=== PATIENT | female | born 1940 | race Caucasian/White ===

== ENCOUNTER 2017-07-28 21:29 | Inpatient (IN) | payer MEDICAID ==
--- NOTE | 2017-07-28 21:57 | ED Physician Chart ---
ED Chief Complaint/HPI - Patient Information Date Seen:: 07/28/17 Time Seen:: 21:45 Chief Complaint:: Abdominal pain for 2 days. History of Present Illness:: Brought in by private auto with her [id number]-nl-wto Evie for the above reason. Pt is [place] speaking. Interpretation is provided by her gndpqove-na-ael Evie per pt's request. Interpretation is also provided by staff member Fabiola to ensure full understanding. Pain is constant, localized at epigastric region, and pressure-like. No known precipitating or relieving factors. Pt had nausea/ vomiting earlier with vomitus consists of gastric content. No hematemesis. Last BM yesterday that was normal in color/consistency. No hematochezia or melena. No fever. Pt had same pain about 6 months ago and was diagnosed to have renal failure. Pt was advised to have hemodialysis but she declined. Allergies:: Allergies Allergy/AdvReac Type Severity Reaction Status Date / Time No Known Allergies Allergy Verified 07/28/17 21:39 Vitals:: see Nurse Note. Historian:: Patient Family MD/PCP:: unknown LMP:: Postmenopausal Review:: Nurse's Note Reviewed ED Review of Systems - Review of Systems General/Constitutional: No fever, No weight loss, Edema (in LE's), Loss of appetite Skin: No rash, No bruising Head: No headache, No light-headedness Eyes: No loss of vision, No pain ENT: No earache, No nasal drainage, No sore throat Neck: No neck pain, No swelling, No thyromegaly, No stiffness, No mass noted Cardio Vascular: No chest pain, No palpitations, edema (mild) Pulmonary: SOB (occasional), No cough, No wheezing GI: Nausea, Vomiting, No diarrhea, Pain, No melena, No hematochezia, No constipation, No hematemesis G/U: No dysuria, No frequency, No hematuria 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: No vaginal discharge, No abnormal vaginal bleed Musculoskeletal: No bone or joint pain Endocrine: No polyuria, No polydipsia Psychiatric: No prior psych history Hematopoietic: No bruising, No lymphadenopathy Allergic/Immuno: No urticaria, No angioedema Neurological: No syncope, No focal symptoms, No weakness, No paresthesia, No headache, No confusion ED Past Medical History - Past Medical History Past Medical History: HTN, DM, Dyslipidemia, ESRD, Other (chronic anemia.) Family History: None Social History: Non Smoker, No Alcohol, No Drug Use, , Other (lives with her son and [id number]-fax) Employment:: Retired Surgical History: Cholecystectomy (laparoscopic cholecystectomy about 6 y/a) Psychiatricy History: None Medication: Reviewed Family Medical History - Family Member Mother History Unknown: Yes ED Physical Exam - Physical Examination General/Constitutional: Awake, Well-developed, well-nourished, Alert, No distress, Non-toxic appearing Other Gen/Cons comments:: Breathes comfortably, speaks clearly, and interacts normally. Head: Atraumatic Eyes: Lids, conjuctiva normal, PERRL, EOMI Skin: Nl inspection, No rash, No ecchymosis, Well hydrated, No lymphadenopathy ENMT: External ears, nose nl, Nasal exam nl, Oropharynx nl Neck: Nontender, Full ROM w/o pain, No JVD, No nuchal rigidity, No mass, No stridor Respiratory: Nl effort/Exclusion, Clear to Auscultation, No Wheeze/Rhonchi/Rales Cardio Vascular: RRR, No murmur, gallop, rubs GI: No organomegaly, Normal BS's, Nondistended, No mass/bruits, No McBurney tenderness Other GI comments:: Tenderness at epigastric region. Negative [place]'s, Shi's, and Robison-Zavala's signs. Obese but soft. : No CVA tenderness Extremities: No tenderness or effusion, Full ROM, No edema Neuro/Psych: Alert/oriented (oriented x 3), Mood normal, No focal deficits ED Labs/Radiology/EKG Results - Lab Results Results: Laboratory Tests 07/28/17 07/28/17 07/28/17 22:29 22:34 22:34 WBC 10.3 RBC 2.95 L Hgb 9.1 L Hct 28.3 L MCV 95.9 MCH 31.0 MCHC Differential 32.3 RDW 15.7 Plt Count 305 MPV 6.7 PT 9.6 INR 0.92 PTT (Actin FS) 25.6 L Sodium Potassium Chloride Carbon Dioxide Anion Gap BUN Creatinine Est GFR ( Amer) Est GFR (Non-Af Amer) BUN/Creatinine Ratio Glucose POC Glucose 134 H Calcium Total Bilirubin AST ALT Alkaline Phosphatase Creatine Kinase Troponin I Total Protein Albumin Globulin Albumin/Globulin Ratio Amylase Lipase 07/28/17 07/28/17 22:34 22:34 WBC RBC Hgb Hct MCV MCH MCHC Differential RDW Plt Count MPV PT INR PTT (Actin FS) Sodium 125 L Potassium 5.6 H Chloride 96 L Carbon Dioxide 20.5 L Anion Gap 14.1 BUN 80 H Creatinine 4.0 H Est GFR ( Amer) TNP Est GFR (Non-Af Amer) TNP BUN/Creatinine Ratio 20.0 Glucose 136 H POC Glucose Calcium 9.3 Total Bilirubin 0.4 AST 17 ALT 11 Alkaline Phosphatase 105 H Creatine Kinase 81 Troponin I 0.26 H* Total Protein 7.5 Albumin 3.6 L Globulin 3.9 Albumin/Globulin Ratio 0.9 L Amylase 108 H Lipase 52 Laboratory Tests 07/28/17 07/28/17 07/28/17 22:29 22:34 22:34 WBC 10.3 RBC 2.95 L Hgb 9.1 L Hct 28.3 L MCV 95.9 MCH 31.0 MCHC Differential 32.3 RDW 15.7 Plt Count 305 MPV 6.7 Band Neutrophils % 1 Neutrophils (Manual) 85 H Lymphocytes 10 L Monocytes 4 Platelet Estimate ADEQUATE PT 9.6 INR 0.92 PTT (Actin FS) 25.6 L Sodium Potassium Chloride Carbon Dioxide Anion Gap BUN Creatinine Est GFR ( Amer) Est GFR (Non-Af Amer) BUN/Creatinine Ratio Glucose POC Glucose 134 H Calcium Total Bilirubin AST ALT Alkaline Phosphatase Creatine Kinase Troponin I B-Natriuretic Peptide Total Protein Albumin Globulin Albumin/Globulin Ratio Amylase Lipase Urine Source Urine Color Urine Clarity Urine pH Ur Specific Sells Urine Protein Urine Glucose (UA) Urine Ketones Urine Blood Urine Nitrate Urine Bilirubin Urine Urobilinogen Ur Leukocyte Esterase Urine RBC Urine WBC Ur Epithelial Cells Urine Bacteria 07/28/17 07/28/17 07/28/17 22:34 22:34 22:34 WBC RBC Hgb Hct MCV MCH MCHC Differential RDW Plt Count MPV Band Neutrophils % Neutrophils (Manual) Lymphocytes Monocytes Platelet Estimate PT INR PTT (Actin FS) Sodium 125 L Potassium 5.6 H Chloride 96 L Carbon Dioxide 20.5 L Anion Gap 14.1 BUN 80 H Creatinine 4.0 H Est GFR ( Amer) TNP Est GFR (Non-Af Amer) TNP BUN/Creatinine Ratio 20.0 Glucose 136 H POC Glucose Calcium 9.3 Total Bilirubin 0.4 AST 17 ALT 11 Alkaline Phosphatase 105 H Creatine Kinase 81 Troponin I 0.26 H* B-Natriuretic Peptide 1860.0 H Total Protein 7.5 Albumin 3.6 L Globulin 3.9 Albumin/Globulin Ratio 0.9 L Amylase 108 H Lipase 52 Urine Source Urine Color Urine Clarity Urine pH Ur Specific Sells Urine Protein Urine Glucose (UA) Urine Ketones Urine Blood Urine Nitrate Urine Bilirubin Urine Urobilinogen Ur Leukocyte Esterase Urine RBC Urine WBC Ur Epithelial Cells Urine Bacteria 07/28/17 23:00 WBC RBC Hgb Hct MCV MCH MCHC Differential RDW Plt Count MPV Band Neutrophils % Neutrophils (Manual) Lymphocytes Monocytes Platelet Estimate PT INR PTT (Actin FS) Sodium Potassium Chloride Carbon Dioxide Anion Gap BUN Creatinine Est GFR ( Amer) Est GFR (Non-Af Amer) BUN/Creatinine Ratio Glucose POC Glucose Calcium Total Bilirubin AST ALT Alkaline Phosphatase Creatine Kinase Troponin I B-Natriuretic Peptide Total Protein Albumin Globulin Albumin/Globulin Ratio Amylase Lipase Urine Source CLEAN C Urine Color YELLOW Urine Clarity CLEAR Urine pH 6.0 Ur Specific Sells 1.015 Urine Protein >=300 Urine Glucose (UA) NEGATIVE Urine Ketones NEGATIVE Urine Blood SMALL H Urine Nitrate NEGATIVE Urine Bilirubin NEGATIVE Urine Urobilinogen 0.2 Ur Leukocyte Esterase NEGATIVE Urine RBC 2-5 Urine WBC 6-10 H Ur Epithelial Cells MODERATE Urine Bacteria FEW - Radiology Results Results: PCXR: Based on my interpretation, Increased markings in lower lung hurt with bilateral pleural effusion and pulmonary vascular congestion/mild cephalization. Cannot r/o bibasilar pneumonia CT abdomen/pelvis without contrast: Large bilateral pleural effusions with bibasilar airspace consolidations in the lungs. Multifocal areas of air trapping also seen in the lungs. Atherosclerosis of the bilateral iliac arteries. Status post cholecystectomy. Herniation of the loops of intestine in left lateral and posterior abdominal wall. No bowel obstruction. 1.5 cm exophytic benign right renal cyst. Degenerative changes in krysta spine. Official report per Dr. Sami Knox, radiologist. - EKG Interpretations EKG Time:: 23:16 Rate & Rhythm: NSR with VR 93 Comments:: Incomplete LBBB, NSSTT changes. monitoring manager: NSR with VR 80. No ectopy. ED Septic Shock - . Is Septic Shock (SBP<90, OR Lactate>4 mmol\L) present?: No ED Reassessment (Disposition) - Reassessment Reassessment:: 1140 Pt remains stable. No new findings. Pain medication was offered earlier but pt declined. She states that her pain is tolerable. 0010 Pt had dyspnea earlier. She was given HHN with DuoNeb. Pt now breathes more comfortably. EKG, CXR, CT and available lab findings have been reviewed with pt. Management plan has been discussed. Interpretation by her daughter-in- law Evie per pt's request. 0045 Case was discussed with Dr. Grant with pertinent H & P, EKG, CXR, CT, and available lab findings reviewed. He concurred with current management. Pt is to be admitted to ICU under his care. Reassessment Condition:: Improved - Diagnosis Diagnosis:: Upper abdominal pain related to acute gastritis vs possible bibasilar pneumonia with bilateral pleural effusion. Stable and improved. End stage renal disease by hx Mild hyperkalemia Chronic anemia Mildly elevated troponin I Diabetes mellitus. - Patient Disposition Admitted to:: ICU Admitting Medical Physician:: Josesito Grant Time:: 00:50 Condition at Disposition:: Stable, Improved ED Discharge Plan - Patient Disposition Admit/Discharge/Transfer: Acute Care w/in this hosp
[2017-07-28 22:47] LABS: HEMATOCRIT 28.3 % (41.0-60); HEMOGLOBIN 9.1 gm/dL (12-16); MEAN CELL VOLUME 95.9 fl (81-100); MEAN CORPUSCULAR HGB CONC 32.3 pg (28.0-36.0); MEAN PLATELET VOLUME 6.7 fl; PLATELET COUNT 305 Th/cmm (150-400); RED BLOOD COUNT 2.95 Mil/cmm (3.80-5.20); RED CELL DISTRIBUTION WIDTH 15.7 % (11.5-20.0); WHITE BLOOD COUNT 10.3 Th/cmm (4.8-10.8)
[2017-07-28 22:51] LABS: MANUAL DIFF REQUIRED? YES
[2017-07-28 23:02] LABS: ALB/GLOB RATIO 0.9 (1.0-1.8); ALBUMIN 3.6 gm/dL (3.7-5.3); ALKALINE PHOSPHATASE 105 U/L (34-104); AMYLASE SERUM 108 U/L (29-103); ANION GAP 14.1 (7.0-16.0); BILIRUBIN,TOTAL 0.4 mg/dL (0.3-1.0); CALCIUM SERUM 9.3 mg/dL (8.6-10.3); CARBON DIOXIDE 20.5 mEq/L (21.0-31.0); CHLORIDE 96 mEq/L (98-107); CREATININE KINASE 81 U/L (30-223); GLUCOSE 136 mg/dL (70-105); LIPASE 52 U/L (11-82); POTASSIUM SERUM 5.6 mEq/L (3.5-5.1); SGOT 17 U/L (13-39); SGPT/ALT 11 U/L (7-52); SODIUM SERUM 125 mEq/L (136-145); TOTAL PROTEIN,SERUM 7.5 gm/dL (6.0-8.3)
[2017-07-28 23:06] LABS: INR 0.92 (0.5-1.4); PROTHROMBIN TIME (TEST) 9.6 SECONDS (9.5-11.5)
[2017-07-28 23:13] LABS: URINE MICROSCOPIC INDICATED? YES; URINE SOURCE CLEAN C
[2017-07-28 23:15] LABS: BUN - UREA NITROGEN 80 mg/dL (7-25)
[2017-07-28 23:22] LABS: URINE BILIRUBIN NEGATIVE (NEGATIVE); URINE BLOOD SMALL (NEGATIVE); URINE GLUCOSE (UA) NEGATIVE (NEGATIVE); URINE KETONE NEGATIVE (NEGATIVE); URINE LEUKOCYTE ESTERASE NEGATIVE (NEGATIVE); URINE NITRATE NEGATIVE (NEGATIVE); URINE PROTEIN >=300 mg/dL (NEGATIVE); URINE UROBILINOGEN 0.2 E.U./dL (0.2 - 1.0)
[2017-07-28 23:27] LABS: URINE CLARITY CLEAR (CLEAR); URINE COLOR YELLOW
[2017-07-28] MEDS ORDERED: Albuterol/Ipratropium Neb 3 ML AERS HHN ONE ×2 (23:27)
[2017-07-28 23:28] LABS: URINE BACTERIA FEW /hpf (NONE SEEN); URINE EPITHELIAL CELLS MODERATE /lpf (FEW)
[2017-07-28 23:31] LABS: BAND NEUTROPHILE 1 % (0-10); LYMPHOCYTE 10 % (20-50); MONOCYTE 4 % (2-10); NEUTROPHILS 85 % (40-80); PLATELET ESTIMATE ADEQUATE (NORMAL); TOTAL CELLS COUNTED 100
[2017-07-29] MEDS ORDERED: cefTRIAXone 1 GM in Sodium Chloride 0.9% 50 ML IV ONE (00:42)
[2017-07-29] MEDS ORDERED: Azithromycin 500 MG in Sodium Chloride 0.9% 250 ML IV ONE (00:43)
[2017-07-29] MEDS ORDERED: Pneumococcal Vaccine 0.5 mL Vial IM ONE (03:36)
[2017-07-29 03:40] VITALS: BP 169/63
--- NOTE | 2017-07-29 07:28 | Diagnostic Imaging Report ---
Exam: Portable chest x-ray. HISTORY: Dyspnea. 5: Portable examination of the chest at 0003 hours reviewed no prior studies available comparison. The study demonstrates extensive bilateral basilar pneumonia with superimposed effusions. Superimposed congestive heart failure changes are noted. Ill-defined the 1 cm nodularity is noted overlying the right upper lung. Clinical correlation and comparison will study is recommended. For studies available for review CT examination chest with helpful Bony thorax intact. IMPRESSION: 1. Congestive heart failure 2. Bilateral interstitial infiltrates with superimposed effusions. 3. 1 cm nodularity right upper lung. CT examination of the helpful.
--- NOTE | 2017-07-29 07:35 | Diagnostic Imaging Report ---
Exam: CT examination abdomen pelvis. HISTORY: Abdominal pain. Total DLP equals 625 CTDI equals 11.7 Findings: Multiple contiguous thin section of the abdomen pelvis obtained from lower thorax to pubic symphysis without the administration of oral or intravenous contrast material. No prior studies available comparison. The study demonstrates congestive heart failure changes bilaterally with bilateral interstitial infiltrates with effusions. Clinical correlation recommended. The study is limited due to patient motion artifacts. The liver and spleen are intact. There is evidence of post cholecystectomy changes. The stomach is distended with fluid content. Abdominal aorta diffusely calcified. Left kidney is visualized. The right kidney demonstrate no evidence of obstructive uropathy or nephrolithiasis. Calcification of the right renal artery appreciated. Degenerative changes of lumbar sacral spine appreciated. The bowel gas sedation nonspecific. There is evidence of for herniation of the bowel in the left lateral posterior abdominal wall. There is no evidence of strangulation obstruction. The urinary bladder is normal. Bony structures demonstrate no evidence for lytic or blastic changes. IMPRESSION: 1. Bilateral interstitial pneumonia superimposed effusions. 2. Congestive heart failure 3. Distention of stomach 4. Status post cholecystectomy 5. Herniation of the small and large bowel loops left lateral posterior abdominal wall without strangulation. 6. Nonvisualization of left kidney
--- NOTE | 2017-07-29 09:03 | History and Physical ---
History of Present Illness - HPI Chief Complaint: Abdominal pain HPI: Patient refer that for few days she has having abdominal pain, and later started with CP. Pain increased and she decided to come to ER. In ER was found that patient is having SOB with low O2 saturation, Labs showed CKD, hyperkalemia , BNP elevated and Bilateral PNA. Vital Signs: Last Vital Signs Temp 97.6 F 07/29/17 03:00 Pulse 70 07/29/17 06:00 Resp 15 07/29/17 06:00 BP 151/53 07/29/17 06:00 Pulse Ox 98 07/29/17 06:00 Past Medical History Cardiovascular: Report: CAD, CHF, HTN Pulmonary: Report: No Pertinent Hx REGULATORY AFFAIRS COORDINATOR: Report: No Pertinent Hx GI: Report: No Pertinent Hx Psych: Report: No Pertinent Hx Musculoskeletal: Report: No Pertinent Hx Infectious Disease: Report: No Pertinent Hx Renal/: Report: Chronic Renal Insuff Endocrine: Report: Diabetes Dermatology: Report: No Pertinent Hx - Past Surgical History Past Surgical History: Other (Cholecystectomy, Surgical removal of Left Kidney.) Family Medical History - Family Member Mother History Unknown: Yes Social History Smoke: No Alcohol: None Drugs: None Lives: With Family Domestic Violence: Negative - Medications Home Medications: Home Medication Medication Instructions Recorded Type Allopurinol [Zyloprim*] 100 mg PO BID 07/28/17 History Losartan/Hydrochlorothiazide 1 tab PO DAILY 07/28/17 History [Losartan-Hctz 50-12.5 mg Tab] NIFEdipine [Procardia] 10 mg PO DAILYRT 07/28/17 History - Allergies Allergies/Adverse Reactions: Allergies Allergy/AdvReac Type Severity Reaction Status Date / Time No Known Allergies Allergy Verified 07/28/17 21:39 Review of Systems - Review of Systems Constitutional: Report: No Significant Eyes: Report: No Significant ENT: Report: No Significant Respiratory: Report: Other (SOB) Cardiovascular: Report: Chest Pain Gastrointestinal: Report: Abdominal Pain Genitourinary: Report: No Significant Musculoskeletal: Report: No Significant Skin: Report: No Significant Neurological: Report: Weakness Physical Exam - Physical Exam HEENT: Report: Ears Nose Throat within normal limits Neck: Report: Within normal limits Cardiovascular Systems: Report: Regular, Rate and Rhythm Respiratory: Report: Other (Rude respiration and SOB) Abdomen: Report: Tender to palpation Back: Report: Inspection of back is within normal limits. Extremities: Report: Non-tender to palpation. Skin: Report: Color of skin is within normal limits Neuro/Psych: Report: Mood affect is within normal limits - Assessment Assessment: Patient is awake alert in some distress secondary to SOB. Dx: Abdominal pain, Atypical Chest Pain, CHF exacerbation, CKD, Bilateral PNA, Elevated troponins, DM, HTN. - Plan Plan: Patient in ICU nasal O2, Continue with home meds, Lassix is added. Consult with Cardio, Nephro and Pulmonology requested.
[2017-07-29 09:58] LABS: EOSINOPHILE ABSOLUTE 0.2 Th/cmm (0.1-0.4); HEMATOCRIT 26.8 % (41.0-60); LYMPHOCYTE ABSOLUTE 0.7 Th/cmm (1.5-3.0); MONOCYTE ABSOLUTE 0.5 Th/cmm (0.3-1.0)
[2017-07-29 10:01] LABS: % BASOPHILS 0.3 % (0.0-2.0); % EOSINOPHILS 1.8 % (0.0-5.0); % LYMPHOCYTES 7.2 % (20.0-50.0); % MONOCYTES 5.7 % (2.0-10.0); HEMOGLOBIN 8.9 gm/dL (12-16); MEAN CELL VOLUME 95.4 fl (81-100); MEAN CORPUSCULAR HEMOGLOBIN 31.6 pg (27.0-31.0); MEAN CORPUSCULAR HGB CONC 33.1 pg (28.0-36.0); NEUTROPHILE ABSOLUTE 7.8 Th/cmm (1.8-8.0); PLATELET COUNT 281 Th/cmm (150-400); RED BLOOD COUNT 2.81 Mil/cmm (3.80-5.20); WHITE BLOOD COUNT 9.2 Th/cmm (4.8-10.8)
[2017-07-29 10:19] LABS: ALB/GLOB RATIO 0.9 (1.0-1.8); ALBUMIN 3.5 gm/dL (3.7-5.3); ALKALINE PHOSPHATASE 106 U/L (34-104); ANION GAP 14.1 (7.0-16.0); BILIRUBIN,TOTAL 0.3 mg/dL (0.3-1.0); CALCIUM SERUM 9.2 mg/dL (8.6-10.3); CARBON DIOXIDE 21.9 mEq/L (21.0-31.0); CHLORIDE 101 mEq/L (98-107); GLUCOSE 100 mg/dL (70-105); SGOT 16 U/L (13-39); SGPT/ALT 12 U/L (7-52); SODIUM SERUM 132 mEq/L (136-145); TOTAL PROTEIN,SERUM 7.3 gm/dL (6.0-8.3)
[2017-07-29 10:22] LABS: BUN - UREA NITROGEN 82 mg/dL (7-25)
[2017-07-29] MEDS ORDERED: Albuterol/Ipratropium Neb 3 ML AERS HHN PRN (11:19)
[2017-07-29] MEDS ORDERED: Albuterol/Ipratropium Neb 3 ML AERS HHN ONE ×2 (11:27→12:04)
[2017-07-29 11:52] LABS: pH 7.24 (7.35-7.45)
[2017-07-29] MEDS ORDERED: Sodium Bicarbonate 8.4% 50mEq PFS IVP ONE ×2 (12:30→12:35)
[2017-07-29 15:02] LABS: pH 7.33 (7.35-7.45)
[2017-07-29] MEDS: Albuterol/Ipratropium Neb 3 ML AERS HHN SCH ×3 (15:39→22:33)
[2017-07-29] MEDS ORDERED: VTE Chemical Prophylaxis Screen/Admission MC PRN ×2 (16:48→16:52)
--- NOTE | 2017-07-29 20:29 | Consultation ---
DATE OF CONSULTATION: 07/29/2017 This is a patient of Dr. Grant. Thank you, Dr. Grant, for this consultation. HISTORY OF PRESENT ILLNESS: This is a 77-year-old female who was admitted with shortness of breath and weakness and was found to have some desaturation and required to be placed on the BiPAP. The patient was admitted with pneumonia, pulmonary edema, received Lasix, and has improved significantly now after being on the BiPAP. Her ABG showed CO2 retention and hypoxemia. The patient apparently has history of hypertension, diabetes for many years and had nephrectomy at one point 20 years ago and also has chronic kidney disease as well. PAST MEDICAL HISTORY: As above. SOCIAL HISTORY: No smoking or drinking. REVIEW OF SYSTEMS: Unable to obtain because of the patient's condition. PHYSICAL EXAMINATION: GENERAL: The patient is awake on the BiPAP, comfortable, no distress. VITAL SIGNS: Temperature 96.8, pulse 93, respirations 22, blood pressure 127/70, and saturation 99%. HEENT: Atraumatic and normocephalic. Pupils are equal to light and accommodation. Ears, nose and throat are normal. NECK: Supple. No JVD. CHEST: There are decreased breath sounds at bases, few rhonchi. HEART: Regular rate and rhythm. ABDOMEN: Soft. EXTREMITIES: No edema. LABORATORY DATA: WBC is 9.2, hemoglobin 8.9 and hematocrit 26.8, and platelets 281. ABGs: PH 7.24, pCO2 of 53, pO2 of 58, bicarbonate 20, saturation is 84%. Sodium is 132, potassium 5.0, BUN is 82, and creatinine 4.0. The chest x-ray showed bilateral infiltrate and pulmonary edema, left-sided effusion. IMPRESSION: This is a 77-year-old female with, 1. Respiratory failure. 2. Pulmonary edema. 3. Possible pneumonia. 4. Acute on chronic kidney disease. PLAN: 1. Continue BiPAP and follow up ABGs. 2. Diuresis. 3. If that is not effective and kidney function continues to deteriorate, might need to be on hemodialysis at one point. Discussed with the daughter ___ at bedside. JOB# [id number]
--- NOTE | 2017-07-29 21:23 | Consultation ---
DATE OF CONSULTATION: 07/29/2017 ATTENDING PHYSICIAN: Josesito Grant MD ANIMAL SCIENTIST: Neftaly Worley MD REASON FOR CONSULTATION: Worsening kidney function, electrolyte imbalance and fluid management. HISTORY OF PRESENT ILLNESS: This is a 77-year-old female with past medical history of chronic kidney disease, who came in because of respiratory distress. Three days prior to admission, the patient was in [facility], vacationing with her family when she developed dyspnea on exertion associated with abdominal breathing. This resulted in diffuse abdominal pain. She could not sleep supine and had to be upright. She noted generalized weakness especially involving her lower extremities associated with pain. Two days prior to admission, she saw a physician in [place], who recommended dialysis. She refused at that time. A few hours prior to admission, she developed retching, but no vomiting. She continued to be weak with respiratory distress and abdominal pain. She then proceeded to the Emergency Room. CT scan of the abdomen/pelvis revealed bilateral interstitial pneumonia with effusions, CHF, distended stomach, herniated small and large bowel loops without strangulation. This was good for by a chest x-ray, which showed CHF, bilateral interstitial infiltrates, right upper lobe nodularity. Her BNP level was 1860 with a troponin of 0.26. Her BUN/creatinine were 80/4 with a sodium of 125 and potassium of 5.6. The patient admitted to having poor appetite for months, bad taste in her mouth as well as cramping. PAST MEDICAL HISTORY: 1. Chronic kidney disease. 2. Type 2 diabetes mellitus. 3. Essential hypertension. 4. Left renal cell CA. 5. Gastritis. 6. Anemia of chronic kidney disease. CURRENT MEDICATIONS: She is currently on; 1. Albuterol with ipratropium. 2. Azithromycin. 3. Ceftriaxone. 4. Furosemide. 5. Losartan. 6. Hydrochlorothiazide. 8. Nifedipine. 9. Sodium bicarbonate. ALLERGIES: No known drug allergies. PAST SURGICAL HISTORY: Left nephrectomy. SOCIAL HISTORY: No history of alcohol or tobacco use. FAMILY HISTORY: This is significant for diabetes among her sisters. REVIEW OF SYSTEMS: GENERAL: She did complain of progressive generalized weakness. As mentioned appetite had also deteriorated due to bad taste in her mouth. No fever, no chills. HEENT: Occasional lightheadedness, vision and hearing acuity has diminished due to age. CARDIORESPIRATORY: She has dyspnea on exertion, occasional cough and some congestion. No chest pain, palpitations, or diaphoresis. GASTROINTESTINAL: She has retching, but no vomitus. No melena, hematochezia, diarrhea, or hematemesis. GENITOURINARY: History of chronic kidney disease. Still urinates. Denied any dysuria, no hematuria. HEMATOLOGIC: She has anemia, more likely of chronic disease. MUSCULOSKELETAL: Multiple joint arthralgias. NEUROPSYCH: No syncopal episode. No seizure activity. She has some form of neuropathy. PHYSICAL EXAMINATION: GENERAL: The patient is awake on BiPAP with [id number] respiratory distress. VITAL SIGNS: Temperature is 156/50, pulse is 85, and temperature 96.8 degrees. SKIN: Poor turgor, warm. No rash, no jaundice appreciated. HEENT: Head normocephalic, atraumatic. Eyes: Extraocular muscles intact. Pupils equal, round, reactive to light and accommodates. Anicteric sclerae, pale conjunctivae. Nose: Midline nasal septum. Mouth: Dry mucosa, adequate dentition. NECK: Supple. No adenopathy, no thyromegaly, no bruits. Trachea palpated in the midline. CHEST AND CARDIOVASCULAR: S1, S2. No rub, murmur and no gallop appreciated. Point of maximal impulse. Fifth intercostal space, left midclavicular line. No abdominal or femoral bruits appreciated. LUNGS: Equal expansion. No use of accessory muscles. No supraclavicular retractions. Scattered coarse rhonchi, no congestion, no rales appreciated. BREASTS: Symmetrical, without any discharge. ABDOMEN: Obese, soft, positive for bowel sounds. No bruits. Diffuse, nonspecific tenderness on palpation. No systolic or diastolic bruits appreciated. EXTREMITIES: No evidence of any edema, cyanosis nor clubbing. GENITOURINARY: Normal appearing female genitalia. RECTAL: Deferred because the patient is being ruled out for [place]. NEUROLOGIC: The patient is awake, responds to enquires. Motor is 5/5. Cranial nerves 2-12 intact. Sensory intact. LABORATORY DATA AND IMAGING: Labs did reveal white count 9.2, hemoglobin 8.9, hematocrit 26.8, platelets 281, and polys 85%. Sodium of 125, potassium 5.6, chloride 96, bicarb 20.5, BUN 80, and creatinine 4, glucose 136, calcium 9.3, and albumin 3.6. IMPRESSION: 1. End-stage renal disease with uremic symptoms, now requiring dialysis. 2. Acute decompensation of congestive heart failure. 3. Hyponatremia likely due to her kidney failure as well as decompensated congestive heart failure. 4. Hyperkalemia secondary again to end-stage renal disease as well as losartan. 5. Right upper lobe nodule with history of renal cell cancer, possible carcinoma. 6. Type 2 diabetes mellitus with chronic kidney disease. 7. Essential hypertension with chronic kidney disease. 8. Left renal cell cancer, status post left nephrectomy. 9. Gastritis. 10. Bilateral pneumonia, possibly community-acquired. PLAN: 1. Schedule for hemodialysis in a.m. 2. Urine sodium, eosinophils and creatinine. 3. Urine microalbumin and creatinine ratio. 4. Electrolytes, TSH and hemoglobin A1c. 5. Start the patient on Epogen. Thank you, Dr. Grant for this consult. I will follow the patient closely with you. [facility]# [id number]
--- NOTE | 2017-07-29 22:07 | Consultation ---
DATE OF CONSULTATION: 07/29/[address] Grant. HISTORY AND PHYSICAL: This is a 77-year-old female patient who was brought to the Emergency Room complaining of shortness of breath. According to the patient, she has renal failure. The patient was in [place]. The patient was advised to have dialysis, which patient refused. The patient has also nausea and vomiting. The patient is admitted to ICU, on BiPAP. Cardiac consult requested for congestive heart failure. PAST MEDICAL HISTORY: Renal failure, hyperkalemia, iron deficiency anemia, diabetes mellitus type 2, diabetic CKD stage IV, hypertension, bilateral pneumonia, pleural effusion, left renal cell carcinoma with nephrectomy. FAMILY HISTORY: Unremarkable. SOCIAL HISTORY: No history of smoking or alcohol abuse. ALLERGIES: No known allergies. PHYSICAL EXAMINATION: VITAL SIGNS: Blood pressure 150/90, pulse 100 and respirations, on BiPAP. HEAD: Normocephalic. No lumps or bumps. EYES: Pupils equal, reactive to light. Fundi show AV nicking, sclerae white, conjunctivae pink. NECK: Carotid 2+. Normal upstroke. JVD flat. Thyroid not palpable. Lymph nodes not palpable. CHEST: Shows increased AP diameter. No kyphosis or scoliosis. LUNGS: Bilateral bronchovesicular breath sounds. Occasional wheeze. No rales. HEART: PMI, fifth intercostal space with lateral to midclavicular line. S1, S2, S3, S4, soft systolic murmur. ABDOMEN: Soft. Liver and spleen not palpable. No organomegaly. Bowel sounds active. NEUROLOGIC: Unremarkable. EXTREMITIES: Peripheral pulses 2+. No pedal edema. CLINICAL IMPRESSION: Congestive heart failure; diastolic dysfunction; acute respiratory failure, on BiPAP; acute renal failure secondary to diabetes; hyponatremia; hypokalemia; iron deficiency anemia; diabetes mellitus type 2; hypertension; bilateral pneumonia; pleural effusion; left renal cell carcinoma with nephrectomy. The patient has a nodule in the lung, most likely secondary from the cancer. PLAN: The patient to control the heart rate with Cardizem. Continue anticoagulation, IV antibiotics and monitor the patient on telemetry bed. Also, get an echocardiogram. JOB# [id number]
[2017-07-30] MEDS ORDERED: Heparin Sod 1,000 Units/mL 10ml HD SCH
[2017-07-30] MEDS ORDERED: Albumin 25% 25gm/100mL 25 GM/100 ML BTL IV PRN
[2017-07-30] MEDS: Albuterol/Ipratropium Neb 3 ML AERS HHN SCH ×5 (02:59→23:14)
[2017-07-30 04:49] LABS: MEAN CELL VOLUME 96.7 fl (81-100); MEAN CORPUSCULAR HEMOGLOBIN 30.7 pg (27.0-31.0); MEAN CORPUSCULAR HGB CONC 31.7 pg (28.0-36.0); MEAN PLATELET VOLUME 6.9 fl; PLATELET COUNT 257 Th/cmm (150-400); RED BLOOD COUNT 2.47 Mil/cmm (3.80-5.20); RED CELL DISTRIBUTION WIDTH 15.8 % (11.5-20.0)
[2017-07-30 05:00] LABS: HEMATOCRIT 23.9 % (41.0-60); HEMOGLOBIN 7.6 gm/dL (12-16); MANUAL DIFF REQUIRED? YES
[2017-07-30 05:20] LABS: PHOSPHOROUS 7.6 mg/dL (2.5-5.0); URIC ACID 3.5 mg/dL (2.3-6.6)
[2017-07-30 05:23] LABS: ALB/GLOB RATIO 0.9 (1.0-1.8); ALBUMIN 2.8 gm/dL (3.7-5.3); ALKALINE PHOSPHATASE 80 U/L (34-104); ANION GAP 13.4 (7.0-16.0); BILIRUBIN,TOTAL 0.3 mg/dL (0.3-1.0); CALCIUM SERUM 8.2 mg/dL (8.6-10.3); CARBON DIOXIDE 23.4 mEq/L (21.0-31.0); CHLORIDE 100 mEq/L (98-107); GLUCOSE 93 mg/dL (70-105); POTASSIUM SERUM 3.8 mEq/L (3.5-5.1); SGOT 11 U/L (13-39); SGPT/ALT 9 U/L (7-52); SODIUM SERUM 133 mEq/L (136-145); TOTAL PROTEIN,SERUM 6.1 gm/dL (6.0-8.3)
[2017-07-30 05:29] LABS: BUN - UREA NITROGEN 80 mg/dL (7-25); CREATININE - SERUM 4.1 mg/dL (0.6-1.2)
[2017-07-30 05:41] LABS: BASOPHIL 1 % (0-3); EOSINOPHIL 3 % (0-5); LYMPHOCYTE 15 % (20-50); MONOCYTE 3 % (2-10); NEUTROPHILS 78 % (40-80); TOTAL CELLS COUNTED 100; WHITE BLOOD COUNT 4.7 Th/cmm (4.8-10.8)
[2017-07-30 07:58] LABS: EOSINOPHIL SMEAR SOURCE URINE; EOSINOPHILS SMEAR COUNT NONE SEEN (NONE SEEN)
--- NOTE | 2017-07-30 08:18 | Diagnostic Imaging Report ---
CHEST X-RAY: AP view INDICATION: Shortness of breath COMPARISON: 07/28/2017 FINDINGS: Diffuse CHF is seen with bilateral effusions and infiltrates. Cardiomegaly is noted. IMPRESSION: Diffuse CHF with bilateral effusions and infiltrates and probable superimposed pneumonia. Cardiomegaly and atherosclerotic vascular disease.
--- NOTE | 2017-07-30 09:03 | General Progress Note ---
Subjective - Review of Systems Service Date: 07/30/17 Subjective: I am breathing better Objective - Results Result Diagrams: 07/30/17 04:10 07/30/17 04:10 Recent Labs: Laboratory Last Values WBC 4.7 Th/cmm (4.8-10.8) L D 07/30/17 04:10 RBC 2.47 Mil/cmm (3.80-5.20) L 07/30/17 04:10 Hgb 7.6 gm/dL (12-16) L* 07/30/17 04:10 Hct 23.9 % (41.0-60) L D 07/30/17 04:10 MCV 96.7 fl (81-100) 07/30/17 04:10 MCH 30.7 pg (27.0-31.0) 07/30/17 04:10 MCHC Differential 31.7 pg (28.0-36.0) 07/30/17 04:10 RDW 15.8 % (11.5-20.0) 07/30/17 04:10 Plt Count 257 Th/cmm (150-400) 07/30/17 04:10 MPV 6.9 fl 07/30/17 04:10 Neutrophils % 85.0 % (40.0-80.0) H 07/29/17 09:40 Band Neutrophils % 1 % (0-10) 07/28/17 22:34 Lymphocytes % 7.2 % (20.0-50.0) L 07/29/17 09:40 Monocytes % 5.7 % (2.0-10.0) 07/29/17 09:40 Eosinophils % 1.8 % (0.0-5.0) 07/29/17 09:40 Basophils % 0.3 % (0.0-2.0) 07/29/17 09:40 Neutrophils (Manual) 78 % (40-80) 07/30/17 04:10 Lymphocytes 15 % (20-50) L 07/30/17 04:10 Monocytes 3 % (2-10) 07/30/17 04:10 Eosinophils 3 % (0-5) 07/30/17 04:10 Basophils 1 % (0-3) 07/30/17 04:10 Platelet Estimate ADEQUATE (NORMAL) 07/28/17 22:34 Eos Smear Source URINE 07/30/17 06:50 Eos Smear Total Cells NONE SEEN (NONE SEEN) 07/30/17 06:50 PT 9.6 SECONDS (9.5-11.5) 07/28/17 22:34 INR 0.92 (0.5-1.4) 07/28/17 22:34 PTT (Actin FS) 25.6 SECONDS (26.0-38.0) L 07/28/17 22:34 Specimen Source Arterial 07/29/17 14:45 Sample Site RB 07/29/17 14:45 pH 7.33 (7.35-7.45) L 07/29/17 14:45 pCO2 47.0 mmHg (35.0-45.0) H 07/29/17 14:45 pO2 84.0 mmHg (80.0-100.0) 07/29/17 14:45 HCO3 23.7 mEq/L (20.0-26.0) 07/29/17 14:45 Base Excess -1.5 mEq/L (-3.0-3.0) 07/29/17 14:45 O2 Saturation 95.0 % (92.0-100.0) 07/29/17 14:45 Trace Test NA 07/29/17 14:45 Vent Rate 12 07/29/17 14:45 Inspired O2 35 07/29/17 14:45 Tidal Volume 350 07/29/17 14:45 PEEP NA 07/29/17 14:45 Pressure (ins/psv/peep) 6 07/29/17 14:45 Critical Value SH 07/29/17 14:45 Sodium 133 mEq/L (136-145) L 07/30/17 04:10 Potassium 3.8 mEq/L (3.5-5.1) 07/30/17 04:10 Chloride 100 mEq/L (98-107) 07/30/17 04:10 Carbon Dioxide 23.4 mEq/L (21.0-31.0) 07/30/17 04:10 Anion Gap 13.4 (7.0-16.0) 07/30/17 04:10 BUN 80 mg/dL (7-25) H 07/30/17 04:10 Creatinine 4.1 mg/dL (0.6-1.2) H* 07/30/17 04:10 Est GFR ( Amer) TNP 07/30/17 04:10 Est GFR (Non-Af Amer) TNP 07/30/17 04:10 BUN/Creatinine Ratio 19.5 07/30/17 04:10 Glucose 93 mg/dL (70-105) 07/30/17 04:10 POC Glucose 134 MG/DL (70 - 105) H 07/28/17 22:29 Uric Acid 3.5 mg/dL (2.3-6.6) 07/30/17 04:10 Calcium 8.2 mg/dL (8.6-10.3) L 07/30/17 04:10 Phosphorus 7.6 mg/dL (2.5-5.0) H 07/30/17 04:10 Magnesium 2.0 mg/dL (1.9-2.7) 07/30/17 04:10 Total Bilirubin 0.3 mg/dL (0.3-1.0) 07/30/17 04:10 AST 11 U/L (13-39) L 07/30/17 04:10 ALT 9 U/L (7-52) 07/30/17 04:10 Alkaline Phosphatase 80 U/L (34-104) 07/30/17 04:10 Creatine Kinase 81 U/L (30-223) 07/28/17 22:34 Troponin I 0.26 ng/mL (0.01-0.05) H* 07/28/17 22:34 B-Natriuretic Peptide 1860.0 pg/mL (5.0-100.0) H 07/28/17 22:34 Total Protein 6.1 gm/dL (6.0-8.3) 07/30/17 04:10 Albumin 2.8 gm/dL (3.7-5.3) L 07/30/17 04:10 Globulin 3.3 gm/dL 07/30/17 04:10 Albumin/Globulin Ratio 0.9 (1.0-1.8) L 07/30/17 04:10 Amylase 108 U/L (29-103) H 07/28/17 22:34 Lipase 52 U/L (11-82) 07/28/17 22:34 TSH 2.62 uIU/ml (0.34-5.60) 07/30/17 04:10 Urine Source CLEAN C 07/28/17 23:00 Urine Color YELLOW 12/17/17 23:00 Urine Clarity CLEAR (CLEAR) 07/28/17 23:00 Urine pH 6.0 (4.6 - 8.0) 07/28/17 23:00 Ur Specific [place] 1.015 (1.005-1.030) 07/28/17 23:00 Urine Protein >=300 mg/dL (NEGATIVE) 07/28/17 23:00 Urine Glucose (UA) NEGATIVE mg/dL (NEGATIVE) 07/28/17 23:00 Urine Ketones NEGATIVE mg/dL (NEGATIVE) 07/28/17 23:00 Urine Blood SMALL (NEGATIVE) H 07/28/17 23:00 Urine Nitrate NEGATIVE (NEGATIVE) 07/28/17 23:00 Urine Bilirubin NEGATIVE (NEGATIVE) 07/28/17 23:00 Urine Urobilinogen 0.2 E.U./dL (0.2 - 1.0) 07/28/17 23:00 Ur Leukocyte Esterase NEGATIVE (NEGATIVE) 07/28/17 23:00 Urine RBC 2-5 /hpf (0-5) 07/28/17 23:00 Urine WBC 6-10 /hpf (0-5) H 07/28/17 23:00 Ur Epithelial Cells MODERATE /lpf (FEW) 07/28/17 23:00 Urine Bacteria FEW /hpf (NONE SEEN) 07/28/17 23:00 Urine Creatinine 44.0 mg/dl (28.0-217.0) 07/30/17 06:50 - Physical Exam Vitals and I&O: Vital Signs Temp 96.8 F 07/30/17 08:00 Pulse 91 07/30/17 08:34 Resp 21 07/30/17 08:00 BP 156/51 07/30/17 08:35 Pulse Ox 96 07/30/17 08:00 Intake & Output 07/29/17 07/30/17 07/30/17 18:59 06:59 18:59 Intake Total 370 50 Output Total 650 500 Balance -280 -450 Weight (lbs) 72.575 kg 72.575 kg Intake: Intake, IV Amount 50 cefTRIAXone 1 gm In 50 Dextrose 5% 50 ml @ 100 mls/hr IV Q24HR [facility] Rx#: [id number] Oral 370 Output: Urine 650 500 Other: # Voids 2 # Bowel Movements 2 0 Stool Characteristics Liquid Brown Active Medications: Current Medications Albuterol/Ipratropium (Duoneb Neb) 3 ml HHN Q4HRT [facility] Stop: 09/27/17 14:59 Last Admin: 07/30/17 07:30 Dose: 3 ml Allopurinol (Zyloprim) 100 mg PO BID [facility] Stop: 09/27/17 08:59 Last Admin: 07/30/17 08:34 Dose: 100 mg Epoetin Dustin (Epogen) 10,000 units SUBQ TuThSa [facility] Stop: 09/28/17 17:56 Famotidine (Pepcid) 20 mg IVP DAILY [facility] Stop: 09/28/17 08:59 Last Admin: 07/30/17 08:35 Dose: 20 mg Furosemide (Lasix) 40 mg IVP BID [facility] Stop: 09/27/17 16:59 Last Admin: 07/30/17 08:35 Dose: 40 mg Heparin Sodium (Porcine) (Heparin Sodium) 0 units HD UD [facility] Stop: 07/31/17 00:00 Heparin Sodium (Porcine) (Heparin) 5,000 units HD UD [facility] Stop: 07/31/17 00:00 Ceftriaxone Sodium 1 gm/ (Dextrose) 50 mls @ 100 mls/hr IV Q24HR [facility] Stop: 09/28/17 04:59 Last Infusion: 07/30/17 06:10 Dose: Infused Albumin Human (Albuminar 25%) 25 gm in 100 mls @ 50 mls/hr IV PRN PRN PRN Reason: BP Support During HD Stop: 09/28/17 00:00 Insulin Aspart (Novolog Insulin Sliding Scale) 0 units SUBQ Q6HR [facility] PRN Reason: Protocol Stop: 09/28/17 11:59 Miscellaneous (Clinical Monitoring) 1 ea DAILY PRN PRN Reason: RENAL Stop: 09/27/17 07:45 Miscellaneous (Vte Chemical Prophylaxis Screen/ Admission) 1 ea PRN PRN PRN Reason: PROTOCOL Stop: 09/27/17 16:47 Miscellaneous (Vte Chemical Prophylaxis Screen/ Admission) 1 ea PRN PRN PRN Reason: PROTOCOL Stop: 09/27/17 16:51 Nifedipine (Procardia) 10 mg PO DAILY [facility] Stop: 09/27/17 08:59 Last Admin: 07/30/17 08:34 Dose: 10 mg General: Alert, Oriented x3, No acute distress HEENT: Atraumatic Neck: Supple Cardiovascular: Regular rate Lungs: Other (Rude respiration) Abdomen: Bowel sounds, Soft Extremities: Other (No edema) Neurological: Normal gait Skin: Other (Warm and dry) Psych/Mental Status: Mental status NL - Procedures Procedures: Procedures Procedure Code Date TETANUS TOXOID ADMINIST 99.38 05/28/13 Assessment/Plan - Problem List Patient Problems: All Active Problems Laceration of finger (Active) S61.219A - Assessment Assessment: Patient is awake alert in no distress. Hgb is 7.6 will repeat exam due to the sudden drop. Dx: Abdominal pain, Atypical Chest Pain, CHF exacerbation, CKD, Bilateral PNA, Elevated troponins, DM, HTN. - Plan Plan: Patient in ICU nasal O2, Continue with home meds, Lassix is added. Already seen by Cardio, Nephro and Pulmonology. Nutritional Asmnt/Malnutr-PDOC - Dietary Evaluation Malnutrition Findings (Please click <Entered> for more info): Nutritional Asmnt/Malnutrition Start: 07/29/17 17: 08 Text: Status: Complete Freq: Document 07/29/17 17:08 LCHENG (Rec: 07/29/17 17:35 [email or web address] [id number]) Nutritional Asmnt/Malnutrition Patient General Information Nutritional Screening High Risk Diagnosis abdominal pain, atypical chest pain, CHF exacerbation, CKD, bilateral PNA Pertinent Medical Hx/Surgical Hx CAD, CHF, HTN, DM, chronic renal insuff, cholecystectomy, left kidney removal Subjective Information Pt was busy with medical staff during time of visit, attempted x 2. Spoke with RN, per family pt has decreased appetite and PO intake before admitted. Pt did not eat breakfast d/t SOB this morning . Appetite was poor. Per nurse note, pt back on bipap this afternoon. Current Diet Order/ Nutrition Support Renal Pertinent Medications lasix, hctz, procardia Pertinent Labs 07/29 Na 132, K 5.0, Cl 101, BUN 82H, Cr 4.0, Glucose 100, Ca 9.2, Alb 3.5 Nutritional Hx/Data Height 1.55 m Height (Calculated Centimeters) 154.9 Current Weight (lbs) 72.575 kg Weight (Calculated Kilograms) 72.6 Weight (Calculated Grams) 56710.8 [place] Body Weight 105 % [place] Body Weight 152 Body Mass Index (BMI) 30.2 Weight Status Obese GI Symptoms GI Symptoms None Last BM none Difficult in: None Skin Integrity/Comment: intact Estimated Nutritional Goals BEE in Kcals: Adj wt of IBW Calories/Kcals/Kg 30-35 Kcals Calculated [id number] Protein: Adj wt of IBW Protein g/k Protein Calculated 54g monitor renal labs Fluid: ml [id number] or Per MD d/t acute renal failure Nutritional Problem 1. Problem Problem altered nutrition related lab values Etiology hx of chronic renal insuff Signs/Symptoms: BUN 82H, Cr 4.0 Malnutrition Alert Protein-Calorie Malnutrition N/A Is there a minimum of two criteria No selected? Query Text:Check all the applicable criteria. A minimum of two criteria are recommended for diagnosis of either severe or non-severe malnutrition. Intervention/Recommendation Comments 1. Continue with renal diet as ordered. 2. Monitor PO intake, wt daily , labs and skin integrity 3. F/U as high risk in 2-3 days, 07/31-08/01 Expected Outcomes/Goals Expected Outcomes/Goals 1. PO intake to meet at least 75% of nutritional needs. 2. Wt stability, skin to remain intact, labs to improve .
[2017-07-30 10:27] LABS: pH 7.32 (7.35-7.45)
[2017-07-30 10:28] LABS: HEMATOCRIT 24.6 % (41.0-60)
[2017-07-30] MEDS ORDERED: Probiotic Screen MC PRN (10:28)
[2017-07-30 11:35] LABS: A1C % 6.1 % (4.0-6.0)
[2017-07-30] MEDS: INSULIN ASPART SLIDING SCALE 100 UNITS/ML UNIT SUBQ SCH ×2 (11:50→18:37)
--- NOTE | 2017-07-30 14:04 | Diagnostic Imaging Report ---
CHEST X-RAY: AP view INDICATION: Left subclavian central line placement COMPARISON: Chest x-ray earlier the same day FINDINGS: Left subclavian central line has been place with tip in SVC. Findings of CHF are noted with bilateral effusions and infiltrates. Cardiomegaly is noted noted with atherosclerosis. No evidence of a pneumothorax. IMPRESSION: Interval left subclavian central line placement with tip in the SVC. No evidence of pneumothorax. No significant change in pulmonary status.
--- NOTE | 2017-07-30 14:18 | Cardiology ---
07/30/2017 PATIENT OF: Dr. Josesito Grant. M-MODE ECHOCARDIOGRAM: Mitral valve, anterior leaflet of mitral valve shows normal excursion, EF velocity. Posterior leaflet of mitral valve shows normal excursion. Left ventricular posterior wall shows increased thickness, normal excursion. Interventricular septum shows increased thickness, normal excursion, hypertrophy of the left ventricle, ejection fraction 50%. Left atrium normal. Aortic root shows normal dimension, normal excursion of aortic leaflets. CONCLUSION: Hypertrophy of the left ventricle, ejection fraction 50%. 2D ECHO: Long axis view showed normal sized left ventricle with hypertrophy of the left ventricle. Left atrium normal. Aortic root shows normal dimension. Normal excursion of aortic leaflets. Short axis view of mitral valve normal. Short axis view of aortic valve normal. Apical 4-chamber view shows normal sized left ventricle with hypertrophy of the left ventricle. Left atrium, normal. Right ventricular cavity, right atrium normal. No pericardial effusion. CONCLUSION: Hypertrophy of the left ventricle, ejection fraction 50%. Doppler study shows moderate tricuspid regurgitation, right ventricular systolic pressure 50 mmHg with mild pulmonary hypertension. JOB# [id number]
--- NOTE | 2017-07-30 14:21 | Consultation ---
DATE OF CONSULTATION: 07/30/2017 VASCULAR CONSULT REFERRING PHYSICIAN: Dr. Worley. REASON FOR CONSULTATION: Dialysis access. Thank you for referring this patient to me. HISTORY OF PRESENT ILLNESS: This is a 77-year-old female with chronic kidney disease, came in because of shortness of breath. The patient had refused initially to have dialysis. Other comorbidities include diabetes mellitus, hypertension, and anemia. LABORATORY STUDIES: From this admission, the WBC is normal, hemoglobin 7.6, platelet count is normal. The BUN is 80 with creatinine of 4.1. Liver function tests are normal. Troponin is 0.26. PHYSICAL EXAMINATION: The patient is alert and awake, daughters are at bedside. ASSESSMENT AND PLAN: Informed consent discussed with the patient regarding sites of placement of the catheter and risks and complications. They have elected to go in the subclavian location. JOB# [id number]
--- NOTE | 2017-07-30 14:48 | Operative Report ---
DATE OF SURGERY: 07/30/2017 PREOPERATIVE DIAGNOSES: 1. Chronic kidney disease. 2. Congestive heart failure. 3. Diabetes mellitus. POSTOPERATIVE DIAGNOSES: 1. Chronic kidney disease. 2. Congestive heart failure. 3. Diabetes mellitus. OPERATION DONE: Insertion of Juan catheter, left subclavian vein under ultrasound guidance. PROCEDURE: The left chest was prepped with ChloraPrep and draped in appropriate manner. 1% lidocaine was used to infiltrate the infraclavicular portion of the chest wall. An incision was made and size 18 needle was used for the vein. The guide was inserted, the dilator, and then the triple lumen catheter. This anchored to chest wall with 3-0 silk. Portable chest x-ray will be ordered. JOB# [id number]
[2017-07-30] MEDS ORDERED: Epoetin Alfa 20000 Units/mL Vial SUBQ SCH (17:57)
--- NOTE | 2017-07-30 18:15 | General Progress Note ---
Subjective - Review of Systems Service Date: 07/30/17 Subjective: still w/ sob Objective - Results Result Diagrams: 07/30/17 10:00 07/30/17 04:10 Recent Labs: Laboratory Last Values WBC 4.7 Th/cmm (4.8-10.8) L D 07/30/17 04:10 RBC 2.47 Mil/cmm (3.80-5.20) L 07/30/17 04:10 Hgb 8.0 gm/dL (12-16) L 07/30/17 10:00 Hct 24.6 % (41.0-60) L 07/30/17 10:00 MCV 96.7 fl (81-100) 07/30/17 04:10 MCH 30.7 pg (27.0-31.0) 07/30/17 04:10 MCHC Differential 31.7 pg (28.0-36.0) 07/30/17 04:10 RDW 15.8 % (11.5-20.0) 07/30/17 04:10 Plt Count 257 Th/cmm (150-400) 07/30/17 04:10 MPV 6.9 fl 07/30/17 04:10 Neutrophils % 85.0 % (40.0-80.0) H 07/29/17 09:40 Band Neutrophils % 1 % (0-10) 07/28/17 22:34 Lymphocytes % 7.2 % (20.0-50.0) L 07/29/17 09:40 Monocytes % 5.7 % (2.0-10.0) 07/29/17 09:40 Eosinophils % 1.8 % (0.0-5.0) 07/29/17 09:40 Basophils % 0.3 % (0.0-2.0) 07/29/17 09:40 Neutrophils (Manual) 78 % (40-80) 07/30/17 04:10 Lymphocytes 15 % (20-50) L 07/30/17 04:10 Monocytes 3 % (2-10) 07/30/17 04:10 Eosinophils 3 % (0-5) 07/30/17 04:10 Basophils 1 % (0-3) 07/30/17 04:10 Platelet Estimate ADEQUATE (NORMAL) 07/28/17 22:34 Eos Smear Source URINE 07/30/17 06:50 Eos Smear Total Cells NONE SEEN (NONE SEEN) 07/30/17 06:50 PT 9.6 SECONDS (9.5-11.5) 07/28/17 22:34 INR 0.92 (0.5-1.4) 07/28/17 22:34 PTT (Actin FS) 25.6 SECONDS (26.0-38.0) L 07/28/17 22:34 Specimen Source Arterial 07/30/17 09:55 Sample Site RB 07/30/17 09:55 pH 7.32 (7.35-7.45) L 07/30/17 09:55 pCO2 49.0 mmHg (35.0-45.0) H 07/30/17 09:55 pO2 45.0 mmHg (80.0-100.0) L* 07/30/17 09:55 HCO3 23.3 mEq/L (20.0-26.0) 07/30/17 09:55 Base Excess -1.4 mEq/L (-3.0-3.0) 07/30/17 09:55 O2 Saturation 76.0 % (92.0-100.0) L 07/30/17 09:55 Trace Test NA 07/29/17 14:45 Vent Rate 12 07/29/17 14:45 Inspired O2 32 07/30/17 09:55 Tidal Volume 350 07/29/17 14:45 PEEP NA 07/29/17 14:45 Pressure (ins/psv/peep) 6 07/29/17 14:45 Critical Value PW 07/30/17 09:55 Sodium 133 mEq/L (136-145) L 07/30/17 04:10 Potassium 3.8 mEq/L (3.5-5.1) 07/30/17 04:10 Chloride 100 mEq/L (98-107) 07/30/17 04:10 Carbon Dioxide 23.4 mEq/L (21.0-31.0) 07/30/17 04:10 Anion Gap 13.4 (7.0-16.0) 07/30/17 04:10 BUN 80 mg/dL (7-25) H 07/30/17 04:10 Creatinine 4.1 mg/dL (0.6-1.2) H* 07/30/17 04:10 Est GFR ( Amer) TNP 07/30/17 04:10 Est GFR (Non-Af Amer) TNP 07/30/17 04:10 BUN/Creatinine Ratio 19.5 07/30/17 04:10 Glucose 93 mg/dL (70-105) 07/30/17 04:10 POC Glucose 245 MG/DL (70 - 105) H 07/30/17 11:39 Hemoglobin A1c % 6.1 % (4.0-6.0) H 07/30/17 04:10 Uric Acid 3.5 mg/dL (2.3-6.6) 07/30/17 04:10 Calcium 8.2 mg/dL (8.6-10.3) L 07/30/17 04:10 Phosphorus 7.6 mg/dL (2.5-5.0) H 07/30/17 04:10 Magnesium 2.0 mg/dL (1.9-2.7) 07/30/17 04:10 Total Bilirubin 0.3 mg/dL (0.3-1.0) 07/30/17 04:10 AST 11 U/L (13-39) L 07/30/17 04:10 ALT 9 U/L (7-52) 07/30/17 04:10 Alkaline Phosphatase 80 U/L (34-104) 07/30/17 04:10 Creatine Kinase 81 U/L (30-223) 07/28/17 22:34 Troponin I 0.26 ng/mL (0.01-0.05) H* 07/28/17 22:34 B-Natriuretic Peptide 1860.0 pg/mL (5.0-100.0) H 07/28/17 22:34 Total Protein 6.1 gm/dL (6.0-8.3) 07/30/17 04:10 Albumin 2.8 gm/dL (3.7-5.3) L 07/30/17 04:10 Globulin 3.3 gm/dL 07/30/17 04:10 Albumin/Globulin Ratio 0.9 (1.0-1.8) L 07/30/17 04:10 Amylase 108 U/L (29-103) H 07/28/17 22:34 Lipase 52 U/L (11-82) 07/28/17 22:34 TSH 2.62 uIU/ml (0.34-5.60) 07/30/17 04:10 Urine Source CLEAN C 07/28/17 23:00 Urine Color YELLOW 07/28/17 23:00 Urine Clarity CLEAR (CLEAR) 07/28/17 23:00 Urine pH 6.0 (4.6 - 8.0) 07/28/17 23:00 Ur Specific [place] 1.015 (1.005-1.030) 07/28/17 23:00 Urine Protein >=300 mg/dL (NEGATIVE) 07/28/17 23:00 Urine Glucose (UA) NEGATIVE mg/dL (NEGATIVE) 07/28/17 23:00 Urine Ketones NEGATIVE mg/dL (NEGATIVE) 07/28/17 23:00 Urine Blood SMALL (NEGATIVE) H 07/28/17 23:00 Urine Nitrate NEGATIVE (NEGATIVE) 07/28/17 23:00 Urine Bilirubin NEGATIVE (NEGATIVE) 07/28/17 23:00 Urine Urobilinogen 0.2 E.U./dL (0.2 - 1.0) 07/28/17 23:00 Ur Leukocyte Esterase NEGATIVE (NEGATIVE) 07/28/17 23:00 Urine RBC 2-5 /hpf (0-5) 07/28/17 23:00 Urine WBC 6-10 /hpf (0-5) H 07/28/17 23:00 Ur Epithelial Cells MODERATE /lpf (FEW) 07/28/17 23:00 Urine Bacteria FEW /hpf (NONE SEEN) 07/28/17 23:00 Urine Creatinine 44.0 mg/dl (28.0-217.0) 07/30/17 06:50 - Physical Exam Vitals and I&O: Vital Signs Temp 97.2 F 07/30/17 16:00 Pulse 77 07/30/17 18:00 Resp 18 07/30/17 18:00 BP 97/46 07/30/17 18:00 Pulse Ox 100 07/30/17 18:00 Intake & Output 07/29/17 07/30/17 07/30/17 18:59 06:59 18:59 Intake Total 370 50 Output Total 650 500 0 Balance -280 -450 0 Weight (lbs) 72.575 kg 72.575 kg 72.575 kg Intake: Intake, IV Amount 50 cefTRIAXone 1 gm In 50 Dextrose 5% 50 ml @ 100 mls/hr IV Q24HR [facility] Rx#: [id number] Oral 370 Output: Urine 650 500 Stool 0 Other: # Voids 2 # Bowel Movements 2 0 0 Stool Characteristics Liquid Brown Active Medications: Current Medications Acetaminophen (Tylenol) 650 mg PO Q4H PRN PRN Reason: Pain (Mild) Stop: 09/28/17 15:37 Last Admin: 07/30/17 15:47 Dose: 650 mg Albuterol/Ipratropium (Duoneb Neb) 3 ml HHN Q4HRT [facility] Stop: 09/27/17 14:59 Last Admin: 07/30/17 15:10 Dose: 3 ml Allopurinol (Zyloprim) 100 mg PO BID [facility] Stop: 09/27/17 08:59 Last Admin: 07/30/17 08:34 Dose: 100 mg Epoetin Dustin (Epogen) 10,000 units SUBQ TuThSa [facility] Stop: 09/28/17 17:56 Famotidine (Pepcid) 20 mg IVP DAILY [facility] Stop: 09/28/17 08:59 Last Admin: 07/30/17 08:35 Dose: 20 mg Furosemide (Lasix) 40 mg IVP BID [facility] Stop: 09/27/17 16:59 Last Admin: 07/30/17 08:35 Dose: 40 mg Heparin Sodium (Porcine) (Heparin Sodium) 0 units HD UD [facility] Stop: 07/31/17 00:00 Heparin Sodium (Porcine) (Heparin) 5,000 units HD UD [facility] Stop: 07/31/17 00:00 Ceftriaxone Sodium 1 gm/ (Dextrose) 50 mls @ 100 mls/hr IV Q24HR [facility] Stop: 09/28/17 04:59 Last Infusion: 07/30/17 06:10 Dose: Infused Albumin Human (Albuminar 25%) 25 gm in 100 mls @ 50 mls/hr IV PRN PRN PRN Reason: BP Support During HD Stop: 09/28/17 00:00 Insulin Aspart (Novolog Insulin Sliding Scale) 0 units SUBQ Q6HR [facility] PRN Reason: Protocol Stop: 09/28/17 11:59 Last Admin: 07/30/17 11:50 Dose: 4 units Lactobacillus Rhamnosus (Culturelle) 1 each PO DAILY [facility] Stop: 09/29/17 08:59 Miscellaneous (Clinical Monitoring) 1 ea [facility] DAILY PRN PRN Reason: RENAL Stop: 09/27/17 07:45 Miscellaneous (Vte Chemical Prophylaxis Screen/ Admission) 1 ea PRN PRN PRN Reason: PROTOCOL Stop: 09/27/17 16:47 Miscellaneous (Vte Chemical Prophylaxis Screen/ Admission) 1 ea PRN PRN PRN Reason: PROTOCOL Stop: 09/27/17 16:51 Miscellaneous (Probiotic Screen) 1 ea PRN PRN PRN Reason: PROTOCOL Stop: 09/28/17 10:27 Nifedipine (Procardia) 10 mg PO DAILY [facility] Stop: 09/27/17 08:59 Last Admin: 07/30/17 08:34 Dose: 10 mg General: Alert, Oriented x3, No acute distress HEENT: Atraumatic Neck: Supple Cardiovascular: Regular rate Lungs: Other (coarse rhonchi, few rales) Abdomen: Bowel sounds, Soft Extremities: Other (No edema), no Edema Neurological: Normal gait, Sensation intact Skin: Other (Warm and dry), no Rash Psych/Mental Status: Mental status NL - Procedures Procedures: Procedures Procedure Code Date ASSISTANCE WITH RESPIRATORY VENTILATION, <24 HRS, CPAP [id number] 07/29/17 POS AIRWAY PRESSURE CPAP 14445 07/29/17 TETANUS TOXOID ADMINIST 99.38 05/28/13 Assessment/Plan - Problem List Patient Problems: All Active Problems Laceration of finger (Active) S61.219A - Assessment Assessment: ESRD on HD Decomp CHF Hyponatremia Hyperkalemia RUL nodule Type 2 DM Ess Htn Left RCC S/P Nephrctomy B/L CAP - Plan Plan: Lab - Result Diagrams 07/30/17 10:00 07/30/17 04:10 Current Medications Acetaminophen (Tylenol) 650 mg PO Q4H PRN PRN Reason: Pain (Mild) Stop: 09/28/17 15:37 Last Admin: 07/30/17 15:47 Dose: 650 mg Albuterol/Ipratropium (Duoneb Neb) 3 ml HHN Q4HRT [facility] Stop: 09/27/17 14:59 Last Admin: 07/30/17 15:10 Dose: 3 ml Allopurinol (Zyloprim) 100 mg PO BID [facility] Stop: 09/27/17 08:59 Last Admin: 07/30/17 08:34 Dose: 100 mg Epoetin Dustin (Epogen) 10,000 units SUBQ TuThSa [facility] Stop: 09/28/17 17:56 Famotidine (Pepcid) 20 mg IVP DAILY [facility] Stop: 09/28/17 08:59 Last Admin: 07/30/17 08:35 Dose: 20 mg Furosemide (Lasix) 40 mg IVP BID [facility] Stop: 09/27/17 16:59 Last Admin: 07/30/17 08:35 Dose: 40 mg Heparin Sodium (Porcine) (Heparin Sodium) 0 units HD UD [facility] Stop: 07/31/17 00:00 Heparin Sodium (Porcine) (Heparin) 5,000 units HD UD [facility] Stop: 07/31/17 00:00 Ceftriaxone Sodium 1 gm/ (Dextrose) 50 mls @ 100 mls/hr IV Q24HR [facility] Stop: 09/28/17 04:59 Last Infusion: 07/30/17 06:10 Dose: Infused Albumin Human (Albuminar 25%) 25 gm in 100 mls @ 50 mls/hr IV PRN PRN PRN Reason: BP Support During HD Stop: 09/28/17 00:00 Insulin Aspart (Novolog Insulin Sliding Scale) 0 units SUBQ Q6HR [facility] PRN Reason: Protocol Stop: 09/28/17 11:59 Last Admin: 07/30/17 11:50 Dose: 4 units Lactobacillus Rhamnosus (Culturelle) 1 each PO DAILY [facility] Stop: 09/29/17 08:59 Miscellaneous (Clinical Monitoring) 1 ea [facility] DAILY PRN PRN Reason: RENAL Stop: 09/27/17 07:45 Miscellaneous (Vte Chemical Prophylaxis Screen/ Admission) 1 ea [facility] PRN PRN PRN Reason: PROTOCOL Stop: 09/27/17 16:47 Miscellaneous (Vte Chemical Prophylaxis Screen/ Admission) 1 ea [facility] PRN PRN PRN Reason: PROTOCOL Stop: 09/27/17 16:51 Miscellaneous (Probiotic Screen) 1 ea PRN PRN PRN Reason: PROTOCOL Stop: 09/28/17 10:27 Nifedipine (Procardia) 10 mg PO DAILY [facility] Stop: 09/27/17 08:59 Last Admin: 07/30/17 08:34 Dose: 10 mg Lab - Result Diagrams 07/30/17 10:00 07/30/17 04:10 currently being dialyzed problem w/cath shannan, notified surgeon reschedule for HD in am f/u electrolytes, cbc Nutritional Asmnt/Malnutr-PDOC - Dietary Evaluation Malnutrition Findings (Please click <Entered> for more info): Nutritional Asmnt/Malnutrition Start: 07/29/17 17: 08 Text: Status: Complete Freq: Document 07/29/17 17:08 OTISALMA (Rec: 07/29/17 17:35 LCDARRIANG [id number]) Nutritional Asmnt/Malnutrition Patient General Information Nutritional Screening High Risk Diagnosis abdominal pain, atypical chest pain, CHF exacerbation, CKD, bilateral PNA Pertinent Medical Hx/Surgical Hx CAD, CHF, HTN, DM, chronic renal insuff, cholecystectomy, left kidney removal Subjective Information Pt was busy with medical staff during time of visit, attempted x 2. Spoke with RN, per family pt has decreased appetite and PO intake before admitted. Pt did not eat breakfast d/t SOB this morning . Appetite was poor. Per nurse note, pt back on bipap this afternoon. Current Diet Order/ Nutrition Support Renal Pertinent Medications lasix, hctz, procardia Pertinent Labs 07/29 Na 132, K 5.0, Cl 101, BUN 82H, Cr 4.0, Glucose 100, Ca 9.2, Alb 3.5 Nutritional Hx/Data Height 1.55 m Height (Calculated Centimeters) 154.9 Current Weight (lbs) 72.575 kg Weight (Calculated Kilograms) 72.6 Weight (Calculated Grams) 50765.8 [place] Body Weight 105 % [place] Body Weight 152 Body Mass Index (BMI) 30.2 Weight Status Obese GI Symptoms GI Symptoms None Last BM none Difficult in: None Skin Integrity/Comment: intact Estimated Nutritional Goals BEE in Kcals: Adj wt of IBW Calories/Kcals/Kg 30-35 Kcals Calculated [id number] Protein: Adj wt of IBW Protein g/k Protein Calculated 54g monitor renal labs Fluid: ml [id number] or Per MD d/t acute renal failure Nutritional Problem 1. Problem Problem altered nutrition related lab values Etiology hx of chronic renal insuff Signs/Symptoms: BUN 82H, Cr 4.0 Malnutrition Alert Protein-Calorie Malnutrition N/A Is there a minimum of two criteria No selected? Query Text:Check all the applicable criteria. A minimum of two criteria are recommended for diagnosis of either severe or non-severe malnutrition. Intervention/Recommendation Comments 1. Continue with renal diet as ordered. 2. Monitor PO intake, wt daily , labs and skin integrity 3. F/U as high risk in 2-3 days, 07/31-08/01 Expected Outcomes/Goals Expected Outcomes/Goals 1. PO intake to meet at least 75% of nutritional needs. 2. Wt stability, skin to remain intact, labs to improve .
[2017-07-31] MEDS: INSULIN ASPART SLIDING SCALE 100 UNITS/ML UNIT SUBQ SCH ×4 (00:15→17:42)
[2017-07-31] MEDS: Albuterol/Ipratropium Neb 3 ML AERS HHN SCH ×6 (02:14→22:48)
[2017-07-31 05:05] LABS: HEMATOCRIT 23.3 % (41.0-60); MEAN CELL VOLUME 95.5 fl (81-100); MEAN CORPUSCULAR HEMOGLOBIN 31.6 pg (27.0-31.0); MEAN CORPUSCULAR HGB CONC 33.1 pg (28.0-36.0); MEAN PLATELET VOLUME 7.3 fl; PLATELET COUNT 276 Th/cmm (150-400); RED BLOOD COUNT 2.44 Mil/cmm (3.80-5.20); RED CELL DISTRIBUTION WIDTH 15.6 % (11.5-20.0)
[2017-07-31 05:18] LABS: HEMOGLOBIN 7.7 gm/dL (12-16); MANUAL DIFF REQUIRED? YES; WHITE BLOOD COUNT 6.8 Th/cmm (4.8-10.8)
[2017-07-31 05:24] LABS: ALB/GLOB RATIO 0.9 (1.0-1.8); ALKALINE PHOSPHATASE 80 U/L (34-104); ANION GAP 15.3 (7.0-16.0); BILIRUBIN,TOTAL 0.3 mg/dL (0.3-1.0); BUN - UREA NITROGEN 53 mg/dL (7-25); CALCIUM SERUM 8.2 mg/dL (8.6-10.3); CARBON DIOXIDE 25.2 mEq/L (21.0-31.0); CHLORIDE 99 mEq/L (98-107); CREATININE - SERUM 3.2 mg/dL (0.6-1.2); GLUCOSE 97 mg/dL (70-105); POTASSIUM SERUM 3.5 mEq/L (3.5-5.1); SGOT 13 U/L (13-39); SGPT/ALT 10 U/L (7-52); SODIUM SERUM 136 mEq/L (136-145); TOTAL PROTEIN,SERUM 6.4 gm/dL (6.0-8.3)
[2017-07-31 06:06] LABS: BAND NEUTROPHILE 0 % (0-10); LYMPHOCYTE 15 % (20-50); MONOCYTE 10 % (2-10); NEUTROPHILS 75 % (40-80); PLATELET ESTIMATE ADEQUATE (NORMAL); TOTAL CELLS COUNTED 100
[2017-07-31] MEDS: Lactobacillus Rhamnosus 10 Billion CFU Capsule PO SCH (08:23)
--- NOTE | 2017-07-31 08:53 | General Progress Note ---
Subjective - Review of Systems Service Date: 07/31/17 Subjective: I am breathing better Objective - Results Result Diagrams: 07/31/17 04:00 07/31/17 04:00 Recent Labs: Laboratory Last Values WBC 6.8 Th/cmm (4.8-10.8) D 07/31/17 04:00 RBC 2.44 Mil/cmm (3.80-5.20) L 07/31/17 04:00 Hgb 7.7 gm/dL (12-16) L* 07/31/17 04:00 Hct 23.3 % (41.0-60) L 07/31/17 04:00 MCV 95.5 fl (81-100) 07/31/17 04:00 MCH 31.6 pg (27.0-31.0) H 07/31/17 04:00 MCHC Differential 33.1 pg (28.0-36.0) 07/31/17 04:00 RDW 15.6 % (11.5-20.0) 07/31/17 04:00 Plt Count 276 Th/cmm (150-400) 07/31/17 04:00 MPV 7.3 fl 07/31/17 04:00 Neutrophils % 85.0 % (40.0-80.0) H 07/29/17 09:40 Band Neutrophils % 0 % (0-10) 07/31/17 04:00 Lymphocytes % 7.2 % (20.0-50.0) L 07/29/17 09:40 Monocytes % 5.7 % (2.0-10.0) 07/29/17 09:40 Eosinophils % 1.8 % (0.0-5.0) 07/29/17 09:40 Basophils % 0.3 % (0.0-2.0) 07/29/17 09:40 Neutrophils (Manual) 75 % (40-80) 07/31/17 04:00 Lymphocytes 15 % (20-50) L 07/31/17 04:00 Monocytes 10 % (2-10) 07/31/17 04:00 Eosinophils 3 % (0-5) 07/30/17 04:10 Basophils 1 % (0-3) 07/30/17 04:10 Platelet Estimate ADEQUATE (NORMAL) 07/31/17 04:00 Eos Smear Source URINE 07/30/17 06:50 Eos Smear Total Cells NONE SEEN (NONE SEEN) 07/30/17 06:50 PT 9.6 SECONDS (9.5-11.5) 07/28/17 22:34 INR 0.92 (0.5-1.4) 07/28/17 22:34 PTT (Actin FS) 25.6 SECONDS (26.0-38.0) L 07/28/17 22:34 Specimen Source Arterial 07/30/17 09:55 Sample Site RB 07/30/17 09:55 pH 7.32 (7.35-7.45) L 07/30/17 09:55 pCO2 49.0 mmHg (35.0-45.0) H 07/30/17 09:55 pO2 45.0 mmHg (80.0-100.0) L* 07/30/17 09:55 HCO3 23.3 mEq/L (20.0-26.0) 07/30/17 09:55 Base Excess -1.4 mEq/L (-3.0-3.0) 07/30/17 09:55 O2 Saturation 76.0 % (92.0-100.0) L 07/30/17 09:55 Trace Test NA 07/29/17 14:45 Vent Rate 12 07/29/17 14:45 Inspired O2 32 07/30/17 09:55 Tidal Volume 350 07/29/17 14:45 PEEP NA 07/29/17 14:45 Pressure (ins/psv/peep) 6 07/29/17 14:45 Critical Value PW 07/30/17 09:55 Sodium 136 mEq/L (136-145) 07/31/17 04:00 Potassium 3.5 mEq/L (3.5-5.1) 07/31/17 04:00 Chloride 99 mEq/L (98-107) 07/31/17 04:00 Carbon Dioxide 25.2 mEq/L (21.0-31.0) 07/31/17 04:00 Anion Gap 15.3 (7.0-16.0) 07/31/17 04:00 BUN 53 mg/dL (7-25) H 07/31/17 04:00 Creatinine 3.2 mg/dL (0.6-1.2) H 07/31/17 04:00 Est GFR ( Amer) TNP 07/31/17 04:00 Est GFR (Non-Af Amer) TNP 07/31/17 04:00 BUN/Creatinine Ratio 16.6 07/31/17 04:00 Glucose 97 mg/dL (70-105) 07/31/17 04:00 POC Glucose 122 MG/DL (70 - 105) H 07/31/17 06:04 Hemoglobin A1c % 6.1 % (4.0-6.0) H 07/30/17 04:10 Uric Acid 3.5 mg/dL (2.3-6.6) 07/30/17 04:10 Calcium 8.2 mg/dL (8.6-10.3) L 07/31/17 04:00 Phosphorus 7.6 mg/dL (2.5-5.0) H 07/30/17 04:10 Magnesium 2.0 mg/dL (1.9-2.7) 07/30/17 04:10 Total Bilirubin 0.3 mg/dL (0.3-1.0) 07/31/17 04:00 AST 13 U/L (13-39) 07/31/17 04:00 ALT 10 U/L (7-52) 07/31/17 04:00 Alkaline Phosphatase 80 U/L (34-104) 07/31/17 04:00 Creatine Kinase 81 U/L (30-223) 07/28/17 22:34 Troponin I 0.26 ng/mL (0.01-0.05) H* 07/28/17 22:34 B-Natriuretic Peptide 1860.0 pg/mL (5.0-100.0) H 07/28/17 22:34 Total Protein 6.4 gm/dL (6.0-8.3) 07/31/17 04:00 Albumin 3.0 gm/dL (3.7-5.3) L 07/31/17 04:00 Globulin 3.4 gm/dL 07/31/17 04:00 Albumin/Globulin Ratio 0.9 (1.0-1.8) L 07/31/17 04:00 Amylase 108 U/L (29-103) H 07/28/17 22:34 Lipase 52 U/L (11-82) 07/28/17 22:34 TSH 2.62 uIU/ml (0.34-5.60) 07/30/17 04:10 Urine Source CLEAN C 07/28/17 23:00 Urine Color YELLOW 07/28/17 23:00 Urine Clarity CLEAR (CLEAR) 07/28/17 23:00 Urine pH 6.0 (4.6 - 8.0) 07/28/17 23:00 Ur Specific [place] 1.015 (1.005-1.030) 07/28/17 23:00 Urine Protein >=300 mg/dL (NEGATIVE) 07/28/17 23:00 Urine Glucose (UA) NEGATIVE mg/dL (NEGATIVE) 07/28/17 23:00 Urine Ketones NEGATIVE mg/dL (NEGATIVE) 07/28/17 23:00 Urine Blood SMALL (NEGATIVE) H 07/28/17 23:00 Urine Nitrate NEGATIVE (NEGATIVE) 07/28/17 23:00 Urine Bilirubin NEGATIVE (NEGATIVE) 07/28/17 23:00 Urine Urobilinogen 0.2 E.U./dL (0.2 - 1.0) 07/28/17 23:00 Ur Leukocyte Esterase NEGATIVE (NEGATIVE) 07/28/17 23:00 Urine RBC 2-5 /hpf (0-5) 07/28/17 23:00 Urine WBC 6-10 /hpf (0-5) H 07/28/17 23:00 Ur Epithelial Cells MODERATE /lpf (FEW) 07/28/17 23:00 Urine Bacteria FEW /hpf (NONE SEEN) 07/28/17 23:00 Urine Creatinine 44.0 mg/dl (28.0-217.0) 07/30/17 06:50 - Physical Exam Vitals and I&O: Vital Signs Temp 98.2 F 07/31/17 05:00 Pulse 94 07/31/17 08:23 Resp 15 07/31/17 06:00 BP 177/69 07/31/17 08:23 Pulse Ox 99 07/31/17 06:00 Intake & Output 07/30/17 07/31/17 07/31/17 18:59 06:59 18:59 Intake Total 450 550 Output Total 2300 850 Balance -1850 -300 Weight (lbs) 72.575 kg 72.575 kg Intake: Intake, IV Amount 50 cefTRIAXone 1 gm In 50 Dextrose 5% 50 ml @ 100 mls/hr IV Q24HR [facility] Rx#: [id number] Oral 450 500 Output: Urine 500 850 Stool 0 Hemodialysis 1800 Other: # Voids 1 # Bowel Movements 0 Active Medications: Current Medications Acetaminophen (Tylenol) 650 mg PO Q4H PRN PRN Reason: Pain (Mild) Stop: 09/28/17 15:37 Last Admin: 07/30/17 15:47 Dose: 650 mg Albuterol/Ipratropium (Duoneb Neb) 3 ml HHN Q4HRT [facility] Stop: 09/27/17 14:59 Last Admin: 07/31/17 07:59 Dose: 3 ml Allopurinol (Zyloprim) 100 mg PO BID [facility] Stop: 09/27/17 08:59 Last Admin: 07/31/17 08:24 Dose: 100 mg Epoetin Dustin (Epogen) 10,000 units SUBQ TuThSa [facility] Stop: 09/28/17 17:56 Last Admin: 07/30/17 18:42 Dose: Not Given Famotidine (Pepcid) 20 mg IVP DAILY [facility] Stop: 09/28/17 08:59 Last Admin: 07/31/17 08:23 Dose: 20 mg Furosemide (Lasix) 40 mg IVP BID [facility] Stop: 09/27/17 16:59 Last Admin: 07/31/17 08:23 Dose: 40 mg Ceftriaxone Sodium 1 gm/ (Dextrose) 50 mls @ 100 mls/hr IV Q24HR [facility] Stop: 09/28/17 04:59 Last Infusion: 07/31/17 06:20 Dose: Infused Albumin Human (Albuminar 25%) 25 gm in 100 mls @ 50 mls/hr IV PRN PRN PRN Reason: BP Support During HD Stop: 09/28/17 00:00 Insulin Aspart (Novolog Insulin Sliding Scale) 0 units SUBQ Q6HR [facility] PRN Reason: Protocol Stop: 09/28/17 11:59 Last Admin: 07/31/17 06:09 Dose: Not Given Lactobacillus Rhamnosus (Culturelle) 1 each PO DAILY [facility] Stop: 09/29/17 08:59 Last Admin: 07/31/17 08:23 Dose: 1 each Miscellaneous (Clinical Monitoring) 1 ea DAILY PRN PRN Reason: RENAL Stop: 09/27/17 07:45 Miscellaneous (Vte Chemical Prophylaxis Screen/ Admission) [facility] PRN PRN PRN Reason: PROTOCOL Stop: 09/27/17 16:47 Miscellaneous (Vte Chemical Prophylaxis Screen/ Admission) 1 ea [facility] PRN PRN PRN Reason: PROTOCOL Stop: 09/27/17 16:51 Miscellaneous (Probiotic Screen) 1 ea MC PRN PRN PRN Reason: PROTOCOL Stop: 09/28/17 10:27 Nifedipine (Procardia) 10 mg PO DAILY [facility] Stop: 09/27/17 08:59 Last Admin: 07/31/17 08:23 Dose: 10 mg General: Alert, Oriented x3, No acute distress HEENT: Atraumatic Neck: Supple Cardiovascular: Regular rate Lungs: Other (coarse rhonchi, few rales) Abdomen: Bowel sounds, Soft Extremities: Other (No edema), no Edema Neurological: Normal gait, Sensation intact Skin: Other (Warm and dry), no Rash Psych/Mental Status: Mental status NL - Procedures Procedures: Procedures Procedure Code Date ASSISTANCE WITH RESPIRATORY VENTILATION, <24 HRS, CPAP [id number] 07/29/17 POS AIRWAY PRESSURE CPAP 31144 07/29/17 TETANUS TOXOID ADMINIST 99.38 05/28/13 Assessment/Plan - Problem List Patient Problems: All Active Problems Laceration of finger (Active) S61.219A - Assessment Assessment: Patient is awake alert in no distress. K normal, Creatinine improving. Hgb is 7.7 will transfused during HD. Juan Catheter will be change. Patient improving. Dx: Abdominal pain, Atypical Chest Pain, CHF exacerbation, CKD, Bilateral PNA, Elevated troponins, DM, HTN. - Plan Plan: Patient in ICU nasal O2, Continue with home meds, Patient will be transfused, Juan will be change. Already seen by Cardio, Nephro and Pulmonology. Nutritional Asmnt/Malnutr-PDOC - Dietary Evaluation Malnutrition Findings (Please click <Entered> for more info): Nutritional Asmnt/Malnutrition Start: 07/29/17 17: 08 Text: Status: Complete Freq: Document 07/29/17 17:08 PATRICIO (Rec: 07/29/17 17:35 LCDARRIANG [email or web address]) Nutritional Asmnt/Malnutrition Patient General Information Nutritional Screening High Risk Diagnosis abdominal pain, atypical chest pain, CHF exacerbation, CKD, bilateral PNA Pertinent Medical Hx/Surgical Hx CAD, CHF, HTN, DM, chronic renal insuff, cholecystectomy, left kidney removal Subjective Information Pt was busy with medical staff during time of visit, attempted x 2. Spoke with RN, per family pt has decreased appetite and PO intake before admitted. Pt did not eat breakfast d/t SOB this morning . Appetite was poor. Per nurse note, pt back on bipap this afternoon. Current Diet Order/ Nutrition Support Renal Pertinent Medications lasix, hctz, procardia Pertinent Labs 07/29 Na 132, K 5.0, Cl 101, BUN 82H, Cr 4.0, Glucose 100, Ca 9.2, Alb 3.5 Nutritional Hx/Data Height 1.55 m Height (Calculated Centimeters) 154.9 Current Weight (lbs) 72.575 kg Weight (Calculated Kilograms) 72.6 Weight (Calculated Grams) 20613.8 [place] Body Weight 105 % [place] Body Weight 152 Body Mass Index (BMI) 30.2 Weight Status Obese GI Symptoms GI Symptoms None Last BM none Difficult in: None Skin Integrity/Comment: intact Estimated Nutritional Goals BEE in Kcals: Adj wt of IBW Calories/Kcals/Kg 30-35 Kcals Calculated [id number] Protein: Adj wt of IBW Protein g/k Protein Calculated 54g monitor renal labs Fluid: ml [id number] or Per MD d/t acute renal failure Nutritional Problem 1. Problem Problem altered nutrition related lab values Etiology hx of chronic renal insuff Signs/Symptoms: BUN 82H, Cr 4.0 Malnutrition Alert Protein-Calorie Malnutrition N/A Is there a minimum of two criteria No selected? Query Text:Check all the applicable criteria. A minimum of two criteria are recommended for diagnosis of either severe or non-severe malnutrition. Intervention/Recommendation Comments 1. Continue with renal diet as ordered. 2. Monitor PO intake, wt daily , labs and skin integrity 3. F/U as high risk in 2-3 days, 07/31-08/01 Expected Outcomes/Goals Expected Outcomes/Goals 1. PO intake to meet at least 75% of nutritional needs. 2. Wt stability, skin to remain intact, labs to improve .
--- NOTE | 2017-07-31 11:09 | Diagnostic Imaging Report ---
Portable chest x-ray HISTORY: Shortness of breath Compared with the prior exam of July 30, 2017, the heart remains enlarged. There does appear to be degree of pulmonary vascular redistribution consistent with cardiac decompensation. Evidence of persistent bilateral pleural effusions. IMPRESSION: 1. Little change in the cardiopulmonary status with persistent cardiomegaly, bilateral pleural effusions and changes suggesting congestive heart failure. Underlying pneumonia cannot be excluded. Clinical correlation is needed.
[2017-07-31] MEDS ORDERED: Heparin Sod 1,000 Units/mL 10ml HD ONE (14:00)
--- NOTE | 2017-07-31 15:03 | Diagnostic Imaging Report ---
Portable chest x-ray HISTORY: Shortness of breath Compared with the prior exam performed earlier in the day, the heart remains enlarged. Evidence of bilateral pleural effusions. Suggestion of additional parenchymal density within the left lower lobe. A vascular catheter tip is in the region of the superior vena cava. No pneumothorax. IMPRESSION: 1. Cardiomegaly with bilateral pleural effusions. Findings may be associated with a degree of congestive heart failure. 2. Suggestion of somewhat more focal parenchymal density within the left lower lobe. Pneumonia and/or atelectasis cannot be excluded. 3. Vascular catheter placement as noted above
--- NOTE | 2017-07-31 15:26 | Operative Report ---
DATE OF SURGERY: 07/31/2017 PREOPERATIVE DIAGNOSES: 1. Nonfunctioning Juan catheter, left subclavian vein. 2. Acute renal failure. POSTOPERATIVE DIAGNOSES: 1. Nonfunctioning Juan catheter, left subclavian vein. 2. Acute renal failure. OPERATION DONE: Placement of new Juan catheter, double lumen, 20 cm long. DESCRIPTION OF PROCEDURE: Informed consent discussed with the patient and the family. The catheter external component was prepped with Betadine and draped. A 1% lidocaine was used to infiltrate the exit site. Guide was inserted into the old catheter and the old catheter was removed. The new catheter was then placed over the guidewire. It was sutured in place with 2-0 nylon. The patient tolerated the procedure well. JOB# [id number]
--- NOTE | 2017-07-31 17:51 | General Progress Note ---
Subjective - Review of Systems Service Date: 07/31/17 Subjective: off Bipap, reading, comfortable Objective - Results Result Diagrams: 07/31/17 04:00 07/31/17 04:00 Recent Labs: Laboratory Last Values WBC 6.8 Th/cmm (4.8-10.8) D 07/31/17 04:00 RBC 2.44 Mil/cmm (3.80-5.20) L 07/31/17 04:00 Hgb 7.7 gm/dL (12-16) L* 07/31/17 04:00 Hct 23.3 % (41.0-60) L 07/31/17 04:00 MCV 95.5 fl (81-100) 07/31/17 04:00 MCH 31.6 pg (27.0-31.0) H 07/31/17 04:00 MCHC Differential 33.1 pg (28.0-36.0) 07/31/17 04:00 RDW 15.6 % (11.5-20.0) 07/31/17 04:00 Plt Count 276 Th/cmm (150-400) 07/31/17 04:00 MPV 7.3 fl 07/31/17 04:00 Neutrophils % 85.0 % (40.0-80.0) H 07/29/17 09:40 Band Neutrophils % 0 % (0-10) 07/31/17 04:00 Lymphocytes % 7.2 % (20.0-50.0) L 07/29/17 09:40 Monocytes % 5.7 % (2.0-10.0) 07/29/17 09:40 Eosinophils % 1.8 % (0.0-5.0) 07/29/17 09:40 Basophils % 0.3 % (0.0-2.0) 07/29/17 09:40 Neutrophils (Manual) 75 % (40-80) 07/31/17 04:00 Lymphocytes 15 % (20-50) L 07/31/17 04:00 Monocytes 10 % (2-10) 07/31/17 04:00 Eosinophils 3 % (0-5) 07/30/17 04:10 Basophils 1 % (0-3) 07/30/17 04:10 Platelet Estimate ADEQUATE (NORMAL) 07/31/17 04:00 Eos Smear Source URINE 07/30/17 06:50 Eos Smear Total Cells NONE SEEN (NONE SEEN) 07/30/17 06:50 PT 9.6 SECONDS (9.5-11.5) 07/28/17 22:34 INR 0.92 (0.5-1.4) 07/28/17 22:34 PTT (Actin FS) 25.6 SECONDS (26.0-38.0) L 07/28/17 22:34 Specimen Source Arterial 07/30/17 09:55 Sample Site RB 07/30/17 09:55 pH 7.32 (7.35-7.45) L 07/30/17 09:55 pCO2 49.0 mmHg (35.0-45.0) H 07/30/17 09:55 pO2 45.0 mmHg (80.0-100.0) L* 07/30/17 09:55 HCO3 23.3 mEq/L (20.0-26.0) 07/30/17 09:55 Base Excess -1.4 mEq/L (-3.0-3.0) 07/30/17 09:55 O2 Saturation 76.0 % (92.0-100.0) L 07/30/17 09:55 Trace Test NA 07/29/17 14:45 Vent Rate 12 07/29/17 14:45 Inspired O2 32 07/30/17 09:55 Tidal Volume 350 07/29/17 14:45 PEEP NA 07/29/17 14:45 Pressure (ins/psv/peep) 6 07/29/17 14:45 Critical Value PW 07/30/17 09:55 Sodium 136 mEq/L (136-145) 07/31/17 04:00 Potassium 3.5 mEq/L (3.5-5.1) 07/31/17 04:00 Chloride 99 mEq/L (98-107) 07/31/17 04:00 Carbon Dioxide 25.2 mEq/L (21.0-31.0) 07/31/17 04:00 Anion Gap 15.3 (7.0-16.0) 07/31/17 04:00 BUN 53 mg/dL (7-25) H 07/31/17 04:00 Creatinine 3.2 mg/dL (0.6-1.2) H 07/31/17 04:00 Est GFR ( Amer) TNP 07/31/17 04:00 Est GFR (Non-Af Amer) TNP 07/31/17 04:00 BUN/Creatinine Ratio 16.6 07/31/17 04:00 Glucose 97 mg/dL (70-105) 07/31/17 04:00 POC Glucose 144 MG/DL (70 - 105) H 07/31/17 17:42 Hemoglobin A1c % 6.1 % (4.0-6.0) H 07/30/17 04:10 Uric Acid 3.5 mg/dL (2.3-6.6) 07/30/17 04:10 Calcium 8.2 mg/dL (8.6-10.3) L 07/31/17 04:00 Phosphorus 7.6 mg/dL (2.5-5.0) H 07/30/17 04:10 Magnesium 2.0 mg/dL (1.9-2.7) 07/30/17 04:10 Total Bilirubin 0.3 mg/dL (0.3-1.0) 07/31/17 04:00 AST 13 U/L (13-39) 07/31/17 04:00 ALT 10 U/L (7-52) 07/31/17 04:00 Alkaline Phosphatase 80 U/L (34-104) 07/31/17 04:00 Creatine Kinase 81 U/L (30-223) 07/28/17 22:34 Troponin I 0.26 ng/mL (0.01-0.05) H* 07/28/17 22:34 B-Natriuretic Peptide 1860.0 pg/mL (5.0-100.0) H 07/28/17 22:34 Total Protein 6.4 gm/dL (6.0-8.3) 07/31/17 04:00 Albumin 3.0 gm/dL (3.7-5.3) L 07/31/17 04:00 Globulin 3.4 gm/dL 07/31/17 04:00 Albumin/Globulin Ratio 0.9 (1.0-1.8) L 07/31/17 04:00 Amylase 108 U/L (29-103) H 07/28/17 22:34 Lipase 52 U/L (11-82) 07/28/17 22:34 TSH 2.62 uIU/ml (0.34-5.60) 07/30/17 04:10 Urine Source CLEAN C 07/28/17 23:00 Urine Color YELLOW 07/28/17 23:00 Urine Clarity CLEAR (CLEAR) 07/28/17 23:00 Urine pH 6.0 (4.6 - 8.0) 07/28/17 23:00 Ur Specific [place] 1.015 (1.005-1.030) 07/28/17 23:00 Urine Protein >=300 mg/dL (NEGATIVE) 07/28/17 23:00 Urine Glucose (UA) NEGATIVE mg/dL (NEGATIVE) 07/28/17 23:00 Urine Ketones NEGATIVE mg/dL (NEGATIVE) 07/28/17 23:00 Urine Blood SMALL (NEGATIVE) H 07/28/17 23:00 Urine Nitrate NEGATIVE (NEGATIVE) 07/28/17 23:00 Urine Bilirubin NEGATIVE (NEGATIVE) 07/28/17 23:00 Urine Urobilinogen 0.2 E.U./dL (0.2 - 1.0) 07/28/17 23:00 Ur Leukocyte Esterase NEGATIVE (NEGATIVE) 07/28/17 23:00 Urine RBC 2-5 /hpf (0-5) 07/28/17 23:00 Urine WBC 6-10 /hpf (0-5) H 07/28/17 23:00 Ur Epithelial Cells MODERATE /lpf (FEW) 07/28/17 23:00 Urine Bacteria FEW /hpf (NONE SEEN) 07/28/17 23:00 Urine Creatinine 44.0 mg/dl (28.0-217.0) 07/30/17 06:50 Blood Type O POSITIVE 07/31/17 08:00 Antibody Screen NEGATIVE 07/31/17 08:00 - Physical Exam Vitals and I&O: Vital Signs Temp 97.1 F 07/31/17 16:00 Pulse 90 07/31/17 17:00 Resp 15 07/31/17 17:00 BP 134/66 07/31/17 17:11 Pulse Ox 96 07/31/17 17:00 Intake & Output 07/30/17 07/31/17 07/31/17 18:59 06:59 18:59 Intake Total 450 550 100 Output Total 2300 850 0 Balance -1850 -300 100 Weight (lbs) 72.575 kg 72.575 kg 72.575 kg Intake: Intake, IV Amount 50 cefTRIAXone 1 gm In 50 Dextrose 5% 50 ml @ 100 mls/hr IV Q24HR [facility] Rx#: [id number] Oral 450 500 100 Output: Urine 500 850 Stool 0 0 Hemodialysis 1800 Other: # Voids 1 # Bowel Movements 0 0 Active Medications: Current Medications Acetaminophen (Tylenol) 650 mg PO Q4H PRN PRN Reason: Pain (Mild) Stop: 09/28/17 15:37 Last Admin: 07/30/17 15:47 Dose: 650 mg Albuterol/Ipratropium (Duoneb Neb) 3 ml HHN Q4HRT [facility] Stop: 09/27/17 14:59 Last Admin: 07/31/17 15:38 Dose: 3 ml Allopurinol (Zyloprim) 100 mg PO BID [facility] Stop: 09/27/17 08:59 Last Admin: 07/31/17 17:11 Dose: 100 mg Epoetin Dustin (Epogen) 10,000 units SUBQ TuThSa [facility] Stop: 09/28/17 17:56 Last Admin: 07/30/17 18:42 Dose: Not Given Famotidine (Pepcid) 20 mg IVP DAILY [facility] Stop: 09/28/17 08:59 Last Admin: 07/31/17 08:23 Dose: 20 mg Furosemide (Lasix) 40 mg IVP BID [facility] Stop: 09/27/17 16:59 Last Admin: 07/31/17 17:11 Dose: Not Given Ceftriaxone Sodium 1 gm/ (Dextrose) 50 mls @ 100 mls/hr IV Q24HR [facility] Stop: 09/28/17 04:59 Last Infusion: 07/31/17 06:20 Dose: Infused Albumin Human (Albuminar 25%) 25 gm in 100 mls @ 50 mls/hr IV PRN PRN PRN Reason: BP Support During HD Stop: 09/28/17 00:00 Insulin Aspart (Novolog Insulin Sliding Scale) 0 units SUBQ Q6HR [facility] PRN Reason: Protocol Stop: 09/28/17 11:59 Last Admin: 07/31/17 12:01 Dose: 4 units Lactobacillus Rhamnosus (Culturelle) 1 each PO DAILY [facility] Stop: 09/29/17 08:59 Last Admin: 07/31/17 08:23 Dose: 1 each Miscellaneous (Clinical Monitoring) 1 ea DAILY PRN PRN Reason: RENAL Stop: 09/27/17 07:45 Miscellaneous (Vte Chemical Prophylaxis Screen/ Admission) 1 ea PRN PRN PRN Reason: PROTOCOL Stop: 09/27/17 16:47 Miscellaneous (Vte Chemical Prophylaxis Screen/ Admission) 1 ea PRN PRN PRN Reason: PROTOCOL Stop: 09/27/17 16:51 Miscellaneous (Probiotic Screen) 1 ea PRN PRN PRN Reason: PROTOCOL Stop: 09/28/17 10:27 Nifedipine (Procardia) 10 mg PO DAILY [facility] Stop: 09/27/17 08:59 Last Admin: 07/31/17 08:23 Dose: 10 mg General: Alert, Oriented x3, No acute distress HEENT: Atraumatic, EOMI, Mucous membr. moist/pink Neck: Supple, +2 carotid pulse wo bruit Cardiovascular: Regular rate, Normal S1, Normal S2 Lungs: Other (less rhonchi) Abdomen: Bowel sounds, Soft Extremities: Other (No edema), no Edema Neurological: Sensation intact Skin: Other (Warm and dry), no Rash Psych/Mental Status: Mental status NL - Procedures Procedures: Procedures Procedure Code Date ASSISTANCE WITH RESPIRATORY VENTILATION, <24 HRS, CPAP [id number] 07/29/17 INSERT TUNNELED CV CATH 82395 07/29/17 INSERTION OF INFUSION DEV INTO L SUBCLAV VEIN, PERC APPROACH [id number] 07/29/17 POS AIRWAY PRESSURE CPAP 80222 07/29/17 TETANUS TOXOID ADMINIST 99.38 05/28/13 Assessment/Plan - Problem List Patient Problems: All Active Problems Laceration of finger (Active) S61.219A - Assessment Assessment: ESRD on HD Decomp CHF Hyponatremia Hyperkalemia RUL nodule Type 2 DM Ess Htn Left RCC S/P Nephrctomy B/L CAP - Plan Plan: Lab - Result Diagrams 07/30/17 10:00 07/30/17 04:10 Current Medications Acetaminophen (Tylenol) 650 mg PO Q4H PRN PRN Reason: Pain (Mild) Stop: 09/28/17 15:37 Last Admin: 07/30/17 15:47 Dose: 650 mg Albuterol/Ipratropium (Duoneb Neb) 3 ml HHN Q4HRT [facility] Stop: 09/27/17 14:59 Last Admin: 07/30/17 15:10 Dose: 3 ml Allopurinol (Zyloprim) 100 mg PO BID [facility] Stop: 09/27/17 08:59 Last Admin: 07/30/17 08:34 Dose: 100 mg Epoetin Dustin (Epogen) 10,000 units SUBQ TuThSa [facility] Stop: 09/28/17 17:56 Famotidine (Pepcid) 20 mg IVP DAILY [facility] Stop: 09/28/17 08:59 Last Admin: 07/30/17 08:35 Dose: 20 mg Furosemide (Lasix) 40 mg IVP BID [facility]IL Stop: 09/27/17 16:59 Last Admin: 07/30/17 08:35 Dose: 40 mg Heparin Sodium (Porcine) (Heparin Sodium) 0 units HD UD WIL Stop: 07/31/17 00:00 Heparin Sodium (Porcine) (Heparin) 5,000 units HD UD WIL Stop: 07/31/17 00:00 Ceftriaxone Sodium 1 gm/ (Dextrose) 50 mls @ 100 mls/hr IV Q24HR [facility] Stop: 09/28/17 04:59 Last Infusion: 07/30/17 06:10 Dose: Infused Albumin Human (Albuminar 25%) 25 gm in 100 mls @ 50 mls/hr IV PRN PRN PRN Reason: BP Support During HD Stop: 09/28/17 00:00 Insulin Aspart (Novolog Insulin Sliding Scale) 0 units SUBQ Q6HR WIL PRN Reason: Protocol Stop: 09/28/17 11:59 Last Admin: 07/30/17 11:50 Dose: 4 units Lactobacillus Rhamnosus (Culturelle) 1 each PO DAILY [facility] Stop: 09/29/17 08:59 Miscellaneous (Clinical Monitoring) 1 ea DAILY PRN PRN Reason: RENAL Stop: 09/27/17 07:45 Miscellaneous (Vte Chemical Prophylaxis Screen/ Admission) 1 ea PRN PRN PRN Reason: PROTOCOL Stop: 09/27/17 16:47 Miscellaneous (Vte Chemical Prophylaxis Screen/ Admission) 1 ea PRN PRN PRN Reason: PROTOCOL Stop: 09/27/17 16:51 Miscellaneous (Probiotic Screen) 1 ea PRN PRN PRN Reason: PROTOCOL Stop: 09/28/17 10:27 Nifedipine (Procardia) 10 mg PO DAILY [facility] Stop: 09/27/17 08:59 Last Admin: 07/30/17 08:34 Dose: 10 mg Lab - Result Diagrams 07/31/17 04:00 07/31/17 04:00 just had repalcement of cath reschedule for HD in am f/u electrolytes, cbc, CXR Nutritional Asmnt/Malnutr-PDOC - Dietary Evaluation Malnutrition Findings (Please click <Entered> for more info): Nutritional Asmnt/Malnutrition Start: 07/29/17 17: 08 Text: Status: Complete Freq: Document 07/29/17 17:08 DARRIAN (Rec: 07/29/17 17:35 [facility] [id number]) Nutritional Asmnt/Malnutrition Patient General Information Nutritional Screening High Risk Diagnosis abdominal pain, atypical chest pain, CHF exacerbation, CKD, bilateral PNA Pertinent Medical Hx/Surgical Hx CAD, CHF, HTN, DM, chronic renal insuff, cholecystectomy, left kidney removal Subjective Information Pt was busy with medical staff during time of visit, attempted x 2. Spoke with RN, per family pt has decreased appetite and PO intake before admitted. Pt did not eat breakfast d/t SOB this morning . Appetite was poor. Per nurse note, pt back on bipap this afternoon. Current Diet Order/ Nutrition Support Renal Pertinent Medications lasix, hctz, procardia Pertinent Labs 07/29 Na 132, K 5.0, Cl 101, BUN 82H, Cr 4.0, Glucose 100, Ca 9.2, Alb 3.5 Nutritional Hx/Data Height 1.55 m Height (Calculated Centimeters) 154.9 Current Weight (lbs) 72.575 kg Weight (Calculated Kilograms) 72.6 Weight (Calculated Grams) 62653.8 [place] Body Weight 105 % [place] Body Weight 152 Body Mass Index (BMI) 30.2 Weight Status Obese GI Symptoms GI Symptoms None Last BM none Difficult in: None Skin Integrity/Comment: intact Estimated Nutritional Goals BEE in Kcals: Adj wt of IBW Calories/Kcals/Kg 30-35 Kcals Calculated [id number] Protein: Adj wt of IBW Protein g/k Protein Calculated 54g monitor renal labs Fluid: ml [id number] or Per MD d/t acute renal failure Nutritional Problem 1. Problem Problem altered nutrition related lab values Etiology hx of chronic renal insuff Signs/Symptoms: BUN 82H, Cr 4.0 Malnutrition Alert Protein-Calorie Malnutrition N/A Is there a minimum of two criteria No selected? Query Text:Check all the applicable criteria. A minimum of two criteria are recommended for diagnosis of either severe or non-severe malnutrition. Intervention/Recommendation Comments 1. Continue with renal diet as ordered. 2. Monitor PO intake, wt daily , labs and skin integrity 3. F/U as high risk in 2-3 days, 07/31-08/01 Expected Outcomes/Goals Expected Outcomes/Goals 1. PO intake to meet at least 75% of nutritional needs. 2. Wt stability, skin to remain intact, labs to improve .
[2017-07-31] MEDS ORDERED: Heparin Sodium 1,000 Units/mL Vial HD ONE (23:18)
[2017-07-31] MEDS ORDERED: Heparin Sodium 1,000 Units/mL Vial ONE (23:21)
[2017-08-01] MEDS: INSULIN ASPART SLIDING SCALE 100 UNITS/ML UNIT SUBQ SCH ×5 (00:16→21:00)
[2017-08-01] MEDS: Albuterol/Ipratropium Neb 3 ML AERS HHN SCH ×6 (03:00→22:48)
[2017-08-01 05:19] LABS: HEMATOCRIT 28.2 % (41.0-60); HEMOGLOBIN 9.3 gm/dL (12-16); MEAN CELL VOLUME 95.3 fl (81-100); MEAN CORPUSCULAR HEMOGLOBIN 31.5 pg (27.0-31.0); MEAN PLATELET VOLUME 7.1 fl; PLATELET COUNT 255 Th/cmm (150-400); RED BLOOD COUNT 2.96 Mil/cmm (3.80-5.20); WHITE BLOOD COUNT 6.7 Th/cmm (4.8-10.8)
[2017-08-01 05:29] LABS: % EOSINOPHILS 2.4 % (0.0-5.0); % LYMPHOCYTES 8.3 % (20.0-50.0); % MONOCYTES 8.2 % (2.0-10.0)
[2017-08-01 05:30] LABS: % BASOPHILS 1.2 % (0.0-2.0); LYMPHOCYTE ABSOLUTE 0.3 Th/cmm (1.5-3.0); MONOCYTE ABSOLUTE 0.3 Th/cmm (0.3-1.0); NEUTROPHILE ABSOLUTE 2.6 Th/cmm (1.8-8.0)
[2017-08-01 05:31] LABS: % NEUTROPHILS 79.9 % (40.0-80.0); EOSINOPHILE ABSOLUTE 0.1 Th/cmm (0.1-0.4)
[2017-08-01 05:42] LABS: ALB/GLOB RATIO 0.8 (1.0-1.8); ALKALINE PHOSPHATASE 77 U/L (34-104); ANION GAP 11.3 (7.0-16.0); BILIRUBIN,TOTAL 1.4 mg/dL (0.3-1.0); BUN - UREA NITROGEN 22 mg/dL (7-25); CALCIUM SERUM 8.6 mg/dL (8.6-10.3); CARBON DIOXIDE 30.1 mEq/L (21.0-31.0); CHLORIDE 98 mEq/L (98-107); CREATININE - SERUM 1.9 mg/dL (0.6-1.2); GLUCOSE 112 mg/dL (70-105); POTASSIUM SERUM 3.4 mEq/L (3.5-5.1); SGOT 13 U/L (13-39); SGPT/ALT 8 U/L (7-52); SODIUM SERUM 136 mEq/L (136-145); TOTAL PROTEIN,SERUM 6.6 gm/dL (6.0-8.3)
[2017-08-01] MEDS: Lactobacillus Rhamnosus 10 Billion CFU Capsule PO SCH (08:32)
--- NOTE | 2017-08-01 08:34 | Diagnostic Imaging Report ---
CHEST X-RAY: AP view INDICATION: CHF COMPARISON: 07/31/2017 FINDINGS: Left-sided dialysis catheter is stable. Mild worsening in CHF is seen with bilateral effusions and infiltrates. Cardiomegaly is noted with atherosclerosis IMPRESSION: Interval mild worsening in CHF with bilateral effusions and infiltrates. Underlying pneumonia cannot be excluded.
--- NOTE | 2017-08-01 10:54 | General Progress Note ---
Subjective - Review of Systems Service Date: 08/01/17 Subjective: I am breathing better Objective - Results Result Diagrams: 08/01/17 04:29 08/01/17 04:29 Recent Labs: Laboratory Last Values WBC 6.7 Th/cmm (4.8-10.8) 08/01/17 04:29 RBC 2.96 Mil/cmm (3.80-5.20) L 08/01/17 04:29 Hgb 9.3 gm/dL (12-16) L 08/01/17 04:29 Hct 28.2 % (41.0-60) L D 08/01/17 04:29 MCV 95.3 fl (81-100) 08/01/17 04:29 MCH 31.5 pg (27.0-31.0) H 08/01/17 04:29 MCHC Differential 33.0 pg (28.0-36.0) 08/01/17 04:29 RDW 16.0 % (11.5-20.0) 08/01/17 04:29 Plt Count 255 Th/cmm (150-400) 08/01/17 04:29 MPV 7.1 fl 08/01/17 04:29 Neutrophils % 79.9 % (40.0-80.0) 08/01/17 04:29 Band Neutrophils % 0 % (0-10) 07/31/17 04:00 Lymphocytes % 8.3 % (20.0-50.0) L 08/01/17 04:29 Monocytes % 8.2 % (2.0-10.0) 08/01/17 04:29 Eosinophils % 2.4 % (0.0-5.0) 08/01/17 04:29 Basophils % 1.2 % (0.0-2.0) 08/01/17 04:29 Neutrophils (Manual) 75 % (40-80) 07/31/17 04:00 Lymphocytes 15 % (20-50) L 07/31/17 04:00 Monocytes 10 % (2-10) 07/31/17 04:00 Eosinophils 3 % (0-5) 07/30/17 04:10 Basophils 1 % (0-3) 07/30/17 04:10 Platelet Estimate ADEQUATE (NORMAL) 07/31/17 04:00 Eos Smear Source URINE 07/30/17 06:50 Eos Smear Total Cells NONE SEEN (NONE SEEN) 07/30/17 06:50 PT 9.6 SECONDS (9.5-11.5) 07/28/17 22:34 INR 0.92 (0.5-1.4) 07/28/17 22:34 PTT (Actin FS) 25.6 SECONDS (26.0-38.0) L 07/28/17 22:34 Specimen Source Arterial 07/30/17 09:55 Sample Site RB 07/30/17 09:55 pH 7.32 (7.35-7.45) L 07/30/17 09:55 pCO2 49.0 mmHg (35.0-45.0) H 07/30/17 09:55 pO2 45.0 mmHg (80.0-100.0) L* 07/30/17 09:55 HCO3 23.3 mEq/L (20.0-26.0) 07/30/17 09:55 Base Excess -1.4 mEq/L (-3.0-3.0) 07/30/17 09:55 O2 Saturation 76.0 % (92.0-100.0) L 07/30/17 09:55 Trace Test NA 07/29/17 14:45 Vent Rate 12 07/29/17 14:45 Inspired O2 32 07/30/17 09:55 Tidal Volume 350 07/29/17 14:45 PEEP NA 07/29/17 14:45 Pressure (ins/psv/peep) 6 07/29/17 14:45 Critical Value PW 07/30/17 09:55 Sodium 136 mEq/L (136-145) 08/01/17 04:29 Potassium 3.4 mEq/L (3.5-5.1) L 08/01/17 04:29 Chloride 98 mEq/L (98-107) 08/01/17 04:29 Carbon Dioxide 30.1 mEq/L (21.0-31.0) 08/01/17 04:29 Anion Gap 11.3 (7.0-16.0) 08/01/17 04:29 BUN 22 mg/dL (7-25) 08/01/17 04:29 Creatinine 1.9 mg/dL (0.6-1.2) H 08/01/17 04:29 Est GFR ( Amer) TNP 08/01/17 04:29 Est GFR (Non-Af Amer) TNP 08/01/17 04:29 BUN/Creatinine Ratio 11.6 08/01/17 04:29 Glucose 112 mg/dL (70-105) H 08/01/17 04:29 POC Glucose 161 MG/DL (70 - 105) H 08/01/17 06:38 Hemoglobin A1c % 6.1 % (4.0-6.0) H 07/30/17 04:10 Plasma/Ser Osmolality 303 mOsmol/kg (280-301) H 07/30/17 06:50 Uric Acid 3.5 mg/dL (2.3-6.6) 07/30/17 04:10 Calcium 8.6 mg/dL (8.6-10.3) 08/01/17 04:29 Phosphorus 7.6 mg/dL (2.5-5.0) H 07/30/17 04:10 Magnesium 2.0 mg/dL (1.9-2.7) 07/30/17 04:10 Total Bilirubin 1.4 mg/dL (0.3-1.0) H 08/01/17 04:29 AST 13 U/L (13-39) 08/01/17 04:29 ALT 8 U/L (7-52) 08/01/17 04:29 Alkaline Phosphatase 77 U/L (34-104) 08/01/17 04:29 Creatine Kinase 81 U/L (30-223) 07/28/17 22:34 Troponin I 0.26 ng/mL (0.01-0.05) H* 07/28/17 22:34 B-Natriuretic Peptide 1860.0 pg/mL (5.0-100.0) H 07/28/17 22:34 Total Protein 6.6 gm/dL (6.0-8.3) 08/01/17 04:29 Albumin 3.0 gm/dL (3.7-5.3) L 08/01/17 04:29 Globulin 3.6 gm/dL 08/01/17 04:29 Albumin/Globulin Ratio 0.8 (1.0-1.8) L 08/01/17 04:29 Amylase 108 U/L (29-103) H 07/28/17 22:34 Lipase 52 U/L (11-82) 07/28/17 22:34 TSH 2.62 uIU/ml (0.34-5.60) 07/30/17 04:10 Urine Source CLEAN C 07/28/17 23:00 Urine Color YELLOW 07/28/17 23:00 Urine Clarity CLEAR (CLEAR) 07/28/17 23:00 Urine pH 6.0 (4.6 - 8.0) 07/28/17 23:00 Ur Specific [facility] 1.015 (1.005-1.030) 07/28/17 23:00 Urine Protein >=300 mg/dL (NEGATIVE) 07/28/17 23:00 Urine Glucose (UA) NEGATIVE mg/dL (NEGATIVE) 07/28/17 23:00 Urine Ketones NEGATIVE mg/dL (NEGATIVE) 07/28/17 23:00 Urine Blood SMALL (NEGATIVE) H 07/28/17 23:00 Urine Nitrate NEGATIVE (NEGATIVE) 07/28/17 23:00 Urine Bilirubin NEGATIVE (NEGATIVE) 07/28/17 23:00 Urine Urobilinogen 0.2 E.U./dL (0.2 - 1.0) 07/28/17 23:00 Ur Leukocyte Esterase NEGATIVE (NEGATIVE) 07/28/17 23:00 Urine RBC 2-5 /hpf (0-5) 07/28/17 23:00 Urine WBC 6-10 /hpf (0-5) H 07/28/17 23:00 Ur Epithelial Cells MODERATE /lpf (FEW) 07/28/17 23:00 Urine Bacteria FEW /hpf (NONE SEEN) 07/28/17 23:00 Urine Creatinine 44.0 mg/dl (28.0-217.0) 07/30/17 06:50 Blood Type O POSITIVE 07/31/17 08:00 Antibody Screen NEGATIVE 07/31/17 08:00 - Physical Exam Vitals and I&O: Vital Signs Temp 97 F 08/01/17 08:00 Pulse 85 08/01/17 10:00 Resp 20 08/01/17 10:00 BP 137/50 08/01/17 10:00 Pulse Ox 97 08/01/17 10:00 Intake & Output 07/31/17 08/01/17 08/01/17 18:59 06:59 18:59 Intake Total 700 50 Output Total 850 0 0 Balance -150 50 0 Weight (lbs) 72.575 kg 72.575 kg 72.575 kg Intake: Intake, IV Amount 50 cefTRIAXone 1 gm In 50 Dextrose 5% 50 ml @ 100 mls/hr IV Q24HR [facility] Rx#: [id number] Oral 700 Output: Urine 850 Stool 0 0 0 Other: # Voids 2 # Bowel Movements 0 0 0 Active Medications: Current Medications Acetaminophen (Tylenol) 650 mg PO Q4H PRN PRN Reason: Pain (Mild) Stop: 09/28/17 15:37 Last Admin: 07/30/17 15:47 Dose: 650 mg Albuterol/Ipratropium (Duoneb Neb) 3 ml HHN Q4HRT [facility] Stop: 09/27/17 14:59 Last Admin: 08/01/17 07:19 Dose: 3 ml Allopurinol (Zyloprim) 100 mg PO BID [facility] Stop: 09/27/17 08:59 Last Admin: 08/01/17 08:32 Dose: 100 mg Amiodarone HCl (Cordarone) 100 mg PO BID [facility] Stop: 09/30/17 00:44 Last Admin: 08/01/17 08:32 Dose: 100 mg Epoetin Dustin (Epogen) 10,000 units SUBQ TuThSa [facility] Stop: 09/28/17 17:56 Last Admin: 07/30/17 18:42 Dose: Not Given Famotidine (Pepcid) 20 mg IVP DAILY [facility] Stop: 09/28/17 08:59 Last Admin: 08/01/17 08:32 Dose: 20 mg Furosemide (Lasix) 40 mg IVP BID [facility] Stop: 09/27/17 16:59 Last Admin: 08/01/17 08:32 Dose: 40 mg Ceftriaxone Sodium 1 gm/ (Dextrose) 50 mls @ 100 mls/hr IV Q24HR [facility] Stop: 09/28/17 04:59 Last Infusion: 08/01/17 05:37 Dose: Infused Albumin Human (Albuminar 25%) 25 gm in 100 mls @ 50 mls/hr IV PRN PRN PRN Reason: BP Support During HD Stop: 09/28/17 00:00 Insulin Aspart (Novolog Insulin Sliding Scale) 0 units SUBQ Q6HR [facility] PRN Reason: Protocol Stop: 09/28/17 11:59 Last Admin: 08/01/17 06:42 Dose: 2 units Lactobacillus Rhamnosus (Culturelle) 1 each PO DAILY [facility] Stop: 09/29/17 08:59 Last Admin: 08/01/17 08:32 Dose: 1 each Miscellaneous (Clinical Monitoring) 1 ea MC DAILY PRN PRN Reason: RENAL Stop: 09/27/17 07:45 Miscellaneous (Vte Chemical Prophylaxis Screen/ Admission) 1 ea MC PRN PRN PRN Reason: PROTOCOL Stop: 09/27/17 16:47 Miscellaneous (Vte Chemical Prophylaxis Screen/ Admission) 1 ea MC PRN PRN PRN Reason: PROTOCOL Stop: 09/27/17 16:51 Miscellaneous (Probiotic Screen) 1 ea MC PRN PRN PRN Reason: PROTOCOL Stop: 09/28/17 10:27 Nifedipine (Procardia) 10 mg PO DAILY [facility] Stop: 09/27/17 08:59 Last Admin: 08/01/17 08:32 Dose: 10 mg Potassium Chloride (Klor-Con) 20 meq PO DAILY [facility] Stop: 09/30/17 10:44 General: Alert, Oriented x3, No acute distress HEENT: Atraumatic, EOMI, Mucous membr. moist/pink Neck: Supple, +2 carotid pulse wo bruit Cardiovascular: Regular rate, Normal S1, Normal S2 Lungs: Other (less rhonchi) Abdomen: Bowel sounds, Soft Extremities: Other (No edema), no Edema Neurological: Sensation intact Skin: Other (Warm and dry), no Rash Psych/Mental Status: Mental status NL - Procedures Procedures: Procedures Procedure Code Date ASSISTANCE WITH RESPIRATORY VENTILATION, <24 HRS, CPAP [id number] 07/29/17 INSERT TUNNELED CV CATH 14962 07/29/17 INSERTION OF INFUSION DEV INTO L SUBCLAV VEIN, PERC APPROACH [id number] 07/29/17 POS AIRWAY PRESSURE CPAP 00971 07/29/17 TETANUS TOXOID ADMINIST 99.38 05/28/13 Assessment/Plan - Problem List Patient Problems: All Active Problems Laceration of finger (Active) S61.219A - Assessment Assessment: Patient is awake alert in no distress. K low, Creatinine improving. Hgb improved with transfusion. CXR show that patient continue with infiltrates, O2 saturation still low. Patient improving. Dx: Abdominal pain, Atypical Chest Pain, CHF exacerbation, CKD, Bilateral PNA, Elevated troponins, DM, HTN. - Plan Plan: Patient in ICU nasal O2, Continue with home meds, Patient was transfused, Juan was change. [place] will have HD. LTAC eval will be request. Already seen by Cardio, Nephro and Pulmonology. Will continue to monitor. Nutritional Asmnt/Malnutr-PDOC - Dietary Evaluation Malnutrition Findings (Please click <Entered> for more info): Nutritional Asmnt/Malnutrition Start: 07/29/17 17: 08 Text: Status: Complete Freq: Document 07/29/17 17:08 [facility] (Rec: 07/29/17 17:35 [facility] [id number]) Nutritional Asmnt/Malnutrition Patient General Information Nutritional Screening High Risk Diagnosis abdominal pain, atypical chest pain, CHF exacerbation, CKD, bilateral PNA Pertinent Medical Hx/Surgical Hx CAD, CHF, HTN, DM, chronic renal insuff, cholecystectomy, left kidney removal Subjective Information Pt was busy with medical staff during time of visit, attempted x 2. Spoke with RN, per family pt has decreased appetite and PO intake before admitted. Pt did not eat breakfast d/t SOB this morning . Appetite was poor. Per nurse note, pt back on bipap this afternoon. Current Diet Order/ Nutrition Support Renal Pertinent Medications lasix, hctz, procardia Pertinent Labs 07/29 Na 132, K 5.0, Cl 101, BUN 82H, Cr 4.0, Glucose 100, Ca 9.2, Alb 3.5 Nutritional Hx/Data Height 1.55 m Height (Calculated Centimeters) 154.9 Current Weight (lbs) 72.575 kg Weight (Calculated Kilograms) 72.6 Weight (Calculated Grams) 06880.8 [place] Body Weight 105 % [place] Body Weight 152 Body Mass Index (BMI) 30.2 Weight Status Obese GI Symptoms GI Symptoms None Last BM none Difficult in: None Skin Integrity/Comment: intact Estimated Nutritional Goals BEE in Kcals: Adj wt of IBW Calories/Kcals/Kg 30-35 Kcals Calculated [id number] Protein: Adj wt of IBW Protein g/k Protein Calculated 54g monitor renal labs Fluid: ml [id number] or Per MD d/t acute renal failure Nutritional Problem 1. Problem Problem altered nutrition related lab values Etiology hx of chronic renal insuff Signs/Symptoms: BUN 82H, Cr 4.0 Malnutrition Alert Protein-Calorie Malnutrition N/A Is there a minimum of two criteria No selected? Query Text:Check all the applicable criteria. A minimum of two criteria are recommended for diagnosis of either severe or non-severe malnutrition. Intervention/Recommendation Comments 1. Continue with renal diet as ordered. 2. Monitor PO intake, wt daily , labs and skin integrity 3. F/U as high risk in 2-3 days, 07/31-08/01 Expected Outcomes/Goals Expected Outcomes/Goals 1. PO intake to meet at least 75% of nutritional needs. 2. Wt stability, skin to remain intact, labs to improve .
[2017-08-01 11:11] LABS: HEP A AB IGM Negative (Negative); HEP B CORE IGM Negative (Negative); HEP B SURFACE AG QL Negative (Negative); HEP C ANTIBODY 0.2 s/co ratio (0.0-0.9)
[2017-08-01] MEDS: Potassium Chloride 20 mEq ER Tab PO SCH (11:20)
--- NOTE | 2017-08-01 13:21 | General Progress Note ---
Subjective - Review of Systems Service Date: 08/01/17 Subjective: eating lunch, verbal, comfortable on NC Objective - Results Result Diagrams: 08/01/17 04:29 08/01/17 04:29 Recent Labs: Laboratory Last Values WBC 6.7 Th/cmm (4.8-10.8) 08/01/17 04:29 RBC 2.96 Mil/cmm (3.80-5.20) L 08/01/17 04:29 Hgb 9.3 gm/dL (12-16) L 08/01/17 04:29 Hct 28.2 % (41.0-60) L D 08/01/17 04:29 MCV 95.3 fl (81-100) 08/01/17 04:29 MCH 31.5 pg (27.0-31.0) H 08/01/17 04:29 MCHC Differential 33.0 pg (28.0-36.0) 08/01/17 04:29 RDW 16.0 % (11.5-20.0) 08/01/17 04:29 Plt Count 255 Th/cmm (150-400) 08/01/17 04:29 MPV 7.1 fl 08/01/17 04:29 Neutrophils % 79.9 % (40.0-80.0) 08/01/17 04:29 Band Neutrophils % 0 % (0-10) 07/31/17 04:00 Lymphocytes % 8.3 % (20.0-50.0) L 08/01/17 04:29 Monocytes % 8.2 % (2.0-10.0) 08/01/17 04:29 Eosinophils % 2.4 % (0.0-5.0) 08/01/17 04:29 Basophils % 1.2 % (0.0-2.0) 08/01/17 04:29 Neutrophils (Manual) 75 % (40-80) 07/31/17 04:00 Lymphocytes 15 % (20-50) L 07/31/17 04:00 Monocytes 10 % (2-10) 07/31/17 04:00 Eosinophils 3 % (0-5) 07/30/17 04:10 Basophils 1 % (0-3) 07/30/17 04:10 Platelet Estimate ADEQUATE (NORMAL) 07/31/17 04:00 Eos Smear Source URINE 07/30/17 06:50 Eos Smear Total Cells NONE SEEN (NONE SEEN) 07/30/17 06:50 PT 9.6 SECONDS (9.5-11.5) 07/28/17 22:34 INR 0.92 (0.5-1.4) 07/28/17 22:34 PTT (Actin FS) 25.6 SECONDS (26.0-38.0) L 07/28/17 22:34 Specimen Source Arterial 07/30/17 09:55 Sample Site RB 07/30/17 09:55 pH 7.32 (7.35-7.45) L 07/30/17 09:55 pCO2 49.0 mmHg (35.0-45.0) H 07/30/17 09:55 pO2 45.0 mmHg (80.0-100.0) L* 07/30/17 09:55 HCO3 23.3 mEq/L (20.0-26.0) 07/30/17 09:55 Base Excess -1.4 mEq/L (-3.0-3.0) 07/30/17 09:55 O2 Saturation 76.0 % (92.0-100.0) L 07/30/17 09:55 Trace Test NA 07/29/17 14:45 Vent Rate 12 07/29/17 14:45 Inspired O2 32 07/30/17 09:55 Tidal Volume 350 07/29/17 14:45 PEEP NA 07/29/17 14:45 Pressure (ins/psv/peep) 6 07/29/17 14:45 Critical Value PW 07/30/17 09:55 Sodium 136 mEq/L (136-145) 08/01/17 04:29 Potassium 3.4 mEq/L (3.5-5.1) L 08/01/17 04:29 Chloride 98 mEq/L (98-107) 08/01/17 04:29 Carbon Dioxide 30.1 mEq/L (21.0-31.0) 08/01/17 04:29 Anion Gap 11.3 (7.0-16.0) 08/01/17 04:29 BUN 22 mg/dL (7-25) 08/01/17 04:29 Creatinine 1.9 mg/dL (0.6-1.2) H 08/01/17 04:29 Est GFR ( Amer) TNP 12/21/17 04:29 Est GFR (Non-Af Amer) TNP 08/01/17 04:29 BUN/Creatinine Ratio 11.6 08/01/17 04:29 Glucose 112 mg/dL (70-105) H 08/01/17 04:29 POC Glucose 161 MG/DL (70 - 105) H 08/01/17 06:38 Hemoglobin A1c % 6.1 % (4.0-6.0) H 07/30/17 04:10 Plasma/Ser Osmolality 303 mOsmol/kg (280-301) H 07/30/17 06:50 Uric Acid 3.5 mg/dL (2.3-6.6) 07/30/17 04:10 Calcium 8.6 mg/dL (8.6-10.3) 08/01/17 04:29 Phosphorus 7.6 mg/dL (2.5-5.0) H 07/30/17 04:10 Magnesium 2.0 mg/dL (1.9-2.7) 07/30/17 04:10 Total Bilirubin 1.4 mg/dL (0.3-1.0) H 08/01/17 04:29 AST 13 U/L (13-39) 08/01/17 04:29 ALT 8 U/L (7-52) 08/01/17 04:29 Alkaline Phosphatase 77 U/L (34-104) 08/01/17 04:29 Creatine Kinase 81 U/L (30-223) 07/28/17 22:34 Troponin I 0.26 ng/mL (0.01-0.05) H* 07/28/17 22:34 B-Natriuretic Peptide 1860.0 pg/mL (5.0-100.0) H 07/28/17 22:34 Total Protein 6.6 gm/dL (6.0-8.3) 08/01/17 04:29 Albumin 3.0 gm/dL (3.7-5.3) L 08/01/17 04:29 Globulin 3.6 gm/dL 08/01/17 04:29 Albumin/Globulin Ratio 0.8 (1.0-1.8) L 08/01/17 04:29 Amylase 108 U/L (29-103) H 07/28/17 22:34 Lipase 52 U/L (11-82) 07/28/17 22:34 TSH 2.62 uIU/ml (0.34-5.60) 07/30/17 04:10 Urine Source CLEAN C 07/28/17 23:00 Urine Color YELLOW 07/28/17 23:00 Urine Clarity CLEAR (CLEAR) 07/28/17 23:00 Urine pH 6.0 (4.6 - 8.0) 07/28/17 23:00 Ur Specific [place] 1.015 (1.005-1.030) 07/28/17 23:00 Urine Protein >=300 mg/dL (NEGATIVE) 07/28/17 23:00 Urine Glucose (UA) NEGATIVE mg/dL (NEGATIVE) 07/28/17 23:00 Urine Ketones NEGATIVE mg/dL (NEGATIVE) 07/28/17 23:00 Urine Blood SMALL (NEGATIVE) H 07/28/17 23:00 Urine Nitrate NEGATIVE (NEGATIVE) 07/28/17 23:00 Urine Bilirubin NEGATIVE (NEGATIVE) 07/28/17 23:00 Urine Urobilinogen 0.2 E.U./dL (0.2 - 1.0) 07/28/17 23:00 Ur Leukocyte Esterase NEGATIVE (NEGATIVE) 07/28/17 23:00 Urine RBC 2-5 /hpf (0-5) 07/28/17 23:00 Urine WBC 6-10 /hpf (0-5) H 07/28/17 23:00 Ur Epithelial Cells MODERATE /lpf (FEW) 07/28/17 23:00 Urine Bacteria FEW /hpf (NONE SEEN) 07/28/17 23:00 Urine Creatinine 44.0 mg/dl (28.0-217.0) 07/30/17 06:50 Hepatitis A IgM Ab Negative (Negative) 07/30/17 18:56 Hep Bs Antigen Negative (Negative) 07/30/17 18:56 Hep B Core IgM Ab Negative (Negative) 07/30/17 18:56 Hepatitis C Antibody 0.2 s/co ratio (0.0-0.9) 07/30/17 18:56 Blood Type O POSITIVE 07/31/17 08:00 Antibody Screen NEGATIVE 07/31/17 08:00 - Physical Exam Vitals and I&O: Vital Signs Temp 96.9 F 08/01/17 12:00 Pulse 76 08/01/17 12:00 Resp 17 12/21/17 12:00 BP 167/58 08/01/17 12:00 Pulse Ox 100 08/01/17 12:00 Intake & Output 07/31/17 08/01/17 08/01/17 18:59 06:59 18:59 Intake Total 700 50 Output Total 850 0 0 Balance -150 50 0 Weight (lbs) 72.575 kg 72.575 kg 72.575 kg Intake: Intake, IV Amount 50 cefTRIAXone 1 gm In 50 Dextrose 5% 50 ml @ 100 mls/hr IV Q24HR [facility] Rx#: [id number] Oral 700 Output: Urine 850 Stool 0 0 0 Other: # Voids 2 # Bowel Movements 0 0 0 Active Medications: Current Medications Acetaminophen (Tylenol) 650 mg PO Q4H PRN PRN Reason: Pain (Mild) Stop: 09/28/17 15:37 Last Admin: 07/30/17 15:47 Dose: 650 mg Albuterol/Ipratropium (Duoneb Neb) 3 ml HHN Q4HRT [facility] Stop: 09/27/17 14:59 Last Admin: 08/01/17 11:36 Dose: 3 ml Allopurinol (Zyloprim) 100 mg PO BID [facility] Stop: 09/27/17 08:59 Last Admin: 08/01/17 08:32 Dose: 100 mg Amiodarone HCl (Cordarone) 100 mg PO BID [facility] Stop: 09/30/17 00:44 Last Admin: 08/01/17 08:32 Dose: 100 mg Epoetin Dustin (Epogen) 10,000 units SUBQ TuThSa [facility] Stop: 09/28/17 17:56 Last Admin: 07/30/17 18:42 Dose: Not Given Famotidine (Pepcid) 20 mg IVP DAILY [facility] Stop: 09/28/17 08:59 Last Admin: 08/01/17 08:32 Dose: 20 mg Furosemide (Lasix) 40 mg IVP BID [facility] Stop: 09/27/17 16:59 Last Admin: 08/01/17 08:32 Dose: 40 mg Ceftriaxone Sodium 1 gm/ (Dextrose) 50 mls @ 100 mls/hr IV Q24HR [facility] Stop: 09/28/17 04:59 Last Infusion: 08/01/17 05:37 Dose: Infused Albumin Human (Albuminar 25%) 25 gm in 100 mls @ 50 mls/hr IV PRN PRN PRN Reason: BP Support During HD Stop: 09/28/17 00:00 Insulin Aspart (Novolog Insulin Sliding Scale) 0 units SUBQ Q6HR [facility] PRN Reason: Protocol Stop: 09/28/17 11:59 Last Admin: 08/01/17 12:12 Dose: 2 units Lactobacillus Rhamnosus (Culturelle) 1 each PO DAILY [facility] Stop: 09/29/17 08:59 Last Admin: 08/01/17 08:32 Dose: 1 each Miscellaneous (Clinical Monitoring) 1 ea MC DAILY PRN PRN Reason: RENAL Stop: 09/27/17 07:45 Miscellaneous (Vte Chemical Prophylaxis Screen/ Admission) 1 ea PRN PRN PRN Reason: PROTOCOL Stop: 09/27/17 16:47 Miscellaneous (Vte Chemical Prophylaxis Screen/ Admission) 1 ea PRN PRN PRN Reason: PROTOCOL Stop: 09/27/17 16:51 Miscellaneous (Probiotic Screen) 1 ea PRN PRN PRN Reason: PROTOCOL Stop: 09/28/17 10:27 Nifedipine (Procardia) 10 mg PO DAILY [facility] Stop: 09/27/17 08:59 Last Admin: 08/01/17 08:32 Dose: 10 mg Potassium Chloride (Klor-Con) 20 meq PO DAILY [facility] Stop: 09/30/17 10:44 Last Admin: 08/01/17 11:20 Dose: 20 meq General: Alert, Oriented x3, No acute distress HEENT: Atraumatic, EOMI, Mucous membr. moist/pink Neck: Supple, +2 carotid pulse wo bruit Cardiovascular: Regular rate, Normal S1, Normal S2 Lungs: Other (less rhonchi) Abdomen: Bowel sounds, Soft Extremities: Other (No edema), no Edema Neurological: Sensation intact Skin: Other (Warm and dry), no Rash Psych/Mental Status: Mental status NL - Procedures Procedures: Procedures Procedure Code Date ASSISTANCE WITH RESPIRATORY VENTILATION, <24 HRS, CPAP [id number] 07/29/17 INSERT TUNNELED CV CATH [id number] 07/29/17 INSERTION OF INFUSION DEV INTO L SUBCLAV VEIN, PERC APPROACH [id number] 07/29/17 POS AIRWAY PRESSURE CPAP 77164 07/29/17 TETANUS TOXOID ADMINIST 99.38 05/28/13 Assessment/Plan - Problem List Patient Problems: All Active Problems Laceration of finger (Active) S61.219A - Assessment Assessment: ESRD on HD Decomp CHF Hyponatremia Hyperkalemia RUL nodule Type 2 DM Ess Htn Left RCC S/P Nephrctomy B/L CAP - Plan Plan: Lab - Result Diagrams 07/30/17 10:00 07/30/17 04:10 Current Medications Acetaminophen (Tylenol) 650 mg PO Q4H PRN PRN Reason: Pain (Mild) Stop: 09/28/17 15:37 Last Admin: 07/30/17 15:47 Dose: 650 mg Albuterol/Ipratropium (Duoneb Neb) 3 ml HHN Q4HRT [facility] Stop: 09/27/17 14:59 Last Admin: 07/30/17 15:10 Dose: 3 ml Allopurinol (Zyloprim) 100 mg PO BID [facility] Stop: 09/27/17 08:59 Last Admin: 07/30/17 08:34 Dose: 100 mg Epoetin Dustin (Epogen) 10,000 units SUBQ TuThSa [facility] Stop: 09/28/17 17:56 Famotidine (Pepcid) 20 mg IVP DAILY [facility] Stop: 09/28/17 08:59 Last Admin: 07/30/17 08:35 Dose: 20 mg Furosemide (Lasix) 40 mg IVP BID [facility] Stop: 09/27/17 16:59 Last Admin: 07/30/17 08:35 Dose: 40 mg Heparin Sodium (Porcine) (Heparin Sodium) 0 units HD UD [facility] Stop: 07/31/17 00:00 Heparin Sodium (Porcine) (Heparin) 5,000 units HD UD [facility] Stop: 07/31/17 00:00 Ceftriaxone Sodium 1 gm/ (Dextrose) 50 mls @ 100 mls/hr IV Q24HR [facility]IL Stop: 09/28/17 04:59 Last Infusion: 07/30/17 06:10 Dose: Infused Albumin Human (Albuminar 25%) 25 gm in 100 mls @ 50 mls/hr IV PRN PRN PRN Reason: BP Support During HD Stop: 09/28/17 00:00 Insulin Aspart (Novolog Insulin Sliding Scale) 0 units SUBQ Q6HR WIL PRN Reason: Protocol Stop: 09/28/17 11:59 Last Admin: 07/30/17 11:50 Dose: 4 units Lactobacillus Rhamnosus (Culturelle) 1 each PO DAILY [facility]IL Stop: 09/29/17 08:59 Miscellaneous (Clinical Monitoring) 1 ea MC DAILY PRN PRN Reason: RENAL Stop: 09/27/17 07:45 Miscellaneous (Vte Chemical Prophylaxis Screen/ Admission) 1 ea MC PRN PRN PRN Reason: PROTOCOL Stop: 09/27/17 16:47 Miscellaneous (Vte Chemical Prophylaxis Screen/ Admission) 1 ea MC PRN PRN PRN Reason: PROTOCOL Stop: 09/27/17 16:51 Miscellaneous (Probiotic Screen) 1 ea MC PRN PRN PRN Reason: PROTOCOL Stop: 09/28/17 10:27 Nifedipine (Procardia) 10 mg PO DAILY [facility] Stop: 09/27/17 08:59 Last Admin: 07/30/17 08:34 Dose: 10 mg Lab - Result Diagrams 08/01/17 04:29 08/01/17 04:29 just had repalcement of cath reschedule for HD in am CXR still shows CHF discussed w/ smith extensively f/u electrolytes, cbc Nutritional Asmnt/Malnutr-PDOC - Dietary Evaluation Malnutrition Findings (Please click <Entered> for more info): Nutritional Asmnt/Malnutrition Start: 07/29/17 17: 08 Text: Status: Complete Freq: Document 07/29/17 17:08 LCDARRIANG (Rec: 07/29/17 17:35 [email or web address]) Nutritional Asmnt/Malnutrition Patient General Information Nutritional Screening High Risk Diagnosis abdominal pain, atypical chest pain, CHF exacerbation, CKD, bilateral PNA Pertinent Medical Hx/Surgical Hx CAD, CHF, HTN, DM, chronic renal insuff, cholecystectomy, left kidney removal Subjective Information Pt was busy with medical staff during time of visit, attempted x 2. Spoke with RN, per family pt has decreased appetite and PO intake before admitted. Pt did not eat breakfast d/t SOB this morning . Appetite was poor. Per nurse note, pt back on bipap this afternoon. Current Diet Order/ Nutrition Support Renal Pertinent Medications lasix, hctz, procardia Pertinent Labs 07/29 Na 132, K 5.0, Cl 101, BUN 82H, Cr 4.0, Glucose 100, Ca 9.2, Alb 3.5 Nutritional Hx/Data Height 1.55 m Height (Calculated Centimeters) 154.9 Current Weight (lbs) 72.575 kg Weight (Calculated Kilograms) 72.6 Weight (Calculated Grams) 55555.8 [place] Body Weight 105 % [place] Body Weight 152 Body Mass Index (BMI) 30.2 Weight Status Obese GI Symptoms GI Symptoms None Last BM none Difficult in: None Skin Integrity/Comment: intact Estimated Nutritional Goals BEE in Kcals: Adj wt of IBW Calories/Kcals/Kg 30-35 Kcals Calculated 9100-7254 Protein: Adj wt of IBW Protein g/k Protein Calculated 54g monitor renal labs Fluid: ml [id number] or Per MD d/t acute renal failure Nutritional Problem 1. Problem Problem altered nutrition related lab values Etiology hx of chronic renal insuff Signs/Symptoms: BUN 82H, Cr 4.0 Malnutrition Alert Protein-Calorie Malnutrition N/A Is there a minimum of two criteria No selected? Query Text:Check all the applicable criteria. A minimum of two criteria are recommended for diagnosis of either severe or non-severe malnutrition. Intervention/Recommendation Comments 1. Continue with renal diet as ordered. 2. Monitor PO intake, wt daily , labs and skin integrity 3. F/U as high risk in 2-3 days, 07/31-08/01 Expected Outcomes/Goals Expected Outcomes/Goals 1. PO intake to meet at least 75% of nutritional needs. 2. Wt stability, skin to remain intact, labs to improve .
[2017-08-02] MEDS: Albuterol/Ipratropium Neb 3 ML AERS HHN SCH ×5 (02:52→22:49)
[2017-08-02 04:52] LABS: HEMATOCRIT 27.6 % (41.0-60); HEMOGLOBIN 9.1 gm/dL (12-16); MEAN CELL VOLUME 94.1 fl (81-100); MEAN CORPUSCULAR HEMOGLOBIN 31.1 pg (27.0-31.0); MEAN CORPUSCULAR HGB CONC 33.1 pg (28.0-36.0); MEAN PLATELET VOLUME 7.2 fl; PLATELET COUNT 233 Th/cmm (150-400); RED BLOOD COUNT 2.93 Mil/cmm (3.80-5.20); RED CELL DISTRIBUTION WIDTH 16.1 % (11.5-20.0)
[2017-08-02 05:11] LABS: % BASOPHILS 0.1 % (0.0-2.0); % EOSINOPHILS 5.6 % (0.0-5.0); % LYMPHOCYTES 15.2 % (20.0-50.0); % MONOCYTES 11.9 % (2.0-10.0); % NEUTROPHILS 67.2 % (40.0-80.0); EOSINOPHILE ABSOLUTE 0.2 Th/cmm (0.1-0.4); LYMPHOCYTE ABSOLUTE 0.5 Th/cmm (1.5-3.0); MONOCYTE ABSOLUTE 0.4 Th/cmm (0.3-1.0); NEUTROPHILE ABSOLUTE 2.2 Th/cmm (1.8-8.0)
[2017-08-02 05:16] LABS: ALB/GLOB RATIO 0.8 (1.0-1.8); ALBUMIN 2.9 gm/dL (3.7-5.3); ALKALINE PHOSPHATASE 69 U/L (34-104); ANION GAP 10.9 (7.0-16.0); BILIRUBIN,TOTAL 0.4 mg/dL (0.3-1.0); BUN - UREA NITROGEN 35 mg/dL (7-25); CALCIUM SERUM 8.6 mg/dL (8.6-10.3); CARBON DIOXIDE 28.8 mEq/L (21.0-31.0); CHLORIDE 97 mEq/L (98-107); CREATININE - SERUM 3.2 mg/dL (0.6-1.2); GLUCOSE 113 mg/dL (70-105); POTASSIUM SERUM 3.7 mEq/L (3.5-5.1); SGOT 13 U/L (13-39); SGPT/ALT 8 U/L (7-52); SODIUM SERUM 133 mEq/L (136-145); TOTAL PROTEIN,SERUM 6.4 gm/dL (6.0-8.3)
[2017-08-02] MEDS: Lactobacillus Rhamnosus 10 Billion CFU Capsule PO SCH (10:19)
[2017-08-02] MEDS: Potassium Chloride 20 mEq ER Tab PO SCH (10:19)
[2017-08-02] MEDS: INSULIN ASPART SLIDING SCALE 100 UNITS/ML UNIT SUBQ SCH ×4 (13:45→22:08)
--- NOTE | 2017-08-02 14:46 | General Progress Note ---
Subjective - Review of Systems Service Date: 08/02/17 Subjective: tired today, verbal, myalgias Objective - Results Result Diagrams: 08/02/17 04:00 08/02/17 04:00 Recent Labs: Laboratory Last Values WBC 6.0 Th/cmm (4.8-10.8) 08/02/17 04:00 RBC 2.93 Mil/cmm (3.80-5.20) L 08/02/17 04:00 Hgb 9.1 gm/dL (12-16) L 08/02/17 04:00 Hct 27.6 % (41.0-60) L 08/02/17 04:00 MCV 94.1 fl (81-100) 08/02/17 04:00 MCH 31.1 pg (27.0-31.0) H 08/02/17 04:00 MCHC Differential 33.1 pg (28.0-36.0) 08/02/17 04:00 RDW 16.1 % (11.5-20.0) 08/02/17 04:00 Plt Count 233 Th/cmm (150-400) 08/02/17 04:00 MPV 7.2 fl 08/02/17 04:00 Neutrophils % 67.2 % (40.0-80.0) 08/02/17 04:00 Band Neutrophils % 0 % (0-10) 07/31/17 04:00 Lymphocytes % 15.2 % (20.0-50.0) L 08/02/17 04:00 Monocytes % 11.9 % (2.0-10.0) H 08/02/17 04:00 Eosinophils % 5.6 % (0.0-5.0) H 08/02/17 04:00 Basophils % 0.1 % (0.0-2.0) 08/02/17 04:00 Neutrophils (Manual) 75 % (40-80) 07/31/17 04:00 Lymphocytes 15 % (20-50) L 07/31/17 04:00 Monocytes 10 % (2-10) 07/31/17 04:00 Eosinophils 3 % (0-5) 07/30/17 04:10 Basophils 1 % (0-3) 07/30/17 04:10 Platelet Estimate ADEQUATE (NORMAL) 07/31/17 04:00 Eos Smear Source URINE 07/30/17 06:50 Eos Smear Total Cells NONE SEEN (NONE SEEN) 07/30/17 06:50 PT 9.6 SECONDS (9.5-11.5) 07/28/17 22:34 INR 0.92 (0.5-1.4) 07/28/17 22:34 PTT (Actin FS) 25.6 SECONDS (26.0-38.0) L 07/28/17 22:34 Specimen Source Arterial 07/30/17 09:55 Sample Site RB 07/30/17 09:55 pH 7.32 (7.35-7.45) L 07/30/17 09:55 pCO2 49.0 mmHg (35.0-45.0) H 07/30/17 09:55 pO2 45.0 mmHg (80.0-100.0) L* 07/30/17 09:55 HCO3 23.3 mEq/L (20.0-26.0) 07/30/17 09:55 Base Excess -1.4 mEq/L (-3.0-3.0) 07/30/17 09:55 O2 Saturation 76.0 % (92.0-100.0) L 07/30/17 09:55 Trace Test NA 07/29/17 14:45 Vent Rate 12 07/29/17 14:45 Inspired O2 32 07/30/17 09:55 Tidal Volume 350 07/29/17 14:45 PEEP NA 07/29/17 14:45 Pressure (ins/psv/peep) 6 07/29/17 14:45 Critical Value PW 07/30/17 09:55 Sodium 133 mEq/L (136-145) L 08/02/17 04:00 Potassium 3.7 mEq/L (3.5-5.1) 08/02/17 04:00 Chloride 97 mEq/L (98-107) L 08/02/17 04:00 Carbon Dioxide 28.8 mEq/L (21.0-31.0) 08/02/17 04:00 Anion Gap 10.9 (7.0-16.0) 08/02/17 04:00 BUN 35 mg/dL (7-25) H 08/02/17 04:00 Creatinine 3.2 mg/dL (0.6-1.2) H 08/02/17 04:00 Est GFR ( Amer) TNP 08/02/17 04:00 Est GFR (Non-Af Amer) TNP 08/02/17 04:00 BUN/Creatinine Ratio 10.9 08/02/17 04:00 Glucose 113 mg/dL (70-105) H 08/02/17 04:00 POC Glucose 208 MG/DL (70 - 105) H 08/02/17 10:27 Hemoglobin A1c % 6.1 % (4.0-6.0) H 07/30/17 04:10 Plasma/Ser Osmolality 303 mOsmol/kg (280-301) H 07/30/17 06:50 Uric Acid 3.5 mg/dL (2.3-6.6) 07/30/17 04:10 Calcium 8.6 mg/dL (8.6-10.3) 08/02/17 04:00 Phosphorus 7.6 mg/dL (2.5-5.0) H 07/30/17 04:10 Magnesium 2.0 mg/dL (1.9-2.7) 07/30/17 04:10 Total Bilirubin 0.4 mg/dL (0.3-1.0) 08/02/17 04:00 AST 13 U/L (13-39) 08/02/17 04:00 ALT 8 U/L (7-52) 08/02/17 04:00 Alkaline Phosphatase 69 U/L (34-104) 08/02/17 04:00 Creatine Kinase 81 U/L (30-223) 07/28/17 22:34 Troponin I 0.26 ng/mL (0.01-0.05) H* 07/28/17 22:34 B-Natriuretic Peptide 1860.0 pg/mL (5.0-100.0) H 07/28/17 22:34 Total Protein 6.4 gm/dL (6.0-8.3) 08/02/17 04:00 Albumin 2.9 gm/dL (3.7-5.3) L 08/02/17 04:00 Globulin 3.5 gm/dL 08/02/17 04:00 Albumin/Globulin Ratio 0.8 (1.0-1.8) L 08/02/17 04:00 Amylase 108 U/L (29-103) H 07/28/17 22:34 Lipase 52 U/L (11-82) 07/28/17 22:34 TSH 2.62 uIU/ml (0.34-5.60) 07/30/17 04:10 Urine Source CLEAN C 07/28/17 23:00 Urine Color YELLOW 07/28/17 23:00 Urine Clarity CLEAR (CLEAR) 07/28/17 23:00 Urine pH 6.0 (4.6 - 8.0) 07/28/17 23:00 Ur Specific [place] 1.015 (1.005-1.030) 07/28/17 23:00 Urine Protein >=300 mg/dL (NEGATIVE) 07/28/17 23:00 Urine Glucose (UA) NEGATIVE mg/dL (NEGATIVE) 07/28/17 23:00 Urine Ketones NEGATIVE mg/dL (NEGATIVE) 07/28/17 23:00 Urine Blood SMALL (NEGATIVE) H 07/28/17 23:00 Urine Nitrate NEGATIVE (NEGATIVE) 07/28/17 23:00 Urine Bilirubin NEGATIVE (NEGATIVE) 07/28/17 23:00 Urine Urobilinogen 0.2 E.U./dL (0.2 - 1.0) 07/28/17 23:00 Ur Leukocyte Esterase NEGATIVE (NEGATIVE) 07/28/17 23:00 Urine RBC 2-5 /hpf (0-5) 07/28/17 23:00 Urine WBC 6-10 /hpf (0-5) H 07/28/17 23:00 Ur Epithelial Cells MODERATE /lpf (FEW) 07/28/17 23:00 Urine Bacteria FEW /hpf (NONE SEEN) 07/28/17 23:00 Urine Creatinine 44.0 mg/dl (28.0-217.0) 07/30/17 06:50 Hepatitis A IgM Ab Negative (Negative) 07/30/17 18:56 Hep Bs Antigen Negative (Negative) 07/30/17 18:56 Hep B Core IgM Ab Negative (Negative) 07/30/17 18:56 Hepatitis C Antibody 0.2 s/co ratio (0.0-0.9) 07/30/17 18:56 Blood Type O POSITIVE 07/31/17 08:00 Antibody Screen NEGATIVE 07/31/17 08:00 - Physical Exam Vitals and I&O: Vital Signs Temp 98.2 F 08/02/17 04:00 Pulse 78 08/02/17 10:19 Resp 19 08/02/17 10:17 BP 122/42 08/02/17 10:19 Pulse Ox 100 08/02/17 10:17 Intake & Output 08/01/17 08/02/17 08/02/17 18:59 06:59 18:59 Intake Total 550 360 50 Output Total 450 550 Balance 100 -190 50 Weight (lbs) 72.575 kg 73.709 kg 73.482 kg Intake: Intake, IV Amount 50 cefTRIAXone 1 gm In 50 Dextrose 5% 50 ml @ 100 mls/hr IV Q24HR [facility] Rx#: [id number] Oral 550 360 Output: Urine 450 550 Stool 0 0 Other: # Voids 1 # Bowel Movements 0 0 Active Medications: Current Medications Acetaminophen (Tylenol) 650 mg PO Q4H PRN PRN Reason: Pain (Mild) Stop: 09/28/17 15:37 Last Admin: 07/30/17 15:47 Dose: 650 mg Albuterol/Ipratropium (Duoneb Neb) 3 ml HHN Q4HRT [facility] Stop: 09/27/17 14:59 Last Admin: 08/02/17 06:39 Dose: 3 ml Allopurinol (Zyloprim) 100 mg PO BID [facility] Stop: 09/27/17 08:59 Last Admin: 08/02/17 10:16 Dose: Not Given Amiodarone HCl (Cordarone) 100 mg PO BID [facility] Stop: 09/30/17 00:44 Last Admin: 08/02/17 10:17 Dose: Not Given Epoetin Dustin (Epogen) 10,000 units SUBQ MoWeFr [facility] Stop: 09/28/17 17:56 Famotidine (Pepcid) 20 mg IVP DAILY [facility] Stop: 09/28/17 08:59 Last Admin: 08/02/17 10:17 Dose: Not Given Furosemide (Lasix) 40 mg IVP BID [facility] Stop: 09/27/17 16:59 Last Admin: 08/02/17 10:18 Dose: Not Given Ceftriaxone Sodium 1 gm/ (Dextrose) 50 mls @ 100 mls/hr IV Q24HR [facility] Stop: 09/28/17 04:59 Last Infusion: 08/02/17 10:22 Dose: Infused Insulin Aspart (Novolog Insulin Sliding Scale) 0 units SUBQ ACHS [facility] PRN Reason: Protocol Stop: 09/30/17 16:29 Last Admin: 08/02/17 13:48 Dose: 4 units Lactobacillus Rhamnosus (Culturelle) 1 each PO DAILY [facility] Stop: 09/29/17 08:59 Last Admin: 08/02/17 10:19 Dose: Not Given Miscellaneous (Clinical Monitoring) 1 ea MC DAILY PRN PRN Reason: RENAL Stop: 09/27/17 07:45 Miscellaneous (Vte Chemical Prophylaxis Screen/ Admission) 1 ea MC PRN PRN PRN Reason: PROTOCOL Stop: 09/27/17 16:47 Miscellaneous (Vte Chemical Prophylaxis Screen/ Admission) 1 ea MC PRN PRN PRN Reason: PROTOCOL Stop: 09/27/17 16:51 Miscellaneous (Probiotic Screen) 1 ea MC PRN PRN PRN Reason: PROTOCOL Stop: 09/28/17 10:27 Nifedipine (Procardia) 10 mg PO DAILY [facility] Stop: 09/27/17 08:59 Last Admin: 08/02/17 10:19 Dose: Not Given Potassium Chloride (Klor-Con) 20 meq PO DAILY [facility] Stop: 09/30/17 10:44 Last Admin: 08/02/17 10:19 Dose: Not Given General: Alert, Oriented x3, No acute distress HEENT: Atraumatic, EOMI, Mucous membr. moist/pink Neck: Supple, +2 carotid pulse wo bruit Cardiovascular: Regular rate, Normal S1, Normal S2 Lungs: Other (less rhonchi) Abdomen: Bowel sounds, Soft Extremities: Other (No edema), no Edema Neurological: Sensation intact Skin: Other (Warm and dry), no Rash Psych/Mental Status: Mental status NL - Procedures Procedures: Procedures Procedure Code Date ASSISTANCE WITH RESPIRATORY VENTILATION, <24 HRS, CPAP [id number] 07/29/17 INSERT TUNNELED CV CATH [id number] 07/29/17 INSERTION OF INFUSION DEV INTO L SUBCLAV VEIN, PERC APPROACH [id number] 07/29/17 POS AIRWAY PRESSURE CPAP [id number] 07/29/17 TETANUS TOXOID ADMINIST 99.38 05/28/13 Assessment/Plan - Problem List Patient Problems: All Active Problems Laceration of finger (Active) S61.219A - Assessment Assessment: ESRD on HD Decomp CHF Hyponatremia Hyperkalemia RUL nodule Type 2 DM Ess Htn Left RCC S/P Nephrctomy B/L CAP - Plan Plan: Lab - Result Diagrams 07/30/17 10:00 07/30/17 04:10 Current Medications Acetaminophen (Tylenol) 650 mg PO Q4H PRN PRN Reason: Pain (Mild) Stop: 09/28/17 15:37 Last Admin: 07/30/17 15:47 Dose: 650 mg Albuterol/Ipratropium (Duoneb Neb) 3 ml HHN Q4HRT [facility] Stop: 09/27/17 14:59 Last Admin: 07/30/17 15:10 Dose: 3 ml Allopurinol (Zyloprim) 100 mg PO BID [facility] Stop: 09/27/17 08:59 Last Admin: 07/30/17 08:34 Dose: 100 mg Epoetin Dustin (Epogen) 10,000 units SUBQ TuThSa [facility] Stop: 09/28/17 17:56 Famotidine (Pepcid) 20 mg IVP DAILY [facility] Stop: 09/28/17 08:59 Last Admin: 07/30/17 08:35 Dose: 20 mg Furosemide (Lasix) 40 mg IVP BID [facility] Stop: 09/27/17 16:59 Last Admin: 07/30/17 08:35 Dose: 40 mg Heparin Sodium (Porcine) (Heparin Sodium) 0 units HD UD [facility] Stop: 07/31/17 00:00 Heparin Sodium (Porcine) (Heparin) 5,000 units HD UD [facility] Stop: 07/31/17 00:00 Ceftriaxone Sodium 1 gm/ (Dextrose) 50 mls @ 100 mls/hr IV Q24HR [facility] Stop: 09/28/17 04:59 Last Infusion: 07/30/17 06:10 Dose: Infused Albumin Human (Albuminar 25%) 25 gm in 100 mls @ 50 mls/hr IV PRN PRN PRN Reason: BP Support During HD Stop: 09/28/17 00:00 Insulin Aspart (Novolog Insulin Sliding Scale) 0 units SUBQ Q6HR [facility] PRN Reason: Protocol Stop: 09/28/17 11:59 Last Admin: 07/30/17 11:50 Dose: 4 units Lactobacillus Rhamnosus (Culturelle) 1 each PO DAILY [facility] Stop: 09/29/17 08:59 Miscellaneous (Clinical Monitoring) 1 ea MC DAILY PRN PRN Reason: RENAL Stop: 09/27/17 07:45 Miscellaneous (Vte Chemical Prophylaxis Screen/ Admission) 1 ea MC PRN PRN PRN Reason: PROTOCOL Stop: 09/27/17 16:47 Miscellaneous (Vte Chemical Prophylaxis Screen/ Admission) 1 ea MC PRN PRN PRN Reason: PROTOCOL Stop: 09/27/17 16:51 Miscellaneous (Probiotic Screen) 1 ea MC PRN PRN PRN Reason: PROTOCOL Stop: 09/28/17 10:27 Nifedipine (Procardia) 10 mg PO DAILY [facility] Stop: 09/27/17 08:59 Last Admin: 07/30/17 08:34 Dose: 10 mg Lab - Result Diagrams 08/02/17 04:00 08/02/17 04:00 just had repalcement of cath had dialysis venous pressure low CXR still shows CHF discussed w/ smith extensively f/u electrolytes, cbc Nutritional Asmnt/Malnutr-PDOC - Dietary Evaluation Malnutrition Findings (Please click <Entered> for more info): Nutritional Asmnt/Malnutrition Start: 07/29/17 17: 08 Text: Status: Complete Freq: Document 07/29/17 17:08 LCHENG (Rec: 07/29/17 17:35 [email or web address] [id number]) Nutritional Asmnt/Malnutrition Patient General Information Nutritional Screening High Risk Diagnosis abdominal pain, atypical chest pain, CHF exacerbation, CKD, bilateral PNA Pertinent Medical Hx/Surgical Hx CAD, CHF, HTN, DM, chronic renal insuff, cholecystectomy, left kidney removal Subjective Information Pt was busy with medical staff during time of visit, attempted x 2. Spoke with RN, per family pt has decreased appetite and PO intake before admitted. Pt did not eat breakfast d/t SOB this morning . Appetite was poor. Per nurse note, pt back on bipap this afternoon. Current Diet Order/ Nutrition Support Renal Pertinent Medications lasix, hctz, procardia Pertinent Labs 07/29 Na 132, K 5.0, Cl 101, BUN 82H, Cr 4.0, Glucose 100, Ca 9.2, Alb 3.5 Nutritional Hx/Data Height 1.55 m Height (Calculated Centimeters) 154.9 Current Weight (lbs) 72.575 kg Weight (Calculated Kilograms) 72.6 Weight (Calculated Grams) 89605.8 [place] Body Weight 105 % [place] Body Weight 152 Body Mass Index (BMI) 30.2 Weight Status Obese GI Symptoms GI Symptoms None Last BM none Difficult in: None Skin Integrity/Comment: intact Estimated Nutritional Goals BEE in Kcals: Adj wt of IBW Calories/Kcals/Kg 30-35 Kcals Calculated 1092-4903 Protein: Adj wt of IBW Protein g/k Protein Calculated 54g monitor renal labs Fluid: ml [id number] or Per MD d/t acute renal failure Nutritional Problem 1. Problem Problem altered nutrition related lab values Etiology hx of chronic renal insuff Signs/Symptoms: BUN 82H, Cr 4.0 Malnutrition Alert Protein-Calorie Malnutrition N/A Is there a minimum of two criteria No selected? Query Text:Check all the applicable criteria. A minimum of two criteria are recommended for diagnosis of either severe or non-severe malnutrition. Intervention/Recommendation Comments 1. Continue with renal diet as ordered. 2. Monitor PO intake, wt daily , labs and skin integrity 3. F/U as high risk in 2-3 days, 07/31-08/01 Expected Outcomes/Goals Expected Outcomes/Goals 1. PO intake to meet at least 75% of nutritional needs. 2. Wt stability, skin to remain intact, labs to improve .
[2017-08-02] MEDS: Epoetin Alfa 20000 Units/mL Vial SUBQ SCH (16:28)
[2017-08-02] MEDS: Lactulose 10 Gm/15 mL 30mL UDC PO SCH (17:59)
[2017-08-02] MEDS ORDERED: MINERAL OIL ENEMA 135 ML BOTTLE RC ONE (20:18)
--- NOTE | 2017-08-02 20:19 | General Progress Note ---
Subjective - Review of Systems Service Date: 08/02/17 Subjective: I am breathing better Objective - Results Result Diagrams: 08/02/17 04:00 08/02/17 04:00 Recent Labs: Laboratory Last Values WBC 6.0 Th/cmm (4.8-10.8) 08/02/17 04:00 RBC 2.93 Mil/cmm (3.80-5.20) L 08/02/17 04:00 Hgb 9.1 gm/dL (12-16) L 08/02/17 04:00 Hct 27.6 % (41.0-60) L 08/02/17 04:00 MCV 94.1 fl (81-100) 08/02/17 04:00 MCH 31.1 pg (27.0-31.0) H 08/02/17 04:00 MCHC Differential 33.1 pg (28.0-36.0) 08/02/17 04:00 RDW 16.1 % (11.5-20.0) 08/02/17 04:00 Plt Count 233 Th/cmm (150-400) 08/02/17 04:00 MPV 7.2 fl 08/02/17 04:00 Neutrophils % 67.2 % (40.0-80.0) 08/02/17 04:00 Band Neutrophils % 0 % (0-10) 07/31/17 04:00 Lymphocytes % 15.2 % (20.0-50.0) L 08/02/17 04:00 Monocytes % 11.9 % (2.0-10.0) H 08/02/17 04:00 Eosinophils % 5.6 % (0.0-5.0) H 08/02/17 04:00 Basophils % 0.1 % (0.0-2.0) 08/02/17 04:00 Neutrophils (Manual) 75 % (40-80) 07/31/17 04:00 Lymphocytes 15 % (20-50) L 07/31/17 04:00 Monocytes 10 % (2-10) 07/31/17 04:00 Eosinophils 3 % (0-5) 07/30/17 04:10 Basophils 1 % (0-3) 07/30/17 04:10 Platelet Estimate ADEQUATE (NORMAL) 07/31/17 04:00 Eos Smear Source URINE 07/30/17 06:50 Eos Smear Total Cells NONE SEEN (NONE SEEN) 07/30/17 06:50 PT 9.6 SECONDS (9.5-11.5) 07/28/17 22:34 INR 0.92 (0.5-1.4) 07/28/17 22:34 PTT (Actin FS) 25.6 SECONDS (26.0-38.0) L 07/28/17 22:34 Specimen Source Arterial 07/30/17 09:55 Sample Site RB 07/30/17 09:55 pH 7.32 (7.35-7.45) L 07/30/17 09:55 pCO2 49.0 mmHg (35.0-45.0) H 07/30/17 09:55 pO2 45.0 mmHg (80.0-100.0) L* 07/30/17 09:55 HCO3 23.3 mEq/L (20.0-26.0) 07/30/17 09:55 Base Excess -1.4 mEq/L (-3.0-3.0) 07/30/17 09:55 O2 Saturation 76.0 % (92.0-100.0) L 07/30/17 09:55 Trace Test NA 07/29/17 14:45 Vent Rate 12 07/29/17 14:45 Inspired O2 32 07/30/17 09:55 Tidal Volume 350 07/29/17 14:45 PEEP NA 07/29/17 14:45 Pressure (ins/psv/peep) 6 07/29/17 14:45 Critical Value PW 07/30/17 09:55 Sodium 133 mEq/L (136-145) L 08/02/17 04:00 Potassium 3.7 mEq/L (3.5-5.1) 08/02/17 04:00 Chloride 97 mEq/L (98-107) L 08/02/17 04:00 Carbon Dioxide 28.8 mEq/L (21.0-31.0) 08/02/17 04:00 Anion Gap 10.9 (7.0-16.0) 08/02/17 04:00 BUN 35 mg/dL (7-25) H 08/02/17 04:00 Creatinine 3.2 mg/dL (0.6-1.2) H 08/02/17 04:00 Est GFR ( Amer) TNP 08/02/17 04:00 Est GFR (Non-Af Amer) TNP 08/02/17 04:00 BUN/Creatinine Ratio 10.9 08/02/17 04:00 Glucose 113 mg/dL (70-105) H 08/02/17 04:00 POC Glucose 150 MG/DL (70 - 105) H 08/02/17 17:53 Hemoglobin A1c % 6.1 % (4.0-6.0) H 07/30/17 04:10 Plasma/Ser Osmolality 303 mOsmol/kg (280-301) H 07/30/17 06:50 Uric Acid 3.5 mg/dL (2.3-6.6) 07/30/17 04:10 Calcium 8.6 mg/dL (8.6-10.3) 08/02/17 04:00 Phosphorus 7.6 mg/dL (2.5-5.0) H 07/30/17 04:10 Magnesium 2.0 mg/dL (1.9-2.7) 07/30/17 04:10 Total Bilirubin 0.4 mg/dL (0.3-1.0) 08/02/17 04:00 AST 13 U/L (13-39) 08/02/17 04:00 ALT 8 U/L (7-52) 08/02/17 04:00 Alkaline Phosphatase 69 U/L (34-104) 08/02/17 04:00 Creatine Kinase 81 U/L (30-223) 07/28/17 22:34 Troponin I 0.26 ng/mL (0.01-0.05) H* 07/28/17 22:34 B-Natriuretic Peptide 1860.0 pg/mL (5.0-100.0) H 07/28/17 22:34 Total Protein 6.4 gm/dL (6.0-8.3) 08/02/17 04:00 Albumin 2.9 gm/dL (3.7-5.3) L 08/02/17 04:00 Globulin 3.5 gm/dL 08/02/17 04:00 Albumin/Globulin Ratio 0.8 (1.0-1.8) L 08/02/17 04:00 Amylase 108 U/L (29-103) H 07/28/17 22:34 Lipase 52 U/L (11-82) 12/17/17 22:34 TSH 2.62 uIU/ml (0.34-5.60) 07/30/17 04:10 Urine Source CLEAN C 07/28/17 23:00 Urine Color YELLOW 07/28/17 23:00 Urine Clarity CLEAR (CLEAR) 07/28/17 23:00 Urine pH 6.0 (4.6 - 8.0) 07/28/17 23:00 Ur Specific [place] 1.015 (1.005-1.030) 07/28/17 23:00 Urine Protein >=300 mg/dL (NEGATIVE) 07/28/17 23:00 Urine Glucose (UA) NEGATIVE mg/dL (NEGATIVE) 07/28/17 23:00 Urine Ketones NEGATIVE mg/dL (NEGATIVE) 07/28/17 23:00 Urine Blood SMALL (NEGATIVE) H 07/28/17 23:00 Urine Nitrate NEGATIVE (NEGATIVE) 07/28/17 23:00 Urine Bilirubin NEGATIVE (NEGATIVE) 07/28/17 23:00 Urine Urobilinogen 0.2 E.U./dL (0.2 - 1.0) 07/28/17 23:00 Ur Leukocyte Esterase NEGATIVE (NEGATIVE) 07/28/17 23:00 Urine RBC 2-5 /hpf (0-5) 07/28/17 23:00 Urine WBC 6-10 /hpf (0-5) H 07/28/17 23:00 Ur Epithelial Cells MODERATE /lpf (FEW) 07/28/17 23:00 Urine Bacteria FEW /hpf (NONE SEEN) 07/28/17 23:00 Urine Creatinine 44.0 mg/dl (28.0-217.0) 07/30/17 06:50 Hepatitis A IgM Ab Negative (Negative) 07/30/17 18:56 Hep Bs Antigen Negative (Negative) 07/30/17 18:56 Hep B Core IgM Ab Negative (Negative) 07/30/17 18:56 Hepatitis C Antibody 0.2 s/co ratio (0.0-0.9) 07/30/17 18:56 Blood Type O POSITIVE 07/31/17 08:00 Antibody Screen NEGATIVE 07/31/17 08:00 - Physical Exam Vitals and I&O: Vital Signs Temp 98.2 F 08/02/17 04:00 Pulse 83 08/02/17 16:31 Resp 16 08/02/17 14:59 BP 153/67 08/02/17 16:32 Pulse Ox 100 08/02/17 14:59 Intake & Output 08/02/17 08/02/17 08/03/17 06:59 18:59 06:59 Intake Total 360 50 Output Total 550 Balance -190 50 Weight (lbs) 73.709 kg 73.482 kg Intake: Intake, IV Amount 50 cefTRIAXone 1 gm In 50 Dextrose 5% 50 ml @ 100 mls/hr IV Q24HR [facility] Rx#: [id number] Oral 360 Output: Urine 550 Stool 0 Other: # Bowel Movements 0 Active Medications: Current Medications Acetaminophen (Tylenol) 650 mg PO Q4H PRN PRN Reason: Pain (Mild) Stop: 09/28/17 15:37 Last Admin: 08/02/17 16:29 Dose: 650 mg Albuterol/Ipratropium (Duoneb Neb) 3 ml HHN Q4HRT [facility] Stop: 09/27/17 14:59 Last Admin: 08/02/17 19:22 Dose: 3 ml Allopurinol (Zyloprim) 100 mg PO BID [facility] Stop: 09/27/17 08:59 Last Admin: 08/02/17 17:59 Dose: 100 mg Amiodarone HCl (Cordarone) 100 mg PO BID [facility] Stop: 09/30/17 00:44 Last Admin: 08/02/17 16:31 Dose: 100 mg Epoetin Dustin (Epogen) 10,000 units SUBQ MoWeFr [facility] Stop: 09/28/17 17:56 Last Admin: 08/02/17 16:28 Dose: 10,000 units Famotidine (Pepcid) 20 mg IVP DAILY [facility] Stop: 09/28/17 08:59 Last Admin: 08/02/17 10:17 Dose: Not Given Furosemide (Lasix) 40 mg IVP BID [facility] Stop: 09/27/17 16:59 Last Admin: 08/02/17 16:32 Dose: 40 mg Ceftriaxone Sodium 1 gm/ (Dextrose) 50 mls @ 100 mls/hr IV Q24HR [facility] Stop: 09/28/17 04:59 Last Infusion: 08/02/17 10:22 Dose: Infused Insulin Aspart (Novolog Insulin Sliding Scale) 0 units SUBQ ACHS [facility] PRN Reason: Protocol Stop: 09/30/17 16:29 Last Admin: 08/02/17 18:00 Dose: Not Given Lactobacillus Rhamnosus (Culturelle) 1 each PO DAILY [facility] Stop: 09/29/17 08:59 Last Admin: 08/02/17 10:19 Dose: Not Given Lactulose (Cephulac) 15 gm PO DAILY [facility] Stop: 10/01/17 15:29 Last Admin: 08/02/17 17:59 Dose: 15 gm Miscellaneous (Clinical Monitoring) 1 ea MC DAILY PRN PRN Reason: RENAL Stop: 09/27/17 07:45 Miscellaneous (Vte Chemical Prophylaxis Screen/ Admission) 1 ea MC PRN PRN PRN Reason: PROTOCOL Stop: 09/27/17 16:47 Miscellaneous (Vte Chemical Prophylaxis Screen/ Admission) 1 ea MC PRN PRN PRN Reason: PROTOCOL Stop: 09/27/17 16:51 Miscellaneous (Probiotic Screen) 1 ea MC PRN PRN PRN Reason: PROTOCOL Stop: 09/28/17 10:27 Nifedipine (Procardia) 10 mg PO DAILY WIL Stop: 09/27/17 08:59 Last Admin: 08/02/17 10:19 Dose: Not Given Potassium Chloride (Klor-Con) 20 meq PO DAILY WIL Stop: 09/30/17 10:44 Last Admin: 08/02/17 10:19 Dose: Not Given General: Alert, Oriented x3, No acute distress HEENT: Atraumatic, EOMI, Mucous membr. moist/pink Neck: Supple, +2 carotid pulse wo bruit Cardiovascular: Regular rate, Normal S1, Normal S2 Lungs: Other (less rhonchi) Abdomen: Bowel sounds, Soft Extremities: Other (No edema), no Edema Neurological: Sensation intact Skin: Other (Warm and dry), no Rash Psych/Mental Status: Mental status NL - Procedures Procedures: Procedures Procedure Code Date ASSISTANCE WITH RESPIRATORY VENTILATION, <24 HRS, CPAP [id number] 07/29/17 INSERT TUNNELED CV CATH [id number] 07/29/17 INSERTION OF INFUSION DEV INTO L SUBCLAV VEIN, PERC APPROACH [id number] 07/29/17 POS AIRWAY PRESSURE CPAP [id number] 07/29/17 TETANUS TOXOID ADMINIST 99.38 05/28/13 Assessment/Plan - Problem List Patient Problems: All Active Problems Laceration of finger (Active) S61.219A - Assessment Assessment: Patient is awake alert in no distress. K normal, Creatinine increased today. Hgb improved with transfusion. CXR show that patient continue with infiltrates, O2 improved. Patient improving. Dx: Abdominal pain, Atypical Chest Pain, CHF exacerbation, CKD, Bilateral PNA, Elevated troponins, DM, HTN. - Plan Plan: Patient in ICU nasal O2, Continue with home meds, Today she had HD. LTAC eval will be request. Already seen by Cardio, Nephro and Pulmonology. Will continue to monitor. Nutritional Asmnt/Malnutr-PDOC - Dietary Evaluation Malnutrition Findings (Please click <Entered> for more info): Nutritional Asmnt/Malnutrition Start: 07/29/17 17: 08 Text: Status: Complete Freq: Document 07/29/17 17:08 DARRIAN (Rec: 07/29/17 17:35 DARRIANG [id number]) Nutritional Asmnt/Malnutrition Patient General Information Nutritional Screening High Risk Diagnosis abdominal pain, atypical chest pain, CHF exacerbation, CKD, bilateral PNA Pertinent Medical Hx/Surgical Hx CAD, CHF, HTN, DM, chronic renal insuff, cholecystectomy, left kidney removal Subjective Information Pt was busy with medical staff during time of visit, attempted x 2. Spoke with RN, per family pt has decreased appetite and PO intake before admitted. Pt did not eat breakfast d/t SOB this morning . Appetite was poor. Per nurse note, pt back on bipap this afternoon. Current Diet Order/ Nutrition Support Renal Pertinent Medications lasix, hctz, procardia Pertinent Labs 07/29 Na 132, K 5.0, Cl 101, BUN 82H, Cr 4.0, Glucose 100, Ca 9.2, Alb 3.5 Nutritional Hx/Data Height 1.55 m Height (Calculated Centimeters) 154.9 Current Weight (lbs) 72.575 kg Weight (Calculated Kilograms) 72.6 Weight (Calculated Grams) 32265.8 [place] Body Weight 105 % [place] Body Weight 152 Body Mass Index (BMI) 30.2 Weight Status Obese GI Symptoms GI Symptoms None Last BM none Difficult in: None Skin Integrity/Comment: intact Estimated Nutritional Goals BEE in Kcals: Adj wt of IBW Calories/Kcals/Kg 30-35 Kcals Calculated [id number] Protein: Adj wt of IBW Protein g/k Protein Calculated 54g monitor renal labs Fluid: ml [id number] or Per MD d/t acute renal failure Nutritional Problem 1. Problem Problem altered nutrition related lab values Etiology hx of chronic renal insuff Signs/Symptoms: BUN 82H, Cr 4.0 Malnutrition Alert Protein-Calorie Malnutrition N/A Is there a minimum of two criteria No selected? Query Text:Check all the applicable criteria. A minimum of two criteria are recommended for diagnosis of either severe or non-severe malnutrition. Intervention/Recommendation Comments 1. Continue with renal diet as ordered. 2. Monitor PO intake, wt daily , labs and skin integrity 3. F/U as high risk in 2-3 days, 07/31-08/01 Expected Outcomes/Goals Expected Outcomes/Goals 1. PO intake to meet at least 75% of nutritional needs. 2. Wt stability, skin to remain intact, labs to improve .
[2017-08-02] MEDS ORDERED: MINERAL OIL ENEMA 135 ML BOTTLE RC PRN (23:02)
[2017-08-03] MEDS: Albuterol/Ipratropium Neb 3 ML AERS HHN SCH ×6 (03:26→22:47)
[2017-08-03] MEDS: INSULIN ASPART SLIDING SCALE 100 UNITS/ML UNIT SUBQ SCH ×4 (07:49→21:51)
--- NOTE | 2017-08-03 08:44 | Diagnostic Imaging Report ---
Exam: Portable chest x-ray. HISTORY: Pneumonia. Findings: Portable examination of the chest at 0745 hours reviewed compared prior study 08/01/2017 demonstrates a cardiomegaly with superimposed congestive heart failure. There is evidence of bilateral basilar infiltrates with small superimposed effusions. Mediastinal structures midline the aortic arch calcified. Left subclavian catheter terminates in superior vena cava. Bony thorax remarkable for degenerative osteopenia. IMPRESSION: Cardiomegaly, superimposed congestive heart failure. Basilar infiltrates and small effusions. Follow-up dictation recommended.
[2017-08-03] MEDS: Potassium Chloride 20 mEq ER Tab PO SCH (09:00)
--- NOTE | 2017-08-03 09:10 | General Progress Note ---
Subjective - Review of Systems Service Date: 08/03/17 Subjective: I am breathing better Objective - Results Result Diagrams: 08/02/17 04:00 08/02/17 04:00 Recent Labs: Laboratory Last Values WBC 6.0 Th/cmm (4.8-10.8) 08/02/17 04:00 RBC 2.93 Mil/cmm (3.80-5.20) L 08/02/17 04:00 Hgb 9.1 gm/dL (12-16) L 08/02/17 04:00 Hct 27.6 % (41.0-60) L 08/02/17 04:00 MCV 94.1 fl (81-100) 08/02/17 04:00 MCH 31.1 pg (27.0-31.0) H 08/02/17 04:00 MCHC Differential 33.1 pg (28.0-36.0) 08/02/17 04:00 RDW 16.1 % (11.5-20.0) 08/02/17 04:00 Plt Count 233 Th/cmm (150-400) 08/02/17 04:00 MPV 7.2 fl 08/02/17 04:00 Neutrophils % 67.2 % (40.0-80.0) 08/02/17 04:00 Band Neutrophils % 0 % (0-10) 07/31/17 04:00 Lymphocytes % 15.2 % (20.0-50.0) L 08/02/17 04:00 Monocytes % 11.9 % (2.0-10.0) H 08/02/17 04:00 Eosinophils % 5.6 % (0.0-5.0) H 08/02/17 04:00 Basophils % 0.1 % (0.0-2.0) 08/02/17 04:00 Neutrophils (Manual) 75 % (40-80) 07/31/17 04:00 Lymphocytes 15 % (20-50) L 07/31/17 04:00 Monocytes 10 % (2-10) 07/31/17 04:00 Eosinophils 3 % (0-5) 07/30/17 04:10 Basophils 1 % (0-3) 07/30/17 04:10 Platelet Estimate ADEQUATE (NORMAL) 07/31/17 04:00 Eos Smear Source URINE 07/30/17 06:50 Eos Smear Total Cells NONE SEEN (NONE SEEN) 07/30/17 06:50 PT 9.6 SECONDS (9.5-11.5) 07/28/17 22:34 INR 0.92 (0.5-1.4) 07/28/17 22:34 PTT (Actin FS) 25.6 SECONDS (26.0-38.0) L 07/28/17 22:34 Specimen Source Arterial 07/30/17 09:55 Sample Site RB 07/30/17 09:55 pH 7.32 (7.35-7.45) L 07/30/17 09:55 pCO2 49.0 mmHg (35.0-45.0) H 07/30/17 09:55 pO2 45.0 mmHg (80.0-100.0) L* 07/30/17 09:55 HCO3 23.3 mEq/L (20.0-26.0) 07/30/17 09:55 Base Excess -1.4 mEq/L (-3.0-3.0) 07/30/17 09:55 O2 Saturation 76.0 % (92.0-100.0) L 07/30/17 09:55 Trace Test NA 07/29/17 14:45 Vent Rate 12 07/29/17 14:45 Inspired O2 32 07/30/17 09:55 Tidal Volume 350 07/29/17 14:45 PEEP NA 07/29/17 14:45 Pressure (ins/psv/peep) 6 07/29/17 14:45 Critical Value PW 07/30/17 09:55 Sodium 133 mEq/L (136-145) L 08/02/17 04:00 Potassium 3.7 mEq/L (3.5-5.1) 08/02/17 04:00 Chloride 97 mEq/L (98-107) L 08/02/17 04:00 Carbon Dioxide 28.8 mEq/L (21.0-31.0) 08/02/17 04:00 Anion Gap 10.9 (7.0-16.0) 08/02/17 04:00 BUN 35 mg/dL (7-25) H 08/02/17 04:00 Creatinine 3.2 mg/dL (0.6-1.2) H 08/02/17 04:00 Est GFR ( Amer) TNP 08/02/17 04:00 Est GFR (Non-Af Amer) TNP 08/02/17 04:00 BUN/Creatinine Ratio 10.9 08/02/17 04:00 Glucose 113 mg/dL (70-105) H 08/02/17 04:00 POC Glucose 113 MG/DL (70 - 105) H 08/03/17 07:10 Hemoglobin A1c % 6.1 % (4.0-6.0) H 07/30/17 04:10 Plasma/Ser Osmolality 303 mOsmol/kg (280-301) H 07/30/17 06:50 Uric Acid 3.5 mg/dL (2.3-6.6) 07/30/17 04:10 Calcium 8.6 mg/dL (8.6-10.3) 08/02/17 04:00 Phosphorus 7.6 mg/dL (2.5-5.0) H 07/30/17 04:10 Magnesium 2.0 mg/dL (1.9-2.7) 07/30/17 04:10 Total Bilirubin 0.4 mg/dL (0.3-1.0) 08/02/17 04:00 AST 13 U/L (13-39) 08/02/17 04:00 ALT 8 U/L (7-52) 08/02/17 04:00 Alkaline Phosphatase 69 U/L (34-104) 08/02/17 04:00 Creatine Kinase 81 U/L (30-223) 07/28/17 22:34 Troponin I 0.26 ng/mL (0.01-0.05) H* 07/28/17 22:34 B-Natriuretic Peptide 1860.0 pg/mL (5.0-100.0) H 07/28/17 22:34 Total Protein 6.4 gm/dL (6.0-8.3) 08/02/17 04:00 Albumin 2.9 gm/dL (3.7-5.3) L 08/02/17 04:00 Globulin 3.5 gm/dL 08/02/17 04:00 Albumin/Globulin Ratio 0.8 (1.0-1.8) L 08/02/17 04:00 Amylase 108 U/L (29-103) H 07/28/17 22:34 Lipase 52 U/L (11-82) 12/17/17 22:34 TSH 2.62 uIU/ml (0.34-5.60) 07/30/17 04:10 Urine Source CLEAN C 07/28/17 23:00 Urine Color YELLOW 07/28/17 23:00 Urine Clarity CLEAR (CLEAR) 07/28/17 23:00 Urine pH 6.0 (4.6 - 8.0) 07/28/17 23:00 Ur Specific [place] 1.015 (1.005-1.030) 07/28/17 23:00 Urine Protein >=300 mg/dL (NEGATIVE) 07/28/17 23:00 Urine Glucose (UA) NEGATIVE mg/dL (NEGATIVE) 07/28/17 23:00 Urine Ketones NEGATIVE mg/dL (NEGATIVE) 07/28/17 23:00 Urine Blood SMALL (NEGATIVE) H 07/28/17 23:00 Urine Nitrate NEGATIVE (NEGATIVE) 07/28/17 23:00 Urine Bilirubin NEGATIVE (NEGATIVE) 07/28/17 23:00 Urine Urobilinogen 0.2 E.U./dL (0.2 - 1.0) 07/28/17 23:00 Ur Leukocyte Esterase NEGATIVE (NEGATIVE) 07/28/17 23:00 Urine RBC 2-5 /hpf (0-5) 07/28/17 23:00 Urine WBC 6-10 /hpf (0-5) H 07/28/17 23:00 Ur Epithelial Cells MODERATE /lpf (FEW) 07/28/17 23:00 Urine Bacteria FEW /hpf (NONE SEEN) 07/28/17 23:00 Urine Creatinine 44.0 mg/dl (28.0-217.0) 07/30/17 06:50 Hepatitis A IgM Ab Negative (Negative) 07/30/17 18:56 Hep Bs Antigen Negative (Negative) 07/30/17 18:56 Hep B Core IgM Ab Negative (Negative) 07/30/17 18:56 Hepatitis C Antibody 0.2 s/co ratio (0.0-0.9) 07/30/17 18:56 Blood Type O POSITIVE 07/31/17 08:00 Antibody Screen NEGATIVE 07/31/17 08:00 - Physical Exam Vitals and I&O: Vital Signs Temp 97.5 F 08/03/17 04:00 Pulse 82 08/03/17 07:39 Resp 28 08/03/17 07:39 BP 137/80 08/03/17 06:00 Pulse Ox 100 08/03/17 07:39 Intake & Output 08/02/17 08/03/17 08/03/17 18:59 06:59 18:59 Intake Total 400 Output Total 1300 Balance -900 Weight (lbs) 73.482 kg Intake: Intake, IV Amount 50 cefTRIAXone 1 gm In 50 Dextrose 5% 50 ml @ 100 mls/hr IV Q24HR [facility] Rx#: [id number] Oral 350 Output: Hemodialysis 1300 Other: # Voids 2 Active Medications: Current Medications Acetaminophen (Tylenol) 650 mg PO Q4H PRN PRN Reason: Pain (Mild) Stop: 09/28/17 15:37 Last Admin: 08/02/17 16:29 Dose: 650 mg Albuterol/Ipratropium (Duoneb Neb) 3 ml HHN Q4HRT [facility] Stop: 09/27/17 14:59 Last Admin: 08/03/17 07:38 Dose: 3 ml Allopurinol (Zyloprim) 100 mg PO BID [facility] Stop: 09/27/17 08:59 Last Admin: 08/02/17 17:59 Dose: 100 mg Amiodarone HCl (Cordarone) 100 mg PO BID [facility] Stop: 09/30/17 00:44 Last Admin: 08/02/17 16:31 Dose: 100 mg Bisacodyl (Dulcolax 10 Mg Supp) 10 mg RC DAILY PRN PRN Reason: constipAtion Stop: 10/01/17 20:10 Epoetin Dustin (Epogen) 10,000 units SUBQ MoWeFr [facility] Stop: 09/28/17 17:56 Last Admin: 08/02/17 16:28 Dose: 10,000 units Famotidine (Pepcid) 20 mg IVP DAILY [facility] Stop: 09/28/17 08:59 Last Admin: 08/02/17 10:17 Dose: Not Given Furosemide (Lasix) 40 mg IVP BID [facility] Stop: 09/27/17 16:59 Last Admin: 08/02/17 16:32 Dose: 40 mg Hydrochlorothiazide (Hctz) 12.5 mg PO DAILY PRN PRN Reason: FOR sbp >180 Stop: 10/02/17 08:59 Ceftriaxone Sodium 1 gm/ (Dextrose) 50 mls @ 100 mls/hr IV Q24HR [facility] Stop: 09/28/17 04:59 Last Admin: 08/03/17 05:57 Dose: 100 mls/hr Insulin Aspart (Novolog Insulin Sliding Scale) 0 units SUBQ ACHS [facility] PRN Reason: Protocol Stop: 09/30/17 16:29 Last Admin: 08/03/17 07:49 Dose: Not Given Lactobacillus Rhamnosus (Culturelle) 1 each PO DAILY [facility] Stop: 09/29/17 08:59 Last Admin: 08/02/17 10:19 Dose: Not Given Lactulose (Cephulac) 15 gm PO DAILY [facility] Stop: 10/01/17 15:29 Last Admin: 08/02/17 17:59 Dose: 15 gm Losartan Potassium (Cozaar) 50 mg PO DAILY PRN PRN Reason: FOR sbp >180 Stop: 10/02/17 08:59 Mineral Oil (Fleet Mineral Oil) 130 ml RC DAILY PRN PRN Reason: Constipation Stop: 10/01/17 23:01 Miscellaneous (Clinical Monitoring) 1 ea MC DAILY PRN PRN Reason: RENAL Stop: 09/27/17 07:45 Miscellaneous (Vte Chemical Prophylaxis Screen/ Admission) 1 ea MC PRN PRN PRN Reason: PROTOCOL Stop: 09/27/17 16:47 Miscellaneous (Vte Chemical Prophylaxis Screen/ Admission) 1 ea MC PRN PRN PRN Reason: PROTOCOL Stop: 09/27/17 16:51 Miscellaneous (Probiotic Screen) 1 ea MC PRN PRN PRN Reason: PROTOCOL Stop: 09/28/17 10:27 Nifedipine (Procardia) 10 mg PO DAILY [facility] Stop: 09/27/17 08:59 Last Admin: 08/02/17 10:19 Dose: Not Given Potassium Chloride (Klor-Con) 20 meq PO DAILY [facility] Stop: 09/30/17 10:44 Last Admin: 08/02/17 10:19 Dose: Not Given General: Alert, Oriented x3, No acute distress HEENT: Atraumatic, EOMI, Mucous membr. moist/pink Neck: Supple, +2 carotid pulse wo bruit Cardiovascular: Regular rate, Normal S1, Normal S2 Lungs: Other (less rhonchi) Abdomen: Bowel sounds, Soft Extremities: Other (No edema), no Edema Neurological: Sensation intact Skin: Other (Warm and dry), no Rash Psych/Mental Status: Mental status NL - Procedures Procedures: Procedures Procedure Code Date ASSISTANCE WITH RESPIRATORY VENTILATION, <24 HRS, CPAP [id number] 07/29/17 INSERT TUNNELED CV CATH [id number] 07/29/17 INSERTION OF INFUSION DEV INTO L SUBCLAV VEIN, PERC APPROACH [id number] 07/29/17 POS AIRWAY PRESSURE CPAP 57401 07/29/17 TETANUS TOXOID ADMINIST 99.38 05/28/13 Assessment/Plan - Problem List Patient Problems: All Active Problems Laceration of finger (Active) S61.219A - Assessment Assessment: Patient is awake alert in no distress. CXR show that patient continue with infiltrates, O2 sat normal. Patient improving. Dx: Abdominal pain, Atypical Chest Pain, CHF exacerbation, CKD, Bilateral PNA, Elevated troponins, DM, HTN. - Plan Plan: Patient in ICU nasal O2, Continue with home meds, She had HD yesterday. Transfer to Telemetry. Already seen by Cardio, Nephro and Pulmonology. Will continue to monitor. Nutritional Asmnt/Malnutr-PDOC - Dietary Evaluation Malnutrition Findings (Please click <Entered> for more info): Nutritional Asmnt/Malnutrition Start: 07/29/17 17: 08 Text: Status: Complete Freq: Document 07/29/17 17:08 KAY (Rec: 07/29/17 17:35 DARRIAN [email or web address]) Nutritional Asmnt/Malnutrition Patient General Information Nutritional Screening High Risk Diagnosis abdominal pain, atypical chest pain, CHF exacerbation, CKD, bilateral PNA Pertinent Medical Hx/Surgical Hx CAD, CHF, HTN, DM, chronic renal insuff, cholecystectomy, left kidney removal Subjective Information Pt was busy with medical staff during time of visit, attempted x 2. Spoke with RN, per family pt has decreased appetite and PO intake before admitted. Pt did not eat breakfast d/t SOB this morning . Appetite was poor. Per nurse note, pt back on bipap this afternoon. Current Diet Order/ Nutrition Support Renal Pertinent Medications lasix, hctz, procardia Pertinent Labs 07/29 Na 132, K 5.0, Cl 101, BUN 82H, Cr 4.0, Glucose 100, Ca 9.2, Alb 3.5 Nutritional Hx/Data Height 1.55 m Height (Calculated Centimeters) 154.9 Current Weight (lbs) 72.575 kg Weight (Calculated Kilograms) 72.6 Weight (Calculated Grams) 23486.8 [place] Body Weight 105 % [place] Body Weight 152 Body Mass Index (BMI) 30.2 Weight Status Obese GI Symptoms GI Symptoms None Last BM none Difficult in: None Skin Integrity/Comment: intact Estimated Nutritional Goals BEE in Kcals: Adj wt of IBW Calories/Kcals/Kg 30-35 Kcals Calculated 4575-2976 Protein: Adj wt of IBW Protein g/k Protein Calculated 54g monitor renal labs Fluid: ml [id number] or Per MD d/t acute renal failure Nutritional Problem 1. Problem Problem altered nutrition related lab values Etiology hx of chronic renal insuff Signs/Symptoms: BUN 82H, Cr 4.0 Malnutrition Alert Protein-Calorie Malnutrition N/A Is there a minimum of two criteria No selected? Query Text:Check all the applicable criteria. A minimum of two criteria are recommended for diagnosis of either severe or non-severe malnutrition. Intervention/Recommendation Comments 1. Continue with renal diet as ordered. 2. Monitor PO intake, wt daily , labs and skin integrity 3. F/U as high risk in 2-3 days, 07/31-08/01 Expected Outcomes/Goals Expected Outcomes/Goals 1. PO intake to meet at least 75% of nutritional needs. 2. Wt stability, skin to remain intact, labs to improve .
[2017-08-03] MEDS: Lactobacillus Rhamnosus 10 Billion CFU Capsule PO SCH (09:26)
[2017-08-03] MEDS: Lactulose 10 Gm/15 mL 30mL UDC PO SCH (09:30)
[2017-08-03 10:18] LABS: HEMOGLOBIN 10.4 gm/dL (12-16); MEAN CELL VOLUME 95.3 fl (81-100); MEAN CORPUSCULAR HEMOGLOBIN 30.9 pg (27.0-31.0); MEAN CORPUSCULAR HGB CONC 32.4 pg (28.0-36.0); MEAN PLATELET VOLUME 7.1 fl; PLATELET COUNT 251 Th/cmm (150-400); RED BLOOD COUNT 3.36 Mil/cmm (3.80-5.20); RED CELL DISTRIBUTION WIDTH 15.9 % (11.5-20.0)
[2017-08-03 10:37] LABS: WHITE BLOOD COUNT 6.9 Th/cmm (4.8-10.8)
[2017-08-03 10:38] LABS: MANUAL DIFF REQUIRED? YES
[2017-08-03 10:39] LABS: BAND NEUTROPHILE 3 % (0-10); BASOPHIL 1 % (0-3); EOSINOPHIL 6 % (0-5); LYMPHOCYTE 7 % (20-50); MONOCYTE 3 % (2-10); NEUTROPHILS 80 % (40-80); PLATELET ESTIMATE ADEQUATE (NORMAL); TOTAL CELLS COUNTED 100
[2017-08-03 11:03] LABS: ALB/GLOB RATIO 0.8 (1.0-1.8); ALBUMIN 3.4 gm/dL (3.7-5.3); ALKALINE PHOSPHATASE 100 U/L (34-104); ANION GAP 15.6 (7.0-16.0); BILIRUBIN,TOTAL 0.4 mg/dL (0.3-1.0); BUN - UREA NITROGEN 33 mg/dL (7-25); CALCIUM SERUM 9.2 mg/dL (8.6-10.3); CARBON DIOXIDE 25.1 mEq/L (21.0-31.0); CHLORIDE 95 mEq/L (98-107); CREATININE - SERUM 3.2 mg/dL (0.6-1.2); GLUCOSE 162 mg/dL (70-105); POTASSIUM SERUM 3.7 mEq/L (3.5-5.1); SGOT 17 U/L (13-39); SGPT/ALT 11 U/L (7-52); SODIUM SERUM 132 mEq/L (136-145); TOTAL PROTEIN,SERUM 7.5 gm/dL (6.0-8.3)
--- NOTE | 2017-08-03 15:00 | General Progress Note ---
Subjective - Review of Systems Service Date: 08/03/17 Subjective: more alert, better spirits Objective - Results Result Diagrams: 08/03/17 10:00 08/03/17 10:00 Recent Labs: Laboratory Last Values WBC 6.9 Th/cmm (4.8-10.8) 08/03/17 10:00 RBC 3.36 Mil/cmm (3.80-5.20) L 08/03/17 10:00 Hgb 10.4 gm/dL (12-16) L 08/03/17 10:00 Hct 32.0 % (41.0-60) L D 08/03/17 10:00 MCV 95.3 fl (81-100) 08/03/17 10:00 MCH 30.9 pg (27.0-31.0) 08/03/17 10:00 MCHC Differential 32.4 pg (28.0-36.0) 08/03/17 10:00 RDW 15.9 % (11.5-20.0) 08/03/17 10:00 Plt Count 251 Th/cmm (150-400) 08/03/17 10:00 MPV 7.1 fl 08/03/17 10:00 Neutrophils % 67.2 % (40.0-80.0) 08/02/17 04:00 Band Neutrophils % 3 % (0-10) 08/03/17 10:00 Lymphocytes % 15.2 % (20.0-50.0) L 08/02/17 04:00 Monocytes % 11.9 % (2.0-10.0) H 08/02/17 04:00 Eosinophils % 5.6 % (0.0-5.0) H 08/02/17 04:00 Basophils % 0.1 % (0.0-2.0) 08/02/17 04:00 Neutrophils (Manual) 80 % (40-80) 08/03/17 10:00 Lymphocytes 7 % (20-50) L 08/03/17 10:00 Monocytes 3 % (2-10) 08/03/17 10:00 Eosinophils 6 % (0-5) H 08/03/17 10:00 Basophils 1 % (0-3) 08/03/17 10:00 Platelet Estimate ADEQUATE (NORMAL) 08/03/17 10:00 Eos Smear Source URINE 07/30/17 06:50 Eos Smear Total Cells NONE SEEN (NONE SEEN) 07/30/17 06:50 PT 9.6 SECONDS (9.5-11.5) 07/28/17 22:34 INR 0.92 (0.5-1.4) 07/28/17 22:34 PTT (Actin FS) 25.6 SECONDS (26.0-38.0) L 07/28/17 22:34 Specimen Source Arterial 07/30/17 09:55 Sample Site RB 07/30/17 09:55 pH 7.32 (7.35-7.45) L 07/30/17 09:55 pCO2 49.0 mmHg (35.0-45.0) H 07/30/17 09:55 pO2 45.0 mmHg (80.0-100.0) L* 07/30/17 09:55 HCO3 23.3 mEq/L (20.0-26.0) 07/30/17 09:55 Base Excess -1.4 mEq/L (-3.0-3.0) 07/30/17 09:55 O2 Saturation 76.0 % (92.0-100.0) L 07/30/17 09:55 Trace Test NA 07/29/17 14:45 Vent Rate 12 07/29/17 14:45 Inspired O2 32 07/30/17 09:55 Tidal Volume 350 07/29/17 14:45 PEEP NA 07/29/17 14:45 Pressure (ins/psv/peep) 6 07/29/17 14:45 Critical Value PW 07/30/17 09:55 Sodium 132 mEq/L (136-145) L 08/03/17 10:00 Potassium 3.7 mEq/L (3.5-5.1) 08/03/17 10:00 Chloride 95 mEq/L (98-107) L 08/03/17 10:00 Carbon Dioxide 25.1 mEq/L (21.0-31.0) 08/03/17 10:00 Anion Gap 15.6 (7.0-16.0) 08/03/17 10:00 BUN 33 mg/dL (7-25) H 08/03/17 10:00 Creatinine 3.2 mg/dL (0.6-1.2) H 08/03/17 10:00 Est GFR ( Amer) TNP 08/03/17 10:00 Est GFR (Non-Af Amer) TNP 08/03/17 10:00 BUN/Creatinine Ratio 10.3 08/03/17 10:00 Glucose 162 mg/dL (70-105) H 08/03/17 10:00 POC Glucose 181 MG/DL (70 - 105) H 08/03/17 12:43 Hemoglobin A1c % 6.1 % (4.0-6.0) H 07/30/17 04:10 Plasma/Ser Osmolality 303 mOsmol/kg (280-301) H 07/30/17 06:50 Uric Acid 3.5 mg/dL (2.3-6.6) 07/30/17 04:10 Calcium 9.2 mg/dL (8.6-10.3) 08/03/17 10:00 Phosphorus 7.6 mg/dL (2.5-5.0) H 07/30/17 04:10 Magnesium 2.0 mg/dL (1.9-2.7) 07/30/17 04:10 Total Bilirubin 0.4 mg/dL (0.3-1.0) 08/03/17 10:00 AST 17 U/L (13-39) 08/03/17 10:00 ALT 11 U/L (7-52) 08/03/17 10:00 Alkaline Phosphatase 100 U/L (34-104) 08/03/17 10:00 Creatine Kinase 81 U/L (30-223) 07/28/17 22:34 Troponin I 0.26 ng/mL (0.01-0.05) H* 07/28/17 22:34 B-Natriuretic Peptide 1860.0 pg/mL (5.0-100.0) H 07/28/17 22:34 Total Protein 7.5 gm/dL (6.0-8.3) 08/03/17 10:00 Albumin 3.4 gm/dL (3.7-5.3) L 08/03/17 10:00 Globulin 4.1 gm/dL 08/03/17 10:00 Albumin/Globulin Ratio 0.8 (1.0-1.8) L 08/03/17 10:00 Amylase 108 U/L (29-103) H 07/28/17 22:34 Lipase 52 U/L (11-82) 07/28/17 22:34 TSH 2.62 uIU/ml (0.34-5.60) 07/30/17 04:10 Urine Source CLEAN C 07/28/17 23:00 Urine Color YELLOW 07/28/17 23:00 Urine Clarity CLEAR (CLEAR) 07/28/17 23:00 Urine pH 6.0 (4.6 - 8.0) 07/28/17 23:00 Ur Specific [place] 1.015 (1.005-1.030) 07/28/17 23:00 Urine Protein >=300 mg/dL (NEGATIVE) 07/28/17 23:00 Urine Glucose (UA) NEGATIVE mg/dL (NEGATIVE) 07/28/17 23:00 Urine Ketones NEGATIVE mg/dL (NEGATIVE) 07/28/17 23:00 Urine Blood SMALL (NEGATIVE) H 07/28/17 23:00 Urine Nitrate NEGATIVE (NEGATIVE) 07/28/17 23:00 Urine Bilirubin NEGATIVE (NEGATIVE) 07/28/17 23:00 Urine Urobilinogen 0.2 E.U./dL (0.2 - 1.0) 07/28/17 23:00 Ur Leukocyte Esterase NEGATIVE (NEGATIVE) 07/28/17 23:00 Urine RBC 2-5 /hpf (0-5) 07/28/17 23:00 Urine WBC 6-10 /hpf (0-5) H 07/28/17 23:00 Ur Epithelial Cells MODERATE /lpf (FEW) 07/28/17 23:00 Urine Bacteria FEW /hpf (NONE SEEN) 07/28/17 23:00 Urine Creatinine 44.0 mg/dl (28.0-217.0) 07/30/17 06:50 Hepatitis A IgM Ab Negative (Negative) 07/30/17 18:56 Hep Bs Antigen Negative (Negative) 07/30/17 18:56 Hep B Core IgM Ab Negative (Negative) 07/30/17 18:56 Hepatitis C Antibody 0.2 s/co ratio (0.0-0.9) 07/30/17 18:56 Blood Type O POSITIVE 07/31/17 08:00 Antibody Screen NEGATIVE 07/31/17 08:00 - Physical Exam Vitals and I&O: Vital Signs Temp 97.5 F 08/03/17 04:00 Pulse 78 08/03/17 10:57 Resp 20 08/03/17 10:57 BP 148/78 08/03/17 09:29 Pulse Ox 100 08/03/17 10:57 Intake & Output 08/02/17 08/03/17 08/03/17 18:59 06:59 18:59 Intake Total 400 50 Output Total 1300 Balance -900 50 Weight (lbs) 73.482 kg Intake: Intake, IV Amount 50 50 cefTRIAXone 1 gm In 50 50 Dextrose 5% 50 ml @ 100 mls/hr IV Q24HR [facility] Rx#: [id number] Oral 350 Output: Hemodialysis 1300 Other: # Voids 2 Active Medications: Current Medications Acetaminophen (Tylenol) 650 mg PO Q4H PRN PRN Reason: Pain (Mild) Stop: 09/28/17 15:37 Last Admin: 08/02/17 16:29 Dose: 650 mg Albuterol/Ipratropium (Duoneb Neb) 3 ml HHN Q4HRT [facility] Stop: 09/27/17 14:59 Last Admin: 08/03/17 10:56 Dose: 3 ml Allopurinol (Zyloprim) 100 mg PO BID [facility] Stop: 09/27/17 08:59 Last Admin: 08/03/17 09:28 Dose: 100 mg Amiodarone HCl (Cordarone) 100 mg PO BID [facility] Stop: 09/30/17 00:44 Last Admin: 08/03/17 09:27 Dose: 100 mg Bisacodyl (Dulcolax 10 Mg Supp) 10 mg RC DAILY PRN PRN Reason: constipAtion Stop: 10/01/17 20:10 Epoetin Dustin (Epogen) 10,000 units SUBQ MoWeFr [facility] Stop: 09/28/17 17:56 Last Admin: 08/02/17 16:28 Dose: 10,000 units Famotidine (Pepcid) 20 mg IVP DAILY [facility] Stop: 09/28/17 08:59 Last Admin: 08/03/17 09:29 Dose: 20 mg Furosemide (Lasix) 40 mg IVP BID [facility] Stop: 09/27/17 16:59 Last Admin: 08/03/17 09:29 Dose: 40 mg Hydrochlorothiazide (Hctz) 12.5 mg PO DAILY PRN PRN Reason: FOR sbp >180 Stop: 10/02/17 08:59 Ceftriaxone Sodium 1 gm/ (Dextrose) 50 mls @ 100 mls/hr IV Q24HR [facility] Stop: 09/28/17 04:59 Last Infusion: 08/03/17 12:55 Dose: Infused Insulin Aspart (Novolog Insulin Sliding Scale) 0 units SUBQ ACHS [facility] PRN Reason: Protocol Stop: 09/30/17 16:29 Last Admin: 08/03/17 12:52 Dose: 2 units Lactobacillus Rhamnosus (Culturelle) 1 each PO DAILY [facility] Stop: 09/29/17 08:59 Last Admin: 08/03/17 09:26 Dose: 1 each Lactulose (Cephulac) 15 gm PO DAILY [facility] Stop: 10/01/17 15:29 Last Admin: 08/03/17 09:30 Dose: 15 gm Losartan Potassium (Cozaar) 50 mg PO DAILY PRN PRN Reason: FOR sbp >180 Stop: 10/02/17 08:59 Mineral Oil (Fleet Mineral Oil) 130 ml RC DAILY PRN PRN Reason: Constipation Stop: 10/01/17 23:01 Miscellaneous (Clinical Monitoring) 1 ea MC DAILY PRN PRN Reason: RENAL Stop: 09/27/17 07:45 Miscellaneous (Vte Chemical Prophylaxis Screen/ Admission) 1 ea PRN PRN PRN Reason: PROTOCOL Stop: 09/27/17 16:47 Miscellaneous (Vte Chemical Prophylaxis Screen/ Admission) 1 ea PRN PRN PRN Reason: PROTOCOL Stop: 09/27/17 16:51 Miscellaneous (Probiotic Screen) 1 ea PRN PRN PRN Reason: PROTOCOL Stop: 09/28/17 10:27 Nifedipine (Procardia) 10 mg PO DAILY [facility] Stop: 09/27/17 08:59 Last Admin: 08/03/17 09:28 Dose: 10 mg Potassium Chloride (Klor-Con) 20 meq PO DAILY [facility] Stop: 09/30/17 10:44 Last Admin: 08/03/17 09:00 Dose: 20 meq General: Alert, Oriented x3, No acute distress HEENT: Atraumatic, EOMI, Mucous membr. moist/pink Neck: Supple, +2 carotid pulse wo bruit Cardiovascular: Regular rate, Normal S1, Normal S2 Lungs: Other (less rhonchi) Abdomen: Bowel sounds, Soft Extremities: Other (No edema), no Edema Neurological: Sensation intact Skin: Other (Warm and dry), no Rash Psych/Mental Status: Mental status NL - Procedures Procedures: Procedures Procedure Code Date ASSISTANCE WITH RESPIRATORY VENTILATION, <24 HRS, CPAP [id number] 07/29/17 INSERT TUNNELED CV CATH [id number] 07/29/17 INSERTION OF INFUSION DEV INTO L SUBCLAV VEIN, PERC APPROACH [id number] 07/29/17 POS AIRWAY PRESSURE CPAP [id number] 07/29/17 TETANUS TOXOID ADMINIST 99.38 05/28/13 Assessment/Plan - Problem List Patient Problems: All Active Problems Laceration of finger (Active) S61.219A - Assessment Assessment: ESRD on HD Decomp CHF Hyponatremia Hyperkalemia RUL nodule Type 2 DM Ess Htn Left RCC S/P Nephrctomy B/L CAP - Plan Plan: Lab - Result Diagrams 07/30/17 10:00 07/30/17 04:10 Current Medications Acetaminophen (Tylenol) 650 mg PO Q4H PRN PRN Reason: Pain (Mild) Stop: 09/28/17 15:37 Last Admin: 07/30/17 15:47 Dose: 650 mg Albuterol/Ipratropium (Duoneb Neb) 3 ml HHN Q4HRT [facility] Stop: 09/27/17 14:59 Last Admin: 07/30/17 15:10 Dose: 3 ml Allopurinol (Zyloprim) 100 mg PO BID [facility] Stop: 09/27/17 08:59 Last Admin: 07/30/17 08:34 Dose: 100 mg Epoetin Dustin (Epogen) 10,000 units SUBQ TuThSa [facility] Stop: 09/28/17 17:56 Famotidine (Pepcid) 20 mg IVP DAILY [facility] Stop: 09/28/17 08:59 Last Admin: 07/30/17 08:35 Dose: 20 mg Furosemide (Lasix) 40 mg IVP BID [facility] Stop: 09/27/17 16:59 Last Admin: 07/30/17 08:35 Dose: 40 mg Heparin Sodium (Porcine) (Heparin Sodium) 0 units HD UD [facility] Stop: 07/31/17 00:00 Heparin Sodium (Porcine) (Heparin) 5,000 units HD UD [facility] Stop: 07/31/17 00:00 Ceftriaxone Sodium 1 gm/ (Dextrose) 50 mls @ 100 mls/hr IV Q24HR [facility] Stop: 09/28/17 04:59 Last Infusion: 07/30/17 06:10 Dose: Infused Albumin Human (Albuminar 25%) 25 gm in 100 mls @ 50 mls/hr IV PRN PRN PRN Reason: BP Support During HD Stop: 09/28/17 00:00 Insulin Aspart (Novolog Insulin Sliding Scale) 0 units SUBQ Q6HR [facility] PRN Reason: Protocol Stop: 09/28/17 11:59 Last Admin: 07/30/17 11:50 Dose: 4 units Lactobacillus Rhamnosus (Culturelle) 1 each PO DAILY [facility] Stop: 09/29/17 08:59 Miscellaneous (Clinical Monitoring) 1 ea MC DAILY PRN PRN Reason: RENAL Stop: 09/27/17 07:45 Miscellaneous (Vte Chemical Prophylaxis Screen/ Admission) 1 ea MC PRN PRN PRN Reason: PROTOCOL Stop: 09/27/17 16:47 Miscellaneous (Vte Chemical Prophylaxis Screen/ Admission) 1 ea MC PRN PRN PRN Reason: PROTOCOL Stop: 09/27/17 16:51 Miscellaneous (Probiotic Screen) 1 ea MC PRN PRN PRN Reason: PROTOCOL Stop: 09/28/17 10:27 Nifedipine (Procardia) 10 mg PO DAILY [facility] Stop: 09/27/17 08:59 Last Admin: 07/30/17 08:34 Dose: 10 mg Lab - Result Diagrams 08/02/17 04:00 08/02/17 04:00 schedule for HD in am CXR still shows CHF discussed w/ grandaughter extensively f/u electrolytes Nutritional Asmnt/Malnutr-PDOC - Dietary Evaluation Malnutrition Findings (Please click <Entered> for more info): Nutritional Asmnt/Malnutrition Start: 07/29/17 17: 08 Text: Status: Complete Freq: Document 07/29/17 17:08 LCDARRIANG (Rec: 07/29/17 17:35 LCDARRIANG [id number]) Nutritional Asmnt/Malnutrition Patient General Information Nutritional Screening High Risk Diagnosis abdominal pain, atypical chest pain, CHF exacerbation, CKD, bilateral PNA Pertinent Medical Hx/Surgical Hx CAD, CHF, HTN, DM, chronic renal insuff, cholecystectomy, left kidney removal Subjective Information Pt was busy with medical staff during time of visit, attempted x 2. Spoke with RN, per family pt has decreased appetite and PO intake before admitted. Pt did not eat breakfast d/t SOB this morning . Appetite was poor. Per nurse note, pt back on bipap this afternoon. Current Diet Order/ Nutrition Support Renal Pertinent Medications lasix, hctz, procardia Pertinent Labs 07/29 Na 132, K 5.0, Cl 101, BUN 82H, Cr 4.0, Glucose 100, Ca 9.2, Alb 3.5 Nutritional Hx/Data Height 1.55 m Height (Calculated Centimeters) 154.9 Current Weight (lbs) 72.575 kg Weight (Calculated Kilograms) 72.6 Weight (Calculated Grams) 17390.8 [place] Body Weight 105 % [place] Body Weight 152 Body Mass Index (BMI) 30.2 Weight Status Obese GI Symptoms GI Symptoms None Last BM none Difficult in: None Skin Integrity/Comment: intact Estimated Nutritional Goals BEE in Kcals: Adj wt of IBW Calories/Kcals/Kg 30-35 Kcals Calculated [id number] Protein: Adj wt of IBW Protein g/k Protein Calculated 54g monitor renal labs Fluid: ml [id number] or Per MD d/t acute renal failure Nutritional Problem 1. Problem Problem altered nutrition related lab values Etiology hx of chronic renal insuff Signs/Symptoms: BUN 82H, Cr 4.0 Malnutrition Alert Protein-Calorie Malnutrition N/A Is there a minimum of two criteria No selected? Query Text:Check all the applicable criteria. A minimum of two criteria are recommended for diagnosis of either severe or non-severe malnutrition. Intervention/Recommendation Comments 1. Continue with renal diet as ordered. 2. Monitor PO intake, wt daily , labs and skin integrity 3. F/U as high risk in 2-3 days, 07/31-08/01 Expected Outcomes/Goals Expected Outcomes/Goals 1. PO intake to meet at least 75% of nutritional needs. 2. Wt stability, skin to remain intact, labs to improve .
[2017-08-04] MEDS: Albuterol/Ipratropium Neb 3 ML AERS HHN SCH ×6 (02:38→23:21)
[2017-08-04 06:54] LABS: HEMATOCRIT 26.6 % (41.0-60); HEMOGLOBIN 8.9 gm/dL (12-16); MEAN CELL VOLUME 94.4 fl (81-100); MEAN CORPUSCULAR HEMOGLOBIN 31.4 pg (27.0-31.0); MEAN CORPUSCULAR HGB CONC 33.2 pg (28.0-36.0); PLATELET COUNT 258 Th/cmm (150-400); RED CELL DISTRIBUTION WIDTH 15.7 % (11.5-20.0); WHITE BLOOD COUNT 5.7 Th/cmm (4.8-10.8)
[2017-08-04 07:06] LABS: MANUAL DIFF REQUIRED? YES
[2017-08-04 07:20] LABS: ALB/GLOB RATIO 0.9 (1.0-1.8); ALBUMIN 2.9 gm/dL (3.7-5.3); ALKALINE PHOSPHATASE 82 U/L (34-104); ANION GAP 13.5 (7.0-16.0); BILIRUBIN,TOTAL 0.2 mg/dL (0.3-1.0); BUN - UREA NITROGEN 40 mg/dL (7-25); CALCIUM SERUM 8.2 mg/dL (8.6-10.3); CARBON DIOXIDE 24.5 mEq/L (21.0-31.0); CHLORIDE 98 mEq/L (98-107); CREATININE - SERUM 3.7 mg/dL (0.6-1.2); GLUCOSE 107 mg/dL (70-105); SGOT 15 U/L (13-39); SGPT/ALT 10 U/L (7-52); SODIUM SERUM 132 mEq/L (136-145); TOTAL PROTEIN,SERUM 6.3 gm/dL (6.0-8.3)
[2017-08-04 08:29] LABS: BAND NEUTROPHILE 1 % (0-10); BASOPHIL 7 % (0-3); EOSINOPHIL 10 % (0-5); LYMPHOCYTE 11 % (20-50); MONOCYTE 7 % (2-10); NEUTROPHILS 64 % (40-80); PLATELET ESTIMATE ADEQUATE (NORMAL); TOTAL CELLS COUNTED 100
[2017-08-04] MEDS: INSULIN ASPART SLIDING SCALE 100 UNITS/ML UNIT SUBQ SCH ×4 (08:32→20:51)
--- NOTE | 2017-08-04 10:36 | General Progress Note ---
Subjective - Review of Systems Service Date: 08/04/17 Subjective: I am breathing better Objective - Results Result Diagrams: 08/04/17 06:35 08/04/17 06:35 Recent Labs: Laboratory Last Values WBC 5.7 Th/cmm (4.8-10.8) 08/04/17 06:35 RBC 3.36 Mil/cmm (3.80-5.20) L 08/03/17 10:00 Hgb 8.9 gm/dL (12-16) L 08/04/17 06:35 Hct 26.6 % (41.0-60) L D 08/04/17 06:35 MCV 94.4 fl (81-100) 08/04/17 06:35 MCH 31.4 pg (27.0-31.0) H 08/04/17 06:35 MCHC Differential 33.2 pg (28.0-36.0) 08/04/17 06:35 RDW 15.7 % (11.5-20.0) 08/04/17 06:35 Plt Count 258 Th/cmm (150-400) 08/04/17 06:35 MPV 7.0 fl 08/04/17 06:35 Neutrophils % 67.2 % (40.0-80.0) 08/02/17 04:00 Band Neutrophils % 1 % (0-10) 08/04/17 06:35 Lymphocytes % 15.2 % (20.0-50.0) L 08/02/17 04:00 Monocytes % 11.9 % (2.0-10.0) H 08/02/17 04:00 Eosinophils % 5.6 % (0.0-5.0) H 08/02/17 04:00 Basophils % 0.1 % (0.0-2.0) 08/02/17 04:00 Neutrophils (Manual) 64 % (40-80) 08/04/17 06:35 Lymphocytes 11 % (20-50) L 08/04/17 06:35 Monocytes 7 % (2-10) 08/04/17 06:35 Eosinophils 10 % (0-5) H 08/04/17 06:35 Basophils 7 % (0-3) H 08/04/17 06:35 Platelet Estimate ADEQUATE (NORMAL) 08/04/17 06:35 Eos Smear Source URINE 07/30/17 06:50 Eos Smear Total Cells NONE SEEN (NONE SEEN) 07/30/17 06:50 PT 9.6 SECONDS (9.5-11.5) 07/28/17 22:34 INR 0.92 (0.5-1.4) 07/28/17 22:34 PTT (Actin FS) 25.6 SECONDS (26.0-38.0) L 07/28/17 22:34 Specimen Source Arterial 07/30/17 09:55 Sample Site RB 07/30/17 09:55 pH 7.32 (7.35-7.45) L 07/30/17 09:55 pCO2 49.0 mmHg (35.0-45.0) H 07/30/17 09:55 pO2 45.0 mmHg (80.0-100.0) L* 07/30/17 09:55 HCO3 23.3 mEq/L (20.0-26.0) 07/30/17 09:55 Base Excess -1.4 mEq/L (-3.0-3.0) 07/30/17 09:55 O2 Saturation 76.0 % (92.0-100.0) L 07/30/17 09:55 Trace Test NA 07/29/17 14:45 Vent Rate 12 07/29/17 14:45 Inspired O2 32 07/30/17 09:55 Tidal Volume 350 07/29/17 14:45 PEEP NA 07/29/17 14:45 Pressure (ins/psv/peep) 6 07/29/17 14:45 Critical Value PW 07/30/17 09:55 Sodium 132 mEq/L (136-145) L 08/04/17 06:35 Potassium 4.0 mEq/L (3.5-5.1) 08/04/17 06:35 Chloride 98 mEq/L (98-107) 08/04/17 06:35 Carbon Dioxide 24.5 mEq/L (21.0-31.0) 08/04/17 06:35 Anion Gap 13.5 (7.0-16.0) 08/04/17 06:35 BUN 40 mg/dL (7-25) H 08/04/17 06:35 Creatinine 3.7 mg/dL (0.6-1.2) H 08/04/17 06:35 Est GFR ( Amer) TNP 08/04/17 06:35 Est GFR (Non-Af Amer) TNP 08/04/17 06:35 BUN/Creatinine Ratio 10.8 08/04/17 06:35 Glucose 107 mg/dL (70-105) H 08/04/17 06:35 POC Glucose 107 MG/DL (70 - 105) H 08/04/17 06:48 Hemoglobin A1c % 6.1 % (4.0-6.0) H 07/30/17 04:10 Plasma/Ser Osmolality 303 mOsmol/kg (280-301) H 07/30/17 06:50 Uric Acid 3.5 mg/dL (2.3-6.6) 07/30/17 04:10 Calcium 8.2 mg/dL (8.6-10.3) L 08/04/17 06:35 Phosphorus 7.6 mg/dL (2.5-5.0) H 07/30/17 04:10 Magnesium 2.0 mg/dL (1.9-2.7) 07/30/17 04:10 Total Bilirubin 0.2 mg/dL (0.3-1.0) L 08/04/17 06:35 AST 15 U/L (13-39) 08/04/17 06:35 ALT 10 U/L (7-52) 08/04/17 06:35 Alkaline Phosphatase 82 U/L (34-104) 08/04/17 06:35 Creatine Kinase 81 U/L (30-223) 07/28/17 22:34 Troponin I 0.26 ng/mL (0.01-0.05) H* 07/28/17 22:34 B-Natriuretic Peptide 1860.0 pg/mL (5.0-100.0) H 07/28/17 22:34 Total Protein 6.3 gm/dL (6.0-8.3) 08/04/17 06:35 Albumin 2.9 gm/dL (3.7-5.3) L 08/04/17 06:35 Globulin 3.4 gm/dL 08/04/17 06:35 Albumin/Globulin Ratio 0.9 (1.0-1.8) L 08/04/17 06:35 Amylase 108 U/L (29-103) H 07/28/17 22:34 Lipase 52 U/L (11-82) 07/28/17 22:34 TSH 2.62 uIU/ml (0.34-5.60) 07/30/17 04:10 Urine Source CLEAN C 07/28/17 23:00 Urine Color YELLOW 07/28/17 23:00 Urine Clarity CLEAR (CLEAR) 07/28/17 23:00 Urine pH 6.0 (4.6 - 8.0) 07/28/17 23:00 Ur Specific [place] 1.015 (1.005-1.030) 07/28/17 23:00 Urine Protein >=300 mg/dL (NEGATIVE) 07/28/17 23:00 Urine Glucose (UA) NEGATIVE mg/dL (NEGATIVE) 07/28/17 23:00 Urine Ketones NEGATIVE mg/dL (NEGATIVE) 07/28/17 23:00 Urine Blood SMALL (NEGATIVE) H 07/28/17 23:00 Urine Nitrate NEGATIVE (NEGATIVE) 07/28/17 23:00 Urine Bilirubin NEGATIVE (NEGATIVE) 07/28/17 23:00 Urine Urobilinogen 0.2 E.U./dL (0.2 - 1.0) 07/28/17 23:00 Ur Leukocyte Esterase NEGATIVE (NEGATIVE) 07/28/17 23:00 Urine RBC 2-5 /hpf (0-5) 07/28/17 23:00 Urine WBC 6-10 /hpf (0-5) H 07/28/17 23:00 Ur Epithelial Cells MODERATE /lpf (FEW) 07/28/17 23:00 Urine Bacteria FEW /hpf (NONE SEEN) 07/28/17 23:00 Urine Creatinine 44.0 mg/dl (28.0-217.0) 07/30/17 06:50 Hepatitis A IgM Ab Negative (Negative) 07/30/17 18:56 Hep Bs Antigen Negative (Negative) 07/30/17 18:56 Hep B Core IgM Ab Negative (Negative) 07/30/17 18:56 Hepatitis C Antibody 0.2 s/co ratio (0.0-0.9) 07/30/17 18:56 Blood Type O POSITIVE 07/31/17 08:00 Antibody Screen NEGATIVE 07/31/17 08:00 - Physical Exam Vitals and I&O: Vital Signs Temp 97.8 F 08/04/17 04:00 Pulse 81 08/04/17 07:07 Resp 20 08/04/17 07:07 BP 132/75 08/04/17 04:00 Pulse Ox 90 08/04/17 07:07 Intake & Output 08/03/17 08/04/17 08/04/17 18:59 06:59 18:59 Intake Total 700 150 Balance 700 150 Weight (lbs) 73.482 kg 70.307 kg Intake: Intake, IV Amount 50 50 cefTRIAXone 1 gm In 50 50 Dextrose 5% 50 ml @ 100 mls/hr IV Q24HR [facility] Rx#: [id number] Oral 650 100 Other: # Voids 3 1 # Bowel Movements 0 0 Active Medications: Current Medications Acetaminophen (Tylenol) 650 mg PO Q4H PRN PRN Reason: Pain (Mild) Stop: 09/28/17 15:37 Last Admin: 08/03/17 22:13 Dose: 650 mg Albuterol/Ipratropium (Duoneb Neb) 3 ml HHN Q4HRT [facility] Stop: 09/27/17 14:59 Last Admin: 08/04/17 07:05 Dose: 3 ml Allopurinol (Zyloprim) 100 mg PO BID [facility] Stop: 09/27/17 08:59 Last Admin: 08/03/17 16:52 Dose: 100 mg Amiodarone HCl (Cordarone) 100 mg PO BID [facility] Stop: 09/30/17 00:44 Last Admin: 08/03/17 16:52 Dose: 100 mg Bisacodyl (Dulcolax 10 Mg Supp) 10 mg RC DAILY PRN PRN Reason: constipAtion Stop: 10/01/17 20:10 Epoetin Dustin (Epogen) 10,000 units SUBQ MoWeFr [facility] Stop: 09/28/17 17:56 Last Admin: 08/02/17 16:28 Dose: 10,000 units Famotidine (Pepcid) 20 mg IVP DAILY [facility] Stop: 09/28/17 08:59 Last Admin: 08/03/17 09:29 Dose: 20 mg Furosemide (Lasix) 40 mg IVP BID [facility] Stop: 09/27/17 16:59 Last Admin: 08/03/17 16:52 Dose: 40 mg Hydrochlorothiazide (Hctz) 12.5 mg PO DAILY PRN PRN Reason: FOR sbp >180 Stop: 02/21/18 08:59 Ceftriaxone Sodium 1 gm/ (Dextrose) 50 mls @ 100 mls/hr IV Q24HR [facility] Stop: 09/28/17 04:59 Last Infusion: 08/04/17 05:37 Dose: Infused Insulin Aspart (Novolog Insulin Sliding Scale) 0 units SUBQ ACHS [facility] PRN Reason: Protocol Stop: 09/30/17 16:29 Last Admin: 08/04/17 08:32 Dose: Not Given Lactobacillus Rhamnosus (Culturelle) 1 each PO DAILY [facility] Stop: 09/29/17 08:59 Last Admin: 08/03/17 09:26 Dose: 1 each Lactulose (Cephulac) 15 gm PO DAILY [facility] Stop: 10/01/17 15:29 Last Admin: 08/03/17 09:30 Dose: 15 gm Losartan Potassium (Cozaar) 50 mg PO DAILY PRN PRN Reason: FOR sbp >180 Stop: 10/02/17 08:59 Mineral Oil (Fleet Mineral Oil) 130 ml RC DAILY PRN PRN Reason: Constipation Stop: 10/01/17 23:01 Miscellaneous (Clinical Monitoring) 1 ea MC DAILY PRN PRN Reason: RENAL Stop: 09/27/17 07:45 Miscellaneous (Vte Chemical Prophylaxis Screen/ Admission) 1 ea PRN PRN PRN Reason: PROTOCOL Stop: 09/27/17 16:47 Miscellaneous (Vte Chemical Prophylaxis Screen/ Admission) 1 ea PRN PRN PRN Reason: PROTOCOL Stop: 09/27/17 16:51 Miscellaneous (Probiotic Screen) 1 ea PRN PRN PRN Reason: PROTOCOL Stop: 09/28/17 10:27 Nifedipine (Procardia) 10 mg PO DAILY [facility] Stop: 09/27/17 08:59 Last Admin: 08/03/17 09:28 Dose: 10 mg Potassium Chloride (Klor-Con) 20 meq PO DAILY [facility] Stop: 09/30/17 10:44 Last Admin: 08/03/17 09:00 Dose: 20 meq General: Alert, Oriented x3, No acute distress HEENT: Atraumatic, EOMI, Mucous membr. moist/pink Neck: Supple, +2 carotid pulse wo bruit Cardiovascular: Regular rate, Normal S1, Normal S2 Lungs: Other (less rhonchi) Abdomen: Bowel sounds, Soft Extremities: Other (No edema), no Edema Neurological: Sensation intact Skin: Other (Warm and dry), no Rash Psych/Mental Status: Mental status NL - Procedures Procedures: Procedures Procedure Code Date ASSISTANCE WITH RESPIRATORY VENTILATION, <24 HRS, CPAP [id number] 07/29/17 INSERT TUNNELED CV CATH [id number] 07/29/17 INSERTION OF INFUSION DEV INTO L SUBCLAV VEIN, PERC APPROACH [id number] 07/29/17 POS AIRWAY PRESSURE CPAP [id number] 07/29/17 TETANUS TOXOID ADMINIST 99.38 05/28/13 Assessment/Plan - Problem List Patient Problems: All Active Problems Laceration of finger (Active) S61.219A - Assessment Assessment: Patient is awake alert in no distress. CXR show that patient continue with infiltrates, O2 sat normal. Patient improving. Dx: Abdominal pain, Atypical Chest Pain, CHF exacerbation, CKD, Bilateral PNA, Elevated troponins, DM, HTN. - Plan Plan: Patient in ICU nasal O2, Continue with home meds, She had HD yesterday. Transfer to Telemetry. Already seen by Cardio, Nephro and Pulmonology. Will continue to monitor. Nutritional Asmnt/Malnutr-PDOC - Dietary Evaluation Malnutrition Findings (Please click <Entered> for more info): Nutritional Asmnt/Malnutrition Start: 07/29/17 17: 08 Text: Status: Complete Freq: Document 07/29/17 17:08 PATRICIO (Rec: 07/29/17 17:35 LCDARRIANG [id number]) Nutritional Asmnt/Malnutrition Patient General Information Nutritional Screening High Risk Diagnosis abdominal pain, atypical chest pain, CHF exacerbation, CKD, bilateral PNA Pertinent Medical Hx/Surgical Hx CAD, CHF, HTN, DM, chronic renal insuff, cholecystectomy, left kidney removal Subjective Information Pt was busy with medical staff during time of visit, attempted x 2. Spoke with RN, per family pt has decreased appetite and PO intake before admitted. Pt did not eat breakfast d/t SOB this morning . Appetite was poor. Per nurse note, pt back on bipap this afternoon. Current Diet Order/ Nutrition Support Renal Pertinent Medications lasix, hctz, procardia Pertinent Labs 07/29 Na 132, K 5.0, Cl 101, BUN 82H, Cr 4.0, Glucose 100, Ca 9.2, Alb 3.5 Nutritional Hx/Data Height 1.55 m Height (Calculated Centimeters) 154.9 Current Weight (lbs) 72.575 kg Weight (Calculated Kilograms) 72.6 Weight (Calculated Grams) 01574.8 [place] Body Weight 105 % [place] Body Weight 152 Body Mass Index (BMI) 30.2 Weight Status Obese GI Symptoms GI Symptoms None Last BM none Difficult in: None Skin Integrity/Comment: intact Estimated Nutritional Goals BEE in Kcals: Adj wt of IBW Calories/Kcals/Kg 30-35 Kcals Calculated [id number] Protein: Adj wt of IBW Protein g/k Protein Calculated 54g monitor renal labs Fluid: ml [id number] or Per MD d/t acute renal failure Nutritional Problem 1. Problem Problem altered nutrition related lab values Etiology hx of chronic renal insuff Signs/Symptoms: BUN 82H, Cr 4.0 Malnutrition Alert Protein-Calorie Malnutrition N/A Is there a minimum of two criteria No selected? Query Text:Check all the applicable criteria. A minimum of two criteria are recommended for diagnosis of either severe or non-severe malnutrition. Intervention/Recommendation Comments 1. Continue with renal diet as ordered. 2. Monitor PO intake, wt daily , labs and skin integrity 3. F/U as high risk in 2-3 days, 07/31-08/01 Expected Outcomes/Goals Expected Outcomes/Goals 1. PO intake to meet at least 75% of nutritional needs. 2. Wt stability, skin to remain intact, labs to improve .
--- NOTE | 2017-08-04 14:22 | General Progress Note ---
Subjective - Review of Systems Service Date: 08/04/17 Subjective: more alert, better spirits Objective - Results Result Diagrams: 08/04/17 06:35 08/04/17 06:35 Recent Labs: Laboratory Last Values WBC 5.7 Th/cmm (4.8-10.8) 08/04/17 06:35 RBC 3.36 Mil/cmm (3.80-5.20) L 08/03/17 10:00 Hgb 8.9 gm/dL (12-16) L 08/04/17 06:35 Hct 26.6 % (41.0-60) L D 08/04/17 06:35 MCV 94.4 fl (81-100) 08/04/17 06:35 MCH 31.4 pg (27.0-31.0) H 08/04/17 06:35 MCHC Differential 33.2 pg (28.0-36.0) 08/04/17 06:35 RDW 15.7 % (11.5-20.0) 08/04/17 06:35 Plt Count 258 Th/cmm (150-400) 08/04/17 06:35 MPV 7.0 fl 08/04/17 06:35 Neutrophils % 67.2 % (40.0-80.0) 08/02/17 04:00 Band Neutrophils % 1 % (0-10) 08/04/17 06:35 Lymphocytes % 15.2 % (20.0-50.0) L 08/02/17 04:00 Monocytes % 11.9 % (2.0-10.0) H 08/02/17 04:00 Eosinophils % 5.6 % (0.0-5.0) H 08/02/17 04:00 Basophils % 0.1 % (0.0-2.0) 08/02/17 04:00 Neutrophils (Manual) 64 % (40-80) 08/04/17 06:35 Lymphocytes 11 % (20-50) L 08/04/17 06:35 Monocytes 7 % (2-10) 08/04/17 06:35 Eosinophils 10 % (0-5) H 08/04/17 06:35 Basophils 7 % (0-3) H 08/04/17 06:35 Platelet Estimate ADEQUATE (NORMAL) 08/04/17 06:35 Eos Smear Source URINE 07/30/17 06:50 Eos Smear Total Cells NONE SEEN (NONE SEEN) 07/30/17 06:50 PT 9.6 SECONDS (9.5-11.5) 07/28/17 22:34 INR 0.92 (0.5-1.4) 07/28/17 22:34 PTT (Actin FS) 25.6 SECONDS (26.0-38.0) L 07/28/17 22:34 Specimen Source Arterial 07/30/17 09:55 Sample Site RB 07/30/17 09:55 pH 7.32 (7.35-7.45) L 07/30/17 09:55 pCO2 49.0 mmHg (35.0-45.0) H 07/30/17 09:55 pO2 45.0 mmHg (80.0-100.0) L* 07/30/17 09:55 HCO3 23.3 mEq/L (20.0-26.0) 07/30/17 09:55 Base Excess -1.4 mEq/L (-3.0-3.0) 07/30/17 09:55 O2 Saturation 76.0 % (92.0-100.0) L 07/30/17 09:55 Trace Test NA 07/29/17 14:45 Vent Rate 12 07/29/17 14:45 Inspired O2 32 07/30/17 09:55 Tidal Volume 350 07/29/17 14:45 PEEP NA 07/29/17 14:45 Pressure (ins/psv/peep) 6 07/29/17 14:45 Critical Value PW 07/30/17 09:55 Sodium 132 mEq/L (136-145) L 08/04/17 06:35 Potassium 4.0 mEq/L (3.5-5.1) 08/04/17 06:35 Chloride 98 mEq/L (98-107) 08/04/17 06:35 Carbon Dioxide 24.5 mEq/L (21.0-31.0) 08/04/17 06:35 Anion Gap 13.5 (7.0-16.0) 08/04/17 06:35 BUN 40 mg/dL (7-25) H 08/04/17 06:35 Creatinine 3.7 mg/dL (0.6-1.2) H 08/04/17 06:35 Est GFR ( Amer) TNP 08/04/17 06:35 Est GFR (Non-Af Amer) TNP 08/04/17 06:35 BUN/Creatinine Ratio 10.8 08/04/17 06:35 Glucose 107 mg/dL (70-105) H 08/04/17 06:35 POC Glucose 200 MG/DL (70 - 105) H 08/04/17 12:29 Hemoglobin A1c % 6.1 % (4.0-6.0) H 07/30/17 04:10 Plasma/Ser Osmolality 303 mOsmol/kg (280-301) H 07/30/17 06:50 Uric Acid 3.5 mg/dL (2.3-6.6) 07/30/17 04:10 Calcium 8.2 mg/dL (8.6-10.3) L 08/04/17 06:35 Phosphorus 7.6 mg/dL (2.5-5.0) H 07/30/17 04:10 Magnesium 2.0 mg/dL (1.9-2.7) 07/30/17 04:10 Total Bilirubin 0.2 mg/dL (0.3-1.0) L 08/04/17 06:35 AST 15 U/L (13-39) 08/04/17 06:35 ALT 10 U/L (7-52) 08/04/17 06:35 Alkaline Phosphatase 82 U/L (34-104) 08/04/17 06:35 Creatine Kinase 81 U/L (30-223) 07/28/17 22:34 Troponin I 0.26 ng/mL (0.01-0.05) H* 07/28/17 22:34 B-Natriuretic Peptide 1860.0 pg/mL (5.0-100.0) H 07/28/17 22:34 Total Protein 6.3 gm/dL (6.0-8.3) 08/04/17 06:35 Albumin 2.9 gm/dL (3.7-5.3) L 08/04/17 06:35 Globulin 3.4 gm/dL 08/04/17 06:35 Albumin/Globulin Ratio 0.9 (1.0-1.8) L 08/04/17 06:35 Amylase 108 U/L (29-103) H 07/28/17 22:34 Lipase 52 U/L (11-82) 07/28/17 22:34 TSH 2.62 uIU/ml (0.34-5.60) 07/30/17 04:10 Urine Source CLEAN C 07/28/17 23:00 Urine Color YELLOW 07/28/17 23:00 Urine Clarity CLEAR (CLEAR) 07/28/17 23:00 Urine pH 6.0 (4.6 - 8.0) 07/28/17 23:00 Ur Specific [place] 1.015 (1.005-1.030) 07/28/17 23:00 Urine Protein >=300 mg/dL (NEGATIVE) 07/28/17 23:00 Urine Glucose (UA) NEGATIVE mg/dL (NEGATIVE) 07/28/17 23:00 Urine Ketones NEGATIVE mg/dL (NEGATIVE) 07/28/17 23:00 Urine Blood SMALL (NEGATIVE) H 07/28/17 23:00 Urine Nitrate NEGATIVE (NEGATIVE) 07/28/17 23:00 Urine Bilirubin NEGATIVE (NEGATIVE) 07/28/17 23:00 Urine Urobilinogen 0.2 E.U./dL (0.2 - 1.0) 07/28/17 23:00 Ur Leukocyte Esterase NEGATIVE (NEGATIVE) 07/28/17 23:00 Urine RBC 2-5 /hpf (0-5) 07/28/17 23:00 Urine WBC 6-10 /hpf (0-5) H 07/28/17 23:00 Ur Epithelial Cells MODERATE /lpf (FEW) 07/28/17 23:00 Urine Bacteria FEW /hpf (NONE SEEN) 07/28/17 23:00 Urine Creatinine 44.0 mg/dl (28.0-217.0) 07/30/17 06:50 Hepatitis A IgM Ab Negative (Negative) 07/30/17 18:56 Hep Bs Antigen Negative (Negative) 07/30/17 18:56 Hep B Core IgM Ab Negative (Negative) 07/30/17 18:56 Hepatitis C Antibody 0.2 s/co ratio (0.0-0.9) 07/30/17 18:56 Blood Type O POSITIVE 07/31/17 08:00 Antibody Screen NEGATIVE 07/31/17 08:00 - Physical Exam Vitals and I&O: Vital Signs Temp 97.8 F 08/04/17 04:00 Pulse 75 08/04/17 10:44 Resp 20 08/04/17 10:44 BP 132/75 08/04/17 04:00 Pulse Ox 96 08/04/17 10:44 Intake & Output 08/03/17 08/04/17 08/04/17 18:59 06:59 18:59 Intake Total 700 150 Balance 700 150 Weight (lbs) 73.482 kg 70.307 kg Intake: Intake, IV Amount 50 50 cefTRIAXone 1 gm In 50 50 Dextrose 5% 50 ml @ 100 mls/hr IV Q24HR [facility] Rx#: [id number] Oral 650 100 Other: # Voids 3 1 # Bowel Movements 0 0 Active Medications: Current Medications Acetaminophen (Tylenol) 650 mg PO Q4H PRN PRN Reason: Pain (Mild) Stop: 09/28/17 15:37 Last Admin: 08/03/17 22:13 Dose: 650 mg Albuterol/Ipratropium (Duoneb Neb) 3 ml HHN Q4HRT [facility] Stop: 09/27/17 14:59 Last Admin: 08/04/17 10:43 Dose: 3 ml Allopurinol (Zyloprim) 100 mg PO BID [facility] Stop: 09/27/17 08:59 Last Admin: 08/03/17 16:52 Dose: 100 mg Amiodarone HCl (Cordarone) 100 mg PO BID [facility] Stop: 09/30/17 00:44 Last Admin: 08/03/17 16:52 Dose: 100 mg Bisacodyl (Dulcolax 10 Mg Supp) 10 mg RC DAILY PRN PRN Reason: constipAtion Stop: 10/01/17 20:10 Epoetin Dustin (Epogen) 10,000 units SUBQ MoWeFr [facility] Stop: 09/28/17 17:56 Last Admin: 08/02/17 16:28 Dose: 10,000 units Famotidine (Pepcid) 20 mg IVP DAILY [facility] Stop: 09/28/17 08:59 Last Admin: 08/03/17 09:29 Dose: 20 mg Furosemide (Lasix) 40 mg IVP BID [facility] Stop: 09/27/17 16:59 Last Admin: 08/03/17 16:52 Dose: 40 mg Hydrochlorothiazide (Hctz) 12.5 mg PO DAILY PRN PRN Reason: FOR sbp >180 Stop: 10/02/17 08:59 Ceftriaxone Sodium 1 gm/ (Dextrose) 50 mls @ 100 mls/hr IV Q24HR [facility] Stop: 09/28/17 04:59 Last Infusion: 08/04/17 05:37 Dose: Infused Insulin Aspart (Novolog Insulin Sliding Scale) 0 units SUBQ ACHS [facility] PRN Reason: Protocol Stop: 09/30/17 16:29 Last Admin: 08/04/17 08:32 Dose: Not Given Lactobacillus Rhamnosus (Culturelle) 1 each PO DAILY [facility] Stop: 09/29/17 08:59 Last Admin: 08/03/17 09:26 Dose: 1 each Lactulose (Cephulac) 15 gm PO DAILY [facility] Stop: 10/01/17 15:29 Last Admin: 08/03/17 09:30 Dose: 15 gm Losartan Potassium (Cozaar) 50 mg PO DAILY PRN PRN Reason: FOR sbp >180 Stop: 10/02/17 08:59 Mineral Oil (Fleet Mineral Oil) 130 ml RC DAILY PRN PRN Reason: Constipation Stop: 10/01/17 23:01 Miscellaneous (Clinical Monitoring) 1 ea MC DAILY PRN PRN Reason: RENAL Stop: 09/27/17 07:45 Miscellaneous (Vte Chemical Prophylaxis Screen/ Admission) 1 ea PRN PRN PRN Reason: PROTOCOL Stop: 09/27/17 16:47 Miscellaneous (Vte Chemical Prophylaxis Screen/ Admission) 1 ea PRN PRN PRN Reason: PROTOCOL Stop: 09/27/17 16:51 Miscellaneous (Probiotic Screen) 1 ea PRN PRN PRN Reason: PROTOCOL Stop: 09/28/17 10:27 Nifedipine (Procardia) 10 mg PO DAILY [facility] Stop: 09/27/17 08:59 Last Admin: 08/03/17 09:28 Dose: 10 mg Potassium Chloride (Klor-Con) 20 meq PO DAILY [facility] Stop: 09/30/17 10:44 Last Admin: 08/03/17 09:00 Dose: 20 meq General: Alert, Oriented x3, No acute distress HEENT: Atraumatic, EOMI, Mucous membr. moist/pink Neck: Supple, +2 carotid pulse wo bruit Cardiovascular: Regular rate, Normal S1, Normal S2 Lungs: Other (less rhonchi) Abdomen: Bowel sounds, Soft Extremities: Other (No edema), no Edema Neurological: Sensation intact Skin: Other (Warm and dry), no Rash Psych/Mental Status: Mental status NL - Procedures Procedures: Procedures Procedure Code Date ASSISTANCE WITH RESPIRATORY VENTILATION, <24 HRS, CPAP [id number] 07/29/17 INSERT TUNNELED CV CATH 35417 07/29/17 INSERTION OF INFUSION DEV INTO L SUBCLAV VEIN, PERC APPROACH [id number] 07/29/17 POS AIRWAY PRESSURE CPAP 45003 07/29/17 TETANUS TOXOID ADMINIST 99.38 05/28/13 Assessment/Plan - Problem List Patient Problems: All Active Problems Laceration of finger (Active) S61.219A - Assessment Assessment: ESRD on HD Decomp CHF Hyponatremia Hyperkalemia RUL nodule Type 2 DM Ess Htn Left RCC S/P Nephrctomy B/L CAP - Plan Plan: Lab - Result Diagrams 07/30/17 10:00 07/30/17 04:10 Current Medications Acetaminophen (Tylenol) 650 mg PO Q4H PRN PRN Reason: Pain (Mild) Stop: 09/28/17 15:37 Last Admin: 07/30/17 15:47 Dose: 650 mg Albuterol/Ipratropium (Duoneb Neb) 3 ml HHN Q4HRT [facility] Stop: 09/27/17 14:59 Last Admin: 07/30/17 15:10 Dose: 3 ml Allopurinol (Zyloprim) 100 mg PO BID [facility] Stop: 09/27/17 08:59 Last Admin: 07/30/17 08:34 Dose: 100 mg Epoetin Dustin (Epogen) 10,000 units SUBQ TuThSa [facility] Stop: 09/28/17 17:56 Famotidine (Pepcid) 20 mg IVP DAILY [facility] Stop: 09/28/17 08:59 Last Admin: 07/30/17 08:35 Dose: 20 mg Furosemide (Lasix) 40 mg IVP BID [facility] Stop: 09/27/17 16:59 Last Admin: 07/30/17 08:35 Dose: 40 mg Heparin Sodium (Porcine) (Heparin Sodium) 0 units HD UD [facility] Stop: 07/31/17 00:00 Heparin Sodium (Porcine) (Heparin) 5,000 units HD UD [facility] Stop: 07/31/17 00:00 Ceftriaxone Sodium 1 gm/ (Dextrose) 50 mls @ 100 mls/hr IV Q24HR [facility] Stop: 09/28/17 04:59 Last Infusion: 07/30/17 06:10 Dose: Infused Albumin Human (Albuminar 25%) 25 gm in 100 mls @ 50 mls/hr IV PRN PRN PRN Reason: BP Support During HD Stop: 09/28/17 00:00 Insulin Aspart (Novolog Insulin Sliding Scale) 0 units SUBQ Q6HR [facility] PRN Reason: Protocol Stop: 09/28/17 11:59 Last Admin: 07/30/17 11:50 Dose: 4 units Lactobacillus Rhamnosus (Culturelle) 1 each PO DAILY [facility] Stop: 09/29/17 08:59 Miscellaneous (Clinical Monitoring) 1 ea MC DAILY PRN PRN Reason: RENAL Stop: 09/27/17 07:45 Miscellaneous (Vte Chemical Prophylaxis Screen/ Admission) 1 ea PRN PRN PRN Reason: PROTOCOL Stop: 09/27/17 16:47 Miscellaneous (Vte Chemical Prophylaxis Screen/ Admission) 1 ea PRN PRN PRN Reason: PROTOCOL Stop: 09/27/17 16:51 Miscellaneous (Probiotic Screen) 1 ea PRN PRN PRN Reason: PROTOCOL Stop: 09/28/17 10:27 Nifedipine (Procardia) 10 mg PO DAILY [facility] Stop: 09/27/17 08:59 Last Admin: 07/30/17 08:34 Dose: 10 mg Lab - Result Diagrams 08/04/17 06:35 08/04/17 06:35 dialysis terminated early because of water shut off no problem w/ cath this time around CXR still shows CHF discussed w/ grandaughter extensively f/u electrolytes Nutritional Asmnt/Malnutr-PDOC - Dietary Evaluation Malnutrition Findings (Please click <Entered> for more info): Nutritional Asmnt/Malnutrition Start: 07/29/17 17: 08 Text: Status: Complete Freq: Document 07/29/17 17:08 PATRICIO (Rec: 07/29/17 17:35 PATRICIO [email or web address]) Nutritional Asmnt/Malnutrition Patient General Information Nutritional Screening High Risk Diagnosis abdominal pain, atypical chest pain, CHF exacerbation, CKD, bilateral PNA Pertinent Medical Hx/Surgical Hx CAD, CHF, HTN, DM, chronic renal insuff, cholecystectomy, left kidney removal Subjective Information Pt was busy with medical staff during time of visit, attempted x 2. Spoke with RN, per family pt has decreased appetite and PO intake before admitted. Pt did not eat breakfast d/t SOB this morning . Appetite was poor. Per nurse note, pt back on bipap this afternoon. Current Diet Order/ Nutrition Support Renal Pertinent Medications lasix, hctz, procardia Pertinent Labs 07/29 Na 132, K 5.0, Cl 101, BUN 82H, Cr 4.0, Glucose 100, Ca 9.2, Alb 3.5 Nutritional Hx/Data Height 1.55 m Height (Calculated Centimeters) 154.9 Current Weight (lbs) 72.575 kg Weight (Calculated Kilograms) 72.6 Weight (Calculated Grams) 73254.8 [place] Body Weight 105 % [place] Body Weight 152 Body Mass Index (BMI) 30.2 Weight Status Obese GI Symptoms GI Symptoms None Last BM none Difficult in: None Skin Integrity/Comment: intact Estimated Nutritional Goals BEE in Kcals: Adj wt of IBW Calories/Kcals/Kg 30-35 Kcals Calculated [id number] Protein: Adj wt of IBW Protein g/k Protein Calculated 54g monitor renal labs Fluid: ml [id number] or Per MD d/t acute renal failure Nutritional Problem 1. Problem Problem altered nutrition related lab values Etiology hx of chronic renal insuff Signs/Symptoms: BUN 82H, Cr 4.0 Malnutrition Alert Protein-Calorie Malnutrition N/A Is there a minimum of two criteria No selected? Query Text:Check all the applicable criteria. A minimum of two criteria are recommended for diagnosis of either severe or non-severe malnutrition. Intervention/Recommendation Comments 1. Continue with renal diet as ordered. 2. Monitor PO intake, wt daily , labs and skin integrity 3. F/U as high risk in 2-3 days, 07/31-08/01 Expected Outcomes/Goals Expected Outcomes/Goals 1. PO intake to meet at least 75% of nutritional needs. 2. Wt stability, skin to remain intact, labs to improve .
[2017-08-04] MEDS: Potassium Chloride 20 mEq ER Tab PO SCH (14:42)
[2017-08-04] MEDS: Lactulose 10 Gm/15 mL 30mL UDC PO SCH (14:42)
[2017-08-04] MEDS: Lactobacillus Rhamnosus 10 Billion CFU Capsule PO SCH (14:43)
--- NOTE | 2017-08-04 22:42 | Progress Notes ---
DATE: 08/04/2017 PULMONARY PROGRESS NOTE PROBLEM LIST: 1. Pneumonia. 2. Possibly renal insufficiency. 3. Abnormal chest x-ray. CONSULT NOTE: This is a consult followup. SYMPTOMS: Nil, feeling okay, offers no specific new symptoms. Breathing is better. PHYSICAL EXAMINATION: VITAL SIGNS: The patient's recorded vitals: Temperature is 97, blood pressure 142/52. NECK: Veins not visualized. CHEST: Shows occasional rhonchi with diminished air entry. HEART: Regular. ABDOMEN: Soft, nontender. EXTREMITIES: Shows no peripheral edema. ASSESSMENT: The patient clinically appears to be stable, not much changed. PLANS AND SUGGESTIONS: We will go ahead and continue current treatment. We will follow through other chest x-ray including lab tests, etc., and go from there. JOB# [id number]
[2017-08-05] MEDS: Albuterol/Ipratropium Neb 3 ML AERS HHN SCH ×6 (03:38→23:38)
[2017-08-05] MEDS: INSULIN ASPART SLIDING SCALE 100 UNITS/ML UNIT SUBQ SCH ×4 (06:39→20:59)
[2017-08-05 07:05] LABS: % BASOPHILS 1.8 % (0.0-2.0); % EOSINOPHILS 8.7 % (0.0-5.0); % LYMPHOCYTES 11.7 % (20.0-50.0); % MONOCYTES 9.7 % (2.0-10.0); % NEUTROPHILS 68.1 % (40.0-80.0); BASOPHILE ABSOLUTE 0.1 Th/cumm (0-0.2); EOSINOPHILE ABSOLUTE 0.5 Th/cmm (0.1-0.4); HEMOGLOBIN 8.9 gm/dL (12-16); LYMPHOCYTE ABSOLUTE 0.6 Th/cmm (1.5-3.0); MEAN CELL VOLUME 94.7 fl (81-100); MEAN CORPUSCULAR HGB CONC 32.8 pg (28.0-36.0); MONOCYTE ABSOLUTE 0.5 Th/cmm (0.3-1.0); NEUTROPHILE ABSOLUTE 3.5 Th/cmm (1.8-8.0); PLATELET COUNT 247 Th/cmm (150-400); RED BLOOD COUNT 2.86 Mil/cmm (3.80-5.20); RED CELL DISTRIBUTION WIDTH 15.8 % (11.5-20.0); WHITE BLOOD COUNT 5.2 Th/cmm (4.8-10.8)
[2017-08-05] MEDS: Potassium Chloride 20 mEq ER Tab PO SCH (08:48)
[2017-08-05] MEDS: Lactulose 10 Gm/15 mL 30mL UDC PO SCH (08:48)
[2017-08-05] MEDS: Lactobacillus Rhamnosus 10 Billion CFU Capsule PO SCH (08:49)
--- NOTE | 2017-08-05 09:47 | Diagnostic Imaging Report ---
CHEST X-RAY: AP view INDICATION: CHF COMPARISON: 08/03/2017 FINDINGS: Left-sided dialysis catheter is stable. Persistent CHF is seen bilateral effusions. Cardiomegaly is noted with atherosclerosis. Lower lung zone atelectatic changes are noted. IMPRESSION: Persistent CHF and bilateral effusions. Pneumonia of the lower lung zones cannot be excluded. Cardiomegaly and atherosclerotic vascular disease.
--- NOTE | 2017-08-05 15:41 | General Progress Note ---
Subjective - Review of Systems Service Date: 08/05/17 Subjective: more alert, better spirits, denied sob, cp Objective - Results Result Diagrams: 08/05/17 06:57 08/04/17 06:35 Recent Labs: Laboratory Last Values WBC 5.2 Th/cmm (4.8-10.8) 08/05/17 06:57 RBC 2.86 Mil/cmm (3.80-5.20) L 08/05/17 06:57 Hgb 8.9 gm/dL (12-16) L 08/05/17 06:57 Hct 27.0 % (41.0-60) L 08/05/17 06:57 MCV 94.7 fl (81-100) 08/05/17 06:57 MCH 31.0 pg (27.0-31.0) 08/05/17 06:57 MCHC Differential 32.8 pg (28.0-36.0) 08/05/17 06:57 RDW 15.8 % (11.5-20.0) 08/05/17 06:57 Plt Count 247 Th/cmm (150-400) 08/05/17 06:57 MPV 7.0 fl 08/05/17 06:57 Neutrophils % 68.1 % (40.0-80.0) 08/05/17 06:57 Band Neutrophils % 1 % (0-10) 08/04/17 06:35 Lymphocytes % 11.7 % (20.0-50.0) L 08/05/17 06:57 Monocytes % 9.7 % (2.0-10.0) 08/05/17 06:57 Eosinophils % 8.7 % (0.0-5.0) H 08/05/17 06:57 Basophils % 1.8 % (0.0-2.0) 08/05/17 06:57 Neutrophils (Manual) 64 % (40-80) 08/04/17 06:35 Lymphocytes 11 % (20-50) L 08/04/17 06:35 Monocytes 7 % (2-10) 08/04/17 06:35 Eosinophils 10 % (0-5) H 08/04/17 06:35 Basophils 7 % (0-3) H 08/04/17 06:35 Platelet Estimate ADEQUATE (NORMAL) 08/04/17 06:35 Eos Smear Source URINE 07/30/17 06:50 Eos Smear Total Cells NONE SEEN (NONE SEEN) 07/30/17 06:50 PT 9.6 SECONDS (9.5-11.5) 07/28/17 22:34 INR 0.92 (0.5-1.4) 07/28/17 22:34 PTT (Actin FS) 25.6 SECONDS (26.0-38.0) L 07/28/17 22:34 Specimen Source Arterial 07/30/17 09:55 Sample Site RB 07/30/17 09:55 pH 7.32 (7.35-7.45) L 07/30/17 09:55 pCO2 49.0 mmHg (35.0-45.0) H 07/30/17 09:55 pO2 45.0 mmHg (80.0-100.0) L* 07/30/17 09:55 HCO3 23.3 mEq/L (20.0-26.0) 07/30/17 09:55 Base Excess -1.4 mEq/L (-3.0-3.0) 07/30/17 09:55 O2 Saturation 76.0 % (92.0-100.0) L 07/30/17 09:55 Trace Test NA 07/29/17 14:45 Vent Rate 12 07/29/17 14:45 Inspired O2 32 07/30/17 09:55 Tidal Volume 350 07/29/17 14:45 PEEP NA 07/29/17 14:45 Pressure (ins/psv/peep) 6 07/29/17 14:45 Critical Value PW 07/30/17 09:55 Sodium 132 mEq/L (136-145) L 08/04/17 06:35 Potassium 4.0 mEq/L (3.5-5.1) 08/04/17 06:35 Chloride 98 mEq/L (98-107) 08/04/17 06:35 Carbon Dioxide 24.5 mEq/L (21.0-31.0) 08/04/17 06:35 Anion Gap 13.5 (7.0-16.0) 08/04/17 06:35 BUN 40 mg/dL (7-25) H 08/04/17 06:35 Creatinine 3.7 mg/dL (0.6-1.2) H 08/04/17 06:35 Est GFR ( Amer) TNP 08/04/17 06:35 Est GFR (Non-Af Amer) TNP 08/04/17 06:35 BUN/Creatinine Ratio 10.8 08/04/17 06:35 Glucose 107 mg/dL (70-105) H 08/04/17 06:35 POC Glucose 175 MG/DL (70 - 105) H 08/05/17 11:51 Hemoglobin A1c % 6.1 % (4.0-6.0) H 07/30/17 04:10 Plasma/Ser Osmolality 303 mOsmol/kg (280-301) H 07/30/17 06:50 Uric Acid 3.5 mg/dL (2.3-6.6) 07/30/17 04:10 Calcium 8.2 mg/dL (8.6-10.3) L 08/04/17 06:35 Phosphorus 7.6 mg/dL (2.5-5.0) H 07/30/17 04:10 Magnesium 2.0 mg/dL (1.9-2.7) 07/30/17 04:10 Total Bilirubin 0.2 mg/dL (0.3-1.0) L 08/04/17 06:35 AST 15 U/L (13-39) 08/04/17 06:35 ALT 10 U/L (7-52) 08/04/17 06:35 Alkaline Phosphatase 82 U/L (34-104) 08/04/17 06:35 Creatine Kinase 81 U/L (30-223) 07/28/17 22:34 Troponin I 0.26 ng/mL (0.01-0.05) H* 07/28/17 22:34 B-Natriuretic Peptide 1860.0 pg/mL (5.0-100.0) H 07/28/17 22:34 Total Protein 6.3 gm/dL (6.0-8.3) 08/04/17 06:35 Albumin 2.9 gm/dL (3.7-5.3) L 08/04/17 06:35 Globulin 3.4 gm/dL 08/04/17 06:35 Albumin/Globulin Ratio 0.9 (1.0-1.8) L 08/04/17 06:35 Amylase 108 U/L (29-103) H 07/28/17 22:34 Lipase 52 U/L (11-82) 07/28/17 22:34 TSH 2.62 uIU/ml (0.34-5.60) 07/30/17 04:10 Urine Source CLEAN C 07/28/17 23:00 Urine Color YELLOW 07/28/17 23:00 Urine Clarity CLEAR (CLEAR) 07/28/17 23:00 Urine pH 6.0 (4.6 - 8.0) 07/28/17 23:00 Ur Specific [place] 1.015 (1.005-1.030) 07/28/17 23:00 Urine Protein >=300 mg/dL (NEGATIVE) 07/28/17 23:00 Urine Glucose (UA) NEGATIVE mg/dL (NEGATIVE) 07/28/17 23:00 Urine Ketones NEGATIVE mg/dL (NEGATIVE) 07/28/17 23:00 Urine Blood SMALL (NEGATIVE) H 07/28/17 23:00 Urine Nitrate NEGATIVE (NEGATIVE) 07/28/17 23:00 Urine Bilirubin NEGATIVE (NEGATIVE) 07/28/17 23:00 Urine Urobilinogen 0.2 E.U./dL (0.2 - 1.0) 07/28/17 23:00 Ur Leukocyte Esterase NEGATIVE (NEGATIVE) 07/28/17 23:00 Urine RBC 2-5 /hpf (0-5) 07/28/17 23:00 Urine WBC 6-10 /hpf (0-5) H 07/28/17 23:00 Ur Epithelial Cells MODERATE /lpf (FEW) 07/28/17 23:00 Urine Bacteria FEW /hpf (NONE SEEN) 07/28/17 23:00 Urine Creatinine 44.0 mg/dl (28.0-217.0) 07/30/17 06:50 Hepatitis A IgM Ab Negative (Negative) 07/30/17 18:56 Hep Bs Antigen Negative (Negative) 07/30/17 18:56 Hep B Core IgM Ab Negative (Negative) 07/30/17 18:56 Hepatitis C Antibody 0.2 s/co ratio (0.0-0.9) 07/30/17 18:56 Blood Type O POSITIVE 07/31/17 08:00 Antibody Screen NEGATIVE 07/31/17 08:00 - Physical Exam Vitals and I&O: Vital Signs Temp 97.6 F 08/05/17 12:00 Pulse 63 08/05/17 12:00 Resp 18 08/05/17 12:00 BP 166/64 08/05/17 12:00 Pulse Ox 99 08/05/17 12:00 Intake & Output 08/04/17 08/05/17 08/05/17 18:59 06:59 18:59 Intake Total 500 50 Balance 500 50 Weight (lbs) 70.307 kg 66.86 kg Intake: Intake, IV Amount 50 cefTRIAXone 1 gm In 50 Dextrose 5% 50 ml @ 100 mls/hr IV Q24HR [facility] [place] Rx#: [id number] Oral 500 Other: # Voids 3 # Bowel Movements 1 Stool Characteristics Soft Soft Formed Formed Active Medications: Current Medications Acetaminophen (Tylenol) 650 mg PO Q4H PRN PRN Reason: Pain (Mild) Stop: 09/28/17 15:37 Last Admin: 08/04/17 14:40 Dose: 650 mg Albuterol/Ipratropium (Duoneb Neb) 3 ml HHN Q4HRT [facility] [place] Stop: 09/27/17 14:59 Last Admin: 08/05/17 11:34 Dose: 3 ml Allopurinol (Zyloprim) 100 mg PO BID [facility] [place] Stop: 09/27/17 08:59 Last Admin: 08/05/17 08:48 Dose: 100 mg Amiodarone HCl (Cordarone) 100 mg PO BID [facility] [place] Stop: 09/30/17 00:44 Last Admin: 08/05/17 08:47 Dose: 100 mg Bisacodyl (Dulcolax 10 Mg Supp) 10 mg RC DAILY PRN PRN Reason: constipAtion Stop: 10/01/17 20:10 Epoetin Dustin (Epogen) 10,000 units SUBQ MoWeFr [facility] [place] Stop: 09/28/17 17:56 Last Admin: 08/02/17 16:28 Dose: 10,000 units Famotidine (Pepcid) 20 mg IVP DAILY [facility] [place] Stop: 09/28/17 08:59 Last Admin: 08/05/17 08:48 Dose: 20 mg Furosemide (Lasix) 40 mg IVP BID [facility] [place] Stop: 09/27/17 16:59 Last Admin: 08/05/17 08:48 Dose: 40 mg Hydrochlorothiazide (Hctz) 12.5 mg PO DAILY PRN PRN Reason: FOR sbp >180 Stop: 10/02/17 08:59 Ceftriaxone Sodium 1 gm/ (Dextrose) 50 mls @ 100 mls/hr IV Q24HR [facility] Stop: 09/28/17 04:59 Last Infusion: 08/05/17 06:22 Dose: Infused Insulin Aspart (Novolog Insulin Sliding Scale) 0 units SUBQ ACHS WIL PRN Reason: Protocol Stop: 09/30/17 16:29 Last Admin: 08/05/17 12:01 Dose: 2 units Lactobacillus Rhamnosus (Culturelle) 1 each PO DAILY [facility]IL Stop: 09/29/17 08:59 Last Admin: 08/05/17 08:49 Dose: 1 each Lactulose (Cephulac) 15 gm PO DAILY [facility]IL Stop: 10/01/17 15:29 Last Admin: 08/05/17 08:48 Dose: 15 gm Losartan Potassium (Cozaar) 50 mg PO DAILY PRN PRN Reason: FOR sbp >180 Stop: 10/02/17 08:59 Mineral Oil (Fleet Mineral Oil) 130 ml RC DAILY PRN PRN Reason: Constipation Stop: 10/01/17 23:01 Miscellaneous (Clinical Monitoring) 1 ea MC DAILY PRN PRN Reason: RENAL Stop: 09/27/17 07:45 Miscellaneous (Vte Chemical Prophylaxis Screen/ Admission) 1 ea PRN PRN PRN Reason: PROTOCOL Stop: 09/27/17 16:47 Miscellaneous (Vte Chemical Prophylaxis Screen/ Admission) 1 ea PRN PRN PRN Reason: PROTOCOL Stop: 09/27/17 16:51 Miscellaneous (Probiotic Screen) 1 ea PRN PRN PRN Reason: PROTOCOL Stop: 09/28/17 10:27 Nifedipine (Procardia) 10 mg PO DAILY WIL Stop: 09/27/17 08:59 Last Admin: 08/05/17 08:47 Dose: 10 mg Potassium Chloride (Klor-Con) 20 meq PO DAILY [facility] [place] Stop: 09/30/17 10:44 Last Admin: 08/05/17 08:48 Dose: 20 meq General: Alert, Oriented x3, No acute distress HEENT: Atraumatic, EOMI, Mucous membr. moist/pink Neck: Supple, +2 carotid pulse wo bruit Cardiovascular: Regular rate, Normal S1, Normal S2 Lungs: Other (less rhonchi) Abdomen: Bowel sounds, Soft Extremities: Other (No edema), no Edema Neurological: Sensation intact Skin: Other (Warm and dry), no Rash Psych/Mental Status: Mental status NL - Procedures Procedures: Procedures Procedure Code Date ASSISTANCE WITH RESPIRATORY VENTILATION, <24 HRS, CPAP [id number] 07/29/17 INSERT TUNNELED CV CATH [id number] 07/29/17 INSERTION OF INFUSION DEV INTO L SUBCLAV VEIN, PERC APPROACH [id number] 07/29/17 POS AIRWAY PRESSURE CPAP [id number] 07/29/17 TETANUS TOXOID ADMINIST 99.38 05/28/13 Assessment/Plan - Problem List Patient Problems: All Active Problems Laceration of finger (Active) S61.219A - Assessment Assessment: ESRD on HD Decomp CHF Hyponatremia Hyperkalemia RUL nodule Type 2 DM Ess Htn Left RCC S/P Nephrctomy B/L CAP - Plan Plan: Lab - Result Diagrams 07/30/17 10:00 07/30/17 04:10 Current Medications Acetaminophen (Tylenol) 650 mg PO Q4H PRN PRN Reason: Pain (Mild) Stop: 09/28/17 15:37 Last Admin: 07/30/17 15:47 Dose: 650 mg Albuterol/Ipratropium (Duoneb Neb) 3 ml HHN Q4HRT WIL Stop: 09/27/17 14:59 Last Admin: 07/30/17 15:10 Dose: 3 ml Allopurinol (Zyloprim) 100 mg PO BID WIL Stop: 09/27/17 08:59 Last Admin: 07/30/17 08:34 Dose: 100 mg Epoetin Dustin (Epogen) 10,000 units SUBQ TuThSa WIL Stop: 09/28/17 17:56 Famotidine (Pepcid) 20 mg IVP DAILY WIL Stop: 09/28/17 08:59 Last Admin: 07/30/17 08:35 Dose: 20 mg Furosemide (Lasix) 40 mg IVP BID WIL Stop: 09/27/17 16:59 Last Admin: 07/30/17 08:35 Dose: 40 mg Heparin Sodium (Porcine) (Heparin Sodium) 0 units HD UD WIL Stop: 07/31/17 00:00 Heparin Sodium (Porcine) (Heparin) 5,000 units HD UD WIL Stop: 07/31/17 00:00 Ceftriaxone Sodium 1 gm/ (Dextrose) 50 mls @ 100 mls/hr IV Q24HR WIL Stop: 09/28/17 04:59 Last Infusion: 07/30/17 06:10 Dose: Infused Albumin Human (Albuminar 25%) 25 gm in 100 mls @ 50 mls/hr IV PRN PRN PRN Reason: BP Support During HD Stop: 09/28/17 00:00 Insulin Aspart (Novolog Insulin Sliding Scale) 0 units SUBQ Q6HR WIL PRN Reason: Protocol Stop: 09/28/17 11:59 Last Admin: 07/30/17 11:50 Dose: 4 units Lactobacillus Rhamnosus (Culturelle) 1 each PO DAILY WIL Stop: 09/29/17 08:59 Miscellaneous (Clinical Monitoring) 1 ea MC DAILY PRN PRN Reason: RENAL Stop: 09/27/17 07:45 Miscellaneous (Vte Chemical Prophylaxis Screen/ Admission) 1 ea PRN PRN PRN Reason: PROTOCOL Stop: 09/27/17 16:47 Miscellaneous (Vte Chemical Prophylaxis Screen/ Admission) 1 ea PRN PRN PRN Reason: PROTOCOL Stop: 09/27/17 16:51 Miscellaneous (Probiotic Screen) 1 ea PRN PRN PRN Reason: PROTOCOL Stop: 09/28/17 10:27 Nifedipine (Procardia) 10 mg PO DAILY WIL Stop: 09/27/17 08:59 Last Admin: 07/30/17 08:34 Dose: 10 mg Lab - Result Diagrams 08/05/17 06:57 08/04/17 06:35 dialysis terminated early because of water shut off no problem w/ cath this time around CXR still shows CHF discussed w/ grandaughter extensively f/u electrolytes once dc'ed dialysis schedule T, Th, Sat @ [place] [id number]) [phone] Nutritional Asmnt/Malnutr-PDOC - Dietary Evaluation Malnutrition Findings (Please click <Entered> for more info): Nutritional Asmnt/Malnutrition Start: 07/29/17 17: 08 Text: Status: Complete Freq: Document 07/29/17 17:08 PATRICIO (Rec: 07/29/17 17:35 PATRICIO [id number]) Nutritional Asmnt/Malnutrition Patient General Information Nutritional Screening High Risk Diagnosis abdominal pain, atypical chest pain, CHF exacerbation, CKD, bilateral PNA Pertinent Medical Hx/Surgical Hx CAD, CHF, HTN, DM, chronic renal insuff, cholecystectomy, left kidney removal Subjective Information Pt was busy with medical staff during time of visit, attempted x 2. Spoke with RN, per family pt has decreased appetite and PO intake before admitted. Pt did not eat breakfast d/t SOB this morning . Appetite was poor. Per nurse note, pt back on bipap this afternoon. Current Diet Order/ Nutrition Support Renal Pertinent Medications lasix, hctz, procardia Pertinent Labs 07/29 Na 132, K 5.0, Cl 101, BUN 82H, Cr 4.0, Glucose 100, Ca 9.2, Alb 3.5 Nutritional Hx/Data Height 1.55 m Height (Calculated Centimeters) 154.9 Current Weight (lbs) 72.575 kg Weight (Calculated Kilograms) 72.6 Weight (Calculated Grams) 83749.8 [place] Body Weight 105 % [place] Body Weight 152 Body Mass Index (BMI) 30.2 Weight Status Obese GI Symptoms GI Symptoms None Last BM none Difficult in: None Skin Integrity/Comment: intact Estimated Nutritional Goals BEE in Kcals: Adj wt of IBW Calories/Kcals/Kg 30-35 Kcals Calculated [id number] Protein: Adj wt of IBW Protein g/k Protein Calculated 54g monitor renal labs Fluid: ml [id number] or Per MD d/t acute renal failure Nutritional Problem 1. Problem Problem altered nutrition related lab values Etiology hx of chronic renal insuff Signs/Symptoms: BUN 82H, Cr 4.0 Malnutrition Alert Protein-Calorie Malnutrition N/A Is there a minimum of two criteria No selected? Query Text:Check all the applicable criteria. A minimum of two criteria are recommended for diagnosis of either severe or non-severe malnutrition. Intervention/Recommendation Comments 1. Continue with renal diet as ordered. 2. Monitor PO intake, wt daily , labs and skin integrity 3. F/U as high risk in 2-3 days, 07/31-08/01 Expected Outcomes/Goals Expected Outcomes/Goals 1. PO intake to meet at least 75% of nutritional needs. 2. Wt stability, skin to remain intact, labs to improve .
--- NOTE | 2017-08-05 16:26 | General Progress Note ---
Subjective - Review of Systems Service Date: 08/05/17 Subjective: I am better Objective - Results Result Diagrams: 08/05/17 06:57 08/04/17 06:35 Recent Labs: Laboratory Last Values WBC 5.2 Th/cmm (4.8-10.8) 08/05/17 06:57 RBC 2.86 Mil/cmm (3.80-5.20) L 08/05/17 06:57 Hgb 8.9 gm/dL (12-16) L 08/05/17 06:57 Hct 27.0 % (41.0-60) L 08/05/17 06:57 MCV 94.7 fl (81-100) 08/05/17 06:57 MCH 31.0 pg (27.0-31.0) 08/05/17 06:57 MCHC Differential 32.8 pg (28.0-36.0) 08/05/17 06:57 RDW 15.8 % (11.5-20.0) 08/05/17 06:57 Plt Count 247 Th/cmm (150-400) 08/05/17 06:57 MPV 7.0 fl 08/05/17 06:57 Neutrophils % 68.1 % (40.0-80.0) 08/05/17 06:57 Band Neutrophils % 1 % (0-10) 08/04/17 06:35 Lymphocytes % 11.7 % (20.0-50.0) L 08/05/17 06:57 Monocytes % 9.7 % (2.0-10.0) 08/05/17 06:57 Eosinophils % 8.7 % (0.0-5.0) H 08/05/17 06:57 Basophils % 1.8 % (0.0-2.0) 08/05/17 06:57 Neutrophils (Manual) 64 % (40-80) 08/04/17 06:35 Lymphocytes 11 % (20-50) L 08/04/17 06:35 Monocytes 7 % (2-10) 08/04/17 06:35 Eosinophils 10 % (0-5) H 08/04/17 06:35 Basophils 7 % (0-3) H 08/04/17 06:35 Platelet Estimate ADEQUATE (NORMAL) 08/04/17 06:35 Eos Smear Source URINE 07/30/17 06:50 Eos Smear Total Cells NONE SEEN (NONE SEEN) 07/30/17 06:50 PT 9.6 SECONDS (9.5-11.5) 07/28/17 22:34 INR 0.92 (0.5-1.4) 07/28/17 22:34 PTT (Actin FS) 25.6 SECONDS (26.0-38.0) L 07/28/17 22:34 Specimen Source Arterial 07/30/17 09:55 Sample Site RB 07/30/17 09:55 pH 7.32 (7.35-7.45) L 07/30/17 09:55 pCO2 49.0 mmHg (35.0-45.0) H 07/30/17 09:55 pO2 45.0 mmHg (80.0-100.0) L* 07/30/17 09:55 HCO3 23.3 mEq/L (20.0-26.0) 07/30/17 09:55 Base Excess -1.4 mEq/L (-3.0-3.0) 07/30/17 09:55 O2 Saturation 76.0 % (92.0-100.0) L 07/30/17 09:55 Trace Test NA 07/29/17 14:45 Vent Rate 12 07/29/17 14:45 Inspired O2 32 07/30/17 09:55 Tidal Volume 350 07/29/17 14:45 PEEP NA 07/29/17 14:45 Pressure (ins/psv/peep) 6 07/29/17 14:45 Critical Value PW 07/30/17 09:55 Sodium 132 mEq/L (136-145) L 08/04/17 06:35 Potassium 4.0 mEq/L (3.5-5.1) 08/04/17 06:35 Chloride 98 mEq/L (98-107) 08/04/17 06:35 Carbon Dioxide 24.5 mEq/L (21.0-31.0) 08/04/17 06:35 Anion Gap 13.5 (7.0-16.0) 08/04/17 06:35 BUN 40 mg/dL (7-25) H 08/04/17 06:35 Creatinine 3.7 mg/dL (0.6-1.2) H 08/04/17 06:35 Est GFR ( Amer) TNP 08/04/17 06:35 Est GFR (Non-Af Amer) TNP 08/04/17 06:35 BUN/Creatinine Ratio 10.8 08/04/17 06:35 Glucose 107 mg/dL (70-105) H 08/04/17 06:35 POC Glucose 175 MG/DL (70 - 105) H 08/05/17 11:51 Hemoglobin A1c % 6.1 % (4.0-6.0) H 07/30/17 04:10 Plasma/Ser Osmolality 303 mOsmol/kg (280-301) H 07/30/17 06:50 Uric Acid 3.5 mg/dL (2.3-6.6) 07/30/17 04:10 Calcium 8.2 mg/dL (8.6-10.3) L 08/04/17 06:35 Phosphorus 7.6 mg/dL (2.5-5.0) H 07/30/17 04:10 Magnesium 2.0 mg/dL (1.9-2.7) 07/30/17 04:10 Total Bilirubin 0.2 mg/dL (0.3-1.0) L 08/04/17 06:35 AST 15 U/L (13-39) 08/04/17 06:35 ALT 10 U/L (7-52) 08/04/17 06:35 Alkaline Phosphatase 82 U/L (34-104) 08/04/17 06:35 Creatine Kinase 81 U/L (30-223) 07/28/17 22:34 Troponin I 0.26 ng/mL (0.01-0.05) H* 07/28/17 22:34 B-Natriuretic Peptide 1860.0 pg/mL (5.0-100.0) H 07/28/17 22:34 Total Protein 6.3 gm/dL (6.0-8.3) 08/04/17 06:35 Albumin 2.9 gm/dL (3.7-5.3) L 08/04/17 06:35 Globulin 3.4 gm/dL 08/04/17 06:35 Albumin/Globulin Ratio 0.9 (1.0-1.8) L 08/04/17 06:35 Amylase 108 U/L (29-103) H 07/28/17 22:34 Lipase 52 U/L (11-82) 07/28/17 22:34 TSH 2.62 uIU/ml (0.34-5.60) 07/30/17 04:10 Urine Source CLEAN C 07/28/17 23:00 Urine Color YELLOW 07/28/17 23:00 Urine Clarity CLEAR (CLEAR) 07/28/17 23:00 Urine pH 6.0 (4.6 - 8.0) 07/28/17 23:00 Ur Specific [place] 1.015 (1.005-1.030) 07/28/17 23:00 Urine Protein >=300 mg/dL (NEGATIVE) 07/28/17 23:00 Urine Glucose (UA) NEGATIVE mg/dL (NEGATIVE) 07/28/17 23:00 Urine Ketones NEGATIVE mg/dL (NEGATIVE) 07/28/17 23:00 Urine Blood SMALL (NEGATIVE) H 07/28/17 23:00 Urine Nitrate NEGATIVE (NEGATIVE) 07/28/17 23:00 Urine Bilirubin NEGATIVE (NEGATIVE) 07/28/17 23:00 Urine Urobilinogen 0.2 E.U./dL (0.2 - 1.0) 07/28/17 23:00 Ur Leukocyte Esterase NEGATIVE (NEGATIVE) 07/28/17 23:00 Urine RBC 2-5 /hpf (0-5) 07/28/17 23:00 Urine WBC 6-10 /hpf (0-5) H 07/28/17 23:00 Ur Epithelial Cells MODERATE /lpf (FEW) 07/28/17 23:00 Urine Bacteria FEW /hpf (NONE SEEN) 07/28/17 23:00 Urine Creatinine 44.0 mg/dl (28.0-217.0) 07/30/17 06:50 Hepatitis A IgM Ab Negative (Negative) 07/30/17 18:56 Hep Bs Antigen Negative (Negative) 07/30/17 18:56 Hep B Core IgM Ab Negative (Negative) 07/30/17 18:56 Hepatitis C Antibody 0.2 s/co ratio (0.0-0.9) 07/30/17 18:56 Blood Type O POSITIVE 07/31/17 08:00 Antibody Screen NEGATIVE 07/31/17 08:00 - Physical Exam Vitals and I&O: Vital Signs Temp 97.6 F 08/05/17 12:00 Pulse 75 08/05/17 15:59 Resp 18 08/05/17 15:59 BP 166/64 08/05/17 12:00 Pulse Ox 96 08/05/17 15:59 Intake & Output 08/04/17 08/05/17 08/05/17 18:59 06:59 18:59 Intake Total 500 50 Balance 500 50 Weight (lbs) 70.307 kg 66.86 kg Intake: Intake, IV Amount 50 cefTRIAXone 1 gm In 50 Dextrose 5% 50 ml @ 100 mls/hr IV Q24HR [facility] Rx#: [id number] Oral 500 Other: # Voids 3 # Bowel Movements 1 Stool Characteristics Soft Soft Formed Formed Active Medications: Current Medications Acetaminophen (Tylenol) 650 mg PO Q4H PRN PRN Reason: Pain (Mild) Stop: 09/28/17 15:37 Last Admin: 08/04/17 14:40 Dose: 650 mg Albuterol/Ipratropium (Duoneb Neb) 3 ml HHN Q4HRT [facility] Stop: 09/27/17 14:59 Last Admin: 08/05/17 15:55 Dose: 3 ml Allopurinol (Zyloprim) 100 mg PO BID [facility] Stop: 09/27/17 08:59 Last Admin: 08/05/17 08:48 Dose: 100 mg Amiodarone HCl (Cordarone) 100 mg PO BID [facility] Stop: 09/30/17 00:44 Last Admin: 08/05/17 08:47 Dose: 100 mg Bisacodyl (Dulcolax 10 Mg Supp) 10 mg RC DAILY PRN PRN Reason: constipAtion Stop: 10/01/17 20:10 Epoetin Dustin (Epogen) 10,000 units SUBQ MoWeFr [facility] Stop: 09/28/17 17:56 Last Admin: 08/02/17 16:28 Dose: 10,000 units Famotidine (Pepcid) 20 mg IVP DAILY [facility] Stop: 09/28/17 08:59 Last Admin: 08/05/17 08:48 Dose: 20 mg Furosemide (Lasix) 40 mg IVP BID [facility] Stop: 09/27/17 16:59 Last Admin: 08/05/17 08:48 Dose: 40 mg Hydrochlorothiazide (Hctz) 12.5 mg PO DAILY PRN PRN Reason: FOR sbp >180 Stop: 10/02/17 08:59 Ceftriaxone Sodium 1 gm/ (Dextrose) 50 mls @ 100 mls/hr IV Q24HR [facility] Stop: 09/28/17 04:59 Last Infusion: 08/05/17 06:22 Dose: Infused Insulin Aspart (Novolog Insulin Sliding Scale) 0 units SUBQ ACHS [facility] PRN Reason: Protocol Stop: 09/30/17 16:29 Last Admin: 08/05/17 12:01 Dose: 2 units Lactobacillus Rhamnosus (Culturelle) 1 each PO DAILY [facility] Stop: 09/29/17 08:59 Last Admin: 08/05/17 08:49 Dose: 1 each Lactulose (Cephulac) 15 gm PO DAILY [facility] Stop: 10/01/17 15:29 Last Admin: 08/05/17 08:48 Dose: 15 gm Losartan Potassium (Cozaar) 50 mg PO DAILY PRN PRN Reason: FOR sbp >180 Stop: 10/02/17 08:59 Mineral Oil (Fleet Mineral Oil) 130 ml RC DAILY PRN PRN Reason: Constipation Stop: 10/01/17 23:01 Miscellaneous (Clinical Monitoring) 1 ea MC DAILY PRN PRN Reason: RENAL Stop: 09/27/17 07:45 Miscellaneous (Vte Chemical Prophylaxis Screen/ Admission) 1 ea PRN PRN PRN Reason: PROTOCOL Stop: 09/27/17 16:47 Miscellaneous (Vte Chemical Prophylaxis Screen/ Admission) 1 ea PRN PRN PRN Reason: PROTOCOL Stop: 09/27/17 16:51 Miscellaneous (Probiotic Screen) 1 ea PRN PRN PRN Reason: PROTOCOL Stop: 09/28/17 10:27 Nifedipine (Procardia) 10 mg PO DAILY [facility] Stop: 09/27/17 08:59 Last Admin: 08/05/17 08:47 Dose: 10 mg Potassium Chloride (Klor-Con) 20 meq PO DAILY [facility] Stop: 09/30/17 10:44 Last Admin: 08/05/17 08:48 Dose: 20 meq General: Alert, Oriented x3, No acute distress HEENT: Atraumatic, EOMI, Mucous membr. moist/pink Neck: Supple, +2 carotid pulse wo bruit Cardiovascular: Regular rate, Normal S1, Normal S2 Lungs: Other (less rhonchi) Abdomen: Bowel sounds, Soft Extremities: Other (No edema), no Edema Neurological: Sensation intact Skin: Other (Warm and dry), no Rash Psych/Mental Status: Mental status NL - Procedures Procedures: Procedures Procedure Code Date ASSISTANCE WITH RESPIRATORY VENTILATION, <24 HRS, CPAP [id number] 07/29/17 INSERT TUNNELED CV CATH [id number] 07/29/17 INSERTION OF INFUSION DEV INTO L SUBCLAV VEIN, PERC APPROACH [id number] 07/29/17 POS AIRWAY PRESSURE CPAP [id number] 07/29/17 TETANUS TOXOID ADMINIST 99.38 05/28/13 Assessment/Plan - Problem List Patient Problems: All Active Problems Laceration of finger (Active) S61.219A - Assessment Assessment: Patient is awake alert in no distress. CXR show that patient continue with infiltrates, O2 sat normal. Patient improving. Dx: Abdominal pain, Atypical Chest Pain, CHF exacerbation, CKD, Bilateral PNA, Elevated troponins, DM, HTN. - Plan Plan: Patient in ICU nasal O2, Continue with home meds, She had HD yesterday. Transfer to Telemetry. Already seen by Cardio, Nephro and Pulmonology. Will continue to monitor. Nutritional Asmnt/Malnutr-PDOC - Dietary Evaluation Malnutrition Findings (Please click <Entered> for more info): Nutritional Asmnt/Malnutrition Start: 07/29/17 17: 08 Text: Status: Complete Freq: Document 07/29/17 17:08 LCDARRIAN (Rec: 07/29/17 17:35 LCDARRIAN [id number]) Nutritional Asmnt/Malnutrition Patient General Information Nutritional Screening High Risk Diagnosis abdominal pain, atypical chest pain, CHF exacerbation, CKD, bilateral PNA Pertinent Medical Hx/Surgical Hx CAD, CHF, HTN, DM, chronic renal insuff, cholecystectomy, left kidney removal Subjective Information Pt was busy with medical staff during time of visit, attempted x 2. Spoke with RN, per family pt has decreased appetite and PO intake before admitted. Pt did not eat breakfast d/t SOB this morning . Appetite was poor. Per nurse note, pt back on bipap this afternoon. Current Diet Order/ Nutrition Support Renal Pertinent Medications lasix, hctz, procardia Pertinent Labs 07/29 Na 132, K 5.0, Cl 101, BUN 82H, Cr 4.0, Glucose 100, Ca 9.2, Alb 3.5 Nutritional Hx/Data Height 1.55 m Height (Calculated Centimeters) 154.9 Current Weight (lbs) 72.575 kg Weight (Calculated Kilograms) 72.6 Weight (Calculated Grams) 34620.8 [place] Body Weight 105 % [place] Body Weight 152 Body Mass Index (BMI) 30.2 Weight Status Obese GI Symptoms GI Symptoms None Last BM none Difficult in: None Skin Integrity/Comment: intact Estimated Nutritional Goals BEE in Kcals: Adj wt of IBW Calories/Kcals/Kg 30-35 Kcals Calculated 2381-8154 Protein: Adj wt of IBW Protein g/k Protein Calculated 54g monitor renal labs Fluid: ml 1376-4840 or Per MD d/t acute renal failure Nutritional Problem 1. Problem Problem altered nutrition related lab values Etiology hx of chronic renal insuff Signs/Symptoms: BUN 82H, Cr 4.0 Malnutrition Alert Protein-Calorie Malnutrition N/A Is there a minimum of two criteria No selected? Query Text:Check all the applicable criteria. A minimum of two criteria are recommended for diagnosis of either severe or non-severe malnutrition. Intervention/Recommendation Comments 1. Continue with renal diet as ordered. 2. Monitor PO intake, wt daily , labs and skin integrity 3. F/U as high risk in 2-3 days, 07/31-08/01 Expected Outcomes/Goals Expected Outcomes/Goals 1. PO intake to meet at least 75% of nutritional needs. 2. Wt stability, skin to remain intact, labs to improve .
[2017-08-05] MEDS: Epoetin Alfa 20000 Units/mL Vial SUBQ SCH (17:15)
--- NOTE | 2017-08-05 21:15 | Progress Notes ---
DATE: 08/05/2017 PULMONARY PROGRESS NOTE PROBLEM LIST: 1. Suspected asthmatic bronchitis with possible pneumonitis. 2. Electrolyte imbalance. SYMPTOMS: Nil, feeling okay. Some coughing, but no respiratory distress, etc. PHYSICAL EXAMINATION: VITAL SIGNS: Temperature is 97.4, blood pressure 172/79. NECK: Veins not visualized. CHEST: Shows occasional rhonchi with diminished air entry. HEART: Regular. ABDOMEN: Soft, nontender. LABORATORY DATA: White count is 5.2, hemoglobin 8.9 and the patient's blood chemistry is not done and the patient's blood gases a few days ago was acidotic, but is improving. PLANS AND SUGGESTIONS: We will go ahead and continue current treatment. We will follow through other studies including chest x-ray, blood gases and see how it is and go from there. JOB# [id number]
[2017-08-06] MEDS: Albuterol/Ipratropium Neb 3 ML AERS HHN SCH ×5 (03:08→18:39)
[2017-08-06 05:29] LABS: HEMATOCRIT 27.3 % (41.0-60); MEAN CELL VOLUME 95.2 fl (81-100); MEAN CORPUSCULAR HEMOGLOBIN 31.3 pg (27.0-31.0); MEAN CORPUSCULAR HGB CONC 32.9 pg (28.0-36.0); MEAN PLATELET VOLUME 7.7 fl; PLATELET COUNT 270 Th/cmm (150-400); RED BLOOD COUNT 2.87 Mil/cmm (3.80-5.20); RED CELL DISTRIBUTION WIDTH 15.9 % (11.5-20.0); WHITE BLOOD COUNT 5.3 Th/cmm (4.8-10.8)
[2017-08-06 05:32] LABS: % LYMPHOCYTES 19.5 % (20.0-50.0); % NEUTROPHILS 60.9 % (40.0-80.0)
[2017-08-06 05:33] LABS: % BASOPHILS 0.1 % (0.0-2.0); % EOSINOPHILS 8.5 % (0.0-5.0); EOSINOPHILE ABSOLUTE 0.5 Th/cmm (0.1-0.4); LYMPHOCYTE ABSOLUTE 1.1 Th/cmm (1.5-3.0); MONOCYTE ABSOLUTE 0.6 Th/cmm (0.3-1.0); NEUTROPHILE ABSOLUTE 3.3 Th/cmm (1.8-8.0)
[2017-08-06 05:39] LABS: ALB/GLOB RATIO 0.9 (1.0-1.8); ALBUMIN 2.9 gm/dL (3.7-5.3); ALKALINE PHOSPHATASE 89 U/L (34-104); ANION GAP 14.3 (7.0-16.0); BILIRUBIN,TOTAL 0.3 mg/dL (0.3-1.0); BUN - UREA NITROGEN 30 mg/dL (7-25); CALCIUM SERUM 8.1 mg/dL (8.6-10.3); CARBON DIOXIDE 22.6 mEq/L (21.0-31.0); CHLORIDE 97 mEq/L (98-107); GLUCOSE 117 mg/dL (70-105); POTASSIUM SERUM 3.9 mEq/L (3.5-5.1); SGOT 15 U/L (13-39); SGPT/ALT 10 U/L (7-52); SODIUM SERUM 130 mEq/L (136-145); TOTAL PROTEIN,SERUM 6.2 gm/dL (6.0-8.3)
[2017-08-06] MEDS: INSULIN ASPART SLIDING SCALE 100 UNITS/ML UNIT SUBQ SCH ×3 (06:31→18:34)
[2017-08-06] MEDS: Potassium Chloride 20 mEq ER Tab PO SCH (08:23)
[2017-08-06] MEDS: Lactulose 10 Gm/15 mL 30mL UDC PO SCH (08:23)
[2017-08-06] MEDS: Lactobacillus Rhamnosus 10 Billion CFU Capsule PO SCH (08:30)
--- NOTE | 2017-08-06 08:59 | Discharge Summary ---
General Discharge Summary - Discharge Summary Date of Admission: 07/29/17 Admitting Diagnosis: Abdominal pain, CHF exacerbation, CKD, Bilateral Pneumonia , DM, HTN, Elevat Patient Problems: All Active Problems Laceration of finger (Active) S61.219A Discharge Date: 08/06/17 Laboratory Findings: Laboratory Tests 07/29/17 07/29/17 07/29/17 09:40 09:40 11:19 WBC 9.2 RBC 2.81 L Hgb 8.9 L Hct 26.8 L MCV 95.4 MCH 31.6 H MCHC Differential 33.1 RDW 16.0 Plt Count 281 MPV 7.0 Neutrophils % 85.0 H Band Neutrophils % Lymphocytes % 7.2 L Monocytes % 5.7 Eosinophils % 1.8 Basophils % 0.3 Neutrophils (Manual) Lymphocytes Monocytes Eosinophils Basophils Platelet Estimate Eos Smear Source Eos Smear Total Cells Specimen Source Arterial Sample Site RB pH 7.24 L* pCO2 53.0 H pO2 58.0 L HCO3 20.6 Base Excess -5.6 L O2 Saturation 84.0 L Trace Test NA Vent Rate NA Inspired O2 28 Tidal Volume NA PEEP NA Pressure (ins/psv/peep) NA Critical Value SH Sodium 132 L Potassium 5.0 Chloride 101 Carbon Dioxide 21.9 Anion Gap 14.1 BUN 82 H* Creatinine 4.0 H Est GFR ( Amer) TNP Est GFR (Non-Af Amer) TNP BUN/Creatinine Ratio 20.5 Glucose 100 POC Glucose Hemoglobin A1c % Plasma/Ser Osmolality Uric Acid Calcium 9.2 Phosphorus Magnesium Total Bilirubin 0.3 AST 16 ALT 12 Alkaline Phosphatase 106 H Total Protein 7.3 Albumin 3.5 L Globulin 3.8 Albumin/Globulin Ratio 0.9 L TSH Urine Creatinine Hepatitis A IgM Ab Hep Bs Antigen Hep B Core IgM Ab Hepatitis C Antibody Blood Type Antibody Screen 07/29/17 07/30/17 07/30/17 14:45 04:10 04:10 WBC 4.7 L D RBC 2.47 L Hgb 7.6 L* Hct 23.9 L D MCV 96.7 MCH 30.7 MCHC Differential 31.7 RDW 15.8 Plt Count 257 MPV 6.9 Neutrophils % Band Neutrophils % Lymphocytes % Monocytes % Eosinophils % Basophils % Neutrophils (Manual) 78 Lymphocytes 15 L Monocytes 3 Eosinophils 3 Basophils 1 Platelet Estimate Eos Smear Source Eos Smear Total Cells Specimen Source Arterial Sample Site RB pH 7.33 L pCO2 47.0 H pO2 84.0 HCO3 23.7 Base Excess -1.5 O2 Saturation 95.0 Trace Test NA Vent Rate 12 Inspired O2 35 Tidal Volume 350 PEEP NA Pressure (ins/psv/peep) 6 Critical Value SH Sodium 133 L Potassium 3.8 Chloride 100 Carbon Dioxide 23.4 Anion Gap 13.4 BUN 80 H Creatinine 4.1 H* Est GFR ( Amer) TNP Est GFR (Non-Af Amer) TNP BUN/Creatinine Ratio 19.5 Glucose 93 POC Glucose Hemoglobin A1c % Plasma/Ser Osmolality Uric Acid Calcium 8.2 L Phosphorus Magnesium Total Bilirubin 0.3 AST 11 L ALT 9 Alkaline Phosphatase 80 Total Protein 6.1 Albumin 2.8 L Globulin 3.3 Albumin/Globulin Ratio 0.9 L TSH Urine Creatinine Hepatitis A IgM Ab Hep Bs Antigen Hep B Core IgM Ab Hepatitis C Antibody Blood Type Antibody Screen 07/30/17 07/30/17 07/30/17 04:10 04:10 04:10 WBC RBC Hgb Hct MCV MCH MCHC Differential RDW Plt Count MPV Neutrophils % Band Neutrophils % Lymphocytes % Monocytes % Eosinophils % Basophils % Neutrophils (Manual) Lymphocytes Monocytes Eosinophils Basophils Platelet Estimate Eos Smear Source Eos Smear Total Cells Specimen Source Sample Site pH pCO2 pO2 HCO3 Base Excess O2 Saturation Trace Test Vent Rate Inspired O2 Tidal Volume PEEP Pressure (ins/psv/peep) Critical Value Sodium Potassium Chloride Carbon Dioxide Anion Gap BUN Creatinine Est GFR ( Amer) Est GFR (Non-Af Amer) BUN/Creatinine Ratio Glucose POC Glucose Hemoglobin A1c % 6.1 H Plasma/Ser Osmolality Uric Acid 3.5 Calcium Phosphorus 7.6 H Magnesium 2.0 Total Bilirubin AST ALT Alkaline Phosphatase Total Protein Albumin Globulin Albumin/Globulin Ratio TSH 2.62 Urine Creatinine Hepatitis A IgM Ab Hep Bs Antigen Hep B Core IgM Ab Hepatitis C Antibody Blood Type Antibody Screen 07/30/17 07/30/17 07/30/17 06:50 06:50 06:50 WBC RBC Hgb Hct MCV MCH MCHC Differential RDW Plt Count MPV Neutrophils % Band Neutrophils % Lymphocytes % Monocytes % Eosinophils % Basophils % Neutrophils (Manual) Lymphocytes Monocytes Eosinophils Basophils Platelet Estimate Eos Smear Source URINE Eos Smear Total Cells NONE SEEN Specimen Source Sample Site pH pCO2 pO2 HCO3 Base Excess O2 Saturation Trace Test Vent Rate Inspired O2 Tidal Volume PEEP Pressure (ins/psv/peep) Critical Value Sodium Potassium Chloride Carbon Dioxide Anion Gap BUN Creatinine Est GFR ( Amer) Est GFR (Non-Af Amer) BUN/Creatinine Ratio Glucose POC Glucose Hemoglobin A1c % Plasma/Ser Osmolality 303 H Uric Acid Calcium Phosphorus Magnesium Total Bilirubin AST ALT Alkaline Phosphatase Total Protein Albumin Globulin Albumin/Globulin Ratio TSH Urine Creatinine 44.0 Hepatitis A IgM Ab Hep Bs Antigen Hep B Core IgM Ab Hepatitis C Antibody Blood Type Antibody Screen 07/30/17 07/30/17 07/30/17 09:55 10:00 11:39 WBC RBC Hgb 8.0 L Hct 24.6 L MCV MCH MCHC Differential RDW Plt Count MPV Neutrophils % Band Neutrophils % Lymphocytes % Monocytes % Eosinophils % Basophils % Neutrophils (Manual) Lymphocytes Monocytes Eosinophils Basophils Platelet Estimate Eos Smear Source Eos Smear Total Cells Specimen Source Arterial Sample Site RB pH 7.32 L pCO2 49.0 H pO2 45.0 L* HCO3 23.3 Base Excess -1.4 O2 Saturation 76.0 L Trace Test Vent Rate Inspired O2 32 Tidal Volume PEEP Pressure (ins/psv/peep) Critical Value PW Sodium Potassium Chloride Carbon Dioxide Anion Gap BUN Creatinine Est GFR ( Amer) Est GFR (Non-Af Amer) BUN/Creatinine Ratio Glucose POC Glucose 245 H Hemoglobin A1c % Plasma/Ser Osmolality Uric Acid Calcium Phosphorus Magnesium Total Bilirubin AST ALT Alkaline Phosphatase Total Protein Albumin Globulin Albumin/Globulin Ratio TSH Urine Creatinine Hepatitis A IgM Ab Hep Bs Antigen Hep B Core IgM Ab Hepatitis C Antibody Blood Type Antibody Screen 07/30/17 07/30/17 07/30/17 18:19 18:56 23:58 WBC RBC Hgb Hct MCV MCH MCHC Differential RDW Plt Count MPV Neutrophils % Band Neutrophils % Lymphocytes % Monocytes % Eosinophils % Basophils % Neutrophils (Manual) Lymphocytes Monocytes Eosinophils Basophils Platelet Estimate Eos Smear Source Eos Smear Total Cells Specimen Source Sample Site pH pCO2 pO2 HCO3 Base Excess O2 Saturation Trace Test Vent Rate Inspired O2 Tidal Volume PEEP Pressure (ins/psv/peep) Critical Value Sodium Potassium Chloride Carbon Dioxide Anion Gap BUN Creatinine Est GFR ( Amer) Est GFR (Non-Af Amer) BUN/Creatinine Ratio Glucose POC Glucose 211 H 128 H Hemoglobin A1c % Plasma/Ser Osmolality Uric Acid Calcium Phosphorus Magnesium Total Bilirubin AST ALT Alkaline Phosphatase Total Protein Albumin Globulin Albumin/Globulin Ratio TSH Urine Creatinine Hepatitis A IgM Ab Negative Hep Bs Antigen Negative Hep B Core IgM Ab Negative Hepatitis C Antibody 0.2 Blood Type Antibody Screen 07/31/17 07/31/17 07/31/17 04:00 04:00 06:04 WBC 6.8 D RBC 2.44 L Hgb 7.7 L* Hct 23.3 L MCV 95.5 MCH 31.6 H MCHC Differential 33.1 RDW 15.6 Plt Count 276 MPV 7.3 Neutrophils % Band Neutrophils % 0 Lymphocytes % Monocytes % Eosinophils % Basophils % Neutrophils (Manual) 75 Lymphocytes 15 L Monocytes 10 Eosinophils Basophils Platelet Estimate ADEQUATE Eos Smear Source Eos Smear Total Cells Specimen Source Sample Site pH pCO2 pO2 HCO3 Base Excess O2 Saturation Trace Test Vent Rate Inspired O2 Tidal Volume PEEP Pressure (ins/psv/peep) Critical Value Sodium 136 Potassium 3.5 Chloride 99 Carbon Dioxide 25.2 Anion Gap 15.3 BUN 53 H Creatinine 3.2 H Est GFR ( Amer) TNP Est GFR (Non-Af Amer) TNP BUN/Creatinine Ratio 16.6 Glucose 97 POC Glucose 122 H Hemoglobin A1c % Plasma/Ser Osmolality Uric Acid Calcium 8.2 L Phosphorus Magnesium Total Bilirubin 0.3 AST 13 ALT 10 Alkaline Phosphatase 80 Total Protein 6.4 Albumin 3.0 L Globulin 3.4 Albumin/Globulin Ratio 0.9 L TSH Urine Creatinine Hepatitis A IgM Ab Hep Bs Antigen Hep B Core IgM Ab Hepatitis C Antibody Blood Type Antibody Screen 07/31/17 07/31/17 07/31/17 08:00 11:45 17:42 WBC RBC Hgb Hct MCV MCH MCHC Differential RDW Plt Count MPV Neutrophils % Band Neutrophils % Lymphocytes % Monocytes % Eosinophils % Basophils % Neutrophils (Manual) Lymphocytes Monocytes Eosinophils Basophils Platelet Estimate Eos Smear Source Eos Smear Total Cells Specimen Source Sample Site pH pCO2 pO2 HCO3 Base Excess O2 Saturation Trace Test Vent Rate Inspired O2 Tidal Volume PEEP Pressure (ins/psv/peep) Critical Value Sodium Potassium Chloride Carbon Dioxide Anion Gap BUN Creatinine Est GFR ( Amer) Est GFR (Non-Af Amer) BUN/Creatinine Ratio Glucose POC Glucose 208 H 144 H Hemoglobin A1c % Plasma/Ser Osmolality Uric Acid Calcium Phosphorus Magnesium Total Bilirubin AST ALT Alkaline Phosphatase Total Protein Albumin Globulin Albumin/Globulin Ratio TSH Urine Creatinine Hepatitis A IgM Ab Hep Bs Antigen Hep B Core IgM Ab Hepatitis C Antibody Blood Type O POSITIVE Antibody Screen NEGATIVE 08/01/17 08/01/17 08/01/17 04:29 04:29 06:38 WBC 6.7 RBC 2.96 L Hgb 9.3 L Hct 28.2 L D MCV 95.3 MCH 31.5 H MCHC Differential 33.0 RDW 16.0 Plt Count 255 MPV 7.1 Neutrophils % 79.9 Band Neutrophils % Lymphocytes % 8.3 L Monocytes % 8.2 Eosinophils % 2.4 Basophils % 1.2 Neutrophils (Manual) Lymphocytes Monocytes Eosinophils Basophils Platelet Estimate Eos Smear Source Eos Smear Total Cells Specimen Source Sample Site pH pCO2 pO2 HCO3 Base Excess O2 Saturation Trace Test Vent Rate Inspired O2 Tidal Volume PEEP Pressure (ins/psv/peep) Critical Value Sodium 136 Potassium 3.4 L Chloride 98 Carbon Dioxide 30.1 Anion Gap 11.3 BUN 22 Creatinine 1.9 H Est GFR ( Amer) TNP Est GFR (Non-Af Amer) TNP BUN/Creatinine Ratio 11.6 Glucose 112 H POC Glucose 161 H Hemoglobin A1c % Plasma/Ser Osmolality Uric Acid Calcium 8.6 Phosphorus Magnesium Total Bilirubin 1.4 H AST 13 ALT 8 Alkaline Phosphatase 77 Total Protein 6.6 Albumin 3.0 L Globulin 3.6 Albumin/Globulin Ratio 0.8 L TSH Urine Creatinine Hepatitis A IgM Ab Hep Bs Antigen Hep B Core IgM Ab Hepatitis C Antibody Blood Type Antibody Screen 08/01/17 08/01/17 08/01/17 11:49 17:05 20:52 WBC RBC Hgb Hct MCV MCH MCHC Differential RDW Plt Count MPV Neutrophils % Band Neutrophils % Lymphocytes % Monocytes % Eosinophils % Basophils % Neutrophils (Manual) Lymphocytes Monocytes Eosinophils Basophils Platelet Estimate Eos Smear Source Eos Smear Total Cells Specimen Source Sample Site pH pCO2 pO2 HCO3 Base Excess O2 Saturation Trace Test Vent Rate Inspired O2 Tidal Volume PEEP Pressure (ins/psv/peep) Critical Value Sodium Potassium Chloride Carbon Dioxide Anion Gap BUN Creatinine Est GFR ( Amer) Est GFR (Non-Af Amer) BUN/Creatinine Ratio Glucose POC Glucose 178 H 208 H 84 Hemoglobin A1c % Plasma/Ser Osmolality Uric Acid Calcium Phosphorus Magnesium Total Bilirubin AST ALT Alkaline Phosphatase Total Protein Albumin Globulin Albumin/Globulin Ratio TSH Urine Creatinine Hepatitis A IgM Ab Hep Bs Antigen Hep B Core IgM Ab Hepatitis C Antibody Blood Type Antibody Screen 08/02/17 08/02/17 08/02/17 04:00 04:00 05:50 WBC 6.0 RBC 2.93 L Hgb 9.1 L Hct 27.6 L MCV 94.1 MCH 31.1 H MCHC Differential 33.1 RDW 16.1 Plt Count 233 MPV 7.2 Neutrophils % 67.2 Band Neutrophils % Lymphocytes % 15.2 L Monocytes % 11.9 H Eosinophils % 5.6 H Basophils % 0.1 Neutrophils (Manual) Lymphocytes Monocytes Eosinophils Basophils Platelet Estimate Eos Smear Source Eos Smear Total Cells Specimen Source Sample Site pH pCO2 pO2 HCO3 Base Excess O2 Saturation Trace Test Vent Rate Inspired O2 Tidal Volume PEEP Pressure (ins/psv/peep) Critical Value Sodium 133 L Potassium 3.7 Chloride 97 L Carbon Dioxide 28.8 Anion Gap 10.9 BUN 35 H Creatinine 3.2 H Est GFR ( Amer) TNP Est GFR (Non-Af Amer) TNP BUN/Creatinine Ratio 10.9 Glucose 113 H POC Glucose 95 Hemoglobin A1c % Plasma/Ser Osmolality Uric Acid Calcium 8.6 Phosphorus Magnesium Total Bilirubin 0.4 AST 13 ALT 8 Alkaline Phosphatase 69 Total Protein 6.4 Albumin 2.9 L Globulin 3.5 Albumin/Globulin Ratio 0.8 L TSH Urine Creatinine Hepatitis A IgM Ab Hep Bs Antigen Hep B Core IgM Ab Hepatitis C Antibody Blood Type Antibody Screen 08/02/17 08/02/17 08/02/17 10:27 17:53 21:59 WBC RBC Hgb Hct MCV MCH MCHC Differential RDW Plt Count MPV Neutrophils % Band Neutrophils % Lymphocytes % Monocytes % Eosinophils % Basophils % Neutrophils (Manual) Lymphocytes Monocytes Eosinophils Basophils Platelet Estimate Eos Smear Source Eos Smear Total Cells Specimen Source Sample Site pH pCO2 pO2 HCO3 Base Excess O2 Saturation Trace Test Vent Rate Inspired O2 Tidal Volume PEEP Pressure (ins/psv/peep) Critical Value Sodium Potassium Chloride Carbon Dioxide Anion Gap BUN Creatinine Est GFR ( Amer) Est GFR (Non-Af Amer) BUN/Creatinine Ratio Glucose POC Glucose 208 H 150 H 190 H Hemoglobin A1c % Plasma/Ser Osmolality Uric Acid Calcium Phosphorus Magnesium Total Bilirubin AST ALT Alkaline Phosphatase Total Protein Albumin Globulin Albumin/Globulin Ratio TSH Urine Creatinine Hepatitis A IgM Ab Hep Bs Antigen Hep B Core IgM Ab Hepatitis C Antibody Blood Type Antibody Screen 08/03/17 08/03/17 08/03/17 07:10 10:00 10:00 WBC 6.9 RBC 3.36 L Hgb 10.4 L Hct 32.0 L D MCV 95.3 MCH 30.9 MCHC Differential 32.4 RDW 15.9 Plt Count 251 MPV 7.1 Neutrophils % Band Neutrophils % 3 Lymphocytes % Monocytes % Eosinophils % Basophils % Neutrophils (Manual) 80 Lymphocytes 7 L Monocytes 3 Eosinophils 6 H Basophils 1 Platelet Estimate ADEQUATE Eos Smear Source Eos Smear Total Cells Specimen Source Sample Site pH pCO2 pO2 HCO3 Base Excess O2 Saturation Trace Test Vent Rate Inspired O2 Tidal Volume PEEP Pressure (ins/psv/peep) Critical Value Sodium 132 L Potassium 3.7 Chloride 95 L Carbon Dioxide 25.1 Anion Gap 15.6 BUN 33 H Creatinine 3.2 H Est GFR ( Amer) TNP Est GFR (Non-Af Amer) TNP BUN/Creatinine Ratio 10.3 Glucose 162 H POC Glucose 113 H Hemoglobin A1c % Plasma/Ser Osmolality Uric Acid Calcium 9.2 Phosphorus Magnesium Total Bilirubin 0.4 AST 17 ALT 11 Alkaline Phosphatase 100 Total Protein 7.5 Albumin 3.4 L Globulin 4.1 Albumin/Globulin Ratio 0.8 L TSH Urine Creatinine Hepatitis A IgM Ab Hep Bs Antigen Hep B Core IgM Ab Hepatitis C Antibody Blood Type Antibody Screen 08/03/17 08/03/17 08/03/17 12:43 16:59 21:44 WBC RBC Hgb Hct MCV MCH MCHC Differential RDW Plt Count MPV Neutrophils % Band Neutrophils % Lymphocytes % Monocytes % Eosinophils % Basophils % Neutrophils (Manual) Lymphocytes Monocytes Eosinophils Basophils Platelet Estimate Eos Smear Source Eos Smear Total Cells Specimen Source Sample Site pH pCO2 pO2 HCO3 Base Excess O2 Saturation Trace Test Vent Rate Inspired O2 Tidal Volume PEEP Pressure (ins/psv/peep) Critical Value Sodium Potassium Chloride Carbon Dioxide Anion Gap BUN Creatinine Est GFR ( Amer) Est GFR (Non-Af Amer) BUN/Creatinine Ratio Glucose POC Glucose 181 H 166 H 137 H Hemoglobin A1c % Plasma/Ser Osmolality Uric Acid Calcium Phosphorus Magnesium Total Bilirubin AST ALT Alkaline Phosphatase Total Protein Albumin Globulin Albumin/Globulin Ratio TSH Urine Creatinine Hepatitis A IgM Ab Hep Bs Antigen Hep B Core IgM Ab Hepatitis C Antibody Blood Type Antibody Screen 08/04/17 08/04/17 08/04/17 06:35 06:35 06:48 WBC 5.7 RBC Hgb 8.9 L Hct 26.6 L D MCV 94.4 MCH 31.4 H MCHC Differential 33.2 RDW 15.7 Plt Count 258 MPV 7.0 Neutrophils % Band Neutrophils % 1 Lymphocytes % Monocytes % Eosinophils % Basophils % Neutrophils (Manual) 64 Lymphocytes 11 L Monocytes 7 Eosinophils 10 H Basophils 7 H Platelet Estimate ADEQUATE Eos Smear Source Eos Smear Total Cells Specimen Source Sample Site pH pCO2 pO2 HCO3 Base Excess O2 Saturation Trace Test Vent Rate Inspired O2 Tidal Volume PEEP Pressure (ins/psv/peep) Critical Value Sodium 132 L Potassium 4.0 Chloride 98 Carbon Dioxide 24.5 Anion Gap 13.5 BUN 40 H Creatinine 3.7 H Est GFR ( Amer) TNP Est GFR (Non-Af Amer) TNP BUN/Creatinine Ratio 10.8 Glucose 107 H POC Glucose 107 H Hemoglobin A1c % Plasma/Ser Osmolality Uric Acid Calcium 8.2 L Phosphorus Magnesium Total Bilirubin 0.2 L AST 15 ALT 10 Alkaline Phosphatase 82 Total Protein 6.3 Albumin 2.9 L Globulin 3.4 Albumin/Globulin Ratio 0.9 L TSH Urine Creatinine Hepatitis A IgM Ab Hep Bs Antigen Hep B Core IgM Ab Hepatitis C Antibody Blood Type Antibody Screen 08/04/17 08/04/17 08/04/17 12:29 17:25 19:51 WBC RBC Hgb Hct MCV MCH MCHC Differential RDW Plt Count MPV Neutrophils % Band Neutrophils % Lymphocytes % Monocytes % Eosinophils % Basophils % Neutrophils (Manual) Lymphocytes Monocytes Eosinophils Basophils Platelet Estimate Eos Smear Source Eos Smear Total Cells Specimen Source Sample Site pH pCO2 pO2 HCO3 Base Excess O2 Saturation Trace Test Vent Rate Inspired O2 Tidal Volume PEEP Pressure (ins/psv/peep) Critical Value Sodium Potassium Chloride Carbon Dioxide Anion Gap BUN Creatinine Est GFR ( Amer) Est GFR (Non-Af Amer) BUN/Creatinine Ratio Glucose POC Glucose 200 H 157 H 164 H Hemoglobin A1c % Plasma/Ser Osmolality Uric Acid Calcium Phosphorus Magnesium Total Bilirubin AST ALT Alkaline Phosphatase Total Protein Albumin Globulin Albumin/Globulin Ratio TSH Urine Creatinine Hepatitis A IgM Ab Hep Bs Antigen Hep B Core IgM Ab Hepatitis C Antibody Blood Type Antibody Screen 08/05/17 08/05/17 08/05/17 05:53 06:57 11:51 WBC 5.2 RBC 2.86 L Hgb 8.9 L Hct 27.0 L MCV 94.7 MCH 31.0 MCHC Differential 32.8 RDW 15.8 Plt Count 247 MPV 7.0 Neutrophils % 68.1 Band Neutrophils % Lymphocytes % 11.7 L Monocytes % 9.7 Eosinophils % 8.7 H Basophils % 1.8 Neutrophils (Manual) Lymphocytes Monocytes Eosinophils Basophils Platelet Estimate Eos Smear Source Eos Smear Total Cells Specimen Source Sample Site pH pCO2 pO2 HCO3 Base Excess O2 Saturation Trace Test Vent Rate Inspired O2 Tidal Volume PEEP Pressure (ins/psv/peep) Critical Value Sodium Potassium Chloride Carbon Dioxide Anion Gap BUN Creatinine Est GFR ( Amer) Est GFR (Non-Af Amer) BUN/Creatinine Ratio Glucose POC Glucose 80 175 H Hemoglobin A1c % Plasma/Ser Osmolality Uric Acid Calcium Phosphorus Magnesium Total Bilirubin AST ALT Alkaline Phosphatase Total Protein Albumin Globulin Albumin/Globulin Ratio TSH Urine Creatinine Hepatitis A IgM Ab Hep Bs Antigen Hep B Core IgM Ab Hepatitis C Antibody Blood Type Antibody Screen 08/05/17 08/05/17 08/06/17 16:49 20:57 04:50 WBC 5.3 RBC 2.87 L Hgb 9.0 L Hct 27.3 L MCV 95.2 MCH 31.3 H MCHC Differential 32.9 RDW 15.9 Plt Count 270 MPV 7.7 Neutrophils % 60.9 Band Neutrophils % Lymphocytes % 19.5 L Monocytes % 11.0 H Eosinophils % 8.5 H Basophils % 0.1 Neutrophils (Manual) Lymphocytes Monocytes Eosinophils Basophils Platelet Estimate Eos Smear Source Eos Smear Total Cells Specimen Source Sample Site pH pCO2 pO2 HCO3 Base Excess O2 Saturation Trace Test Vent Rate Inspired O2 Tidal Volume PEEP Pressure (ins/psv/peep) Critical Value Sodium Potassium Chloride Carbon Dioxide Anion Gap BUN Creatinine Est GFR ( Amer) Est GFR (Non-Af Amer) BUN/Creatinine Ratio Glucose POC Glucose 181 H 145 H Hemoglobin A1c % Plasma/Ser Osmolality Uric Acid Calcium Phosphorus Magnesium Total Bilirubin AST ALT Alkaline Phosphatase Total Protein Albumin Globulin Albumin/Globulin Ratio TSH Urine Creatinine Hepatitis A IgM Ab Hep Bs Antigen Hep B Core IgM Ab Hepatitis C Antibody Blood Type Antibody Screen 08/06/17 08/06/17 04:50 06:26 WBC RBC Hgb Hct MCV MCH MCHC Differential RDW Plt Count MPV Neutrophils % Band Neutrophils % Lymphocytes % Monocytes % Eosinophils % Basophils % Neutrophils (Manual) Lymphocytes Monocytes Eosinophils Basophils Platelet Estimate Eos Smear Source Eos Smear Total Cells Specimen Source Sample Site pH pCO2 pO2 HCO3 Base Excess O2 Saturation Trace Test Vent Rate Inspired O2 Tidal Volume PEEP Pressure (ins/psv/peep) Critical Value Sodium 130 L Potassium 3.9 Chloride 97 L Carbon Dioxide 22.6 Anion Gap 14.3 BUN 30 H Creatinine 4.0 H Est GFR ( Amer) TNP Est GFR (Non-Af Amer) TNP BUN/Creatinine Ratio 7.5 Glucose 117 H POC Glucose 112 H Hemoglobin A1c % Plasma/Ser Osmolality Uric Acid Calcium 8.1 L Phosphorus Magnesium Total Bilirubin 0.3 AST 15 ALT 10 Alkaline Phosphatase 89 Total Protein 6.2 Albumin 2.9 L Globulin 3.3 Albumin/Globulin Ratio 0.9 L TSH Urine Creatinine Hepatitis A IgM Ab Hep Bs Antigen Hep B Core IgM Ab Hepatitis C Antibody Blood Type Antibody Screen Hospital Course: Patient was hospitalized in ICU she was started with IV NS, Lasix, AB, Nasal O2 , Albuterol Breathing treatment, PT, she was seen by Cardio, Pulmonology, Surgery, Nephro, and ID. Disposition: PT DISCHARGED HOME Home Medications: Home Medication Medication Instructions Recorded Type Amiodarone HCl [Amiodarone HCl*] 100 mg PO BID 08/13/17 History Basaglar 15 unit SUBQ DAILY 08/13/17 History Famotidine 20 mg PO DAILY 08/13/17 History Furosemide [Lasix] 40 mg PO DAILY 08/13/17 History Losartan Potassium [Cozaar] 50 mg PO DAILY 08/13/17 History NIFEdipine [Procardia] 10 mg PO DAILY 08/13/17 History Inpatient Medications: Current Medications Acetaminophen (Tylenol) 650 mg PO Q4H PRN PRN Reason: Pain (Mild) Stop: 09/28/17 15:37 Last Admin: 08/05/17 20:58 Dose: 650 mg Albuterol/Ipratropium (Duoneb Neb) 3 ml HHN Q4HRT [facility] Stop: 09/27/17 14:59 Last Admin: 08/06/17 08:05 Dose: 3 ml Allopurinol (Zyloprim) 100 mg PO BID [facility] Stop: 09/27/17 08:59 Last Admin: 08/06/17 08:30 Dose: 100 mg Amiodarone HCl (Cordarone) 100 mg PO BID [facility] Stop: 09/30/17 00:44 Last Admin: 08/06/17 08:28 Dose: 100 mg Bisacodyl (Dulcolax 10 Mg Supp) 10 mg RC DAILY PRN PRN Reason: constipAtion Stop: 10/01/17 20:10 Epoetin Dustin (Epogen) 10,000 units SUBQ MoWeFr [facility] Stop: 09/28/17 17:56 Last Admin: 08/05/17 17:15 Dose: 10,000 units Famotidine (Pepcid) 20 mg IVP DAILY [facility] Stop: 09/28/17 08:59 Last Admin: 08/06/17 08:23 Dose: 20 mg Furosemide (Lasix) 40 mg IVP BID [facility] Stop: 09/27/17 16:59 Last Admin: 08/06/17 08:31 Dose: Not Given Hydrochlorothiazide (Hctz) 12.5 mg PO DAILY PRN PRN Reason: FOR sbp >180 Stop: 10/02/17 08:59 Ceftriaxone Sodium 1 gm/ (Dextrose) 50 mls @ 100 mls/hr IV Q24HR [facility] Stop: 09/28/17 04:59 Last Admin: 08/06/17 06:30 Dose: 100 mls/hr Insulin Aspart (Novolog Insulin Sliding Scale) 0 units SUBQ ACHS WIL PRN Reason: Protocol Stop: 09/30/17 16:29 Last Admin: 08/06/17 06:31 Dose: Not Given Lactobacillus Rhamnosus (Culturelle) 1 each PO DAILY [facility] Stop: 09/29/17 08:59 Last Admin: 08/06/17 08:30 Dose: 1 each Lactulose (Cephulac) 15 gm PO DAILY [facility] Stop: 10/01/17 15:29 Last Admin: 08/06/17 08:23 Dose: 15 gm Losartan Potassium (Cozaar) 50 mg PO DAILY PRN PRN Reason: FOR sbp >180 Stop: 10/02/17 08:59 Mineral Oil (Fleet Mineral Oil) 130 ml RC DAILY PRN PRN Reason: Constipation Stop: 10/01/17 23:01 Miscellaneous (Clinical Monitoring) 1 ea MC DAILY PRN PRN Reason: RENAL Stop: 09/27/17 07:45 Miscellaneous (Vte Chemical Prophylaxis Screen/ Admission) 1 ea PRN PRN PRN Reason: PROTOCOL Stop: 09/27/17 16:47 Miscellaneous (Vte Chemical Prophylaxis Screen/ Admission) 1 ea PRN PRN PRN Reason: PROTOCOL Stop: 09/27/17 16:51 Miscellaneous (Probiotic Screen) 1 ea PRN PRN PRN Reason: PROTOCOL Stop: 09/28/17 10:27 Nifedipine (Procardia) 10 mg PO DAILY [facility] Stop: 09/27/17 08:59 Last Admin: 08/06/17 08:31 Dose: Not Given Potassium Chloride (Klor-Con) 20 meq PO DAILY [facility] Stop: 09/30/17 10:44 Last Admin: 08/06/17 08:23 Dose: 20 meq Activity: As Tolerated Discharge Diet: 2 Gram Sodium Consults and Follow-Up: ANDRIA SINGER [Other] not on staff,PCP is [Primary Care Provider] - Consulting Speciality: Cardiac, Renal, Other (PCP) Instructions: Hemodialysis, Dialysis, Kidney Failure, [id number], Kidney Disease, Adult, Central Line Placement, Dialysis Access, Instructions, Central Lines, [id number], Hemodialysis, [id number]
[2017-08-06 09:38] LABS: pH 7.42 (7.35-7.45)
[2017-08-06 09:39] LABS: ALLEN TEST Positive
--- NOTE | 2017-08-06 10:25 | Diagnostic Imaging Report ---
CHEST X-RAY: AP view INDICATION: Shortness of breath COMPARISON: 08/05/2017 FINDINGS: Findings of CHF are seen bilateral effusions and infiltrates. Cardiomegaly is noted with atherosclerosis. IMPRESSION: Persistent CHF with bilateral effusions and infiltrates.
--- NOTE | 2017-08-06 21:01 | Progress Notes ---
DATE: 08/06/2017 PULMONARY PROGRESS NOTE PROBLEM LIST: 1. Acute asthmatic bronchitis. 2. Possibly pneumonitis. SYMPTOMS: Nil, much better, very minimal coughing, and is possibly being discharged today. No respiratory distress except for mild dyspnea on exertion. PHYSICAL EXAMINATION: VITAL SIGNS: The patient's temperature is 97.5, saturation is 100% on room air, and respirations 19. NECK: Veins not visualized. CHEST: Shows much clear. No other adventitious breath sounds could be appreciated. HEART: Regular. ABDOMEN: Soft, nontender. LABORATORY DATA: White count is 5.3 and hemoglobin is 9 grams. PO2 64 on room air. ASSESSMENT: The patient is clinically doing much better. PLANS AND SUGGESTIONS: Discussed with daughter okay to be discharged and with current medication given by primary and go from there. JOB# [id number]
[2017-08-07 07:10] LABS: IRON LC 36 ug/dL (27-139); TIBC (LC) 168 ug/dL (250-450); UIBC 132 ug/dL (118-369)
[2017-08-07] MEDS ORDERED: Lactobacillus Rhamnosus GG 15 Billion CFU CAP.SPRINK PO SCH (09:00)
== END 2017-08-06 19:10 | disposition home or self-care (01) | DRG 194 ==
LOC: ER 21:29 → ICU 07-29 00:53 → TELE 08-03 15:37
PROVIDERS: ADMIT General Practice; ATTEND General Practice
PROC: 5A09457 Assistance with Respiratory Ventilation, 24-96 Consecutive Hours, Continuous Positive Airway Pressure (ICD-10-PCS; principal; 2017-07-29)
PROC: 5A1D70Z Performance of Urinary Filtration, Intermittent, Less than 6 Hours Per Day (ICD-10-PCS; 2017-07-30)
PROC: 02HV33Z Insertion of Infusion Device into Superior Vena Cava, Percutaneous Approach (ICD-10-PCS; 2017-07-30)
PROC: B548ZZA Ultrasonography of Superior Vena Cava, Guidance (ICD-10-PCS; 2017-07-30)
PROC: 5A1D70Z Performance of Urinary Filtration, Intermittent, Less than 6 Hours Per Day (ICD-10-PCS; 2017-07-31)
PROC: 02PYX3Z Removal of Infusion Device from Great Vessel, External Approach (ICD-10-PCS; 2017-07-31)
PROC: 02HV33Z Insertion of Infusion Device into Superior Vena Cava, Percutaneous Approach (ICD-10-PCS; 2017-07-31)
PROC: 5A1D70Z Performance of Urinary Filtration, Intermittent, Less than 6 Hours Per Day (ICD-10-PCS; 2017-08-02)
PROC: 5A1D70Z Performance of Urinary Filtration, Intermittent, Less than 6 Hours Per Day (ICD-10-PCS; 2017-08-04)
PROC: 5A1D70Z Performance of Urinary Filtration, Intermittent, Less than 6 Hours Per Day (ICD-10-PCS; 2017-08-06)
DX: I13.2 Hypertensive heart and chronic kidney disease with heart failure and with stage 5 chronic kidney disease, or end stage renal disease (principal); J96.01 Acute respiratory failure with hypoxia; J18.9 Pneumonia, unspecified organism; N17.9 Acute kidney failure, unspecified; E11.22 Type 2 diabetes mellitus with diabetic chronic kidney disease; E87.5 Hyperkalemia; N18.6 End stage renal disease; D63.1 Anemia in chronic kidney disease; E87.1 Hypo-osmolality and hyponatremia; I25.10 Atherosclerotic heart disease of native coronary artery without angina pectoris; E66.9 Obesity, unspecified; I50.33 Acute on chronic diastolic (congestive) heart failure; E78.5 Hyperlipidemia, unspecified; R07.89 Other chest pain; K29.70 Gastritis, unspecified, without bleeding; D50.9 Iron deficiency anemia, unspecified; R91.1 Solitary pulmonary nodule; Z90.5 Acquired absence of kidney; Z85.53 Personal history of malignant neoplasm of renal pelvis; Z68.30 Body mass index [BMI] 30.0-30.9, adult; Z90.49 Acquired absence of other specified parts of digestive tract; T82.41XA Breakdown (mechanical) of vascular dialysis catheter, initial encounter; Y83.8 Other surgical procedures as the cause of abnormal reaction of the patient, or of later complication, without mention of misadventure at the time of the procedure; Y92.89 Other specified places as the place of occurrence of the external cause
CPT/HCPCS: 36415-UA; 36600-90; 71010-TC; 80053-TC; 80074-90; 81001-TC; 81015-TC; 82150-TC; 82550-TC; 82570-TC; 82803-TC; 82948-90; 83036-90; 83540-90; 83550-90; 83690-TC; 83735-TC; 83880-TC; 83930-90; 84100-TC; 84443-TC; 84484-TC; 84550-TC; 85007-TC; 85014-TC; 85018-TC; 85025-TC; 85027-TC; 85610-TC; 86850-TC; 86900-TC; 86901-TC; 86922-TC; 87070; 93005; 94640; 94660; 94760; 96374; 96375; 97530; J0456; J0696; J0885; J1644; J1815; J1940; J3490; J7030; J7040; P9016; X3904; Z7610

== ENCOUNTER 2017-08-13 08:21 | Inpatient (IN) | payer MEDICAID ==
--- NOTE | 2017-08-13 08:48 | ED Physician Chart ---
ED Chief Complaint/HPI - Patient Information Date Seen:: 08/13/17 Time Seen:: 08:30 Chief Complaint:: Dyspnea History of Present Illness:: onset x 2 days of dyspnea, fever, cough, congestion; no report of H/As, neck pain, C/P, Abd. Pain, A/N/V/D/C, chills, or urinary s/s Allergies:: Allergies Allergy/AdvReac Type Severity Reaction Status Date / Time No Known Allergies Allergy Verified 07/28/17 21:39 Vitals:: Vital Signs - 8 hr 08/13/17 08:32 Temp 97.4 F HR 77 RR 20 BP 170/89 O2 Sat % 92 Historian:: Patient, Family Member Review:: Nurse's Note Reviewed, Old Chart Reviewed ED Review of Systems - Review of Systems General/Constitutional: Fever, No chills, No weight loss, Weakness, No diaphoresis, No edema, No loss of appetite Skin: No skin lesions, No rash, No bruising Head: No headache, No light-headedness Eyes: No loss of vision, No pain, No diplopia ENT: No earache, No nasal drainage, No sore throat, No tinnitus Neck: No neck pain, No swelling, No thyromegaly, No stiffness, No mass noted Cardio Vascular: No chest pain, No palpitations, No PND, No orthopnea, No edema Pulmonary: SOB, Cough, No sputum, No wheezing GI: No nausea, No vomiting, No diarrhea, No pain, No melena, No hematochezia, No constipation, No hematemesis G/U: No dysuria, No frequency, No hematuria, No nacturia [employer]: No vaginal discharge, No abnormal vaginal bleed, No contraction Musculoskeletal: No bone or joint pain, No back pain, No muscle pain Endocrine: Polyuria, Polydipsia Psychiatric: No prior psych history, No depression, No anxiety, No suicidal ideation, No homicidal ideation, No auditory hallucination, No visual hallucination Hematopoietic: No bruising, No lymphadenopathy Allergic/Immuno: No urticaria, No angioedema Neurological: No syncope, No focal symptoms, No weakness, No paresthesia, No headache, No seizure, No dizziness, No confusion, No vertigo ED Past Medical History - Past Medical History Obtainable: Yes Past Medical History: HTN, DM, CAD, CHF, Dyslipidemia, ESRD Family History: Diabetes Melitus, HTN Social History: Non Smoker, No Alcohol, No Drug Use, Surgical History: other (Dialysis Catheter Insertion) Psychiatricy History: None Medication: Reviewed Family Medical History - Family Member Mother History Unknown: Yes ED Physical Exam - Physical Examination General/Constitutional: Awake, Well-developed, well-nourished, Alert, No distress, GCS 15, Non-toxic appearing, Ambulatory Head: Atraumatic Eyes: Lids, conjuctiva normal, PERRL, EOMI Skin: Nl inspection, No rash, No skin lesions, No ecchymosis, Well hydrated, No lymphadenopathy ENMT: External ears, nose nl, TM canals nl, Nasal exam nl, Lips, teeth, gums nl , Oropharynx nl, Tonsils nl Neck: Nontender, Full ROM w/o pain, No JVD, No nuchal rigidity, No bruit, No mass, No stridor Respiratory: Nl effort/Exclusion Other Respiratory comments:: Lungs: + Rales and Rhonchi Cardio Vascular: RRR, No murmur, gallop, rubs, NL S1 S2, Carotid/Femoral/Distal pulses equal bilaterally GI: No tenderness/rebounding/guarding, No organomegaly, No hernia, Normal BS's, Nondistended, No mass/bruits, No McBurney tenderness : No CVA tenderness Extremities: No tenderness or effusion, Full ROM, normal strength in all extremities, No edema, Normal digits & nails Neuro/Psych: Alert/oriented, DTR's symmetric, Normal sensory exam, Normal motor strength, Judgement/insight normal, Mood normal, Normal gait, No focal deficits Misc: Normal back, No paraspinal tenderness ED Labs/Radiology/EKG Results - Lab Results Comments:: H/H: 10.2/31.4; Na+: 132 - Radiology Results Comments:: CXR: CHF; CM; + RML Infiltrate - EKG Interpretations EKG Time:: 09:22 Rate & Rhythm: 74; NSR Comments:: LBBB; non-specific st-t changes ED Septic Shock - . Is Septic Shock (SBP<90, OR Lactate>4 mmol\L) present?: No - <6hrs of presentation: Vital Signs: Vital Signs - 8 hr 08/13/17 08:32 Temp 97.4 F HR 77 RR 20 BP 170/89 O2 Sat % 92 ED Reassessment (Disposition) - Reassessment Reassessment Condition:: Improved - Diagnosis Diagnosis:: Dx: Renal Failure; Dyspnea; Pneumonia; Sepsis; CHF; Hyponatremia; Anemia - Aftercare/Follow up Instructions Aftercare/Follow-Up Instructions:: Counseled pt regarding lab results/diagnosis & need follow up - Patient Disposition Discharge/Transfer:: Acute Care w/in this hosp Accepting Physician:: Dr. Grant Time Called:: 1030 Time Responded:: 10:30 Admitted to:: Telemetry Spoke to:: Dr. Grant Admitting Medical Physician:: Dr. Grant Condition at Disposition:: Stable, Improved
[2017-08-13] MEDS ORDERED: Morphine Sulfate 2 mg/mL 1mL Syr IV STA (08:52)
[2017-08-13 09:22] LABS: HEMOGLOBIN 10.2 gm/dL (12-16); MEAN CELL VOLUME 95.8 fl (81-100); MEAN CORPUSCULAR HEMOGLOBIN 31.2 pg (27.0-31.0); MEAN CORPUSCULAR HGB CONC 32.6 pg (28.0-36.0); MEAN PLATELET VOLUME 7.5 fl; RED BLOOD COUNT 3.27 Mil/cmm (3.80-5.20); RED CELL DISTRIBUTION WIDTH 16.6 % (11.5-20.0)
[2017-08-13] MEDS ORDERED: Morphine Sulfate 2 mg/mL 1mL Syr ONE (09:26)
[2017-08-13] MEDS ORDERED: Levofloxacin 500mg/100mL 500 MG/100 ML BAG IV ONE ×2 (09:29→09:40)
[2017-08-13 09:30] LABS: INR 1.01 (0.5-1.4); PROTHROMBIN TIME (TEST) 10.5 SECONDS (9.5-11.5)
[2017-08-13 09:31] LABS: ALBUMIN 3.6 gm/dL (3.7-5.3); ALKALINE PHOSPHATASE 101 U/L (34-104); ANION GAP 14.6 (7.0-16.0); BILIRUBIN,TOTAL 0.5 mg/dL (0.3-1.0); BUN - UREA NITROGEN 36 mg/dL (7-25); CALCIUM SERUM 8.7 mg/dL (8.6-10.3); CHLORIDE 96 mEq/L (98-107); CHOLESTEROL 218 mg/dL (<200); CREATININE - SERUM 3.5 mg/dL (0.6-1.2); CREATININE KINASE 44 U/L (30-223); GLUCOSE 131 mg/dL (70-105); HDL -HIGH DENSITY LIPOPROTEIN 89 mg/dL (23-92); POTASSIUM SERUM 4.6 mEq/L (3.5-5.1); SGOT 16 U/L (13-39); SGPT/ALT 9 U/L (7-52); SODIUM SERUM 132 mEq/L (136-145); TOTAL PROTEIN,SERUM 7.2 gm/dL (6.0-8.3); TRIGLYCERIDES 108 mg/dL (<150)
[2017-08-13 09:37] LABS: HEMATOCRIT 31.4 % (41.0-60); PLATELET COUNT 427 Th/cmm (150-400); WHITE BLOOD COUNT 9.8 Th/cmm (4.8-10.8)
[2017-08-13 09:38] LABS: MANUAL DIFF REQUIRED? YES
[2017-08-13 09:56] LABS: EOSINOPHIL 1 % (0-5); LYMPHOCYTE 10 % (20-50); MONOCYTE 2 % (2-10); NEUTROPHILS 87 % (40-80); TOTAL CELLS COUNTED 100
--- NOTE | 2017-08-13 10:18 | Diagnostic Imaging Report ---
Portable chest x-ray HISTORY: Shortness of breath Compared to prior exam of 08/06/2017, the heart is enlarged. Bilateral pleural effusions. Pulmonary vascular redistribution and hazy interstitial markings. The findings are consistent with congestive heart failure. Clinical correlation is needed. IMPRESSION: 1. Findings consistent with congestive heart failure as noted above. Clinical correlation is needed.
[2017-08-13 10:46] LABS: URINE MICROSCOPIC INDICATED? YES; URINE SOURCE MIDSTREAM
[2017-08-13 10:48] LABS: DDIMER QUANT 3020 ng/mL (100-400)
[2017-08-13 11:01] LABS: URINE BILIRUBIN NEGATIVE (NEGATIVE); URINE BLOOD NEGATIVE (NEGATIVE); URINE GLUCOSE (UA) NEGATIVE (NEGATIVE); URINE KETONE 15 mg/dL (NEGATIVE); URINE LEUKOCYTE ESTERASE NEGATIVE (NEGATIVE); URINE NITRATE NEGATIVE (NEGATIVE); URINE PROTEIN NEGATIVE (NEGATIVE); URINE UROBILINOGEN 0.2 E.U./dL (0.2 - 1.0)
[2017-08-13 11:06] LABS: URINE COLOR YELLOW
[2017-08-13 11:08] LABS: URINE CLARITY CLEAR (CLEAR); URINE RBC 0-2 /hpf (0-5)
[2017-08-13 11:09] LABS: URINE BACTERIA FEW /hpf (NONE SEEN); URINE EPITHELIAL CELLS MODERATE /lpf (FEW)
[2017-08-13] MEDS: INSULIN ASPART SLIDING SCALE 100 UNITS/ML UNIT SUBQ SCH ×3 (14:53→22:03)
--- NOTE | 2017-08-13 16:30 | Consultation ---
DATE OF CONSULTATION: 08/13/2017 CHIEF COMPLAINT: The patient came in because of shortness of breath. HISTORY OF PRESENT ILLNESS: This is a 77-year-old female with past medical history of end-stage renal disease, on hemodialysis, who came in because of progressive shortness of breath. Two days prior to admission, the patient developed dyspnea on exertion, twice that day. She ignored this. A few hours prior to admission, her shortness of breath persisted even at rest. This had made her more anxious. She denied any chest pain, No cough and congestion. She proceeded to the Emergency Room. Chest x-ray revealed congestive heart failure. Her troponin was 0.204 with a BNP of 2580. PAST MEDICAL HISTORY: 1. End-stage renal disease, on hemodialysis. 2. Essential hypertension. 3. Type 2 diabetes mellitus. 4. Coronary artery disease. 5. History of congestive heart failure. 6. Dyslipidemia. PAST SURGICAL HISTORY: Status post left nephrectomy. CURRENT MEDICATIONS: She is currently on levofloxacin as well as on morphine. ALLERGIES: No known drug allergies. SOCIAL HISTORY: No history of alcohol or tobacco use. She resides with her supportive daughter. She has been retired. FAMILY HISTORY: Noncontributory to present illness. REVIEW OF SYSTEMS: CONSTITUTIONAL: Has occasional weakness. No fever or chills, appetite had been fair. HEENT: No mention of headaches, no dizziness. Vision and hearing acuity remains within acceptable limits. CARDIORESPIRATORY: She has a history of coronary artery disease, CHF in the past. However, she came in because of worsening shortness of breath. There was no cough or congestion associated with this. GASTROINTESTINAL: No nausea and vomiting, abdominal pain or cramping, hematemesis, melena, hematochezia, no diarrhea. ENDOCRINE: No history of diabetes, no thyroid abnormalities. MUSCULOSKELETAL: No effusions present in her joints. She has multiple joint arthralgias. GENITOURINARY: History of left nephrectomy and now also of kidney failure requiring hemodialysis 3 times a week. Still urinates, but denied any dysuria, no hematuria. NEUROPSYCHIATRY: No syncopal episode or seizure activity. She has periods of anxiety. She has diabetic neuropathy. PHYSICAL EXAMINATION: GENERAL: The patient is awake, slightly anxious. Mild respiratory distress. VITAL SIGNS: Her temperature is 98 degrees, pulse is 61, blood pressure is 166/67. SKIN: Good turgor, warm, no rash, no jaundice appreciated. HEENT: Head normocephalic, atraumatic. Eyes: Extraocular muscles intact. Pupils equal, round, reactive to light and accommodates. Anicteric sclerae. [place] conjunctivae. Nose, midline nasal septum. Mouth, moist mucosa with adequate dentition. NECK: Supple, no adenopathy, no thyromegaly, no bruits. Trachea palpated in the midline. CHEST AND CVS: S1, S2. No rub, murmur, no gallop appreciated. Point of maximal impulse fifth intercostal space, left midclavicular line. No abdominal or femoral bruits appreciated. LUNGS: Equal expansion, minimal to moderate use of accessory muscles. Minimal supraclavicular retractions. Scattered rhonchi with some rales, but no congestion. BREASTS: Symmetrical, without any discharge. CARDIOVASCULAR: Globular, soft, positive for bowel sounds. No bruits either diastolic or systolic. RECTAL: Lax sphincter tone. GENITOURINARY: Normal appearing female genitalia. MUSCULOSKELETAL: No effusions present in her joints with adequate range of motion. EXTREMITIES: No evidence of any edema, cyanosis or clubbing with palpable femoral, popliteal and dorsalis pedis pulses. NEUROLOGIC: The patient is alert, verbal. Motor is 5/5. Cranial nerves 2-12 intact. Sensory intact. LABORATORY DATA: Did reveal white count 9.8, hemoglobin 10.2, hematocrit 31.4, platelets 427, polys 87%. Sodium 132, potassium 4.6, chloride 196, bicarbonate 26, BUN 36, creatinine 3.5, glucose 131. Calcium 8.7. BNP 2580. Cholesterol ___, triglycerides 108. IMPRESSION: 1. Acute respiratory failure secondary to fluid overload. 2. End-stage renal disease, on hemodialysis. 3. Elevated BNP level secondary to #1 and #2. 4. Essential hypertension with CKD. 5. Type 2 diabetes mellitus with CKD. 6. Coronary artery disease. 7. History of congestive heart failure in the past. 8. Dyslipidemia. PLAN: 1. Hemodialysis today. 2. Follow up serial chest x-ray. 3. Fluid restriction and daily weights. JOB# [id number]
[2017-08-13] MEDS: Heparin Sod 1,000 Units/mL 10ml HD SCH (17:44)
--- NOTE | 2017-08-13 22:18 | Consultation ---
DATE OF CONSULTATION: 08/13/[address] Hays. HISTORY AND PHYSICAL: This is a 77-year-old female patient who was recently discharged from [facility] with dialysis. The patient started complaining of shortness of breath, . At this time, the patient is admitted with congestive heart failure, renal failure, on dialysis. His cardiac consult is requested. PAST MEDICAL HISTORY: The patient has a history of diabetes mellitus type 2, diabetic CKD stage 5, end-stage renal disease on dialysis, hypertension, iron deficiency anemia, stable angina, congestive heart failure, diastolic dysfunction, mild pulmonary hypertension, moderate tricuspid regurgitation, hyperlipidemia, history of left nephrectomy. FAMILY HISTORY: Unremarkable. SOCIAL HISTORY: No history of smoking, alcohol abuse. ALLERGIES: No known allergies. PHYSICAL EXAMINATION: VITAL SIGNS: Blood pressure 150/80, pulse 70, respirations 20. HEAD: Normocephalic. No lumps or bumps. EYES: Pupils equal, reactive to light. Fundi show AV nicking, sclerae white, conjunctivae pink. NECK: Carotid 2+. Normal upstroke. JVD 10 cm above sternal angle. Thyroid not palpable. Lymph nodes not palpable. CHEST: Shows increased AP diameter. No kyphosis, scoliosis. LUNGS: Bilateral rales. Decreased breath sounds both the bases. HEART: PMI 6th intercostal space, soft with lateral to midclavicular line. S1, S2, S3, S4. Systolic murmur, grade 3/6, lower left sternal border radiating to left axilla. ABDOMEN: Soft. Liver, spleen not palpable. Hepatojugular reflux. Positive bowel sounds. RECTAL: Deferred. EXTREMITIES: Peripheral pulse is 1+. No pedal edema. CLINICAL IMPRESSION: 1. Acute respiratory failure. 2. Congestive heart failure, diastolic dysfunction, acute. 3. Diabetes mellitus type 2. 4. Diabetic chronic kidney disease stage 5. 5. End-stage renal disease, on dialysis. 6. Hypertension. 7. Stable angina. 8. Hyperlipidemia. 9. Iron deficiency anemia. 10. Mild pulmonary hypertension. The patient's echocardiogram showed ejection fraction 50%, right ventricular systolic pressure 50 mmHg. Moderate tricuspid regurgitation, hypertrophy of the left ventricle. PLAN: The patient to have aggressive dialysis. Patient to monitor for any arrhythmias. JOB# [id number]
[2017-08-14] MEDS ORDERED: Albumin 25% 12.5gm/50mL 12.5 GM/50 ML BTL IV PRN
[2017-08-14] MEDS: INSULIN ASPART SLIDING SCALE 100 UNITS/ML UNIT SUBQ SCH ×4 (06:47→21:51)
[2017-08-14 07:27] LABS: % BASOPHILS 0.1 % (0.0-2.0); % EOSINOPHILS 4.1 % (0.0-5.0); % LYMPHOCYTES 18.7 % (20.0-50.0); % MONOCYTES 12.6 % (2.0-10.0); % NEUTROPHILS 64.5 % (40.0-80.0); EOSINOPHILE ABSOLUTE 0.2 Th/cmm (0.1-0.4); MEAN CELL VOLUME 95.4 fl (81-100); MEAN CORPUSCULAR HEMOGLOBIN 31.9 pg (27.0-31.0); MEAN CORPUSCULAR HGB CONC 33.4 pg (28.0-36.0); MEAN PLATELET VOLUME 7.3 fl; MONOCYTE ABSOLUTE 0.7 Th/cmm (0.3-1.0); NEUTROPHILE ABSOLUTE 3.5 Th/cmm (1.8-8.0); PLATELET COUNT 370 Th/cmm (150-400); RED BLOOD COUNT 2.82 Mil/cmm (3.80-5.20); RED CELL DISTRIBUTION WIDTH 17.4 % (11.5-20.0)
[2017-08-14 07:30] LABS: HEMATOCRIT 26.9 % (41.0-60); WHITE BLOOD COUNT 5.4 Th/cmm (4.8-10.8)
[2017-08-14 07:49] LABS: ANION GAP 10.9 (7.0-16.0); BUN - UREA NITROGEN 25 mg/dL (7-25); CALCIUM SERUM 8.1 mg/dL (8.6-10.3); CARBON DIOXIDE 27.6 mEq/L (21.0-31.0); CHLORIDE 100 mEq/L (98-107); CREATININE - SERUM 3.1 mg/dL (0.6-1.2); GLUCOSE 90 mg/dL (70-105); POTASSIUM SERUM 4.5 mEq/L (3.5-5.1); SODIUM SERUM 134 mEq/L (136-145)
[2017-08-14] MEDS ORDERED: INSULIN GLARGINE SUBQ SCH (09:00)
--- NOTE | 2017-08-14 09:11 | History and Physical ---
History of Present Illness - HPI Chief Complaint: SOB HPI: Patient just was DC from hospital few days ago. She refer that she started with SOB that increased and edema of lower extremities reason why she came to ER for evaluation, during exam at ER was found CHF exacerbation. Vital Signs: Last Vital Signs Temp 98.6 F 08/14/17 04:00 Pulse 68 08/14/17 08:45 Resp 17 08/14/17 08:26 BP 180/58 08/14/17 08:45 Pulse Ox 99 08/14/17 04:00 Past Medical History Cardiovascular: Report: CAD, CHF, HTN, Valve Insufficiency Pulmonary: Report: Other (Pulmonary hypertension) GI: Report: No Pertinent Hx Psych: Report: No Pertinent Hx Musculoskeletal: Report: No Pertinent Hx Rheumatologic: Report: No pertinent Hx Infectious Disease: Report: No Pertinent Hx Renal/: Report: Chronic Renal Insuff, Other (On HD) Endocrine: Report: Diabetes Dermatology: Report: No Pertinent Hx - Past Surgical History Past Surgical History: Other (Left Nephrectomy) Family Medical History - Family Member Mother History Unknown: Yes Social History Smoke: No Alcohol: None Drugs: None Lives: With Family Domestic Violence: Negative - Medications Home Medications: Home Medication Medication Instructions Recorded Type Amiodarone HCl [Amiodarone HCl*] 100 mg PO BID 08/13/17 History Basaglar 15 unit SUBQ DAILY 08/13/17 History Famotidine 20 mg PO DAILY 08/13/17 History Furosemide [Lasix] 40 mg PO DAILY 08/13/17 History Losartan Potassium [Cozaar] 50 mg PO DAILY 08/13/17 History NIFEdipine [Procardia] 10 mg PO DAILY 08/13/17 History - Allergies Allergies/Adverse Reactions: Allergies Allergy/AdvReac Type Severity Reaction Status Date / Time No Known Allergies Allergy Verified 07/28/17 21:39 Review of Systems - Review of Systems Constitutional: Report: Weakness Eyes: Report: No Significant ENT: Report: No Significant Respiratory: Report: Other (SOB) Cardiovascular: Report: Paroxysmal Noc. Dyspnea Gastrointestinal: Report: No Significant Genitourinary: Report: No Significant Musculoskeletal: Report: No Significant Skin: Report: No Significant Neurological: Report: Weakness Physical Exam - Physical Exam HEENT: Report: Ears Nose Throat within normal limits Neck: Report: Within normal limits Cardiovascular Systems: Report: Regular, Rate and Rhythm Respiratory: Report: Crackles, Rhonchi Abdomen: Report: Non-tender to palpation Back: Report: Inspection of back is within normal limits. Extremities: Report: Non-tender to palpation. Skin: Report: Color of skin is within normal limits Neuro/Psych: Report: Mood affect is within normal limits - Lab Results All Lab Results last 24 hours: Laboratory Results - last 24 hr 08/13/17 08/13/17 08/13/17 16:05 16:26 21:55 WBC RBC Hgb Hct MCV MCH MCHC Differential RDW Plt Count MPV Neutrophils % Lymphocytes % Monocytes % Eosinophils % Basophils % Sodium Potassium Chloride Carbon Dioxide Anion Gap BUN Creatinine Est GFR ( Amer) Est GFR (Non-Af Amer) BUN/Creatinine Ratio Glucose POC Glucose 148 H 192 H Calcium Troponin I 0.24 H* 08/14/17 08/14/17 08/14/17 06:10 06:10 06:45 WBC 5.4 D RBC 2.82 L Hgb 9.0 L Hct 26.9 L D MCV 95.4 MCH 31.9 H MCHC Differential 33.4 RDW 17.4 Plt Count 370 MPV 7.3 Neutrophils % 64.5 Lymphocytes % 18.7 L Monocytes % 12.6 H Eosinophils % 4.1 Basophils % 0.1 Sodium 134 L Potassium 4.5 Chloride 100 Carbon Dioxide 27.6 Anion Gap 10.9 BUN 25 Creatinine 3.1 H Est GFR ( Amer) TNP Est GFR (Non-Af Amer) TNP BUN/Creatinine Ratio 8.1 Glucose 90 POC Glucose 91 Calcium 8.1 L Troponin I - Assessment Assessment: Patient is awake, alert, calm in no acute distress. Dx: CHF, ESRD on HD, DM, HTN, Pulmonary hypertension, Stable angina, Tricuspide regurgitation. - Plan Plan: Patient had HD yesterday, she improved, no more SOB at this moment, on Nasal O2 , Continue with Home meds, already seen by Cardio and Nephro, Will continue to monitor.
--- NOTE | 2017-08-14 12:25 | Diagnostic Imaging Report ---
CHEST X-RAY: AP view INDICATION: CHF COMPARISON: 08/13/2017 FINDINGS: Left sided dialysis catheter is stable. Persistent CHF is seen bilateral effusions and bibasal infiltrates. Cardiomegaly is noted. IMPRESSION: No significant change in pulmonary status.
--- NOTE | 2017-08-14 14:36 | General Progress Note ---
Subjective - Review of Systems Service Date: 08/14/17 Subjective: alert, less sob, better Objective - Results Result Diagrams: 08/14/17 06:10 08/14/17 06:10 Recent Labs: Laboratory Last Values WBC 5.4 Th/cmm (4.8-10.8) D 08/14/17 06:10 RBC 2.82 Mil/cmm (3.80-5.20) L 08/14/17 06:10 Hgb 9.0 gm/dL (12-16) L 08/14/17 06:10 Hct 26.9 % (41.0-60) L D 08/14/17 06:10 MCV 95.4 fl (81-100) 08/14/17 06:10 MCH 31.9 pg (27.0-31.0) H 08/14/17 06:10 MCHC Differential 33.4 pg (28.0-36.0) 08/14/17 06:10 RDW 17.4 % (11.5-20.0) 08/14/17 06:10 Plt Count 370 Th/cmm (150-400) 08/14/17 06:10 MPV 7.3 fl 08/14/17 06:10 Neutrophils % 64.5 % (40.0-80.0) 08/14/17 06:10 Lymphocytes % 18.7 % (20.0-50.0) L 08/14/17 06:10 Monocytes % 12.6 % (2.0-10.0) H 08/14/17 06:10 Eosinophils % 4.1 % (0.0-5.0) 08/14/17 06:10 Basophils % 0.1 % (0.0-2.0) 08/14/17 06:10 Neutrophils (Manual) 87 % (40-80) H 08/13/17 08:55 Lymphocytes 10 % (20-50) L 08/13/17 08:55 Monocytes 2 % (2-10) 08/13/17 08:55 Eosinophils 1 % (0-5) 08/13/17 08:55 Smear Path Review SEE BELOW 08/14/17 06:10 PT 10.5 SECONDS (9.5-11.5) 08/13/17 08:55 INR 1.01 (0.5-1.4) 08/13/17 08:55 PTT (Actin FS) 24.7 SECONDS (26.0-38.0) L 08/13/17 08:55 D-Dimer 3020 ng/mL (100-400) H 08/13/17 08:55 Sodium 134 mEq/L (136-145) L 08/14/17 06:10 Potassium 4.5 mEq/L (3.5-5.1) 08/14/17 06:10 Chloride 100 mEq/L (98-107) 08/14/17 06:10 Carbon Dioxide 27.6 mEq/L (21.0-31.0) 08/14/17 06:10 Anion Gap 10.9 (7.0-16.0) 08/14/17 06:10 BUN 25 mg/dL (7-25) 08/14/17 06:10 Creatinine 3.1 mg/dL (0.6-1.2) H 08/14/17 06:10 Est GFR ( Amer) TNP 08/14/17 06:10 Est GFR (Non-Af Amer) TNP 08/14/17 06:10 BUN/Creatinine Ratio 8.1 08/14/17 06:10 Glucose 90 mg/dL (70-105) 08/14/17 06:10 POC Glucose 136 MG/DL (70 - 105) H 08/14/17 11:46 Whole Bld Lactic Acid 0.90 mmol/L (0.60-1.99) 08/13/17 08:55 Calcium 8.1 mg/dL (8.6-10.3) L 08/14/17 06:10 Total Bilirubin 0.5 mg/dL (0.3-1.0) 08/13/17 08:55 AST 16 U/L (13-39) 08/13/17 08:55 ALT 9 U/L (7-52) 08/13/17 08:55 Alkaline Phosphatase 101 U/L (34-104) 08/13/17 08:55 Creatine Kinase 44 U/L (30-223) 08/13/17 08:55 Troponin I 0.24 ng/mL (0.01-0.05) H* 08/13/17 16:05 B-Natriuretic Peptide 2580.0 pg/mL (5.0-100.0) H 08/13/17 08:55 Total Protein 7.2 gm/dL (6.0-8.3) 08/13/17 08:55 Albumin 3.6 gm/dL (3.7-5.3) L 08/13/17 08:55 Globulin 3.6 gm/dL 08/13/17 08:55 Albumin/Globulin Ratio 1.0 (1.0-1.8) 08/13/17 08:55 Triglycerides 108 mg/dL (<150) 08/13/17 08:55 Cholesterol 218 mg/dL (<200) H 08/13/17 08:55 LDL Cholesterol Direct 107 mg/dL (75-193) 08/13/17 08:55 HDL Cholesterol 89 mg/dL (23-92) 08/13/17 08:55 TSH 3.38 uIU/ml (0.34-5.60) 08/14/17 06:10 Urine Source MIDSTREAM 08/13/17 10:10 Urine Color YELLOW 08/13/17 10:10 Urine Clarity CLEAR (CLEAR) 08/13/17 10:10 Urine pH 6.0 (4.6 - 8.0) 08/13/17 10:10 Ur Specific [place] 1.025 (1.005-1.030) 08/13/17 10:10 Urine Protein NEGATIVE mg/dL (NEGATIVE) 08/13/17 10:10 Urine Glucose (UA) NEGATIVE mg/dL (NEGATIVE) 08/13/17 10:10 Urine Ketones 15 mg/dL (NEGATIVE) H 08/13/17 10:10 Urine Blood NEGATIVE (NEGATIVE) 08/13/17 10:10 Urine Nitrate NEGATIVE (NEGATIVE) 08/13/17 10:10 Urine Bilirubin NEGATIVE (NEGATIVE) 08/13/17 10:10 Urine Urobilinogen 0.2 E.U./dL (0.2 - 1.0) 08/13/17 10:10 Ur Leukocyte Esterase NEGATIVE (NEGATIVE) 08/13/17 10:10 Urine RBC 0-2 /hpf (0-5) 08/13/17 10:10 Urine WBC 2-5 /hpf (0-5) 08/13/17 10:10 Ur Epithelial Cells MODERATE /lpf (FEW) 08/13/17 10:10 Urine Bacteria FEW /hpf (NONE SEEN) 08/13/17 10:10 Urine Mucus MODERATE /lpf (FEW) 08/13/17 10:10 - Physical Exam Vitals and I&O: Vital Signs Temp 98.5 F 08/14/17 12:02 Pulse 60 08/14/17 12:02 Resp 20 08/14/17 12:02 BP 140/41 08/14/17 12:02 Pulse Ox 100 08/14/17 12:02 Intake & Output 08/13/17 08/14/17 08/14/17 18:59 06:59 18:59 Intake Total 100 100 Balance 100 100 Weight (lbs) 67.585 kg Intake: Intake, IV Amount 100 Levofloxacin 500mg/100mL 100 500 mg In 100 ml @ 100 mls/hr IV X1 ONE Rx#: [id number] Oral 100 Other: # Voids 2 # Bowel Movements 0 Active Medications: Current Medications Amiodarone HCl (Cordarone) 100 mg PO BID [facility] Stop: 10/12/17 16:59 Last Admin: 08/14/17 08:45 Dose: 100 mg Famotidine (Pepcid) 20 mg PO DAILY [facility] Stop: 10/13/17 08:59 Last Admin: 08/14/17 08:45 Dose: 20 mg Furosemide (Lasix) 40 mg PO DAILY [facility] Stop: 10/12/17 15:59 Last Admin: 08/14/17 08:44 Dose: 40 mg Heparin Sodium (Porcine) (Heparin Sodium) 0 units HD UD [facility] Stop: 10/12/17 15:59 Last Admin: 08/13/17 17:44 Dose: Not Given Heparin Sodium (Porcine) (Heparin) 5,000 units HD DAILY PRN PRN Reason: DIALYSIS PORTS Stop: 10/12/17 15:59 Albumin Human (Albutein 25%) 12.5 gm in 50 mls @ 50 mls/hr IV PRN PRN PRN Reason: BP Support During HD Stop: 08/15/17 00:00 Insulin Aspart (Novolog Insulin Sliding Scale) 0 units SUBQ ACHS [facility] PRN Reason: Protocol Stop: 10/12/17 12:48 Last Admin: 08/14/17 06:47 Dose: Not Given Losartan Potassium (Cozaar) 50 mg PO DAILY [facility] Stop: 10/13/17 08:59 Last Admin: 08/14/17 08:45 Dose: 50 mg Miscellaneous (Basaglar) 15 unit SUBQ DAILY [facility] Stop: 10/13/17 08:59 Nifedipine (Procardia) 10 mg PO DAILY [facility] Stop: 10/13/17 08:59 Last Admin: 08/14/17 08:45 Dose: 10 mg General: Alert, Oriented x3, No acute distress HEENT: Atraumatic, PERRLA, Mucous membr. moist/pink Neck: Supple, +2 carotid pulse wo bruit Cardiovascular: Regular rate, Normal S1, Normal S2 Lungs: Other (decreased BS) Abdomen: Bowel sounds, Soft Extremities: no Edema Neurological: Sensation intact Skin: no Rash Psych/Mental Status: Mood NL - Procedures Procedures: Procedures Procedure Code Date ASSISTANCE WITH RESPIRATORY VENTILATION, 24-96 HRS, CPAP [id number] 07/29/17 INSERT TUNNELED CV CATH [id number] 07/29/17 INSERTION OF INFUSION DEV INTO SUP VENA CAVA, PERC APPROACH [id number] 07/29/17 PERFORMANCE OF URINARY FILTRATION, <6 HRS/DAY [id number] 07/29/17 POS AIRWAY PRESSURE CPAP [id number] 07/29/17 REMOVAL OF INFUSION DEV FROM GREAT VESSEL, RESEARCH AND EVALUATION MANAGER APPROACH [id number] 07/29/17 TETANUS TOXOID ADMINIST 99.38 05/28/13 ULTRASONOGRAPHY OF SUPERIOR VENA CAVA, GUIDANCE [id number] 07/29/17 Assessment/Plan - Problem List Patient Problems: All Active Problems Laceration of finger (Active) S61.219A - Assessment Assessment: Acute Resp Failure 2nd to fluid overload Ess hTN W/ CKD Type 2 DM w/ CKD CAD Dyslipidemia Hx of CHF - Plan Plan: Lab - Result Diagrams 08/14/17 06:10 08/14/17 06:10 Current Medications Amiodarone HCl (Cordarone) 100 mg PO BID [facility] Stop: 10/12/17 16:59 Last Admin: 08/14/17 08:45 Dose: 100 mg Famotidine (Pepcid) 20 mg PO DAILY [facility] Stop: 10/13/17 08:59 Last Admin: 08/14/17 08:45 Dose: 20 mg Furosemide (Lasix) 40 mg PO DAILY [facility] Stop: 10/12/17 15:59 Last Admin: 08/14/17 08:44 Dose: 40 mg Heparin Sodium (Porcine) (Heparin Sodium) 0 units HD UD [facility] Stop: 10/12/17 15:59 Last Admin: 08/13/17 17:44 Dose: Not Given Heparin Sodium (Porcine) (Heparin) 5,000 units HD DAILY PRN PRN Reason: DIALYSIS PORTS Stop: 10/12/17 15:59 Albumin Human (Albutein 25%) 12.5 gm in 50 mls @ 50 mls/hr IV PRN PRN PRN Reason: BP Support During HD Stop: 08/15/17 00:00 Insulin Aspart (Novolog Insulin Sliding Scale) 0 units SUBQ ACHS [facility] PRN Reason: Protocol Stop: 10/12/17 12:48 Last Admin: 08/14/17 06:47 Dose: Not Given Losartan Potassium (Cozaar) 50 mg PO DAILY [facility] Stop: 10/13/17 08:59 Last Admin: 08/14/17 08:45 Dose: 50 mg Miscellaneous (Basaglar) 15 unit SUBQ DAILY [facility] Stop: 10/13/17 08:59 Nifedipine (Procardia) 10 mg PO DAILY [facility] Stop: 10/13/17 08:59 Last Admin: 08/14/17 08:45 Dose: 10 mg Lab - Result Diagrams 08/14/17 06:10 08/14/17 06:10 pt. better after dialysis yesterday CXR still showed CHF but clinically improved schedule for HD in am
[2017-08-14] MEDS: Heparin Sod 1,000 Units/mL 10ml HD SCH (16:24)
[2017-08-15] MEDS: INSULIN ASPART SLIDING SCALE 100 UNITS/ML UNIT SUBQ SCH ×3 (06:38→17:25)
[2017-08-15 06:50] LABS: HEMATOCRIT 26.5 % (41.0-60); HEMOGLOBIN 8.7 gm/dL (12-16); MEAN CELL VOLUME 96.2 fl (81-100); MEAN CORPUSCULAR HEMOGLOBIN 31.5 pg (27.0-31.0); MEAN CORPUSCULAR HGB CONC 32.7 pg (28.0-36.0); PLATELET COUNT 367 Th/cmm (150-400); RED BLOOD COUNT 2.75 Mil/cmm (3.80-5.20); RED CELL DISTRIBUTION WIDTH 16.5 % (11.5-20.0); WHITE BLOOD COUNT 6.1 Th/cmm (4.8-10.8)
[2017-08-15 07:02] LABS: ALBUMIN 2.9 gm/dL (3.7-5.3); ALKALINE PHOSPHATASE 72 U/L (34-104); ANION GAP 11.1 (7.0-16.0); BILIRUBIN,TOTAL 0.4 mg/dL (0.3-1.0); BUN - UREA NITROGEN 40 mg/dL (7-25); CALCIUM SERUM 7.9 mg/dL (8.6-10.3); CARBON DIOXIDE 26.4 mEq/L (21.0-31.0); CHLORIDE 100 mEq/L (98-107); GLUCOSE 97 mg/dL (70-105); POTASSIUM SERUM 4.5 mEq/L (3.5-5.1); SGOT 11 U/L (13-39); SGPT/ALT 6 U/L (7-52); SODIUM SERUM 133 mEq/L (136-145); TOTAL PROTEIN,SERUM 5.8 gm/dL (6.0-8.3)
[2017-08-15 07:04] LABS: MANUAL DIFF REQUIRED? YES
[2017-08-15 08:45] LABS: BAND NEUTROPHILE 1 % (0-10); BASOPHIL 1 % (0-3); EOSINOPHIL 4 % (0-5); LYMPHOCYTE 16 % (20-50); MONOCYTE 4 % (2-10); NEUTROPHILS 74 % (40-80); TOTAL CELLS COUNTED 100
[2017-08-15 08:47] LABS: PLATELET ESTIMATE INCREASED PLATELETS (NORMAL)
--- NOTE | 2017-08-15 08:53 | Discharge Summary ---
General Discharge Summary - Discharge Summary Date of Admission: 08/13/17 Admitting Diagnosis: CHF exacerbation, ESRD on HD, DM, HTN, Pulmonary hypertension, Stable angin Patient Problems: All Active Problems Laceration of finger (Active) S61.219A Discharge Date: 08/15/17 Discharge Diagnosis: CHF exacerbation, ESRD on HD, DM, HTN, Pulmonary Hypertension, Stable angina, Tricuspide regurgitation Laboratory Findings: Laboratory Tests 08/13/17 08/13/17 08/13/17 16:05 16:26 21:55 WBC RBC Hgb Hct MCV MCH MCHC Differential RDW Plt Count MPV Neutrophils % Band Neutrophils % Lymphocytes % Monocytes % Eosinophils % Basophils % Neutrophils (Manual) Lymphocytes Monocytes Eosinophils Basophils Platelet Estimate Smear Path Review Sodium Potassium Chloride Carbon Dioxide Anion Gap BUN Creatinine Est GFR ( Amer) Est GFR (Non-Af Amer) BUN/Creatinine Ratio Glucose POC Glucose 148 H 192 H Calcium Total Bilirubin AST ALT Alkaline Phosphatase Troponin I 0.24 H* Total Protein Albumin Globulin Albumin/Globulin Ratio TSH 08/14/17 08/14/17 08/14/17 06:10 06:10 06:10 WBC 5.4 D RBC 2.82 L Hgb 9.0 L Hct 26.9 L D MCV 95.4 MCH 31.9 H MCHC Differential 33.4 RDW 17.4 Plt Count 370 MPV 7.3 Neutrophils % 64.5 Band Neutrophils % Lymphocytes % 18.7 L Monocytes % 12.6 H Eosinophils % 4.1 Basophils % 0.1 Neutrophils (Manual) Lymphocytes Monocytes Eosinophils Basophils Platelet Estimate Smear Path Review SEE BELOW Sodium 134 L Potassium 4.5 Chloride 100 Carbon Dioxide 27.6 Anion Gap 10.9 BUN 25 Creatinine 3.1 H Est GFR ( Amer) TNP Est GFR (Non-Af Amer) TNP BUN/Creatinine Ratio 8.1 Glucose 90 POC Glucose Calcium 8.1 L Total Bilirubin AST ALT Alkaline Phosphatase Troponin I Total Protein Albumin Globulin Albumin/Globulin Ratio TSH 3.38 08/14/17 08/14/17 08/14/17 06:45 11:46 16:25 WBC RBC Hgb Hct MCV MCH MCHC Differential RDW Plt Count MPV Neutrophils % Band Neutrophils % Lymphocytes % Monocytes % Eosinophils % Basophils % Neutrophils (Manual) Lymphocytes Monocytes Eosinophils Basophils Platelet Estimate Smear Path Review Sodium Potassium Chloride Carbon Dioxide Anion Gap BUN Creatinine Est GFR ( Amer) Est GFR (Non-Af Amer) BUN/Creatinine Ratio Glucose POC Glucose 91 136 H 157 H Calcium Total Bilirubin AST ALT Alkaline Phosphatase Troponin I Total Protein Albumin Globulin Albumin/Globulin Ratio TSH 08/14/17 08/15/17 08/15/17 21:46 06:35 06:35 WBC 6.1 RBC 2.75 L Hgb 8.7 L Hct 26.5 L MCV 96.2 MCH 31.5 H MCHC Differential 32.7 RDW 16.5 Plt Count 367 MPV 7.0 Neutrophils % Band Neutrophils % 1 Lymphocytes % Monocytes % Eosinophils % Basophils % Neutrophils (Manual) 74 Lymphocytes 16 L Monocytes 4 Eosinophils 4 Basophils 1 Platelet Estimate INCREASED PLATELETS Smear Path Review Sodium 133 L Potassium 4.5 Chloride 100 Carbon Dioxide 26.4 Anion Gap 11.1 BUN 40 H Creatinine Est GFR ( Amer) TNP Est GFR (Non-Af Amer) TNP BUN/Creatinine Ratio 9.1 Glucose 97 POC Glucose 150 H Calcium 7.9 L Total Bilirubin 0.4 AST 11 L ALT 6 L Alkaline Phosphatase 72 Troponin I Total Protein 5.8 L Albumin 2.9 L Globulin 2.9 Albumin/Globulin Ratio 1.0 TSH 08/15/17 06:37 WBC RBC Hgb Hct MCV MCH MCHC Differential RDW Plt Count MPV Neutrophils % Band Neutrophils % Lymphocytes % Monocytes % Eosinophils % Basophils % Neutrophils (Manual) Lymphocytes Monocytes Eosinophils Basophils Platelet Estimate Smear Path Review Sodium Potassium Chloride Carbon Dioxide Anion Gap BUN Creatinine Est GFR ( Amer) Est GFR (Non-Af Amer) BUN/Creatinine Ratio Glucose POC Glucose 96 Calcium Total Bilirubin AST ALT Alkaline Phosphatase Troponin I Total Protein Albumin Globulin Albumin/Globulin Ratio [facility] Hospital Course: Patient was hospitalized, started in IV NS Lasix, HD, continue with home meds. Consults with Cardio and Nephro were done and recommendations were follow. Treatment: HD, Lasix, breathing treatment and continue with home meds. Disposition: PT DISCHARGED HOME Home Medications: Home Medication Medication Instructions Recorded Type Amiodarone HCl [Amiodarone HCl*] 100 mg PO BID 08/13/17 History Basaglar 15 unit SUBQ DAILY 08/13/17 History Famotidine 20 mg PO DAILY 08/13/17 History Furosemide [Lasix] 40 mg PO DAILY 08/13/17 History Losartan Potassium [Cozaar] 50 mg PO DAILY 08/13/17 History NIFEdipine [Procardia] 10 mg PO DAILY 08/13/17 History Inpatient Medications: Current Medications Amiodarone HCl (Cordarone) 100 mg PO BID [facility] Stop: 10/12/17 16:59 Last Admin: 08/14/17 16:24 Dose: Not Given Epoetin Dustin (Epogen) 10,000 units SUBQ TuThSa [facility] Stop: 10/14/17 14:59 Famotidine (Pepcid) 20 mg PO DAILY [facility] Stop: 10/13/17 08:59 Last Admin: 08/14/17 08:45 Dose: 20 mg Furosemide (Lasix) 40 mg PO DAILY [facility] Stop: 10/12/17 15:59 Last Admin: 08/14/17 08:44 Dose: 40 mg Heparin Sodium (Porcine) (Heparin Sodium) 0 units HD UD [facility] Stop: 10/12/17 15:59 Last Admin: 08/14/17 16:24 Dose: Not Given Heparin Sodium (Porcine) (Heparin) 5,000 units HD DAILY PRN PRN Reason: DIALYSIS PORTS Stop: 10/12/17 15:59 Insulin Aspart (Novolog Insulin Sliding Scale) 0 units SUBQ ACHS [facility] PRN Reason: Protocol Stop: 10/12/17 12:48 Last Admin: 08/15/17 06:38 Dose: Not Given Losartan Potassium (Cozaar) 50 mg PO DAILY [facility] Stop: 10/13/17 08:59 Last Admin: 08/14/17 08:45 Dose: 50 mg Miscellaneous (Basaglar) 15 unit SUBQ DAILY [facility] Stop: 10/13/17 08:59 Nifedipine (Procardia) 10 mg PO DAILY [facility] Stop: 10/13/17 08:59 Last Admin: 08/14/17 08:45 Dose: 10 mg Activity: As Tolerated Discharge Diet: 2 Gram Sodium Consults and Follow-Up: not on staff,PCP is [Primary Care Provider] - Consulting Speciality: Cardiac, Renal Instructions: Fingertip Laceration, End-Stage Kidney Disease
[2017-08-15] MEDS: Heparin Sod 1,000 Units/mL 10ml HD SCH (09:40)
[2017-08-15] MEDS ORDERED: Heparin Sodium 1,000 Units/mL Vial HD ONE (14:18)
--- NOTE | 2017-08-15 14:59 | General Progress Note ---
Subjective - Review of Systems Service Date: 08/15/17 Subjective: alert, less sob, better Objective - Results Result Diagrams: 08/15/17 06:35 08/15/17 06:35 Recent Labs: Laboratory Last Values WBC 6.1 Th/cmm (4.8-10.8) 08/15/17 06:35 RBC 2.75 Mil/cmm (3.80-5.20) L 08/15/17 06:35 Hgb 8.7 gm/dL (12-16) L 08/15/17 06:35 Hct 26.5 % (41.0-60) L 08/15/17 06:35 MCV 96.2 fl (81-100) 08/15/17 06:35 MCH 31.5 pg (27.0-31.0) H 08/15/17 06:35 MCHC Differential 32.7 pg (28.0-36.0) 08/15/17 06:35 RDW 16.5 % (11.5-20.0) 08/15/17 06:35 Plt Count 367 Th/cmm (150-400) 08/15/17 06:35 MPV 7.0 fl 08/15/17 06:35 Neutrophils % 64.5 % (40.0-80.0) 08/14/17 06:10 Band Neutrophils % 1 % (0-10) 08/15/17 06:35 Lymphocytes % 18.7 % (20.0-50.0) L 08/14/17 06:10 Monocytes % 12.6 % (2.0-10.0) H 08/14/17 06:10 Eosinophils % 4.1 % (0.0-5.0) 08/14/17 06:10 Basophils % 0.1 % (0.0-2.0) 08/14/17 06:10 Neutrophils (Manual) 74 % (40-80) 08/15/17 06:35 Lymphocytes 16 % (20-50) L 08/15/17 06:35 Monocytes 4 % (2-10) 08/15/17 06:35 Eosinophils 4 % (0-5) 08/15/17 06:35 Basophils 1 % (0-3) 08/15/17 06:35 Platelet Estimate INCREASED PLATELETS (NORMAL) 08/15/17 06:35 Smear Path Review SEE BELOW 01/03/18 06:10 PT 10.5 SECONDS (9.5-11.5) 08/13/17 08:55 INR 1.01 (0.5-1.4) 08/13/17 08:55 PTT (Actin FS) 24.7 SECONDS (26.0-38.0) L 08/13/17 08:55 D-Dimer 3020 ng/mL (100-400) H 08/13/17 08:55 Sodium 133 mEq/L (136-145) L 08/15/17 06:35 Potassium 4.5 mEq/L (3.5-5.1) 08/15/17 06:35 Chloride 100 mEq/L (98-107) 08/15/17 06:35 Carbon Dioxide 26.4 mEq/L (21.0-31.0) 08/15/17 06:35 Anion Gap 11.1 (7.0-16.0) 08/15/17 06:35 BUN 40 mg/dL (7-25) H 08/15/17 06:35 Creatinine mg/dL (0.6-1.2) 08/15/17 06:35 Est GFR ( Amer) TNP 08/15/17 06:35 Est GFR (Non-Af Amer) TNP 08/15/17 06:35 BUN/Creatinine Ratio 9.1 08/15/17 06:35 Glucose 97 mg/dL (70-105) 08/15/17 06:35 POC Glucose 107 MG/DL (70 - 105) H 08/15/17 12:41 Whole Bld Lactic Acid 0.90 mmol/L (0.60-1.99) 08/13/17 08:55 Calcium 7.9 mg/dL (8.6-10.3) L 08/15/17 06:35 Total Bilirubin 0.4 mg/dL (0.3-1.0) 08/15/17 06:35 AST 11 U/L (13-39) L 08/15/17 06:35 ALT 6 U/L (7-52) L 08/15/17 06:35 Alkaline Phosphatase 72 U/L (34-104) 08/15/17 06:35 Creatine Kinase 44 U/L (30-223) 08/13/17 08:55 Troponin I 0.24 ng/mL (0.01-0.05) H* 08/13/17 16:05 B-Natriuretic Peptide 2580.0 pg/mL (5.0-100.0) H 08/13/17 08:55 Total Protein 5.8 gm/dL (6.0-8.3) L 08/15/17 06:35 Albumin 2.9 gm/dL (3.7-5.3) L 08/15/17 06:35 Globulin 2.9 gm/dL 08/15/17 06:35 Albumin/Globulin Ratio 1.0 (1.0-1.8) 08/15/17 06:35 Triglycerides 108 mg/dL (<150) 08/13/17 08:55 Cholesterol 218 mg/dL (<200) H 08/13/17 08:55 LDL Cholesterol Direct 107 mg/dL (75-193) 08/13/17 08:55 HDL Cholesterol 89 mg/dL (23-92) 08/13/17 08:55 TSH 3.38 uIU/ml (0.34-5.60) 08/14/17 06:10 Urine Source MIDSTREAM 08/13/17 10:10 Urine Color YELLOW 08/13/17 10:10 Urine Clarity CLEAR (CLEAR) 08/13/17 10:10 Urine pH 6.0 (4.6 - 8.0) 08/13/17 10:10 Ur Specific [place] 1.025 (1.005-1.030) 08/13/17 10:10 Urine Protein NEGATIVE mg/dL (NEGATIVE) 08/13/17 10:10 Urine Glucose (UA) NEGATIVE mg/dL (NEGATIVE) 08/13/17 10:10 Urine Ketones 15 mg/dL (NEGATIVE) H 08/13/17 10:10 Urine Blood NEGATIVE (NEGATIVE) 08/13/17 10:10 Urine Nitrate NEGATIVE (NEGATIVE) 08/13/17 10:10 Urine Bilirubin NEGATIVE (NEGATIVE) 08/13/17 10:10 Urine Urobilinogen 0.2 E.U./dL (0.2 - 1.0) 08/13/17 10:10 Ur Leukocyte Esterase NEGATIVE (NEGATIVE) 08/13/17 10:10 Urine RBC 0-2 /hpf (0-5) 08/13/17 10:10 Urine WBC 2-5 /hpf (0-5) 08/13/17 10:10 Ur Epithelial Cells MODERATE /lpf (FEW) 08/13/17 10:10 Urine Bacteria FEW /hpf (NONE SEEN) 08/13/17 10:10 Urine Mucus MODERATE /lpf (FEW) 08/13/17 10:10 - Physical Exam Vitals and I&O: Vital Signs Temp 97.3 F 08/15/17 08:00 Pulse 62 08/15/17 10:00 Resp 16 08/15/17 08:00 BP 170/64 08/15/17 10:00 Pulse Ox 100 08/15/17 08:00 Intake & Output 08/14/17 08/15/17 08/15/17 18:59 06:59 18:59 Intake Total 500 250 60 Balance 500 250 60 Weight (lbs) 67.585 kg 67.585 kg 67.585 kg Intake: Oral 500 250 60 Other: # Voids 2 2 # Bowel Movements 0 0 Active Medications: Current Medications Amiodarone HCl (Cordarone) 100 mg PO BID [facility] Stop: 10/12/17 16:59 Last Admin: 08/15/17 09:14 Dose: 100 mg Epoetin Dustin (Epogen) 10,000 units SUBQ TuThSa [facility] Stop: 10/14/17 14:59 Famotidine (Pepcid) 20 mg PO DAILY [facility] Stop: 10/13/17 08:59 Last Admin: 08/15/17 09:18 Dose: 20 mg Furosemide (Lasix) 40 mg PO DAILY [facility] Stop: 10/12/17 15:59 Last Admin: 08/15/17 09:13 Dose: 40 mg Heparin Sodium (Porcine) (Heparin Sodium) 0 units HD UD [facility] Stop: 10/12/17 15:59 Last Admin: 08/15/17 09:40 Dose: Not Given Heparin Sodium (Porcine) (Heparin) 5,000 units HD DAILY PRN PRN Reason: DIALYSIS PORTS Stop: 10/12/17 15:59 Heparin Sodium (Porcine) (Heparin) 10,000 units HD ONCE ONE Stop: 08/15/17 14:19 Insulin Aspart (Novolog Insulin Sliding Scale) 0 units SUBQ ACHS [facility] PRN Reason: Protocol Stop: 10/12/17 12:48 Last Admin: 08/15/17 13:07 Dose: Not Given Losartan Potassium (Cozaar) 50 mg PO DAILY [facility] Stop: 10/13/17 08:59 Last Admin: 08/15/17 10:00 Dose: 50 mg Miscellaneous (Basaglar) 15 unit SUBQ DAILY [facility] Stop: 10/13/17 08:59 Nifedipine (Procardia) 10 mg PO DAILY [facility] Stop: 10/13/17 08:59 Last Admin: 08/15/17 09:16 Dose: 10 mg General: Alert, Oriented x3, No acute distress HEENT: Atraumatic, PERRLA, Mucous membr. moist/pink Neck: Supple, +2 carotid pulse wo bruit Cardiovascular: Regular rate, Normal S1, Normal S2 Lungs: Other (decreased BS) Abdomen: Bowel sounds, Soft Extremities: no Edema Neurological: Sensation intact Skin: no Rash Psych/Mental Status: Mood NL - Procedures Procedures: Procedures Procedure Code Date ASSISTANCE WITH RESPIRATORY VENTILATION, 24-96 HRS, CPAP [id number] 07/29/17 INSERT TUNNELED CV CATH [id number] 07/29/17 INSERTION OF INFUSION DEV INTO SUP VENA CAVA, PERC APPROACH [id number] 07/29/17 PERFORMANCE OF URINARY FILTRATION, <6 HRS/DAY [id number] 07/29/17 POS AIRWAY PRESSURE CPAP [id number] 07/29/17 REMOVAL OF INFUSION DEV FROM GREAT VESSEL, PANELBOARD ASSEMBLER APPROACH [id number] 07/29/17 TETANUS TOXOID ADMINIST 99.38 05/28/13 ULTRASONOGRAPHY OF SUPERIOR VENA CAVA, GUIDANCE [id number] 07/29/17 Assessment/Plan - Problem List Patient Problems: All Active Problems Laceration of finger (Active) S61.219A - Assessment Assessment: Acute Resp Failure 2nd to fluid overload Ess hTN W/ CKD Type 2 DM w/ CKD CAD Dyslipidemia Hx of CHF - Plan Plan: Lab - Result Diagrams 08/14/17 06:10 08/14/17 06:10 Current Medications Amiodarone HCl (Cordarone) 100 mg PO BID [facility] Stop: 10/12/17 16:59 Last Admin: 08/14/17 08:45 Dose: 100 mg Famotidine (Pepcid) 20 mg PO DAILY [facility] Stop: 10/13/17 08:59 Last Admin: 08/14/17 08:45 Dose: 20 mg Furosemide (Lasix) 40 mg PO DAILY WIL Stop: 10/12/17 15:59 Last Admin: 08/14/17 08:44 Dose: 40 mg Heparin Sodium (Porcine) (Heparin Sodium) 0 units HD UD WIL Stop: 10/12/17 15:59 Last Admin: 08/13/17 17:44 Dose: Not Given Heparin Sodium (Porcine) (Heparin) 5,000 units HD DAILY PRN PRN Reason: DIALYSIS PORTS Stop: 10/12/17 15:59 Albumin Human (Albutein 25%) 12.5 gm in 50 mls @ 50 mls/hr IV PRN PRN PRN Reason: BP Support During HD Stop: 08/15/17 00:00 Insulin Aspart (Novolog Insulin Sliding Scale) 0 units SUBQ ACHS WIL PRN Reason: Protocol Stop: 10/12/17 12:48 Last Admin: 08/14/17 06:47 Dose: Not Given Losartan Potassium (Cozaar) 50 mg PO DAILY WIL Stop: 10/13/17 08:59 Last Admin: 08/14/17 08:45 Dose: 50 mg Miscellaneous (Basaglar) 15 unit SUBQ DAILY WIL Stop: 10/13/17 08:59 Nifedipine (Procardia) 10 mg PO DAILY WIL Stop: 10/13/17 08:59 Last Admin: 08/14/17 08:45 Dose: 10 mg Lab - Result Diagrams 08/14/17 06:10 08/14/17 06:10 currently being dialyzed CXR still showed CHF but clinically improved possible dc post dialysis
[2017-08-15] MEDS ORDERED: Epoetin Alfa 20000 Units/mL Vial SUBQ SCH (15:00)
== END 2017-08-15 19:00 | disposition home or self-care (01) | DRG 720 ==
LOC: ER 08:21 → TELE 10:42
PROVIDERS: ADMIT General Practice; ATTEND General Practice
PROC: 5A1D70Z Performance of Urinary Filtration, Intermittent, Less than 6 Hours Per Day (ICD-10-PCS; principal; 2017-08-13)
PROC: 5A1D70Z Performance of Urinary Filtration, Intermittent, Less than 6 Hours Per Day (ICD-10-PCS; 2017-08-15)
DX: A41.9 Sepsis, unspecified organism (principal); J96.00 Acute respiratory failure, unspecified whether with hypoxia or hypercapnia; I13.2 Hypertensive heart and chronic kidney disease with heart failure and with stage 5 chronic kidney disease, or end stage renal disease; J18.9 Pneumonia, unspecified organism; N18.6 End stage renal disease; E11.22 Type 2 diabetes mellitus with diabetic chronic kidney disease; I07.1 Rheumatic tricuspid insufficiency; I27.20 Pulmonary hypertension, unspecified; E87.1 Hypo-osmolality and hyponatremia; Z99.2 Dependence on renal dialysis; E78.5 Hyperlipidemia, unspecified; D50.9 Iron deficiency anemia, unspecified; I50.33 Acute on chronic diastolic (congestive) heart failure; I25.119 Atherosclerotic heart disease of native coronary artery with unspecified angina pectoris; Z90.5 Acquired absence of kidney
CPT/HCPCS: 36415-UA; 71045-TC; 80048-TC; 80053-TC; 80061-TC; 81001-TC; 82550-TC; 82948-90; 83605; 83880-TC; 84443-TC; 84484-TC; 85007-TC; 85025-TC; 85027-TC; 85379-TC; 85610-TC; 85730-TC; 90937; 93005; 94760; 96375; J0885; J1644; J1815; J1956; J2270; J2405; J7030; Z7610

== ENCOUNTER 2017-08-23 13:56 | Inpatient (IN) | payer MEDICAID ==
--- NOTE | 2017-08-23 15:08 | ED Physician Chart ---
ED Chief Complaint/HPI - Patient Information Date Seen:: 08/23/17 Time Seen:: 15:07 Chief Complaint:: Rhys catheter partial occlusion History of Present Illness:: 77 yo female had acute renal failure with a rhys catheter placed at [facility] on 07/31/17. During her dialysis a day ago, the blood flow was slow despite heparin flush. As a result, the dialysis center ([facility] [phone]) sent the patient to ER to have the rhys catheter replaced. The patient's vital signs were stable without distress. Allergies:: Allergies Allergy/AdvReac Type Severity Reaction Status Date / Time No Known Allergies Allergy Verified 07/28/17 21:39 Vitals:: Vital Signs - 8 hr 08/23/17 14:04 Temp 97.9 F HR 74 RR 16 BP 132/71 O2 Sat % 98 ED Review of Systems - Review of Systems General/Constitutional: No fever Skin: No bruising Head: No headache Eyes: No pain ENT: No nasal drainage Neck: No neck pain Cardio Vascular: No chest pain Pulmonary: No SOB GI: No nausea, No vomiting Musculoskeletal: No bone or joint pain ED Past Medical History - Past Medical History Past Medical History: HTN, DM, ESRD Social History: Non Smoker, No Alcohol, No Drug Use Surgical History: other (left nephrectomy) Family Medical History - Family Member Mother History Unknown: Yes Ethnicity: Living Status: ED Physical Exam - Physical Examination General/Constitutional: Awake, Alert Head: Atraumatic Eyes: PERRL, EOMI ENMT: Nasal exam nl Neck: No nuchal rigidity Other Neck comments:: Left subclavian rhys catheter intact Cardio Vascular: RRR, No murmur, gallop, rubs, NL S1 S2 GI: No tenderness/rebounding/guarding Extremities: normal strength in all extremities Neuro/Psych: No focal deficits ED Assessment - Assessment General Assessment: nonfunctioning left subclavian rhys catheter Assessment/Comments:: Admit for replacement of the rhys catheter ED Septic Shock - . Is Septic Shock (SBP<90, OR Lactate>4 mmol\L) present?: No - <6hrs of presentation: Vital Signs: Vital Signs - 8 hr 08/23/17 14:04 Temp 97.9 F HR 74 RR 16 BP 132/71 O2 Sat % 98 ED Reassessment (Disposition) - Reassessment Reassessment Condition:: Unchanged - Patient Disposition Discharge/Transfer:: Acute Care w/in this hosp Admitting Medical Physician:: Josesito Grant
[2017-08-23] MEDS: INSULIN ASPART SLIDING SCALE 100 UNITS/ML UNIT SUBQ SCH (18:10)
[2017-08-23] MEDS: Promethazine DM 6.25/15mg-5mL 5 ML SYR PO PRN (23:23)
[2017-08-24] MEDS: INSULIN ASPART SLIDING SCALE 100 UNITS/ML UNIT SUBQ SCH ×3 (00:44→13:47)
[2017-08-24] MEDS: Promethazine DM 6.25/15mg-5mL 5 ML SYR PO PRN (08:44)
--- NOTE | 2017-08-24 11:03 | Operative Report ---
DATE OF SURGERY: 08/24/2017 PREOPERATIVE DIAGNOSES: 1. Malfunctioning Juan catheter, left subclavian vein. 2. Acute renal failure. POSTOPERATIVE DIAGNOSES: 1. Malfunctioning Juan catheter, left subclavian vein. 2. Acute renal failure. OPERATION DONE: Removal of the catheter and insertion of new one. PROCEDURE: Informed consent was discussed with the patient. The external component, the catheter was prepped with Betadine and draped. A 1% lidocaine was used to infiltrate the area of the exit site and the guide was inserted into the old venous port following which this was removed. The new catheter 20 cm long double lumen was then inserted. This anchored to the chest wall with 2-0 nylon. Portable chest x-ray will be ordered. JOB# [id number]
--- NOTE | 2017-08-24 11:35 | History and Physical ---
History of Present Illness - HPI Chief Complaint: Rhys catheter malfunction HPI: Patient was send from [facility] due that rhys catheter was not functioning. Vital Signs: Last Vital Signs Temp 98.2 F 08/24/17 04:57 Pulse 52 08/24/17 08:41 Resp 16 08/24/17 08:00 BP 157/56 08/24/17 08:41 Pulse Ox 99 08/24/17 04:57 Past Medical History Cardiovascular: Report: CAD, CHF, HTN, Valve Insufficiency Pulmonary: Report: Other (Pulmonary hypertension) DAYTIME BABYSITTER: Report: No Pertinent Hx GI: Report: No Pertinent Hx Psych: Report: No Pertinent Hx Musculoskeletal: Report: No Pertinent Hx Rheumatologic: Report: No pertinent Hx Infectious Disease: Report: No Pertinent Hx Renal/: Report: Chronic Renal Insuff, Other (On HD) Endocrine: Report: Diabetes Dermatology: Report: No Pertinent Hx - Past Surgical History Past Surgical History: No pertinent Hx Family Medical History - Family Member Mother History Unknown: Yes Ethnicity: Living Status: Social History Smoke: No Alcohol: None Drugs: None Lives: With Family Domestic Violence: Negative - Medications Home Medications: Home Medication Medication Instructions Recorded Type Amiodarone HCl [Amiodarone HCl*] 100 mg PO BID 08/13/17 History Basaglar 15 unit SUBQ DAILY 08/13/17 History Famotidine 20 mg PO DAILY 08/13/17 History Furosemide [Lasix] 40 mg PO DAILY 08/13/17 History Losartan Potassium [Cozaar] 50 mg PO DAILY 08/13/17 History NIFEdipine [Procardia] 10 mg PO DAILY 08/13/17 History - Allergies Allergies/Adverse Reactions: Allergies Allergy/AdvReac Type Severity Reaction Status Date / Time No Known Allergies Allergy Verified 07/28/17 21:39 Review of Systems - Review of Systems Constitutional: Report: No Significant Eyes: Report: No Significant ENT: Report: No Significant Respiratory: Report: No Significant Cardiovascular: Report: No Significant Gastrointestinal: Report: No Significant Genitourinary: Report: No Significant Musculoskeletal: Report: No Significant Skin: Report: No Significant Neurological: Report: No Significant Physical Exam - Physical Exam HEENT: Report: Ears Nose Throat within normal limits Neck: Report: Within normal limits Cardiovascular Systems: Report: Regular, Rate and Rhythm Respiratory: Report: Breath Sounds are within normal limits Abdomen: Report: Non-tender to palpation Back: Report: Inspection of back is within normal limits. Extremities: Report: Non-tender to palpation. Skin: Report: Color of skin is within normal limits, Warm, Dry Neuro/Psych: Report: Mood affect is within normal limits - Assessment Assessment: Patient is awake alert, calm, in no acute distress. Dx: Rhys catheter malfunction, CHF, ESRD on DH, DM, HTNPulmonary hypertension, Stable angina, Tricuspide regurgitation. - Plan Plan: Rhys Catheter is changed. Patient is Discharge.
--- NOTE | 2017-08-25 08:04 | Discharge Summary ---
General Discharge Summary - Discharge Summary Patient Problems: All Active Problems Laceration of finger (Active) S61.219A Discharge Date: 08/24/17 Disposition: PT DISCHARGED HOME Home Medications: Home Medication Medication Instructions Recorded Type Amiodarone HCl [Amiodarone HCl*] 100 mg PO BID 08/13/17 History Basaglar 15 unit SUBQ DAILY 08/13/17 History Famotidine 20 mg PO DAILY 08/13/17 History Furosemide [Lasix] 40 mg PO DAILY 08/13/17 History Losartan Potassium [Cozaar] 50 mg PO DAILY 08/13/17 History NIFEdipine [Procardia] 10 mg PO DAILY 08/13/17 History Consults and Follow-Up: not on staff,PCP is [Primary Care Provider] - Instructions: Dialysis (AV) Shunt, Malfunction, Tunneled Catheter Insertion, Care After, Central Line Placement, Dialysis Access, Instructions, Central Lines , [id number], Arteriovenous (AV) Access for Hemodialysis, Hemodialysis, Easy- to-Read
--- NOTE | 2017-08-25 10:01 | Diagnostic Imaging Report ---
Portable chest x-ray HISTORY: Shortness of breath, vascular catheter placement. Compared to prior exam of August 14, 2017, a left-sided vascular catheter is been inserted. The tip is in the region of the superior vena cava. Decreased right pleural effusion. Persistent small left pleural effusion noted. The heart is enlarged. A faint linear density is noted in the left lower lobe probably related to scarring. IMPRESSION: 1. New vascular catheter placement as noted above. 2. Decreased bilateral pleural effusions
== END 2017-08-24 14:30 | disposition home or self-care (01) | DRG 466 ==
LOC: ER 13:56 → MSI 14:05
PROVIDERS: ADMIT General Practice; ATTEND General Practice
PROC: 02HV33Z Insertion of Infusion Device into Superior Vena Cava, Percutaneous Approach (ICD-10-PCS; principal; 2017-08-24)
PROC: 05PY33Z Removal of Infusion Device from Upper Vein, Percutaneous Approach (ICD-10-PCS; 2017-08-24)
DX: T82.41XA Breakdown (mechanical) of vascular dialysis catheter, initial encounter (principal); N18.6 End stage renal disease; N17.9 Acute kidney failure, unspecified; I13.2 Hypertensive heart and chronic kidney disease with heart failure and with stage 5 chronic kidney disease, or end stage renal disease; E11.22 Type 2 diabetes mellitus with diabetic chronic kidney disease; I27.20 Pulmonary hypertension, unspecified; I07.1 Rheumatic tricuspid insufficiency; I50.9 Heart failure, unspecified; Y83.8 Other surgical procedures as the cause of abnormal reaction of the patient, or of later complication, without mention of misadventure at the time of the procedure; I25.119 Atherosclerotic heart disease of native coronary artery with unspecified angina pectoris; Y92.89 Other specified places as the place of occurrence of the external cause; Z99.2 Dependence on renal dialysis; Z79.899 Other long term (current) drug therapy; Z90.5 Acquired absence of kidney
CPT/HCPCS: 71010-TC; 82948-90; J1644; J1815; Z7610

== ENCOUNTER 2018-09-26 17:37 | Inpatient (IN) | payer MEDICAID ==
[2018-09-26] MEDS ORDERED: cefTRIAXone 1 GM in Sodium Chloride 0.9% 50 ML IV ONE (18:04)
[2018-09-26 18:38] LABS: % BASOPHILS 1.7 % (0.0-2.0); % EOSINOPHILS 0.4 % (0.0-5.0); % LYMPHOCYTES 6.5 % (20.0-50.0); % MONOCYTES 7.9 % (2.0-10.0); % NEUTROPHILS 83.5 % (40.0-80.0); BASOPHILE ABSOLUTE 0.1 Th/cumm (0-0.2); HEMATOCRIT 38.3 % (41.0-60); HEMOGLOBIN 12.6 gm/dL (12-16); LYMPHOCYTE ABSOLUTE 0.5 Th/cmm (1.5-3.0); MEAN CELL VOLUME 95.7 fl (81-100); MEAN CORPUSCULAR HEMOGLOBIN 31.5 pg (27.0-31.0); MEAN CORPUSCULAR HGB CONC 32.9 pg (28.0-36.0); MEAN PLATELET VOLUME 8.4 fl; MONOCYTE ABSOLUTE 0.6 Th/cmm (0.3-1.0); NEUTROPHILE ABSOLUTE 6.1 Th/cmm (1.8-8.0); PLATELET COUNT 158 Th/cmm (150-400); RED CELL DISTRIBUTION WIDTH 15.3 % (11.5-20.0); WHITE BLOOD COUNT 7.3 Th/cmm (4.8-10.8)
[2018-09-26 18:47] LABS: ALB/GLOB RATIO 1.2 (1.0-1.8); ALKALINE PHOSPHATASE 128 U/L (34-104); ANION GAP 18.6 (7.0-16.0); BILIRUBIN,TOTAL 0.5 mg/dL (0.3-1.0); BUN - UREA NITROGEN 38 mg/dL (7-25); CALCIUM SERUM 8.9 mg/dL (8.6-10.3); CARBON DIOXIDE 25.9 mEq/L (21.0-31.0); CHLORIDE 95 mEq/L (98-107); GLUCOSE 167 mg/dL (70-105); MAGNESIUM 2.1 mg/dL (1.9-2.7); PHOSPHOROUS 3.5 mg/dL (2.5-5.0); POTASSIUM SERUM 4.5 mEq/L (3.5-5.1); SGOT 23 U/L (13-39); SGPT/ALT 21 U/L (7-52); SODIUM SERUM 135 mEq/L (136-145); TOTAL PROTEIN,SERUM 7.3 gm/dL (6.0-8.3)
[2018-09-26 19:03] LABS: CREATININE - SERUM 4.2 mg/dL (0.6-1.2)
--- NOTE | 2018-09-26 19:10 | ED Physician Chart ---
ED Chief Complaint/HPI - Patient Information Date Seen:: 09/26/18 Time Seen:: 18:02 Chief Complaint:: cough and congestion History of Present Illness:: PATIENT PRESENTS TO THE ER WITH HX OF COUGH AND CONGESTION WITH DYSPNEA FOR ONE WEEK; NO TRAUMA, NO OTHER REMARKABLE S/S Allergies:: Allergies Allergy/AdvReac Type Severity Reaction Status Date / Time No Known Allergies Allergy Verified 07/28/17 21:39 Vitals:: Vital Signs - 8 hr 09/26/18 18:02 Temp 99.3 F HR 77 RR 23 BP 165/55 O2 Sat % 87 Historian:: Family Member Review:: Nurse's Note Reviewed ED Review of Systems - Review of Systems General/Constitutional: No fever, No chills, No weight loss, No weakness, No diaphoresis, No edema, No loss of appetite Skin: No skin lesions, No rash, No bruising Head: No headache, No light-headedness Eyes: No loss of vision, No pain, No diplopia ENT: No earache, No nasal drainage, No sore throat, No tinnitus Neck: No neck pain, No swelling, No thyromegaly, No stiffness, No mass noted Cardio Vascular: No chest pain, No palpitations, No PND, No orthopnea, No edema Pulmonary: SOB, Cough, Sputum, No wheezing GI: No nausea, No vomiting, No diarrhea, No pain, No melena, No hematochezia, No constipation, No hematemesis G/U: No dysuria, No frequency, No hematuria Musculoskeletal: No bone or joint pain, No back pain, No muscle pain Endocrine: No polyuria, No polydipsia Psychiatric: No prior psych history, No depression, No anxiety, No suicidal ideation Hematopoietic: No bruising, No lymphadenopathy Allergic/Immuno: No urticaria, No angioedema Neurological: No syncope, No focal symptoms, No weakness, No paresthesia, No headache, No seizure, No dizziness, No confusion, No vertigo ED Past Medical History - Past Medical History Obtainable: No Past Medical History: HTN, DM, Other (renal failure) Family Medical History - Family Member Mother History Unknown: Yes Ethnicity: Living Status: ED Physical Exam - Physical Examination General/Constitutional: Awake, GCS 15 Other Gen/Cons comments:: chronically ill appearing. with a cough Head: Atraumatic Eyes: Lids, conjuctiva normal, PERRL, EOMI Other Skin comments:: pale looking. warm to the touch. Juan catheter right chest. No erythema noted around the op site. LUE with great thrill ENMT: External ears, nose nl Neck: Nontender, No nuchal rigidity, No stridor Other Respiratory comments:: decreased breath sounds in the right lung base Cardio Vascular: RRR, No murmur, gallop, rubs, NL S1 S2 GI: No tenderness/rebounding/guarding, No organomegaly, No hernia, Normal BS's, Nondistended, No mass/bruits, No McBurney tenderness : No CVA tenderness Extremities: No tenderness or effusion, Full ROM, normal strength in all extremities, No edema, Normal digits & nails Other Extremities comments:: LUE with great thrill Neuro/Psych: Alert/oriented, No focal deficits Misc: Normal back, No paraspinal tenderness ED Labs/Radiology/EKG Results - Lab Results Results: Laboratory Tests 09/26/18 09/26/18 09/26/18 18:20 18:20 18:20 WBC 7.3 RBC 4.00 Hgb 12.6 Hct 38.3 L MCV 95.7 MCH 31.5 H MCHC Differential 32.9 RDW 15.3 Plt Count 158 MPV 8.4 Neutrophils % 83.5 H Lymphocytes % 6.5 L Monocytes % 7.9 Eosinophils % 0.4 Basophils % 1.7 Sodium 135 L Potassium 4.5 Chloride 95 L Carbon Dioxide 25.9 Anion Gap 18.6 H BUN 38 H Creatinine 4.2 H* Est GFR ( Amer) TNP Est GFR (Non-Af Amer) TNP BUN/Creatinine Ratio 9.0 Glucose 167 H Calcium 8.9 Phosphorus 3.5 Magnesium 2.1 Total Bilirubin 0.5 AST 23 ALT 21 Alkaline Phosphatase 128 H Troponin I B-Natriuretic Peptide 3600.0 H Total Protein 7.3 Albumin 4.0 Globulin 3.3 Albumin/Globulin Ratio 1.2 09/26/18 18:20 WBC RBC Hgb Hct MCV MCH MCHC Differential RDW Plt Count MPV Neutrophils % Lymphocytes % Monocytes % Eosinophils % Basophils % Sodium Potassium Chloride Carbon Dioxide Anion Gap BUN Creatinine Est GFR ( Amer) Est GFR (Non-Af Amer) BUN/Creatinine Ratio Glucose Calcium Phosphorus Magnesium Total Bilirubin AST ALT Alkaline Phosphatase Troponin I 0.21 H* D B-Natriuretic Peptide Total Protein Albumin Globulin Albumin/Globulin Ratio ED Assessment - Assessment General Assessment: EKG from 18:42:40 p.m. reveals normal sinus rhythm with LVH. NSSTT wave changes. CXR from my reading. Probable right middle lobe and possibly right lower lobe pneumonia. Bilateral small pleural effusions. sign out given to Dr. Beckman re need to transfer this patient per insurance company's request. ED Septic Shock - . Is Septic Shock (SBP<90, OR Lactate>4 mmol\L) present?: No - <6hrs of presentation: Vital Signs: Vital Signs - 8 hr 09/26/18 18:02 Temp 99.3 F HR 77 RR 23 BP 165/55 O2 Sat % 87 ED Reassessment (Disposition) - Reassessment Reassessment Condition:: Improved - Diagnosis Diagnosis:: Hypoxia Fever Pneumonia Dialysis dependent diabetic patient Chronic renal failure Elevated troponin. - Patient Disposition Discharge/Transfer:: Acute Care (other hosp) Condition at Disposition:: Stable, Improved
[2018-09-26 19:11] LABS: BASOPHIL 0 % (0-3); EOSINOPHIL 1 % (0-5); LYMPHOCYTE 7 % (20-50); MONOCYTE 7 % (2-10); NEUTROPHILS 84 % (40-80)
[2018-09-26 19:12] LABS: BAND NEUTROPHILE 1 % (0-10)
[2018-09-26] MEDS ORDERED: Piperacillin Sodium/Tazobact 2.25 gm Vial IV ONE (20:27)
[2018-09-26 20:49] LABS: INF A SCREEN NEG FOR INF A; INF B SCREEN NEG FOR INF B
[2018-09-27 01:04] VITALS: BP 179/76
[2018-09-27] MEDS: Azithromycin 500 MG in Sodium Chloride 0.9% 250 ML IV SCH (01:25)
[2018-09-27] MEDS: INSULIN LISPRO 100 UNIT/ML VIAL SUBQ SCH ×4 (06:31→20:44)
[2018-09-27] MEDS ORDERED: INSULIN 70/30 100 UNITS/ML SUBQ SCH (07:30)
[2018-09-27] MEDS: Albuterol/Ipratropium Neb 3 ML AERS HHN SCH ×4 (08:45→23:01)
[2018-09-27] MEDS ORDERED: Albuterol/Ipratropium Neb 3 ML AERS HHN PRN (08:51)
--- NOTE | 2018-09-27 09:23 | Diagnostic Imaging Report ---
Portable chest x-ray HISTORY: Shortness of breath The heart is enlarged. Atherosclerotic calcification seen in the aorta. Small bilateral pleural effusions. There does appear to be pulmonary vascular redistribution consistent with cardiac decompensation. Vascular catheter tip is in the region of the junction of the superior vena cava and right atrium. IMPRESSION: 1. Cardiomegaly with atherosclerotic vascular changes, small bilateral pleural effusions and findings consistent with a degree of congestive heart failure. Clinical correlation is needed.
[2018-09-27] MEDS ORDERED: Probiotic Screen MC PRN (09:32)
--- NOTE | 2018-09-27 16:18 | History & Physical ---
ADMIT DATE: 09/27/2018 CHIEF COMPLAINT: Worsening cough and congestion x 1 week. HISTORY OF PRESENT ILLNESS: The patient is a 78-year-old lady with a history of diabetes, hypertension and end-stage renal disease, on hemodialysis Tuesdays, , and Saturdays, who presented to the ER with the above-mentioned complaints. The patient states that her symptoms have gradually gotten worse with chronic and mostly nonproductive cough, shortness of breath especially with activity and fever, chills. She attempted to go to her primary care doctor, but her plan had assigned her a new PCP and was unable to see him. She has been on dialysis for about a year and she has had a longstanding history of hypertension and diabetes, now insulin-dependent. On further questioning, the patient denies any sick contacts, any chest pain, palpitations or lower extremity edema. Chest x-ray done at the ER shows cardiomegaly with atherosclerotic vascular changes, small bilateral pleural effusions and findings consistent with a degree of congestive heart failure. The patient has been admitted to telemetry floor for further management and care. PAST MEDICAL HISTORY: As noted above. Unknown arrhythmia. PAST SURGICAL HISTORY: She had a nephrectomy due to a kidney infection about 27 years ago, also status post cholecystectomy. FAMILY HISTORY: Positive for diabetes and one of her sisters also has end-stage renal disease, on hemodialysis. SOCIAL HISTORY: No tobacco, ETOH or illicit drug usage. ALLERGIES: NKDA. OUTPATIENT MEDICATIONS: Amiodarone 100 mg b.i.d., famotidine 20 mg every day, Lasix 20 mg every day, losartan 50 mg every day, nifedipine 10 mg daily. REVIEW OF SYSTEMS: CONSTITUTIONAL: Fever, chills for the last couple of days, generalized weakness and tiredness, but no weight loss reported. CARDIOVASCULAR: Denies any chest pain, palpitations. PULMONARY: Please refer to HPI. GASTROINTESTINAL: No bowel habit changes. GENITOURINARY: No bladder habit changes. NEUROLOGIC: Denies any syncopal episodes. No headaches or changes in vision. PHYSICAL EXAMINATION: VITAL SIGNS: Temperature 98.3, pulse 61, respirations 18, BP 159/50, satting 98% on 2 liters. GENERAL: She is a well-developed, well-nourished female, not in acute distress. She is awake, alert and oriented x 3, speaking in full sentences. HEAD AND NECK: Normocephalic, atraumatic. Pupils are reactive to light. Extraocular movements are intact. Oropharynx moist and clear. CARDIAC: Regular rate and rhythm without any murmurs. LUNGS: She has got coarse rhonchi and some crackles bilaterally. Currently, there is no audible wheezing. ABDOMEN: Soft, supple, nontender, nondistended, normoactive bowel sounds. EXTREMITIES: Lower extremity, there is no pedal edema. LABORATORY DATA: White count 7.3, H and H 12/38, platelet count of 158 with 84% neutrophils. Sodium 135, potassium 4.5, chloride 95, CO2 of 25, BUN 38, creatinine 4.2, glucose 167, alk phos 128, otherwise LFTs within normal limits. Troponin 0.21. BNP 3600. Albumin 4.0. Influenza A and B negative. DIAGNOSTICS: Please refer to the HPI. EKG sinus rhythm at a rate of 73, there is criteria for left ventricular hypertrophy. ASSESSMENT: 1. Bronchitis versus early pneumonia. 2. Likely volume overload with small bilateral pleural effusions and pulmonary vascular congestion. 3. History of end-stage renal disease, on hemodialysis. 4. Essential hypertension. 5. Arrhythmia. 6. Insulin-dependent diabetes. PLAN: The patient has been admitted to telemetry and has been placed on IV antibiotics, pulmonary supportive care. She will be kept on her other home meds as scheduled and followup x-ray will be done in the morning. The patient also has been pancultured and a Nephrology consult will be asked for hemodialysis management. JOB# [id number] HAKAN
[2018-09-27] MEDS: Insulin Glargine 100 units/ml 10ml Vial SUBQ SCH (20:47)
[2018-09-27] MEDS ORDERED: Heparin Sodium 1,000 Units/mL Vial ONE (21:05)
[2018-09-27] MEDS: Guaifenesin DM 10 ML UDC PO PRN (22:46)
[2018-09-27] MEDS: cefTRIAXone 1 GM in Sodium Chloride 0.9% 50 ML IV SCH (22:53)
[2018-09-28] MEDS ORDERED: Albumin 25% 25gm/100mL 25 GM/100 ML BTL IV PRN
[2018-09-28] MEDS ORDERED: Heparin Sod 1,000 Units/mL 10ml HD SCH
[2018-09-28] MEDS: Azithromycin 500 MG in Sodium Chloride 0.9% 250 ML IV SCH (00:06)
[2018-09-28] MEDS: Albuterol/Ipratropium Neb 3 ML AERS HHN SCH ×5 (02:19→21:21)
--- NOTE | 2018-09-28 03:39 | Consultation ---
DATE OF CONSULTATION: 09/27/2018 ATTENDING: Dr. Raghavendra Hays. PRIMER INSERTING MACHINE OPERATOR: Dr. Neftaly Worley. REASON FOR CONSULTATION: Electrolyte imbalance and fluid management. HISTORY OF PRESENT ILLNESS: This is a 78-year-old female with past medical history of end-stage renal disease on hemodialysis, who came in because of fever. Two days prior to admission, the patient was seen during my dialysis rounds. She complained at the time of cough with congestion. She denied any fever, rhinorrhea or sore throat at that time. I have prescribed her Zithromax. However, she had problems filling out her medications due to her insurance. A few hours prior to admission, she had a temperature of 101 at home. She continued to have cough and congestion, abdominal pain, nausea, but no vomiting as well as generalized weakness. This prompted her to go to the Emergency Room. Her white count turned out to be 7.3 with a T-max of 99.3 degrees. Chest x-ray showed mild cardiomegaly with right lower lobe infiltrates. PAST MEDICAL HISTORY: 1. End-stage renal disease on hemodialysis. 2. Type 2 diabetes mellitus. 3. Essential hypertension. 4. Gastritis. CURRENT MEDICATIONS: She is currently on acetaminophen, albuterol/ipratropium, azithromycin, Rocephin, famotidine, furosemide, glargine, losartan, nifedipine, probiotic, Restoril. ALLERGIES: No known drug allergies. SOCIAL HISTORY: Denied any history of alcohol or tobacco use. Resides in [place]. FAMILY HISTORY: Noncontributory to present illness. REVIEW OF SYSTEMS: GENERAL: She did complain of weakness, appetite is also deteriorated due to her illness, she had a fever of 101. HEENT: Denied any headaches, no dizziness. CARDIORESPIRATORY: She did have persistent cough with congestion, minimal shortness of breath. No chest pain or palpitations. No diaphoresis. GASTROINTESTINAL: She did complain of some abdominal discomfort and nausea yesterday. However, today she feels a little bit better, less nauseous. GENITOURINARY: History of kidney failure on hemodialysis. She rarely urinates if she does no dysuria or no hematuria. HEMATOLOGIC: Anemia of chronic disease. ENDOCRINE: History of diabetes, but no thyroid abnormalities, no dyslipidemia. MUSCULOSKELETAL: Multiple joint arthralgias. NEUROPSYCH: No syncopal episode nor seizure activity. No neuropathy. PHYSICAL EXAMINATION: GENERAL: The patient is alert, mild to moderate distress secondary to persistent cough and congestion. SKIN: Warm to touch, but no lesions. VITAL SIGNS: Temperature now is 98.3 degrees, pulse is 63, blood pressure is 159/50. SKIN: Good turgor, but very warm. No jaundice appreciated. HEENT: Head normocephalic, atraumatic. Eyes: Extraocular muscles intact. Pupils equal, round, reactive to light and accommodates. Anicteric sclerae. Pale conjunctivae. Nose, midline nasal septum. Mouth: Dry mucosa, adequate dentition. NECK: Supple, no adenopathy, no thyromegaly, no bruits. Trachea palpated in the midline. CHEST AND CARDIOVASCULAR: S1, S2. No rub, murmur, or gallop appreciated. Point of maximal impulse fifth intercostal space, left midclavicular line. No abdominal or femoral bruits appreciated. LUNGS: Equal expansion. No use of accessory muscles. No supraclavicular retractions. Decreased breath sounds, but scattered rhonchi without any rales nor wheezes appreciated. BREASTS: Pendulous, symmetrical, without any discharge. ABDOMEN: Obese, soft, positive for bowel sounds. No bruits either diastolic or systolic rec. RECTAL: Deferred. GENITOURINARY: Normal appearing female genitalia. MUSCULOSKELETAL: No effusions present in her joints with adequate range of motion. EXTREMITIES: No evidence of any edema, cyanosis, nor clubbing with palpable femoral, popliteal and dorsalis pedis pulses. NEUROLOGIC: The patient is alert, verbal, motor is 5/5. Cranial nerves 2-12 intact. Sensory intact. LABORATORY DATA: Labs did reveal white count 7.3, hemoglobin 12.6, hematocrit 38.3, platelets 158, polys 83.5. Sodium 135, potassium 4.5, chloride 95, bicarbonate 25, BUN 38, creatinine 4.2. Troponin is 0.21. Alkaline phosphatase 128. BNP is 3600, albumin is 4. Influenza A and B were negative. IMPRESSION: 1. Sepsis secondary to right-sided community-acquired pneumonia. 2. End-stage renal disease on hemodialysis. 3. Type 2 diabetes mellitus with chronic kidney disease. 4. Essential hypertension with chronic kidney disease. 5. Gastritis. 6. Elevated troponin, likely contribution from her kidney failure as well as from demand ischemia. 7. Elevated BNP, which again can also be a combination of her kidney failure and some underlying congestive heart failure. PLAN: 1. Hemodialysis tonight. 2. Continue antibiotics like Zithromax and Rocephin. 3. Follow up cultures. 4. Follow up CBCs. 5. Continue antipyretics. JOB# [id number]
[2018-09-28 06:27] LABS: % BASOPHILS 1.4 % (0.0-2.0); % EOSINOPHILS 2.9 % (0.0-5.0); % LYMPHOCYTES 15.4 % (20.0-50.0); % MONOCYTES 10.3 % (2.0-10.0); BASOPHILE ABSOLUTE 0.1 Th/cumm (0-0.2); EOSINOPHILE ABSOLUTE 0.2 Th/cmm (0.1-0.4); HEMATOCRIT 35.4 % (41.0-60); HEMOGLOBIN 11.7 gm/dL (12-16); MEAN CELL VOLUME 97.1 fl (81-100); MEAN CORPUSCULAR HGB CONC 32.9 pg (28.0-36.0); MEAN PLATELET VOLUME 8.3 fl; MONOCYTE ABSOLUTE 0.6 Th/cmm (0.3-1.0); NEUTROPHILE ABSOLUTE 4.3 Th/cmm (1.8-8.0); PLATELET COUNT 144 Th/cmm (150-400); RED BLOOD COUNT 3.65 Mil/cmm (3.80-5.20); RED CELL DISTRIBUTION WIDTH 15.1 % (11.5-20.0); WHITE BLOOD COUNT 6.2 Th/cmm (4.8-10.8)
[2018-09-28] MEDS: INSULIN LISPRO 100 UNIT/ML VIAL SUBQ SCH ×4 (06:31→21:31)
[2018-09-28 06:56] LABS: ANION GAP 13.7 (7.0-16.0); BUN - UREA NITROGEN 25 mg/dL (7-25); CALCIUM SERUM 8.4 mg/dL (8.6-10.3); CARBON DIOXIDE 29.8 mEq/L (21.0-31.0); CHLORIDE 101 mEq/L (98-107); CHOLESTEROL 118 mg/dL (<200); CREATININE - SERUM 3.8 mg/dL (0.6-1.2); GLUCOSE 116 mg/dL (70-105); HDL -HIGH DENSITY LIPOPROTEIN 46 mg/dL (23-92); POTASSIUM SERUM 3.5 mEq/L (3.5-5.1); SODIUM SERUM 141 mEq/L (136-145); TRIGLYCERIDES 74 mg/dL (<150)
[2018-09-28] MEDS: Lactobacillus Rhamnosus GG 15 Billion CFU CAP.SPRINK PO SCH (08:22)
[2018-09-28 10:10] LABS: URINE SOURCE CLEAN C
[2018-09-28 10:13] LABS: URINE BILIRUBIN NEGATIVE (NEGATIVE); URINE BLOOD MODERATE (NEGATIVE); URINE GLUCOSE (UA) 100 mg/dL (NEGATIVE); URINE KETONE NEGATIVE (NEGATIVE); URINE LEUKOCYTE ESTERASE TRACE (NEGATIVE); URINE MICROSCOPIC INDICATED? YES; URINE NITRATE NEGATIVE (NEGATIVE); URINE PROTEIN >=300 mg/dL (NEGATIVE); URINE UROBILINOGEN 0.2 E.U./dL (0.2 - 1.0)
[2018-09-28 10:36] LABS: URINE CLARITY CLOUDY (CLEAR); URINE COLOR YELLOW
[2018-09-28 10:37] LABS: URINE RBC 0-2 /hpf (0-5)
[2018-09-28 10:39] LABS: URINE BACTERIA MODERATE /hpf (NONE SEEN); URINE EPITHELIAL CELLS FEW /lpf (FEW)
--- NOTE | 2018-09-28 10:49 | Diagnostic Imaging Report ---
Portable chest x-ray HISTORY: Shortness of breath Compared to prior exam of September 26, 2018, the heart remains enlarged. Persistent small bilateral pleural effusions. Findings may be associated with congestive heart failure. Clinical correlation needed. IMPRESSION: 1. Little change with persistent cardiomegaly and small bilateral pleural effusions. Changes may be related to congestive heart failure. Clinical correlation is needed.
[2018-09-28] MEDS: Guaifenesin DM 10 ML UDC PO PRN (12:10)
--- NOTE | 2018-09-28 13:33 | General Progress Note ---
Subjective - Review of Systems Service Date: 09/28/18 Subjective: still w/ cough/congestion, less sob Objective - Results Result Diagrams: 09/28/18 06:15 09/28/18 06:15 Recent Labs: Laboratory Last Values WBC 6.2 Th/cmm (4.8-10.8) 09/28/18 06:15 RBC 3.65 Mil/cmm (3.80-5.20) L 09/28/18 06:15 Hgb 11.7 gm/dL (12-16) L 09/28/18 06:15 Hct 35.4 % (41.0-60) L 09/28/18 06:15 MCV 97.1 fl (81-100) 09/28/18 06:15 MCH 32.0 pg (27.0-31.0) H 09/28/18 06:15 MCHC Differential 32.9 pg (28.0-36.0) 09/28/18 06:15 RDW 15.1 % (11.5-20.0) 09/28/18 06:15 Plt Count 144 Th/cmm (150-400) L 09/28/18 06:15 MPV 8.3 fl 09/28/18 06:15 Neutrophils % 70.0 % (40.0-80.0) 09/28/18 06:15 Band Neutrophils % 1 % (0-10) 09/26/18 18:20 Lymphocytes % 15.4 % (20.0-50.0) L 09/28/18 06:15 Monocytes % 10.3 % (2.0-10.0) H 09/28/18 06:15 Eosinophils % 2.9 % (0.0-5.0) 09/28/18 06:15 Basophils % 1.4 % (0.0-2.0) 09/28/18 06:15 Neutrophils (Manual) 84 % (40-80) H 09/26/18 18:20 Lymphocytes 7 % (20-50) L 09/26/18 18:20 Monocytes 7 % (2-10) 09/26/18 18:20 Eosinophils 1 % (0-5) 09/26/18 18:20 Basophils 0 % (0-3) 09/26/18 18:20 Sodium 141 mEq/L (136-145) 09/28/18 06:15 Potassium 3.5 mEq/L (3.5-5.1) 09/28/18 06:15 Chloride 101 mEq/L (98-107) 09/28/18 06:15 Carbon Dioxide 29.8 mEq/L (21.0-31.0) 09/28/18 06:15 Anion Gap 13.7 (7.0-16.0) 09/28/18 06:15 BUN 25 mg/dL (7-25) 09/28/18 06:15 Creatinine 3.8 mg/dL (0.6-1.2) H 09/28/18 06:15 Est GFR ( Amer) TNP 09/28/18 06:15 Est GFR (Non-Af Amer) TNP 09/28/18 06:15 BUN/Creatinine Ratio 6.6 09/28/18 06:15 Glucose 116 mg/dL (70-105) H 09/28/18 06:15 POC Glucose 194 MG/DL (70 - 105) H 09/28/18 11:35 Calcium 8.4 mg/dL (8.6-10.3) L 09/28/18 06:15 Phosphorus 3.5 mg/dL (2.5-5.0) 09/26/18 18:20 Magnesium 2.1 mg/dL (1.9-2.7) 09/26/18 18:20 Total Bilirubin 0.5 mg/dL (0.3-1.0) 09/26/18 18:20 AST 23 U/L (13-39) 09/26/18 18:20 ALT 21 U/L (7-52) 09/26/18 18:20 Alkaline Phosphatase 128 U/L (34-104) H 09/26/18 18:20 Troponin I 0.21 ng/mL (0.01-0.05) H* 09/27/18 06:45 B-Natriuretic Peptide 3600.0 pg/mL (5.0-100.0) H 09/26/18 18:20 Total Protein 7.3 gm/dL (6.0-8.3) 09/26/18 18:20 Albumin 4.0 gm/dL (3.7-5.3) 09/26/18 18:20 Globulin 3.3 gm/dL 09/26/18 18:20 Albumin/Globulin Ratio 1.2 (1.0-1.8) 09/26/18 18:20 Triglycerides 74 mg/dL (<150) 09/28/18 06:15 Cholesterol 118 mg/dL (<200) 09/28/18 06:15 LDL Cholesterol Direct 63 mg/dL (75-193) L 09/28/18 06:15 HDL Cholesterol 46 mg/dL (23-92) 09/28/18 06:15 TSH 1.44 uIU/ml (0.34-5.60) 09/27/18 10:33 Urine Source CLEAN C 09/28/18 09:55 Urine Color YELLOW 09/28/18 09:55 Urine Clarity CLOUDY (CLEAR) H 09/28/18 09:55 Urine pH 6.0 (4.6 - 8.0) 09/28/18 09:55 Ur Specific [place] 1.025 (1.005-1.030) 09/28/18 09:55 Urine Protein >=300 mg/dL (NEGATIVE) 09/28/18 09:55 Urine Glucose (UA) 100 mg/dL (NEGATIVE) H 09/28/18 09:55 Urine Ketones NEGATIVE mg/dL (NEGATIVE) 09/28/18 09:55 Urine Blood MODERATE (NEGATIVE) H 09/28/18 09:55 Urine Nitrate NEGATIVE (NEGATIVE) 09/28/18 09:55 Urine Bilirubin NEGATIVE (NEGATIVE) 09/28/18 09:55 Urine Urobilinogen 0.2 E.U./dL (0.2 - 1.0) 09/28/18 09:55 Ur Leukocyte Esterase TRACE (NEGATIVE) H 09/28/18 09:55 Urine RBC 0-2 /hpf (0-5) 09/28/18 09:55 Urine WBC 10-25 /hpf (0-5) H 09/28/18 09:55 Ur Epithelial Cells FEW /lpf (FEW) 09/28/18 09:55 Urine Bacteria MODERATE /hpf (NONE SEEN) H 09/28/18 09:55 Influenza A (Rapid) NEG FOR INF A 09/26/18 20:10 Influenza B (Rapid) NEG FOR INF B 09/26/18 20:10 - Physical Exam Vitals and I&O: Vital Signs Temp 97.2 F 09/28/18 11:17 Pulse 66 09/28/18 11:17 Resp 19 09/28/18 11:17 BP 114/53 09/28/18 11:17 Pulse Ox 99 09/28/18 11:17 Intake & Output 09/27/18 09/28/18 09/28/18 18:59 06:59 18:59 Intake Total 1000 Output Total 3101 Balance -2101 Weight (lbs) 66.678 kg Intake: Intake, IV Amount 300 Azithromycin 500 mg In 250 Sodium Chloride 0.9% 250 ml @ 250 mls/hr IV Q24HR [facility] Rx#:[id number] cefTRIAXone 1 gm In 50 Sodium Chloride 0.9% 50 ml @ 100 mls/hr IV Q24HR [facility] Rx#:[id number] Oral 700 Output: Urine 1 Hemodialysis 3100 Other: # Bowel Movements 1 Stool Characteristics Formed Formed Weight Source Bedscale Active Medications: Current Medications Acetaminophen (Tylenol) 650 mg PO Q4H PRN PRN Reason: Fever > 101 Stop: 11/25/18 23:56 Last Admin: 09/28/18 00:12 Dose: 650 mg Albuterol/Ipratropium (Duoneb Neb) 3 ml HHN Q4HRT [facility] Stop: 11/26/18 08:44 Last Admin: 09/28/18 10:50 Dose: 3 ml Albuterol/Ipratropium (Duoneb Neb) 3 ml HHN Q4HRT PRN PRN Reason: cough and congestion Stop: 11/26/18 08:50 Last Admin: 09/27/18 12:32 Dose: 3 ml Amiodarone HCl (Cordarone) 100 mg PO DAILY [facility] Stop: 11/26/18 08:59 Last Admin: 09/28/18 08:23 Dose: 100 mg Famotidine (Pepcid) 20 mg PO DAILY [facility] Stop: 11/26/18 08:59 Last Admin: 09/28/18 08:22 Dose: 20 mg Furosemide (Lasix) 40 mg PO DAILY [facility] Stop: 11/26/18 08:59 Last Admin: 09/28/18 08:21 Dose: 40 mg Guaifenesin/Dextromethorphan (Robitussin Dm) 10 ml PO Q6HR PRN PRN Reason: Cough Stop: 11/26/18 14:49 Last Admin: 09/28/18 12:10 Dose: 10 ml Heparin Sodium (Porcine) (Heparin Sodium) 0 units HD UD [facility] Stop: 09/29/18 00:00 Heparin Sodium (Porcine) (Heparin) 5,000 units HD UD [facility] Stop: 09/29/18 00:00 Azithromycin 500 mg/ Sodium (Chloride) 250 mls @ 250 mls/hr IV Q24HR [facility] Stop: 11/26/18 00:59 Last Infusion: 09/28/18 01:06 Dose: Infused Ceftriaxone Sodium 1 gm/ (Sodium Chloride) 50 mls @ 100 mls/hr IV Q24HR [facility] Stop: 11/26/18 20:29 Last Infusion: 09/27/18 23:23 Dose: Infused Albumin Human (Albuminar 25%) 25 gm in 100 mls @ 50 mls/hr IV PRN PRN PRN Reason: BP Support During HD Stop: 09/28/18 23:59 Insulin Glargine (Lantus Insulin) 12 units SUBQ HS [facility] Stop: 11/26/18 20:59 Last Admin: 09/27/18 20:47 Dose: 12 units Insulin Human Lispro (Humalog) 0 unit SUBQ [facility]; Protocol Stop: 11/26/18 07:29 Last Admin: 09/28/18 12:01 Dose: 2 units Lactobacillus Rhamnosus (Culturelle 15b) 1 each PO DAILY [facility] Stop: 11/27/18 08:59 Last Admin: 09/28/18 08:22 Dose: 1 each Losartan Potassium (Cozaar) 50 mg PO DAILY [facility] Stop: 11/26/18 08:59 Last Admin: 09/28/18 08:22 Dose: 50 mg Miscellaneous (Probiotic Screen) 1 ea PRN PRN PRN Reason: PROTOCOL Stop: 11/26/18 09:31 Nifedipine (Procardia) 10 mg PO DAILY [facility] Stop: 11/26/18 08:59 Last Admin: 09/28/18 08:22 Dose: 10 mg Temazepam (Restoril) 15 mg PO HS PRN; Protocol PRN Reason: Insomnia Stop: 11/25/18 23:57 Last Admin: 09/28/18 00:12 Dose: 15 mg General: Alert, Mild distress HEENT: Atraumatic, Mucous membr. moist/pink Neck: Supple, +2 carotid pulse wo bruit Cardiovascular: Regular rate, Normal S1, Normal S2 Lungs: Other (rhonchi, congestion) Abdomen: Bowel sounds, Soft Extremities: no Edema Neurological: Sensation intact Skin: no Rash Psych/Mental Status: Mood NL - Procedures Procedures: Procedures Procedure Code Date ASSISTANCE WITH RESPIRATORY VENTILATION, 24-96 HRS, CPAP [id number] 07/29/17 INSERT TUNNELED CV CATH [id number] 07/29/17 INSERTION OF INFUSION DEV INTO SUP VENA CAVA, PERC APPROACH [id number] 08/23/17 PERFORMANCE OF URINARY FILTRATION, <6 HRS/DAY [id number] 08/13/17 POS AIRWAY PRESSURE CPAP [id number] 07/29/17 REMOVAL OF INFUSION DEV FROM GREAT VESSEL, PRIVACY ATTORNEY APPROACH [id number] 07/29/17 REMOVAL OF INFUSION DEVICE FROM UPPER VEIN, PERC APPROACH [id number] 08/23/17 TETANUS TOXOID ADMINIST 99.38 05/28/13 ULTRASONOGRAPHY OF SUPERIOR VENA CAVA, GUIDANCE [id number] 07/29/17 Assessment/Plan - Problem List Patient Problems: All Active Problems COUGH AND CONGESTION WITH DYSPNEA (Acute) - Assessment Assessment: ESRD on HD Sepsis 2/2 right CAP T2DM w/ CKD Ess Htn w/ CKD Gastritis Mod CHF - Plan Plan: Lab - Result Diagrams 09/28/18 06:15 09/28/18 06:15 Current Medications Acetaminophen (Tylenol) 650 mg PO Q4H PRN PRN Reason: Fever > 101 Stop: 11/25/18 23:56 Last Admin: 09/28/18 00:12 Dose: 650 mg Albuterol/Ipratropium (Duoneb Neb) 3 ml HHN Q4HRT [facility] Stop: 11/26/18 08:44 Last Admin: 09/28/18 10:50 Dose: 3 ml Albuterol/Ipratropium (Duoneb Neb) 3 ml HHN Q4HRT PRN PRN Reason: cough and congestion Stop: 11/26/18 08:50 Last Admin: 09/27/18 12:32 Dose: 3 ml Amiodarone HCl (Cordarone) 100 mg PO DAILY [facility] Stop: 11/26/18 08:59 Last Admin: 09/28/18 08:23 Dose: 100 mg Famotidine (Pepcid) 20 mg PO DAILY [facility] Stop: 11/26/18 08:59 Last Admin: 09/28/18 08:22 Dose: 20 mg Furosemide (Lasix) 40 mg PO DAILY [facility] Stop: 11/26/18 08:59 Last Admin: 09/28/18 08:21 Dose: 40 mg Guaifenesin/Dextromethorphan (Robitussin Dm) 10 ml PO Q6HR PRN PRN Reason: Cough Stop: 11/26/18 14:49 Last Admin: 09/28/18 12:10 Dose: 10 ml Heparin Sodium (Porcine) (Heparin Sodium) 0 units HD UD [facility] Stop: 09/29/18 00:00 Heparin Sodium (Porcine) (Heparin) 5,000 units HD UD [facility] Stop: 09/29/18 00:00 Azithromycin 500 mg/ Sodium (Chloride) 250 mls @ 250 mls/hr IV Q24HR [facility] Stop: 11/26/18 00:59 Last Infusion: 09/28/18 01:06 Dose: Infused Ceftriaxone Sodium 1 gm/ (Sodium Chloride) 50 mls @ 100 mls/hr IV Q24HR [facility] Stop: 11/26/18 20:29 Last Infusion: 09/27/18 23:23 Dose: Infused Albumin Human (Albuminar 25%) 25 gm in 100 mls @ 50 mls/hr IV PRN PRN PRN Reason: BP Support During HD Stop: 09/28/18 23:59 Insulin Glargine (Lantus Insulin) 12 units SUBQ HS [facility] Stop: 11/26/18 20:59 Last Admin: 09/27/18 20:47 Dose: 12 units Insulin Human Lispro (Humalog) 0 unit SUBQ [facility]; Protocol Lab - Result Diagrams 09/28/18 06:15 09/28/18 06:15 Stop: 11/26/18 07:29 Last Admin: 09/28/18 12:01 Dose: 2 units Lactobacillus Rhamnosus (Culturelle 15b) 1 each PO DAILY [facility] Stop: 11/27/18 08:59 Last Admin: 09/28/18 08:22 Dose: 1 each Losartan Potassium (Cozaar) 50 mg PO DAILY [facility] Stop: 11/26/18 08:59 Last Admin: 09/28/18 08:22 Dose: 50 mg Miscellaneous (Probiotic Screen) 1 ea MC PRN PRN PRN Reason: PROTOCOL Stop: 11/26/18 09:31 Nifedipine (Procardia) 10 mg PO DAILY [facility] Stop: 11/26/18 08:59 Last Admin: 09/28/18 08:22 Dose: 10 mg Temazepam (Restoril) 15 mg PO HS PRN; Protocol PRN Reason: Insomnia Stop: 11/25/18 23:57 Last Admin: 09/28/18 00:12 Dose: 15 mg Lab - Result Diagrams 09/28/18 06:15 09/28/18 06:15 pt. was dialyzed last nite & tolerated it well CXR some improvement of right LL infiltrates continue cough med & Zithro, Rocephin Nutritional Asmnt/Malnutr-PDOC - Dietary Evaluation Malnutrition Findings (Please click <Entered> for more info): Nutritional Asmnt/Malnutrition Start: 09/27/18 10: 43 Text: Status: Active Freq: Protocol: Document 09/27/18 14:03 RHAQUE (Rec: 09/27/18 14:26 RHAQUE [id number]) Nutritional Asmnt/Malnutrition Patient General Information Nutritional Screening High Risk Diagnosis Sepsis 2ndary to CAPneumonia Pertinent Medical Hx/Surgical Hx (Per Er note) HTN, DM, Renal failure (on dialysis) Subjective Information Pt is primarily [place]i speaking. When asked how she was doing, she complained that her "tos" (cough) was very strong and the pain was making it hard to breath properly. When shared with one of the RNs at the nurse's station, he explained that she is receiving resp therapy. RN Tara described a very good PO intake of about 75%. Oral Supplementation with Glucerna was deemed unnecessary. Was going to recommend change to renal diet, but the orders state that she should be on high K+ diet, which would contradict Renal diet orders. Current Diet Order/ Nutrition Support CCHO Low Na+ High K+ 1800kcal, 80gm Prtn Patient / S.O Not Indicated Pertinent Medications Pepcid, Lasix, Insulin Human Lispri, Cozaar Pertinent Labs (09/27) POC Glucose 178 H, () Gluc 167 H, Na+ 135 L Nutritional Hx/Data Height 1.57 m Height (Calculated Centimeters) 157.5 Current Weight (lbs) 70.307 kg Weight (Calculated Kilograms) 70.3 Weight (Calculated Grams) 28487.8 [place] Body Weight 110 % [place] Body Weight 141 Body Mass Index (BMI) 28.3 Weight Status Overweight GI Symptoms GI Symptoms None Last BM x1 (09/28) Difficult in: None Food Allergies No Cultural/Ethnic/Voodoo Belief None noted Skin Integrity/Comment: Oracio score 19 Current %PO Good (75-100%) Estimated Nutritional Goals BEE in Kcals: Adj wt of IBW Calories/Kcals/Kg 30-35 kcal / kg / day ( dialysis pt) Kcals Calculated 4935-9117 kcal Protein: Adj wt of IBW Protein g/k - 1.3 gm Prtn / kg / day ( dialysis pt) Protein Calculated 55-72 gm Prtn Fluid: ml Per Md orders (dialysis pt) Nutritional Problem No current Nutrition Prob Problem N/A Malnutrition Alert Is there a minimum of two criteria No selected? Query Text:Check all the applicable criteria. A minimum of two criteria are recommended for diagnosis of either severe or non-severe malnutrition. Malnutrition Related to Morbid Obesity Malnutrition related to morbid obesity No Intervention/Recommendation Comments Consider changing diet to Renal Diet. Expected Outcomes/Goals Expected Outcomes/Goals - Maintain 100% PO intake - Labs trending to WNL - F/U in 3-5 days as
--- NOTE | 2018-09-28 13:50 | Internal Medicine Prog Note ---
Internal Medicine Subjective - Subjective Service Date: 09/28/18 (c/o dry cough. S/P HD yesterday for 3L.) Patient seen and examined:: with staff Patient is:: awake Patient Complaints of:: congestion, cough Per staff patient has:: no adverse event Internal Medicine Objective - Results Result Diagrams: 09/28/18 06:15 09/28/18 06:15 Recent Labs: Laboratory Last Values WBC 6.2 Th/cmm (4.8-10.8) 09/28/18 06:15 RBC 3.65 Mil/cmm (3.80-5.20) L 09/28/18 06:15 Hgb 11.7 gm/dL (12-16) L 09/28/18 06:15 Hct 35.4 % (41.0-60) L 09/28/18 06:15 MCV 97.1 fl (81-100) 09/28/18 06:15 MCH 32.0 pg (27.0-31.0) H 09/28/18 06:15 MCHC Differential 32.9 pg (28.0-36.0) 09/28/18 06:15 RDW 15.1 % (11.5-20.0) 09/28/18 06:15 Plt Count 144 Th/cmm (150-400) L 09/28/18 06:15 MPV 8.3 fl 09/28/18 06:15 Neutrophils % 70.0 % (40.0-80.0) 09/28/18 06:15 Band Neutrophils % 1 % (0-10) 09/26/18 18:20 Lymphocytes % 15.4 % (20.0-50.0) L 09/28/18 06:15 Monocytes % 10.3 % (2.0-10.0) H 09/28/18 06:15 Eosinophils % 2.9 % (0.0-5.0) 09/28/18 06:15 Basophils % 1.4 % (0.0-2.0) 09/28/18 06:15 Neutrophils (Manual) 84 % (40-80) H 09/26/18 18:20 Lymphocytes 7 % (20-50) L 09/26/18 18:20 Monocytes 7 % (2-10) 09/26/18 18:20 Eosinophils 1 % (0-5) 09/26/18 18:20 Basophils 0 % (0-3) 09/26/18 18:20 Sodium 141 mEq/L (136-145) 09/28/18 06:15 Potassium 3.5 mEq/L (3.5-5.1) 09/28/18 06:15 Chloride 101 mEq/L (98-107) 09/28/18 06:15 Carbon Dioxide 29.8 mEq/L (21.0-31.0) 09/28/18 06:15 Anion Gap 13.7 (7.0-16.0) 09/28/18 06:15 BUN 25 mg/dL (7-25) 09/28/18 06:15 Creatinine 3.8 mg/dL (0.6-1.2) H 09/28/18 06:15 Est GFR ( Amer) TNP 09/28/18 06:15 Est GFR (Non-Af Amer) TNP 09/28/18 06:15 BUN/Creatinine Ratio 6.6 09/28/18 06:15 Glucose 116 mg/dL (70-105) H 09/28/18 06:15 POC Glucose 194 MG/DL (70 - 105) H 09/28/18 11:35 Calcium 8.4 mg/dL (8.6-10.3) L 09/28/18 06:15 Phosphorus 3.5 mg/dL (2.5-5.0) 09/26/18 18:20 Magnesium 2.1 mg/dL (1.9-2.7) 09/26/18 18:20 Total Bilirubin 0.5 mg/dL (0.3-1.0) 09/26/18 18:20 AST 23 U/L (13-39) 09/26/18 18:20 ALT 21 U/L (7-52) 09/26/18 18:20 Alkaline Phosphatase 128 U/L (34-104) H 09/26/18 18:20 Troponin I 0.21 ng/mL (0.01-0.05) H* 09/27/18 06:45 B-Natriuretic Peptide 3600.0 pg/mL (5.0-100.0) H 09/26/18 18:20 Total Protein 7.3 gm/dL (6.0-8.3) 09/26/18 18:20 Albumin 4.0 gm/dL (3.7-5.3) 09/26/18 18:20 Globulin 3.3 gm/dL 09/26/18 18:20 Albumin/Globulin Ratio 1.2 (1.0-1.8) 09/26/18 18:20 Triglycerides 74 mg/dL (<150) 09/28/18 06:15 Cholesterol 118 mg/dL (<200) 09/28/18 06:15 LDL Cholesterol Direct 63 mg/dL (75-193) L 09/28/18 06:15 HDL Cholesterol 46 mg/dL (23-92) 09/28/18 06:15 TSH 1.44 uIU/ml (0.34-5.60) 09/27/18 10:33 Urine Source CLEAN C 09/28/18 09:55 Urine Color YELLOW 09/28/18 09:55 Urine Clarity CLOUDY (CLEAR) H 09/28/18 09:55 Urine pH 6.0 (4.6 - 8.0) 09/28/18 09:55 Ur Specific [place] 1.025 (1.005-1.030) 09/28/18 09:55 Urine Protein >=300 mg/dL (NEGATIVE) 09/28/18 09:55 Urine Glucose (UA) 100 mg/dL (NEGATIVE) H 09/28/18 09:55 Urine Ketones NEGATIVE mg/dL (NEGATIVE) 09/28/18 09:55 Urine Blood MODERATE (NEGATIVE) H 09/28/18 09:55 Urine Nitrate NEGATIVE (NEGATIVE) 09/28/18 09:55 Urine Bilirubin NEGATIVE (NEGATIVE) 09/28/18 09:55 Urine Urobilinogen 0.2 E.U./dL (0.2 - 1.0) 09/28/18 09:55 Ur Leukocyte Esterase TRACE (NEGATIVE) H 09/28/18 09:55 Urine RBC 0-2 /hpf (0-5) 09/28/18 09:55 Urine WBC 10-25 /hpf (0-5) H 09/28/18 09:55 Ur Epithelial Cells FEW /lpf (FEW) 09/28/18 09:55 Urine Bacteria MODERATE /hpf (NONE SEEN) H 09/28/18 09:55 Influenza A (Rapid) NEG FOR INF A 09/26/18 20:10 Influenza B (Rapid) NEG FOR INF B 09/26/18 20:10 - Physical Exam Vitals and I&O: Vital Signs Temp 97.2 F 09/28/18 11:17 Pulse 66 09/28/18 11:17 Resp 19 09/28/18 11:17 BP 114/53 09/28/18 11:17 Pulse Ox 99 09/28/18 11:17 Intake & Output 09/27/18 09/28/18 09/28/18 18:59 06:59 18:59 Intake Total 1000 Output Total 3101 Balance -2101 Weight (lbs) 66.678 kg Intake: Intake, IV Amount 300 Azithromycin 500 mg In 250 Sodium Chloride 0.9% 250 ml @ 250 mls/hr IV Q24HR [facility] Rx#:[id number] cefTRIAXone 1 gm In 50 Sodium Chloride 0.9% 50 ml @ 100 mls/hr IV Q24HR [facility] Rx#:[id number] Oral 700 Output: Urine 1 Hemodialysis 3100 Other: # Bowel Movements 1 Stool Characteristics Formed Formed Weight Source Bedscale Active Medications: Current Medications Acetaminophen (Tylenol) 650 mg PO Q4H PRN PRN Reason: Fever > 101 Stop: 11/25/18 23:56 Last Admin: 09/28/18 00:12 Dose: 650 mg Albuterol/Ipratropium (Duoneb Neb) 3 ml HHN Q4HRT [facility] Stop: 11/26/18 08:44 Last Admin: 09/28/18 10:50 Dose: 3 ml Albuterol/Ipratropium (Duoneb Neb) 3 ml HHN Q4HRT PRN PRN Reason: cough and congestion Stop: 11/26/18 08:50 Last Admin: 09/27/18 12:32 Dose: 3 ml Amiodarone HCl (Cordarone) 100 mg PO DAILY [facility] Stop: 11/26/18 08:59 Last Admin: 09/28/18 08:23 Dose: 100 mg Famotidine (Pepcid) 20 mg PO DAILY [facility] Stop: 11/26/18 08:59 Last Admin: 09/28/18 08:22 Dose: 20 mg Furosemide (Lasix) 40 mg PO DAILY [facility] Stop: 11/26/18 08:59 Last Admin: 09/28/18 08:21 Dose: 40 mg Guaifenesin/Dextromethorphan (Robitussin Dm) 10 ml PO Q6HR PRN PRN Reason: Cough Stop: 11/26/18 14:49 Last Admin: 09/28/18 12:10 Dose: 10 ml Heparin Sodium (Porcine) (Heparin Sodium) 0 units HD UD [facility] Stop: 09/29/18 00:00 Heparin Sodium (Porcine) (Heparin) 5,000 units HD UD [facility] Stop: 09/29/18 00:00 Azithromycin 500 mg/ Sodium (Chloride) 250 mls @ 250 mls/hr IV Q24HR [facility] Stop: 11/26/18 00:59 Last Infusion: 09/28/18 01:06 Dose: Infused Ceftriaxone Sodium 1 gm/ (Sodium Chloride) 50 mls @ 100 mls/hr IV Q24HR [facility] Stop: 11/26/18 20:29 Last Infusion: 09/27/18 23:23 Dose: Infused Albumin Human (Albuminar 25%) 25 gm in 100 mls @ 50 mls/hr IV PRN PRN PRN Reason: BP Support During HD Stop: 09/28/18 23:59 Insulin Glargine (Lantus Insulin) 12 units SUBQ HS [facility] Stop: 11/26/18 20:59 Last Admin: 09/27/18 20:47 Dose: 12 units Insulin Human Lispro (Humalog) 0 unit SUBQ [facility]; Protocol Stop: 11/26/18 07:29 Last Admin: 09/28/18 12:01 Dose: 2 units Lactobacillus Rhamnosus (Culturelle 15b) 1 each PO DAILY [facility] Stop: 11/27/18 08:59 Last Admin: 09/28/18 08:22 Dose: 1 each Losartan Potassium (Cozaar) 50 mg PO DAILY [facility] Stop: 11/26/18 08:59 Last Admin: 09/28/18 08:22 Dose: 50 mg Miscellaneous (Probiotic Screen) 1 ea MC PRN PRN PRN Reason: PROTOCOL Stop: 11/26/18 09:31 Nifedipine (Procardia) 10 mg PO DAILY [facility] Stop: 11/26/18 08:59 Last Admin: 09/28/18 08:22 Dose: 10 mg Temazepam (Restoril) 15 mg PO HS PRN; Protocol PRN Reason: Insomnia Stop: 11/25/18 23:57 Last Admin: 09/28/18 00:12 Dose: 15 mg General: alert HEENT: NC/AT, PERRLA, EOMI Neck: No JVD Lungs: congested, rales, ronchi Cardiovascular: RRR, Normal S1, Normal S2, without murmur Abdomen: soft, non-tender, non-distended Neurological: no change, alert - Procedures Procedures: Procedures Procedure Code Date ASSISTANCE WITH RESPIRATORY VENTILATION, 24-96 HRS, CPAP [id number] 07/29/17 INSERT TUNNELED CV CATH [id number] 07/29/17 INSERTION OF INFUSION DEV INTO SUP VENA CAVA, PERC APPROACH [id number] 08/23/17 PERFORMANCE OF URINARY FILTRATION, <6 HRS/DAY [id number] 08/13/17 POS AIRWAY PRESSURE CPAP [id number] 07/29/17 REMOVAL OF INFUSION DEV FROM GREAT VESSEL, CHILDREN'S COUNSELOR APPROACH [id number] 07/29/17 REMOVAL OF INFUSION DEVICE FROM UPPER VEIN, PERC APPROACH [id number] 08/23/17 TETANUS TOXOID ADMINIST 99.38 05/28/13 ULTRASONOGRAPHY OF SUPERIOR VENA CAVA, GUIDANCE [id number] 07/29/17 CXR-PERSISTENT CM AND BILATERAL PLEURAL EFFUSIONS Internal Medicine Assmt/Plan - Assessment Assessment: BRONCHITIS VS EARLY PNA VOLUME OVERLOAD/CHF PERSISTENT COUGH HX OF ESRD HISTORY OF ESSENTIAL HTN HISTORY OF CAD/ARRYTHMIA - Plan Plan: CONT WITH TELE SUPPORTIVE CARE AND MGT CONT WITH IV ABXS, PULM TOILET ADD STEROIDS, ACETYLCYSTEINE CONT WITH OTHER MEDS SCHEDULED CONT WITH HD SCHEDULED Nutritional Asmnt/Malnutr-PDOC - Dietary Evaluation Malnutrition Findings (Please click <Entered> for more info): Nutritional Asmnt/Malnutrition Start: 09/27/18 10: 43 Text: Status: Active Freq: Protocol: Document 09/27/18 14:03 RHAQUE (Rec: 09/27/18 14:26 RHAQUE [email or web address]) Nutritional Asmnt/Malnutrition Patient General Information Nutritional Screening High Risk Diagnosis Sepsis 2ndary to CAPneumonia Pertinent Medical Hx/Surgical Hx (Per Er note) HTN, DM, Renal failure (on dialysis) Subjective Information Pt is primarily mozambican speaking. When asked how she was doing, she complained that her "tos" (cough) was very strong and the pain was making it hard to breath properly. When shared with one of the RNs at the nurse's station, he explained that she is receiving resp therapy. RICKEY Pacheco described a very good PO intake of about 75%. Oral Supplementation with Glucerna was deemed unnecessary. Was going to recommend change to renal diet, but the orders state that she should be on high K+ diet, which would contradict Renal diet orders. Current Diet Order/ Nutrition Support CCHO Low Na+ High K+ 1800kcal, 80gm Prtn Patient / S.O Not Indicated Pertinent Medications Pepcid, Lasix, Insulin Human Lispri, Cozaar Pertinent Labs (09/27) POC Glucose 178 H, () Gluc 167 H, Na+ 135 L Nutritional Hx/Data Height 1.57 m Height (Calculated Centimeters) 157.5 Current Weight (lbs) 70.307 kg Weight (Calculated Kilograms) 70.3 Weight (Calculated Grams) 54956.8 Gary Body Weight 110 % Gary Body Weight 141 Body Mass Index (BMI) 28.3 Weight Status Overweight GI Symptoms GI Symptoms None Last BM x1 (09/28) Difficult in: None Food Allergies No Cultural/Ethnic/Roman [employer] Belief None noted Skin Integrity/Comment: Oracio score 19 Current %PO Good (75-100%) Estimated Nutritional Goals BEE in Kcals: Adj wt of IBW Calories/Kcals/Kg 30-35 kcal / kg / day ( dialysis pt) Kcals Calculated 4695-9711 kcal Protein: Adj wt of IBW Protein g/k - 1.3 gm Prtn / kg / day ( dialysis pt) Protein Calculated 55-72 gm Prtn Fluid: ml Per Md orders (dialysis pt) Nutritional Problem No current Nutrition Prob Problem N/A Malnutrition Alert Is there a minimum of two criteria No selected? Query Text:Check all the applicable criteria. A minimum of two criteria are recommended for diagnosis of either severe or non-severe malnutrition. Malnutrition Related to Morbid Obesity Malnutrition related to morbid obesity No Intervention/Recommendation Comments Consider changing diet to Renal Diet. Expected Outcomes/Goals Expected Outcomes/Goals - Maintain 100% PO intake - Labs trending to WNL - F/U in 3-5 days as
[2018-09-28] MEDS: methylPREDNISolone SS 40 mg Vial IVP SCH ×2 (14:36→21:20)
[2018-09-28] MEDS ORDERED: Acetylcysteine 10% 10 ML VIAL HHN SCH (17:00)
[2018-09-28] MEDS: Promethazine DM 6.25/15mg-5mL 5 ML SYR PO PRN ×2 (19:26→22:56)
[2018-09-28] MEDS: cefTRIAXone 1 GM in Sodium Chloride 0.9% 50 ML IV SCH (21:20)
[2018-09-28] MEDS: Insulin Glargine 100 units/ml 10ml Vial SUBQ SCH (21:32)
[2018-09-29] MEDS: Albuterol/Ipratropium Neb 3 ML AERS HHN SCH ×7 (00:06→22:37)
[2018-09-29] MEDS: Azithromycin 500 MG in Sodium Chloride 0.9% 250 ML IV SCH (01:00)
[2018-09-29] MEDS: methylPREDNISolone SS 40 mg Vial IVP SCH ×3 (05:26→22:00)
[2018-09-29] MEDS: Lactobacillus Rhamnosus GG 15 Billion CFU CAP.SPRINK PO SCH (08:49)
[2018-09-29] MEDS: INSULIN LISPRO 100 UNIT/ML VIAL SUBQ SCH ×4 (08:51→22:22)
[2018-09-29 10:12] LABS: HEP A AB IGM Negative (Negative); HEP B CORE IGM Negative (Negative); HEP B SURFACE AG QL Negative (Negative); HEP C ANTIBODY <0.1 s/co ratio (0.0-0.9)
--- NOTE | 2018-09-29 11:40 | Internal Medicine Prog Note ---
Internal Medicine Subjective - Subjective Service Date: 09/29/18 (Doing better-less cough reported, however she remains congested. Had HD yesterday. ) Patient is:: awake Patient Complaints of:: congestion, cough Per staff patient has:: no adverse event Internal Medicine Objective - Results Result Diagrams: 09/28/18 06:15 09/28/18 06:15 Recent Labs: Laboratory Last Values WBC 6.2 Th/cmm (4.8-10.8) 09/28/18 06:15 RBC 3.65 Mil/cmm (3.80-5.20) L 09/28/18 06:15 Hgb 11.7 gm/dL (12-16) L 09/28/18 06:15 Hct 35.4 % (41.0-60) L 09/28/18 06:15 MCV 97.1 fl (81-100) 09/28/18 06:15 MCH 32.0 pg (27.0-31.0) H 09/28/18 06:15 MCHC Differential 32.9 pg (28.0-36.0) 09/28/18 06:15 RDW 15.1 % (11.5-20.0) 09/28/18 06:15 Plt Count 144 Th/cmm (150-400) L 09/28/18 06:15 MPV 8.3 fl 09/28/18 06:15 Neutrophils % 70.0 % (40.0-80.0) 09/28/18 06:15 Band Neutrophils % 1 % (0-10) 09/26/18 18:20 Lymphocytes % 15.4 % (20.0-50.0) L 09/28/18 06:15 Monocytes % 10.3 % (2.0-10.0) H 09/28/18 06:15 Eosinophils % 2.9 % (0.0-5.0) 09/28/18 06:15 Basophils % 1.4 % (0.0-2.0) 09/28/18 06:15 Neutrophils (Manual) 84 % (40-80) H 09/26/18 18:20 Lymphocytes 7 % (20-50) L 09/26/18 18:20 Monocytes 7 % (2-10) 09/26/18 18:20 Eosinophils 1 % (0-5) 09/26/18 18:20 Basophils 0 % (0-3) 09/26/18 18:20 Sodium 141 mEq/L (136-145) 09/28/18 06:15 Potassium 3.5 mEq/L (3.5-5.1) 09/28/18 06:15 Chloride 101 mEq/L (98-107) 09/28/18 06:15 Carbon Dioxide 29.8 mEq/L (21.0-31.0) 09/28/18 06:15 Anion Gap 13.7 (7.0-16.0) 09/28/18 06:15 BUN 25 mg/dL (7-25) 09/28/18 06:15 Creatinine 3.8 mg/dL (0.6-1.2) H 09/28/18 06:15 Est GFR ( Amer) TNP 09/28/18 06:15 Est GFR (Non-Af Amer) TNP 09/28/18 06:15 BUN/Creatinine Ratio 6.6 09/28/18 06:15 Glucose 116 mg/dL (70-105) H 09/28/18 06:15 POC Glucose 292 MG/DL (70 - 105) H 09/29/18 06:43 Calcium 8.4 mg/dL (8.6-10.3) L 09/28/18 06:15 Phosphorus 3.5 mg/dL (2.5-5.0) 09/26/18 18:20 Magnesium 2.1 mg/dL (1.9-2.7) 09/26/18 18:20 Total Bilirubin 0.5 mg/dL (0.3-1.0) 09/26/18 18:20 AST 23 U/L (13-39) 09/26/18 18:20 ALT 21 U/L (7-52) 09/26/18 18:20 Alkaline Phosphatase 128 U/L (34-104) H 09/26/18 18:20 Troponin I 0.21 ng/mL (0.01-0.05) H* 09/27/18 06:45 B-Natriuretic Peptide 3600.0 pg/mL (5.0-100.0) H 09/26/18 18:20 Total Protein 7.3 gm/dL (6.0-8.3) 09/26/18 18:20 Albumin 4.0 gm/dL (3.7-5.3) 09/26/18 18:20 Globulin 3.3 gm/dL 09/26/18 18:20 Albumin/Globulin Ratio 1.2 (1.0-1.8) 09/26/18 18:20 Triglycerides 74 mg/dL (<150) 09/28/18 06:15 Cholesterol 118 mg/dL (<200) 09/28/18 06:15 LDL Cholesterol Direct 63 mg/dL (75-193) L 09/28/18 06:15 HDL Cholesterol 46 mg/dL (23-92) 09/28/18 06:15 TSH 1.44 uIU/ml (0.34-5.60) 09/27/18 10:33 Urine Source CLEAN C 09/28/18 09:55 Urine Color YELLOW 09/28/18 09:55 Urine Clarity CLOUDY (CLEAR) H 09/28/18 09:55 Urine pH 6.0 (4.6 - 8.0) 09/28/18 09:55 Ur Specific [place] 1.025 (1.005-1.030) 09/28/18 09:55 Urine Protein >=300 mg/dL (NEGATIVE) 09/28/18 09:55 Urine Glucose (UA) 100 mg/dL (NEGATIVE) H 09/28/18 09:55 Urine Ketones NEGATIVE mg/dL (NEGATIVE) 09/28/18 09:55 Urine Blood MODERATE (NEGATIVE) H 09/28/18 09:55 Urine Nitrate NEGATIVE (NEGATIVE) 09/28/18 09:55 Urine Bilirubin NEGATIVE (NEGATIVE) 09/28/18 09:55 Urine Urobilinogen 0.2 E.U./dL (0.2 - 1.0) 09/28/18 09:55 Ur Leukocyte Esterase TRACE (NEGATIVE) H 09/28/18 09:55 Urine RBC 0-2 /hpf (0-5) 09/28/18 09:55 Urine WBC 10-25 /hpf (0-5) H 09/28/18 09:55 Ur Epithelial Cells FEW /lpf (FEW) 09/28/18 09:55 Urine Bacteria MODERATE /hpf (NONE SEEN) H 09/28/18 09:55 Hepatitis A IgM Ab Negative (Negative) 09/27/18 10:47 Hep Bs Antigen Negative (Negative) 09/27/18 10:47 Hep B Core IgM Ab Negative (Negative) 09/27/18 10:47 Hepatitis C Antibody <0.1 s/co ratio (0.0-0.9) 09/27/18 10:47 Influenza A (Rapid) NEG FOR INF A 09/26/18 20:10 Influenza B (Rapid) NEG FOR INF B 09/26/18 20:10 - Physical Exam Vitals and I&O: Vital Signs Temp 98.2 F 09/29/18 04:00 Pulse 62 09/29/18 10:51 Resp 18 09/29/18 10:51 BP 132/70 09/29/18 08:50 Pulse Ox 98 09/29/18 10:51 Intake & Output 09/28/18 09/29/18 09/29/18 18:59 06:59 18:59 Intake Total 800 500 Balance 800 500 Weight (lbs) 66.678 kg 66.678 kg Intake: Intake, IV Amount 300 Azithromycin 500 mg In 250 Sodium Chloride 0.9% 250 ml @ 250 mls/hr IV Q24HR [facility] Rx#:[id number] cefTRIAXone 1 gm In 50 Sodium Chloride 0.9% 50 ml @ 100 mls/hr IV Q24HR [facility] Rx#:[id number] Oral 800 200 Other: # Voids 1 0 # Bowel Movements 1 0 Stool Characteristics Formed Formed Formed Weight Source Bedscale Bedscale Active Medications: Current Medications Acetaminophen (Tylenol) 650 mg PO Q4H PRN PRN Reason: Fever > 101 Stop: 11/25/18 23:56 Last Admin: 09/28/18 00:12 Dose: 650 mg Acetylcysteine (Mucomyst 20%) 3 ml HHN BID [facility] Stop: 11/27/18 16:59 Last Admin: 09/29/18 06:30 Dose: 3 ml Albuterol/Ipratropium (Duoneb Neb) 3 ml HHN Q4HRT [facility] Stop: 11/26/18 08:44 Last Admin: 09/29/18 10:51 Dose: 3 ml Albuterol/Ipratropium (Duoneb Neb) 3 ml HHN Q4HRT PRN PRN Reason: cough and congestion Stop: 11/26/18 08:50 Last Admin: 09/27/18 12:32 Dose: 3 ml Amiodarone HCl (Cordarone) 100 mg PO DAILY [facility] Stop: 11/26/18 08:59 Last Admin: 09/29/18 08:49 Dose: 100 mg Benzonatate (Tessalon) 100 mg PO TID PRN PRN Reason: Cough Stop: 11/27/18 13:56 Famotidine (Pepcid) 20 mg PO DAILY [facility] Stop: 11/26/18 08:59 Last Admin: 09/29/18 08:49 Dose: 20 mg Furosemide (Lasix) 40 mg PO DAILY [facility] Stop: 11/26/18 08:59 Last Admin: 09/29/18 08:50 Dose: 40 mg Azithromycin 500 mg/ Sodium (Chloride) 250 mls @ 250 mls/hr IV Q24HR [facility] Stop: 11/26/18 00:59 Last Infusion: 09/29/18 02:47 Dose: Infused Ceftriaxone Sodium 1 gm/ (Sodium Chloride) 50 mls @ 100 mls/hr IV Q24HR [facility] Stop: 11/26/18 20:29 Last Infusion: 09/28/18 22:16 Dose: Infused Insulin Glargine (Lantus Insulin) 12 units SUBQ HS [facility] Stop: 11/26/18 20:59 Last Admin: 09/28/18 21:32 Dose: 12 units Insulin Human Lispro (Humalog) 0 unit SUBQ ACHS [facility]; Protocol Stop: 11/26/18 07:29 Last Admin: 09/29/18 08:51 Dose: 6 units Lactobacillus Rhamnosus (Culturelle 15b) 1 each PO DAILY [facility] Stop: 11/27/18 08:59 Last Admin: 09/29/18 08:49 Dose: 1 each Losartan Potassium (Cozaar) 50 mg PO DAILY [facility] Stop: 11/26/18 08:59 Last Admin: 09/29/18 08:49 Dose: 50 mg Methylprednisolone Sodium Succinate (Solu-Medrol) 60 mg IVP Q8HR [facility] Stop: 11/27/18 13:59 Last Admin: 09/29/18 05:26 Dose: 60 mg Miscellaneous (Probiotic Screen) 1 ea MC PRN PRN PRN Reason: PROTOCOL Stop: 11/26/18 09:31 Nifedipine (Procardia) 10 mg PO DAILY [facility] Stop: 11/26/18 08:59 Last Admin: 09/29/18 08:50 Dose: 10 mg Promethazine HCl/Dextromethorphan (Phenergan Dm 6.25/15mg-5 Ml) 10 ml PO Q4HWA PRN PRN Reason: Cough Stop: 11/27/18 13:55 Last Admin: 09/28/18 22:56 Dose: 10 ml Temazepam (Restoril) 15 mg PO HS PRN; Protocol PRN Reason: Insomnia Stop: 11/25/18 23:57 Last Admin: 09/28/18 21:21 Dose: 15 mg General: alert HEENT: NC/AT, PERRLA, EOMI Neck: No JVD Lungs: congested, rales, ronchi Cardiovascular: RRR, Normal S1, Normal S2, without murmur Abdomen: soft, non-tender, non-distended Neurological: no change, alert - Procedures Procedures: Procedures Procedure Code Date ASSISTANCE WITH RESPIRATORY VENTILATION, 24-96 HRS, CPAP [id number] 07/29/17 INSERT TUNNELED CV CATH [id number] 07/29/17 INSERTION OF INFUSION DEV INTO SUP VENA CAVA, PERC APPROACH [id number] 08/23/17 PERFORMANCE OF URINARY FILTRATION, <6 HRS/DAY [id number] 08/13/17 POS AIRWAY PRESSURE CPAP [id number] 07/29/17 REMOVAL OF INFUSION DEV FROM GREAT VESSEL, CRAFT ARTIST APPROACH [id number] 07/29/17 REMOVAL OF INFUSION DEVICE FROM UPPER VEIN, PERC APPROACH [id number] 08/23/17 TETANUS TOXOID ADMINIST 99.38 05/28/13 ULTRASONOGRAPHY OF SUPERIOR VENA CAVA, GUIDANCE [id number] 07/29/17 Internal Medicine Assmt/Plan - Assessment Assessment: BRONCHITIS VS EARLY PNA VOLUME OVERLOAD/CHF PERSISTENT COUGH-improving HX OF ESRD HISTORY OF ESSENTIAL HTN HISTORY OF CAD/ARRYTHMIA - Plan Plan: CONT WITH TELE SUPPORTIVE CARE AND MGT CONT WITH IV ABXS, PULM TOILET ADD STEROIDS, ACETYLCYSTEINE CONT WITH OTHER MEDS SCHEDULED CONT WITH HD SCHEDULED FOLLOW CXR IN AM Nutritional Asmnt/Malnutr-PDOC - Dietary Evaluation Malnutrition Findings (Please click <Entered> for more info): Nutritional Asmnt/Malnutrition Start: 09/27/18 10: 43 Text: Status: Active Freq: Protocol: Document 09/27/18 14:03 RHAQUE (Rec: 09/27/18 14:26 RHAQUE [email or web address]) Nutritional Asmnt/Malnutrition Patient General Information Nutritional Screening High Risk Diagnosis Sepsis 2ndary to CAPneumonia Pertinent Medical Hx/Surgical Hx (Per Er note) HTN, DM, Renal failure (on dialysis) Subjective Information Pt is primarily micronesian speaking. When asked how she was doing, she complained that her "tos" (cough) was very strong and the pain was making it hard to breath properly. When shared with one of the RNs at the nurse's station, he explained that she is receiving resp therapy. RN Tara described a very good PO intake of about 75%. Oral Supplementation with Glucerna was deemed unnecessary. Was going to recommend change to renal diet, but the orders state that she should be on high K+ diet, which would contradict Renal diet orders. Current Diet Order/ Nutrition Support CCHO Low Na+ High K+ 1800kcal, 80gm Prtn Patient / S.O Not Indicated Pertinent Medications Pepcid, Lasix, Insulin Human Lispri, Cozaar Pertinent Labs (09/27) POC Glucose 178 H, () Gluc 167 H, Na+ 135 L Nutritional Hx/Data Height 1.57 m Height (Calculated Centimeters) 157.5 Current Weight (lbs) 70.307 kg Weight (Calculated Kilograms) 70.3 Weight (Calculated Grams) 77942.8 [place] Body Weight 110 % [place] Body Weight 141 Body Mass Index (BMI) 28.3 Weight Status Overweight GI Symptoms GI Symptoms None Last BM x1 (09/28) Difficult in: None Food Allergies No Cultural/Ethnic/Sikh Belief None noted Skin Integrity/Comment: Oracio score 19 Current %PO Good (75-100%) Estimated Nutritional Goals BEE in Kcals: Adj wt of IBW Calories/Kcals/Kg 30-35 kcal / kg / day ( dialysis pt) Kcals Calculated 5040-1136 kcal Protein: Adj wt of IBW Protein g/k - 1.3 gm Prtn / kg / day ( dialysis pt) Protein Calculated 55-72 gm Prtn Fluid: ml Per Md orders (dialysis pt) Nutritional Problem No current Nutrition Prob Problem N/A Malnutrition Alert Is there a minimum of two criteria No selected? Query Text:Check all the applicable criteria. A minimum of two criteria are recommended for diagnosis of either severe or non-severe malnutrition. Malnutrition Related to Morbid Obesity Malnutrition related to morbid obesity No Intervention/Recommendation Comments Consider changing diet to Renal Diet. Expected Outcomes/Goals Expected Outcomes/Goals - Maintain 100% PO intake - Labs trending to WNL - F/U in 3-5 days as MR
--- NOTE | 2018-09-29 14:43 | General Progress Note ---
Subjective - Review of Systems Service Date: 09/29/18 Subjective: still w/ cough/congestion, less sob Objective - Results Result Diagrams: 09/28/18 06:15 09/28/18 06:15 Recent Labs: Laboratory Last Values WBC 6.2 Th/cmm (4.8-10.8) 09/28/18 06:15 RBC 3.65 Mil/cmm (3.80-5.20) L 09/28/18 06:15 Hgb 11.7 gm/dL (12-16) L 09/28/18 06:15 Hct 35.4 % (41.0-60) L 09/28/18 06:15 MCV 97.1 fl (81-100) 09/28/18 06:15 MCH 32.0 pg (27.0-31.0) H 09/28/18 06:15 MCHC Differential 32.9 pg (28.0-36.0) 09/28/18 06:15 RDW 15.1 % (11.5-20.0) 09/28/18 06:15 Plt Count 144 Th/cmm (150-400) L 09/28/18 06:15 MPV 8.3 fl 09/28/18 06:15 Neutrophils % 70.0 % (40.0-80.0) 09/28/18 06:15 Band Neutrophils % 1 % (0-10) 09/26/18 18:20 Lymphocytes % 15.4 % (20.0-50.0) L 09/28/18 06:15 Monocytes % 10.3 % (2.0-10.0) H 09/28/18 06:15 Eosinophils % 2.9 % (0.0-5.0) 09/28/18 06:15 Basophils % 1.4 % (0.0-2.0) 09/28/18 06:15 Neutrophils (Manual) 84 % (40-80) H 09/26/18 18:20 Lymphocytes 7 % (20-50) L 09/26/18 18:20 Monocytes 7 % (2-10) 09/26/18 18:20 Eosinophils 1 % (0-5) 09/26/18 18:20 Basophils 0 % (0-3) 09/26/18 18:20 Sodium 141 mEq/L (136-145) 09/28/18 06:15 Potassium 3.5 mEq/L (3.5-5.1) 09/28/18 06:15 Chloride 101 mEq/L (98-107) 09/28/18 06:15 Carbon Dioxide 29.8 mEq/L (21.0-31.0) 09/28/18 06:15 Anion Gap 13.7 (7.0-16.0) 09/28/18 06:15 BUN 25 mg/dL (7-25) 09/28/18 06:15 Creatinine 3.8 mg/dL (0.6-1.2) H 09/28/18 06:15 Est GFR ( Amer) TNP 09/28/18 06:15 Est GFR (Non-Af Amer) TNP 09/28/18 06:15 BUN/Creatinine Ratio 6.6 09/28/18 06:15 Glucose 116 mg/dL (70-105) H 09/28/18 06:15 POC Glucose 320 MG/DL (70 - 105) H 09/29/18 11:56 Calcium 8.4 mg/dL (8.6-10.3) L 09/28/18 06:15 Phosphorus 3.5 mg/dL (2.5-5.0) 09/26/18 18:20 Magnesium 2.1 mg/dL (1.9-2.7) 09/26/18 18:20 Total Bilirubin 0.5 mg/dL (0.3-1.0) 09/26/18 18:20 AST 23 U/L (13-39) 09/26/18 18:20 ALT 21 U/L (7-52) 09/26/18 18:20 Alkaline Phosphatase 128 U/L (34-104) H 09/26/18 18:20 Troponin I 0.21 ng/mL (0.01-0.05) H* 09/27/18 06:45 B-Natriuretic Peptide 3600.0 pg/mL (5.0-100.0) H 09/26/18 18:20 Total Protein 7.3 gm/dL (6.0-8.3) 09/26/18 18:20 Albumin 4.0 gm/dL (3.7-5.3) 09/26/18 18:20 Globulin 3.3 gm/dL 09/26/18 18:20 Albumin/Globulin Ratio 1.2 (1.0-1.8) 09/26/18 18:20 Triglycerides 74 mg/dL (<150) 09/28/18 06:15 Cholesterol 118 mg/dL (<200) 09/28/18 06:15 LDL Cholesterol Direct 63 mg/dL (75-193) L 09/28/18 06:15 HDL Cholesterol 46 mg/dL (23-92) 09/28/18 06:15 TSH 1.44 uIU/ml (0.34-5.60) 09/27/18 10:33 Urine Source CLEAN C 09/28/18 09:55 Urine Color YELLOW 09/28/18 09:55 Urine Clarity CLOUDY (CLEAR) H 09/28/18 09:55 Urine pH 6.0 (4.6 - 8.0) 09/28/18 09:55 Ur Specific [place] 1.025 (1.005-1.030) 09/28/18 09:55 Urine Protein >=300 mg/dL (NEGATIVE) 09/28/18 09:55 Urine Glucose (UA) 100 mg/dL (NEGATIVE) H 09/28/18 09:55 Urine Ketones NEGATIVE mg/dL (NEGATIVE) 09/28/18 09:55 Urine Blood MODERATE (NEGATIVE) H 09/28/18 09:55 Urine Nitrate NEGATIVE (NEGATIVE) 09/28/18 09:55 Urine Bilirubin NEGATIVE (NEGATIVE) 09/28/18 09:55 Urine Urobilinogen 0.2 E.U./dL (0.2 - 1.0) 09/28/18 09:55 Ur Leukocyte Esterase TRACE (NEGATIVE) H 09/28/18 09:55 Urine RBC 0-2 /hpf (0-5) 09/28/18 09:55 Urine WBC 10-25 /hpf (0-5) H 09/28/18 09:55 Ur Epithelial Cells FEW /lpf (FEW) 09/28/18 09:55 Urine Bacteria MODERATE /hpf (NONE SEEN) H 09/28/18 09:55 Hepatitis A IgM Ab Negative (Negative) 09/27/18 10:47 Hep Bs Antigen Negative (Negative) 09/27/18 10:47 Hep B Core IgM Ab Negative (Negative) 09/27/18 10:47 Hepatitis C Antibody <0.1 s/co ratio (0.0-0.9) 09/27/18 10:47 Influenza A (Rapid) NEG FOR INF A 09/26/18 20:10 Influenza B (Rapid) NEG FOR INF B 09/26/18 20:10 - Physical Exam Vitals and I&O: Vital Signs Temp 98.2 F 09/29/18 04:00 Pulse 76 09/29/18 14:35 Resp 18 09/29/18 14:35 BP 132/70 09/29/18 08:50 Pulse Ox 99 09/29/18 14:35 Intake & Output 09/28/18 09/29/18 09/29/18 18:59 06:59 18:59 Intake Total 800 500 Balance 800 500 Weight (lbs) 66.678 kg 66.678 kg Intake: Intake, IV Amount 300 Azithromycin 500 mg In 250 Sodium Chloride 0.9% 250 ml @ 250 mls/hr IV Q24HR [facility] Rx#:[id number] cefTRIAXone 1 gm In 50 Sodium Chloride 0.9% 50 ml @ 100 mls/hr IV Q24HR [facility] Rx#:[id number] Oral 800 200 Other: # Voids 1 0 # Bowel Movements 1 0 Stool Characteristics Formed Formed Formed Weight Source [facility] Active Medications: Current Medications Acetaminophen (Tylenol) 650 mg PO Q4H PRN PRN Reason: Fever > 101 Stop: 11/25/18 23:56 Last Admin: 09/28/18 00:12 Dose: 650 mg Acetylcysteine (Mucomyst 20%) 3 ml HHN BID [facility] Stop: 11/27/18 16:59 Last Admin: 09/29/18 06:30 Dose: 3 ml Albuterol/Ipratropium (Duoneb Neb) 3 ml HHN Q4HRT [facility] Stop: 11/26/18 08:44 Last Admin: 09/29/18 14:33 Dose: 3 ml Albuterol/Ipratropium (Duoneb Neb) 3 ml HHN Q4HRT PRN PRN Reason: cough and congestion Stop: 11/26/18 08:50 Last Admin: 09/27/18 12:32 Dose: 3 ml Amiodarone HCl (Cordarone) 100 mg PO DAILY [facility] Stop: 11/26/18 08:59 Last Admin: 09/29/18 08:49 Dose: 100 mg Benzonatate (Tessalon) 100 mg PO TID PRN PRN Reason: Cough Stop: 11/27/18 13:56 Famotidine (Pepcid) 20 mg PO DAILY [facility] Stop: 11/26/18 08:59 Last Admin: 09/29/18 08:49 Dose: 20 mg Furosemide (Lasix) 40 mg PO DAILY [facility] Stop: 11/26/18 08:59 Last Admin: 09/29/18 08:50 Dose: 40 mg Azithromycin 500 mg/ Sodium (Chloride) 250 mls @ 250 mls/hr IV Q24HR [facility] Stop: 11/26/18 00:59 Last Infusion: 09/29/18 02:47 Dose: Infused Ceftriaxone Sodium 1 gm/ (Sodium Chloride) 50 mls @ 100 mls/hr IV Q24HR [facility] Stop: 11/26/18 20:29 Last Infusion: 09/28/18 22:16 Dose: Infused Insulin Glargine (Lantus Insulin) 12 units SUBQ HS [facility] Stop: 11/26/18 20:59 Last Admin: 09/28/18 21:32 Dose: 12 units Insulin Human Lispro (Humalog) 0 unit SUBQ ACHS [facility]; Protocol Stop: 11/26/18 07:29 Last Admin: 09/29/18 12:11 Dose: 8 units Lactobacillus Rhamnosus (Culturelle 15b) 1 each PO DAILY [facility] Stop: 11/27/18 08:59 Last Admin: 09/29/18 08:49 Dose: 1 each Losartan Potassium (Cozaar) 50 mg PO DAILY [facility] Stop: 11/26/18 08:59 Last Admin: 09/29/18 08:49 Dose: 50 mg Methylprednisolone Sodium Succinate (Solu-Medrol) 40 mg IVP Q8HR [facility] Stop: 11/28/18 12:59 Last Admin: 09/29/18 12:37 Dose: 40 mg Miscellaneous (Probiotic Screen) 1 ea MC PRN PRN PRN Reason: PROTOCOL Stop: 11/26/18 09:31 Nifedipine (Procardia) 10 mg PO DAILY [facility] Stop: 11/26/18 08:59 Last Admin: 09/29/18 08:50 Dose: 10 mg Promethazine HCl/Dextromethorphan (Phenergan Dm 6.25/15mg-5 Ml) 10 ml PO Q4HWA PRN PRN Reason: Cough Stop: 11/27/18 13:55 Last Admin: 09/28/18 22:56 Dose: 10 ml Temazepam (Restoril) 15 mg PO HS PRN; Protocol PRN Reason: Insomnia Stop: 11/25/18 23:57 Last Admin: 09/28/18 21:21 Dose: 15 mg General: Alert, Mild distress HEENT: Atraumatic, Mucous membr. moist/pink Neck: Supple, +2 carotid pulse wo bruit Cardiovascular: Regular rate, Normal S1, Normal S2 Lungs: Other (rhonchi, congestion) Abdomen: Bowel sounds, Soft Extremities: no Edema Neurological: Sensation intact Skin: no Rash Psych/Mental Status: Mood NL - Procedures Procedures: Procedures Procedure Code Date ASSISTANCE WITH RESPIRATORY VENTILATION, 24-96 HRS, CPAP [id number] 07/29/17 INSERT TUNNELED CV CATH [id number] 07/29/17 INSERTION OF INFUSION DEV INTO SUP VENA CAVA, PERC APPROACH [id number] 08/23/17 PERFORMANCE OF URINARY FILTRATION, <6 HRS/DAY [id number] 08/13/17 POS AIRWAY PRESSURE CPAP [id number] 07/29/17 REMOVAL OF INFUSION DEV FROM GREAT VESSEL, BALLET DANCER APPROACH [id number] 07/29/17 REMOVAL OF INFUSION DEVICE FROM UPPER VEIN, PERC APPROACH [id number] 08/23/17 TETANUS TOXOID ADMINIST 99.38 05/28/13 ULTRASONOGRAPHY OF SUPERIOR VENA CAVA, GUIDANCE [id number] 07/29/17 Assessment/Plan - Problem List Patient Problems: All Active Problems COUGH AND CONGESTION WITH DYSPNEA (Acute) - Assessment Assessment: ESRD on HD Sepsis 2/2 right CAP T2DM w/ CKD Ess Htn w/ CKD Gastritis Mod CHF - Plan Plan: Lab - Result Diagrams 09/28/18 06:15 09/28/18 06:15 Current Medications Acetaminophen (Tylenol) 650 mg PO Q4H PRN PRN Reason: Fever > 101 Stop: 11/25/18 23:56 Last Admin: 09/28/18 00:12 Dose: 650 mg Albuterol/Ipratropium (Duoneb Neb) 3 ml HHN Q4HRT [facility] Stop: 11/26/18 08:44 Last Admin: 09/28/18 10:50 Dose: 3 ml Albuterol/Ipratropium (Duoneb Neb) 3 ml HHN Q4HRT PRN PRN Reason: cough and congestion Stop: 11/26/18 08:50 Last Admin: 09/27/18 12:32 Dose: 3 ml Amiodarone HCl (Cordarone) 100 mg PO DAILY [facility] Stop: 11/26/18 08:59 Last Admin: 09/28/18 08:23 Dose: 100 mg Famotidine (Pepcid) 20 mg PO DAILY [facility] Stop: 11/26/18 08:59 Last Admin: 09/28/18 08:22 Dose: 20 mg Furosemide (Lasix) 40 mg PO DAILY [facility] Stop: 11/26/18 08:59 Last Admin: 09/28/18 08:21 Dose: 40 mg Guaifenesin/Dextromethorphan (Robitussin Dm) 10 ml PO Q6HR PRN PRN Reason: Cough Stop: 11/26/18 14:49 Last Admin: 09/28/18 12:10 Dose: 10 ml Heparin Sodium (Porcine) (Heparin Sodium) 0 units HD UD [facility] Stop: 09/29/18 00:00 Heparin Sodium (Porcine) (Heparin) 5,000 units HD UD [facility] Stop: 09/29/18 00:00 Azithromycin 500 mg/ Sodium (Chloride) 250 mls @ 250 mls/hr IV Q24HR [facility] Stop: 11/26/18 00:59 Last Infusion: 09/28/18 01:06 Dose: Infused Ceftriaxone Sodium 1 gm/ (Sodium Chloride) 50 mls @ 100 mls/hr IV Q24HR [facility] Stop: 11/26/18 20:29 Last Infusion: 09/27/18 23:23 Dose: Infused Albumin Human (Albuminar 25%) 25 gm in 100 mls @ 50 mls/hr IV PRN PRN PRN Reason: BP Support During HD Stop: 09/28/18 23:59 Insulin Glargine (Lantus Insulin) 12 units SUBQ [facility] Stop: 11/26/18 20:59 Last Admin: 09/27/18 20:47 Dose: 12 units Insulin Human Lispro (Humalog) 0 unit SUBQ [facility]; Protocol Lab - Result Diagrams 09/28/18 06:15 09/28/18 06:15 Stop: 11/26/18 07:29 Last Admin: 09/28/18 12:01 Dose: 2 units Lactobacillus Rhamnosus (Culturelle 15b) 1 each PO DAILY [facility] Stop: 11/27/18 08:59 Last Admin: 09/28/18 08:22 Dose: 1 each Losartan Potassium (Cozaar) 50 mg PO DAILY [facility] Stop: 11/26/18 08:59 Last Admin: 09/28/18 08:22 Dose: 50 mg Miscellaneous (Probiotic Screen) 1 ea MC PRN PRN PRN Reason: PROTOCOL Stop: 11/26/18 09:31 Nifedipine (Procardia) 10 mg PO DAILY [facility] Stop: 11/26/18 08:59 Last Admin: 09/28/18 08:22 Dose: 10 mg Temazepam (Restoril) 15 mg PO HS PRN; Protocol PRN Reason: Insomnia Stop: 11/25/18 23:57 Last Admin: 09/28/18 00:12 Dose: 15 mg Lab - Result Diagrams 09/28/18 06:15 09/28/18 06:15 pt. scheduled for HD in am CXR some improvement of right LL infiltrates continue cough med & ZithroWalker Nutritional Asmnt/Malnutr-PDOC - Dietary Evaluation Malnutrition Findings (Please click <Entered> for more info): Nutritional Asmnt/Malnutrition Start: 09/27/18 10: 43 Text: Status: Active Freq: Protocol: Document 09/27/18 14:03 RHAQUE (Rec: 09/27/18 14:26 RHAQUE [id number]) Nutritional Asmnt/Malnutrition Patient General Information Nutritional Screening High Risk Diagnosis Sepsis 2ndary to CAPneumonia Pertinent Medical Hx/Surgical Hx (Per Er note) HTN, DM, Renal failure (on dialysis) Subjective Information Pt is primarily persian speaking. When asked how she was doing, she complained that her "tos" (cough) was very strong and the pain was making it hard to breath properly. When shared with one of the RNs at the nurse's station, he explained that she is receiving resp therapy. RICKEY Pacheco described a very good PO intake of about 75%. Oral Supplementation with Glucerna was deemed unnecessary. Was going to recommend change to renal diet, but the orders state that she should be on high K+ diet, which would contradict Renal diet orders. Current Diet Order/ Nutrition Support CCHO Low Na+ High K+ 1800kcal, 80gm Prtn Patient / S.O Not Indicated Pertinent Medications Pepcid, Lasix, Insulin Human Lispri, Cozaar Pertinent Labs (09/27) POC Glucose 178 H, () Gluc 167 H, Na+ 135 L Nutritional Hx/Data Height 1.57 m Height (Calculated Centimeters) 157.5 Current Weight (lbs) 70.307 kg Weight (Calculated Kilograms) 70.3 Weight (Calculated Grams) 99259.8 [place] Body Weight 110 % [place] Body Weight 141 Body Mass Index (BMI) 28.3 Weight Status Overweight GI Symptoms GI Symptoms None Last BM x1 (09/28) Difficult in: None Food Allergies No Cultural/Ethnic/Scientology Belief None noted Skin Integrity/Comment: Oracio score 19 Current %PO Good (75-100%) Estimated Nutritional Goals BEE in Kcals: Adj wt of IBW Calories/Kcals/Kg 30-35 kcal / kg / day ( dialysis pt) Kcals Calculated 5728-4136 kcal Protein: Adj wt of IBW Protein g/k - 1.3 gm Prtn / kg / day ( dialysis pt) Protein Calculated 55-72 gm Prtn Fluid: ml Per Md orders (dialysis pt) Nutritional Problem No current Nutrition Prob Problem N/A Malnutrition Alert Is there a minimum of two criteria No selected? Query Text:Check all the applicable criteria. A minimum of two criteria are recommended for diagnosis of either severe or non-severe malnutrition. Malnutrition Related to Morbid Obesity Malnutrition related to morbid obesity No Intervention/Recommendation Comments Consider changing diet to Renal Diet. Expected Outcomes/Goals Expected Outcomes/Goals - Maintain 100% PO intake - Labs trending to WNL - F/U in 3-5 days as
[2018-09-29] MEDS: cefTRIAXone 1 GM in Sodium Chloride 0.9% 50 ML IV SCH (22:00)
[2018-09-29] MEDS: Insulin Glargine 100 units/ml 10ml Vial SUBQ SCH (22:24)
[2018-09-30] MEDS: Azithromycin 500 MG in Sodium Chloride 0.9% 250 ML IV SCH (00:08)
[2018-09-30] MEDS: Albuterol/Ipratropium Neb 3 ML AERS HHN SCH ×6 (02:09→23:19)
[2018-09-30 05:12] LABS: HEMATOCRIT 33.3 % (41.0-60); HEMOGLOBIN 11.4 gm/dL (12-16); MEAN CELL VOLUME 95.7 fl (81-100); MEAN CORPUSCULAR HEMOGLOBIN 32.8 pg (27.0-31.0); MEAN CORPUSCULAR HGB CONC 34.3 pg (28.0-36.0); MEAN PLATELET VOLUME 8.8 fl; PLATELET COUNT 174 Th/cmm (150-400); RED BLOOD COUNT 3.48 Mil/cmm (3.80-5.20); RED CELL DISTRIBUTION WIDTH 15.3 % (11.5-20.0)
[2018-09-30 05:22] LABS: WHITE BLOOD COUNT 15.7 Th/cmm (4.8-10.8)
[2018-09-30 05:23] LABS: ANION GAP 20.3 (7.0-16.0); BUN - UREA NITROGEN 62 mg/dL (7-25); CALCIUM SERUM 8.3 mg/dL (8.6-10.3); CARBON DIOXIDE 21.6 mEq/L (21.0-31.0); CHLORIDE 97 mEq/L (98-107); GLUCOSE 270 mg/dL (70-105); MAGNESIUM 2.2 mg/dL (1.9-2.7); POTASSIUM SERUM 3.9 mEq/L (3.5-5.1); SODIUM SERUM 135 mEq/L (136-145)
[2018-09-30 05:59] LABS: BAND NEUTROPHILE 3 % (0-10); LYMPHOCYTE 3 % (20-50); MONOCYTE 4 % (2-10); NEUTROPHILS 90 % (40-80)
[2018-09-30 06:00] LABS: PLATELET ESTIMATE ADEQUATE (NORMAL)
[2018-09-30] MEDS: methylPREDNISolone SS 40 mg Vial IVP SCH ×3 (06:37→20:55)
[2018-09-30] MEDS: INSULIN LISPRO 100 UNIT/ML VIAL SUBQ SCH ×4 (06:37→20:58)
[2018-09-30] MEDS: Lactobacillus Rhamnosus GG 15 Billion CFU CAP.SPRINK PO SCH (08:16)
--- NOTE | 2018-09-30 08:59 | Diagnostic Imaging Report ---
Chest x-ray (2 views) HISTORY: Shortness of breath The heart is enlarged. Evidence of small bilateral pleural effusions. Atherosclerotic calcination seen in the aorta. Questionable faint infiltrate in the left lower lobe. IMPRESSION: 1. Persistent cardiomegaly with small bilateral pleural effusions. The findings may be associated with congestive heart failure. Questionable faint infiltrate left lower lobe. Pneumonia cannot be excluded. Clinical correlation is needed.
--- NOTE | 2018-09-30 12:11 | Internal Medicine Prog Note ---
Internal Medicine Subjective - Subjective Service Date: 09/30/18 (feels better overall. Cough improving) Patient is:: awake Patient Complaints of:: congestion, cough Per staff patient has:: no adverse event Internal Medicine Objective - Results Result Diagrams: 09/30/18 04:30 09/30/18 04:30 Recent Labs: Laboratory Last Values WBC 15.7 Th/cmm (4.8-10.8) H 09/30/18 04:30 RBC 3.48 Mil/cmm (3.80-5.20) L 09/30/18 04:30 Hgb 11.4 gm/dL (12-16) L 09/30/18 04:30 Hct 33.3 % (41.0-60) L 09/30/18 04:30 MCV 95.7 fl (81-100) 09/30/18 04:30 MCH 32.8 pg (27.0-31.0) H 09/30/18 04:30 MCHC Differential 34.3 pg (28.0-36.0) 09/30/18 04:30 RDW 15.3 % (11.5-20.0) 09/30/18 04:30 Plt Count 174 Th/cmm (150-400) 09/30/18 04:30 MPV 8.8 fl 09/30/18 04:30 Add Manual Diff YES 09/30/18 04:30 Neutrophils % 70.0 % (40.0-80.0) 09/28/18 06:15 Band Neutrophils % 3 % (0-10) 09/30/18 04:30 Lymphocytes % 15.4 % (20.0-50.0) L 09/28/18 06:15 Monocytes % 10.3 % (2.0-10.0) H 09/28/18 06:15 Eosinophils % 2.9 % (0.0-5.0) 09/28/18 06:15 Basophils % 1.4 % (0.0-2.0) 09/28/18 06:15 Neutrophils (Manual) 90 % (40-80) H 09/30/18 04:30 Lymphocytes 3 % (20-50) L 09/30/18 04:30 Monocytes 4 % (2-10) 09/30/18 04:30 Eosinophils 1 % (0-5) 09/26/18 18:20 Basophils 0 % (0-3) 09/26/18 18:20 Platelet Estimate ADEQUATE (NORMAL) 09/30/18 04:30 Sodium 135 mEq/L (136-145) L 09/30/18 04:30 Potassium 3.9 mEq/L (3.5-5.1) 09/30/18 04:30 Chloride 97 mEq/L (98-107) L 09/30/18 04:30 Carbon Dioxide 21.6 mEq/L (21.0-31.0) 09/30/18 04:30 Anion Gap 20.3 (7.0-16.0) H 09/30/18 04:30 BUN 62 mg/dL (7-25) H 09/30/18 04:30 Creatinine 6.0 mg/dL (0.6-1.2) H* 09/30/18 04:30 Est GFR ( Amer) TNP 09/30/18 04:30 Est GFR (Non-Af Amer) TNP 09/30/18 04:30 BUN/Creatinine Ratio 10.3 09/30/18 04:30 Glucose 270 mg/dL (70-105) H 09/30/18 04:30 POC Glucose 240 MG/DL (70 - 105) H 09/30/18 11:28 Calcium 8.3 mg/dL (8.6-10.3) L 09/30/18 04:30 Phosphorus 3.5 mg/dL (2.5-5.0) 09/26/18 18:20 Magnesium 2.2 mg/dL (1.9-2.7) 09/30/18 04:30 Total Bilirubin 0.5 mg/dL (0.3-1.0) 09/26/18 18:20 AST 23 U/L (13-39) 09/26/18 18:20 ALT 21 U/L (7-52) 09/26/18 18:20 Alkaline Phosphatase 128 U/L (34-104) H 09/26/18 18:20 Troponin I 0.21 ng/mL (0.01-0.05) H* 09/27/18 06:45 B-Natriuretic Peptide 3600.0 pg/mL (5.0-100.0) H 09/26/18 18:20 Total Protein 7.3 gm/dL (6.0-8.3) 09/26/18 18:20 Albumin 4.0 gm/dL (3.7-5.3) 09/26/18 18:20 Globulin 3.3 gm/dL 09/26/18 18:20 Albumin/Globulin Ratio 1.2 (1.0-1.8) 09/26/18 18:20 Triglycerides 74 mg/dL (<150) 09/28/18 06:15 Cholesterol 118 mg/dL (<200) 09/28/18 06:15 LDL Cholesterol Direct 63 mg/dL (75-193) L 09/28/18 06:15 HDL Cholesterol 46 mg/dL (23-92) 09/28/18 06:15 TSH 1.44 uIU/ml (0.34-5.60) 09/27/18 10:33 Urine Source CLEAN C 09/28/18 09:55 Urine Color YELLOW 09/28/18 09:55 Urine Clarity CLOUDY (CLEAR) H 09/28/18 09:55 Urine pH 6.0 (4.6 - 8.0) 09/28/18 09:55 Ur Specific [place] 1.025 (1.005-1.030) 09/28/18 09:55 Urine Protein >=300 mg/dL (NEGATIVE) 09/28/18 09:55 Urine Glucose (UA) 100 mg/dL (NEGATIVE) H 09/28/18 09:55 Urine Ketones NEGATIVE mg/dL (NEGATIVE) 09/28/18 09:55 Urine Blood MODERATE (NEGATIVE) H 09/28/18 09:55 Urine Nitrate NEGATIVE (NEGATIVE) 09/28/18 09:55 Urine Bilirubin NEGATIVE (NEGATIVE) 09/28/18 09:55 Urine Urobilinogen 0.2 E.U./dL (0.2 - 1.0) 09/28/18 09:55 Ur Leukocyte Esterase TRACE (NEGATIVE) H 09/28/18 09:55 Urine RBC 0-2 /hpf (0-5) 09/28/18 09:55 Urine WBC 10-25 /hpf (0-5) H 09/28/18 09:55 Ur Epithelial Cells FEW /lpf (FEW) 09/28/18 09:55 Urine Bacteria MODERATE /hpf (NONE SEEN) H 09/28/18 09:55 Hepatitis A IgM Ab Negative (Negative) 09/27/18 10:47 Hep Bs Antigen Negative (Negative) 09/27/18 10:47 Hep B Core IgM Ab Negative (Negative) 09/27/18 10:47 Hepatitis C Antibody <0.1 s/co ratio (0.0-0.9) 09/27/18 10:47 Influenza A (Rapid) NEG FOR INF A 09/26/18 20:10 Influenza B (Rapid) NEG FOR INF B 09/26/18 20:10 - Physical Exam Vitals and I&O: Vital Signs Temp 96.5 F 09/30/18 08:17 Pulse 67 09/30/18 11:10 Resp 18 09/30/18 11:34 BP 134/71 09/30/18 08:17 Pulse Ox 99 09/30/18 11:10 Intake & Output 09/29/18 09/30/18 09/30/18 18:59 06:59 18:59 Intake Total 900 150 Balance 900 150 Weight (lbs) 70.307 kg 69.536 kg Intake: Oral 900 150 Other: # Voids 1 1 # Bowel Movements 0 0 Stool Characteristics Formed Formed Weight Source Bedscale Bedscale Active Medications: Current Medications Acetaminophen (Tylenol) 650 mg PO Q4H PRN PRN Reason: Fever > 101 Stop: 11/25/18 23:56 Last Admin: 09/29/18 21:59 Dose: 650 mg Acetylcysteine (Mucomyst 20%) 3 ml HHN BID [facility] Stop: 11/27/18 16:59 Last Admin: 09/30/18 11:10 Dose: 3 ml Albuterol/Ipratropium (Duoneb Neb) 3 ml HHN Q4HRT [facility] Stop: 11/26/18 08:44 Last Admin: 09/30/18 11:10 Dose: 3 ml Albuterol/Ipratropium (Duoneb Neb) 3 ml HHN Q4HRT PRN PRN Reason: cough and congestion Stop: 11/26/18 08:50 Last Admin: 09/27/18 12:32 Dose: 3 ml Amiodarone HCl (Cordarone) 100 mg PO DAILY [facility] Stop: 11/26/18 08:59 Last Admin: 09/30/18 08:17 Dose: Not Given Benzonatate (Tessalon) 100 mg PO TID PRN PRN Reason: Cough Stop: 11/27/18 13:56 Famotidine (Pepcid) 20 mg PO DAILY [facility] Stop: 11/26/18 08:59 Last Admin: 09/30/18 08:16 Dose: 20 mg Furosemide (Lasix) 40 mg PO DAILY [facility] Stop: 11/26/18 08:59 Last Admin: 09/30/18 08:17 Dose: Not Given Azithromycin 500 mg/ Sodium (Chloride) 250 mls @ 250 mls/hr IV Q24HR [facility] Stop: 11/26/18 00:59 Last Admin: 09/30/18 00:08 Dose: 250 mls/hr Ceftriaxone Sodium 1 gm/ (Sodium Chloride) 50 mls @ 100 mls/hr IV Q24HR [facility] Stop: 11/26/18 20:29 Last Admin: 09/29/18 22:00 Dose: 100 mls/hr Insulin Glargine (Lantus Insulin) 12 units SUBQ HS [facility] Stop: 11/26/18 20:59 Last Admin: 09/29/18 22:24 Dose: 12 units Insulin Human Lispro (Humalog) 0 unit SUBQ ACHS [facility]; Protocol Stop: 11/26/18 07:29 Last Admin: 09/30/18 06:37 Dose: 6 units Lactobacillus Rhamnosus (Culturelle 15b) 1 each PO DAILY [facility] Stop: 11/27/18 08:59 Last Admin: 09/30/18 08:16 Dose: 1 each Losartan Potassium (Cozaar) 50 mg PO DAILY [facility] Stop: 11/26/18 08:59 Last Admin: 09/30/18 08:17 Dose: Not Given Methylprednisolone Sodium Succinate (Solu-Medrol) 40 mg IVP Q8HR [facility] Stop: 11/28/18 12:59 Last Admin: 09/30/18 06:37 Dose: 40 mg Miscellaneous (Probiotic Screen) 1 ea MC PRN PRN PRN Reason: PROTOCOL Stop: 11/26/18 09:31 Miscellaneous (Clinical Monitoring) 1 ea MC DAILY PRN PRN Reason: RENAL DOSING Stop: 11/29/18 08:28 Nifedipine (Procardia) 10 mg PO DAILY [facility] Stop: 11/26/18 08:59 Last Admin: 09/30/18 08:17 Dose: Not Given Promethazine HCl/Dextromethorphan (Phenergan Dm 6.25/15mg-5 Ml) 10 ml PO Q4HWA PRN PRN Reason: Cough Stop: 11/27/18 13:55 Last Admin: 09/28/18 22:56 Dose: 10 ml Temazepam (Restoril) 15 mg PO HS PRN; Protocol PRN Reason: Insomnia Stop: 11/25/18 23:57 Last Admin: 09/29/18 22:00 Dose: 15 mg General: alert HEENT: NC/AT, PERRLA, EOMI Neck: No JVD Lungs: congested, rales, ronchi Cardiovascular: RRR, Normal S1, Normal S2, without murmur Abdomen: soft, non-tender, non-distended Neurological: no change, alert - Procedures Procedures: Procedures Procedure Code Date ASSISTANCE WITH RESPIRATORY VENTILATION, 24-96 HRS, CPAP [id number] 07/29/17 INSERT TUNNELED CV CATH [id number] 07/29/17 INSERTION OF INFUSION DEV INTO SUP VENA CAVA, PERC APPROACH [id number] 08/23/17 PERFORMANCE OF URINARY FILTRATION, <6 HRS/DAY [id number] 08/13/17 POS AIRWAY PRESSURE CPAP [id number] 07/29/17 REMOVAL OF INFUSION DEV FROM GREAT VESSEL, VEHICLE BODY BUILDER APPROACH [id number] 07/29/17 REMOVAL OF INFUSION DEVICE FROM UPPER VEIN, PERC APPROACH [id number] 08/23/17 TETANUS TOXOID ADMINIST 99.38 05/28/13 ULTRASONOGRAPHY OF SUPERIOR VENA CAVA, GUIDANCE [id number] 07/29/17 CXR-PERSISTENT CM WITH BILATERAL PLEURAL EFFUSIONS ?FAINT LLL INFILTRATE Internal Medicine Assmt/Plan - Assessment Assessment: BRONCHITIS VS EARLY PNA-clinically improving VOLUME OVERLOAD/CHF PERSISTENT COUGH-improving HX OF ESRD HISTORY OF ESSENTIAL HTN HISTORY OF CAD/ARRYTHMIA - Plan Plan: CONT WITH TELE SUPPORTIVE CARE AND MGT CONT WITH IV ABXS, PULM TOILET WEAN OFF STEROIDS, ACETYLCYSTEINE CONT WITH OTHER MEDS SCHEDULED CONT WITH HD SCHEDULED PLACE ON RA AND MONIOTR PT EVAL/DC PLANNING SOON Nutritional Asmnt/Malnutr-PDOC - Dietary Evaluation Malnutrition Findings (Please click <Entered> for more info): Nutritional Asmnt/Malnutrition Start: 09/27/18 10: 43 Text: Status: Active Freq: Protocol: Document 09/27/18 14:03 RHAQUE (Rec: 09/27/18 14:26 RHAQUE [id number]) Nutritional Asmnt/Malnutrition Patient General Information Nutritional Screening High Risk Diagnosis Sepsis 2ndary to CAPneumonia Pertinent Medical Hx/Surgical Hx (Per Er note) HTN, DM, Renal failure (on dialysis) Subjective Information Pt is primarily romanian speaking. When asked how she was doing, she complained that her "tos" (cough) was very strong and the pain was making it hard to breath properly. When shared with one of the RNs at the nurse's station, he explained that she is receiving resp therapy. RN Tara described a very good PO intake of about 75%. Oral Supplementation with Glucerna was deemed unnecessary. Was going to recommend change to renal diet, but the orders state that she should be on high K+ diet, which would contradict Renal diet orders. Current Diet Order/ Nutrition Support CCHO Low Na+ High K+ 1800kcal, 80gm Prtn Patient / S.O Not Indicated Pertinent Medications Pepcid, Lasix, Insulin Human Lispri, Cozaar Pertinent Labs (09/27) POC Glucose 178 H, () Gluc 167 H, Na+ 135 L Nutritional Hx/Data Height 1.57 m Height (Calculated Centimeters) 157.5 Current Weight (lbs) 70.307 kg Weight (Calculated Kilograms) 70.3 Weight (Calculated Grams) 37549.8 Williams Body Weight 110 % Williams Body Weight 141 Body Mass Index (BMI) 28.3 Weight Status Overweight GI Symptoms GI Symptoms None Last BM x1 (09/28) Difficult in: None Food Allergies No Cultural/Ethnic/Jewish Belief None noted Skin Integrity/Comment: Oracio score 19 Current %PO Good (75-100%) Estimated Nutritional Goals BEE in Kcals: Adj wt of IBW Calories/Kcals/Kg 30-35 kcal / kg / day ( dialysis pt) Kcals Calculated 2537-4378 kcal Protein: Adj wt of IBW Protein g/k - 1.3 gm Prtn / kg / day ( dialysis pt) Protein Calculated 55-72 gm Prtn Fluid: ml Per Md orders (dialysis pt) Nutritional Problem No current Nutrition Prob Problem N/A Malnutrition Alert Is there a minimum of two criteria No selected? Query Text:Check all the applicable criteria. A minimum of two criteria are recommended for diagnosis of either severe or non-severe malnutrition. Malnutrition Related to Morbid Obesity Malnutrition related to morbid obesity No Intervention/Recommendation Comments Consider changing diet to Renal Diet. Expected Outcomes/Goals Expected Outcomes/Goals - Maintain 100% PO intake - Labs trending to WNL - F/U in 3-5 days as MR
--- NOTE | 2018-09-30 12:30 | General Progress Note ---
Subjective - Review of Systems Service Date: 09/30/18 Subjective: less cough/congestion Objective - Results Result Diagrams: 09/30/18 04:30 09/30/18 04:30 Recent Labs: Laboratory Last Values WBC 15.7 Th/cmm (4.8-10.8) H 09/30/18 04:30 RBC 3.48 Mil/cmm (3.80-5.20) L 09/30/18 04:30 Hgb 11.4 gm/dL (12-16) L 09/30/18 04:30 Hct 33.3 % (41.0-60) L 09/30/18 04:30 MCV 95.7 fl (81-100) 09/30/18 04:30 MCH 32.8 pg (27.0-31.0) H 09/30/18 04:30 MCHC Differential 34.3 pg (28.0-36.0) 09/30/18 04:30 RDW 15.3 % (11.5-20.0) 09/30/18 04:30 Plt Count 174 Th/cmm (150-400) 09/30/18 04:30 MPV 8.8 fl 09/30/18 04:30 Add Manual Diff YES 09/30/18 04:30 Neutrophils % 70.0 % (40.0-80.0) 09/28/18 06:15 Band Neutrophils % 3 % (0-10) 09/30/18 04:30 Lymphocytes % 15.4 % (20.0-50.0) L 09/28/18 06:15 Monocytes % 10.3 % (2.0-10.0) H 09/28/18 06:15 Eosinophils % 2.9 % (0.0-5.0) 09/28/18 06:15 Basophils % 1.4 % (0.0-2.0) 09/28/18 06:15 Neutrophils (Manual) 90 % (40-80) H 09/30/18 04:30 Lymphocytes 3 % (20-50) L 09/30/18 04:30 Monocytes 4 % (2-10) 09/30/18 04:30 Eosinophils 1 % (0-5) 09/26/18 18:20 Basophils 0 % (0-3) 09/26/18 18:20 Platelet Estimate ADEQUATE (NORMAL) 09/30/18 04:30 Sodium 135 mEq/L (136-145) L 09/30/18 04:30 Potassium 3.9 mEq/L (3.5-5.1) 09/30/18 04:30 Chloride 97 mEq/L (98-107) L 09/30/18 04:30 Carbon Dioxide 21.6 mEq/L (21.0-31.0) 09/30/18 04:30 Anion Gap 20.3 (7.0-16.0) H 09/30/18 04:30 BUN 62 mg/dL (7-25) H 09/30/18 04:30 Creatinine 6.0 mg/dL (0.6-1.2) H* 09/30/18 04:30 Est GFR ( Amer) TNP 09/30/18 04:30 Est GFR (Non-Af Amer) TNP 09/30/18 04:30 BUN/Creatinine Ratio 10.3 09/30/18 04:30 Glucose 270 mg/dL (70-105) H 09/30/18 04:30 POC Glucose 240 MG/DL (70 - 105) H 09/30/18 11:28 Calcium 8.3 mg/dL (8.6-10.3) L 09/30/18 04:30 Phosphorus 3.5 mg/dL (2.5-5.0) 09/26/18 18:20 Magnesium 2.2 mg/dL (1.9-2.7) 09/30/18 04:30 Total Bilirubin 0.5 mg/dL (0.3-1.0) 09/26/18 18:20 AST 23 U/L (13-39) 09/26/18 18:20 ALT 21 U/L (7-52) 09/26/18 18:20 Alkaline Phosphatase 128 U/L (34-104) H 09/26/18 18:20 Troponin I 0.21 ng/mL (0.01-0.05) H* 09/27/18 06:45 B-Natriuretic Peptide 3600.0 pg/mL (5.0-100.0) H 09/26/18 18:20 Total Protein 7.3 gm/dL (6.0-8.3) 09/26/18 18:20 Albumin 4.0 gm/dL (3.7-5.3) 09/26/18 18:20 Globulin 3.3 gm/dL 09/26/18 18:20 Albumin/Globulin Ratio 1.2 (1.0-1.8) 09/26/18 18:20 Triglycerides 74 mg/dL (<150) 09/28/18 06:15 Cholesterol 118 mg/dL (<200) 09/28/18 06:15 LDL Cholesterol Direct 63 mg/dL (75-193) L 09/28/18 06:15 HDL Cholesterol 46 mg/dL (23-92) 09/28/18 06:15 TSH 1.44 uIU/ml (0.34-5.60) 09/27/18 10:33 Urine Source CLEAN C 09/28/18 09:55 Urine Color YELLOW 09/28/18 09:55 Urine Clarity CLOUDY (CLEAR) H 09/28/18 09:55 Urine pH 6.0 (4.6 - 8.0) 09/28/18 09:55 Ur Specific [place] 1.025 (1.005-1.030) 09/28/18 09:55 Urine Protein >=300 mg/dL (NEGATIVE) 09/28/18 09:55 Urine Glucose (UA) 100 mg/dL (NEGATIVE) H 09/28/18 09:55 Urine Ketones NEGATIVE mg/dL (NEGATIVE) 09/28/18 09:55 Urine Blood MODERATE (NEGATIVE) H 09/28/18 09:55 Urine Nitrate NEGATIVE (NEGATIVE) 09/28/18 09:55 Urine Bilirubin NEGATIVE (NEGATIVE) 09/28/18 09:55 Urine Urobilinogen 0.2 E.U./dL (0.2 - 1.0) 09/28/18 09:55 Ur Leukocyte Esterase TRACE (NEGATIVE) H 09/28/18 09:55 Urine RBC 0-2 /hpf (0-5) 09/28/18 09:55 Urine WBC 10-25 /hpf (0-5) H 09/28/18 09:55 Ur Epithelial Cells FEW /lpf (FEW) 09/28/18 09:55 Urine Bacteria MODERATE /hpf (NONE SEEN) H 09/28/18 09:55 Hepatitis A IgM Ab Negative (Negative) 09/27/18 10:47 Hep Bs Antigen Negative (Negative) 09/27/18 10:47 Hep B Core IgM Ab Negative (Negative) 09/27/18 10:47 Hepatitis C Antibody <0.1 s/co ratio (0.0-0.9) 09/27/18 10:47 Influenza A (Rapid) NEG FOR INF A 09/26/18 20:10 Influenza B (Rapid) NEG FOR INF B 09/26/18 20:10 - Physical Exam Vitals and I&O: Vital Signs Temp 96.5 F 09/30/18 08:17 Pulse 67 09/30/18 11:10 Resp 18 09/30/18 11:34 BP 134/71 09/30/18 08:17 Pulse Ox 99 09/30/18 11:10 Intake & Output 09/29/18 09/30/18 09/30/18 18:59 06:59 18:59 Intake Total 900 150 Balance 900 150 Weight (lbs) 70.307 kg 69.536 kg Intake: Oral 900 150 Other: # Voids 1 1 # Bowel Movements 0 0 Stool Characteristics Formed Formed Weight Source Bedscale Bedscale Active Medications: Current Medications Acetaminophen (Tylenol) 650 mg PO Q4H PRN PRN Reason: Fever > 101 Stop: 11/25/18 23:56 Last Admin: 09/29/18 21:59 Dose: 650 mg Acetylcysteine (Mucomyst 20%) 3 ml HHN BID [facility] Stop: 11/27/18 16:59 Last Admin: 09/30/18 11:10 Dose: 3 ml Albuterol/Ipratropium (Duoneb Neb) 3 ml HHN Q4HRT [facility] Stop: 11/26/18 08:44 Last Admin: 09/30/18 11:10 Dose: 3 ml Albuterol/Ipratropium (Duoneb Neb) 3 ml HHN Q4HRT PRN PRN Reason: cough and congestion Stop: 11/26/18 08:50 Last Admin: 09/27/18 12:32 Dose: 3 ml Amiodarone HCl (Cordarone) 100 mg PO DAILY [facility] Stop: 11/26/18 08:59 Last Admin: 09/30/18 08:17 Dose: Not Given Benzonatate (Tessalon) 100 mg PO TID PRN PRN Reason: Cough Stop: 11/27/18 13:56 Famotidine (Pepcid) 20 mg PO DAILY [facility] Stop: 11/26/18 08:59 Last Admin: 09/30/18 08:16 Dose: 20 mg Furosemide (Lasix) 40 mg PO DAILY [facility] Stop: 11/26/18 08:59 Last Admin: 09/30/18 08:17 Dose: Not Given Azithromycin 500 mg/ Sodium (Chloride) 250 mls @ 250 mls/hr IV Q24HR [facility] Stop: 11/26/18 00:59 Last Admin: 09/30/18 00:08 Dose: 250 mls/hr Ceftriaxone Sodium 1 gm/ (Sodium Chloride) 50 mls @ 100 mls/hr IV Q24HR [facility] Stop: 11/26/18 20:29 Last Admin: 09/29/18 22:00 Dose: 100 mls/hr Insulin Glargine (Lantus Insulin) 12 units SUBQ HS [facility] Stop: 11/26/18 20:59 Last Admin: 09/29/18 22:24 Dose: 12 units Insulin Human Lispro (Humalog) 0 unit SUBQ ACHS [facility]; Protocol Stop: 11/26/18 07:29 Last Admin: 09/30/18 12:10 Dose: 4 units Lactobacillus Rhamnosus (Culturelle 15b) 1 each PO DAILY [facility] Stop: 11/27/18 08:59 Last Admin: 09/30/18 08:16 Dose: 1 each Losartan Potassium (Cozaar) 50 mg PO DAILY [facility] Stop: 11/26/18 08:59 Last Admin: 09/30/18 08:17 Dose: Not Given Methylprednisolone Sodium Succinate (Solu-Medrol) 40 mg IVP Q8HR [facility] Stop: 11/28/18 12:59 Last Admin: 09/30/18 12:10 Dose: 40 mg Miscellaneous (Probiotic Screen) 1 ea MC PRN PRN PRN Reason: PROTOCOL Stop: 11/26/18 09:31 Miscellaneous (Clinical Monitoring) 1 ea MC DAILY PRN PRN Reason: RENAL DOSING Stop: 11/29/18 08:28 Nifedipine (Procardia) 10 mg PO DAILY [facility] Stop: 11/26/18 08:59 Last Admin: 09/30/18 08:17 Dose: Not Given Promethazine HCl/Dextromethorphan (Phenergan Dm 6.25/15mg-5 Ml) 10 ml PO Q4HWA PRN PRN Reason: Cough Stop: 11/27/18 13:55 Last Admin: 09/28/18 22:56 Dose: 10 ml Temazepam (Restoril) 15 mg PO HS PRN; Protocol PRN Reason: Insomnia Stop: 11/25/18 23:57 Last Admin: 09/29/18 22:00 Dose: 15 mg General: Alert, Mild distress HEENT: Atraumatic, Mucous membr. moist/pink Neck: Supple, +2 carotid pulse wo bruit Cardiovascular: Regular rate, Normal S1, Normal S2 Lungs: Other (rhonchi, congestion) Abdomen: Bowel sounds, Soft Extremities: no Edema Neurological: Sensation intact Skin: no Rash Psych/Mental Status: Mood NL - Procedures Procedures: Procedures Procedure Code Date ASSISTANCE WITH RESPIRATORY VENTILATION, 24-96 HRS, CPAP [id number] 07/29/17 INSERT TUNNELED CV CATH [id number] 07/29/17 INSERTION OF INFUSION DEV INTO SUP VENA CAVA, PERC APPROACH [id number] 08/23/17 PERFORMANCE OF URINARY FILTRATION, <6 HRS/DAY [id number] 08/13/17 POS AIRWAY PRESSURE CPAP [id number] 07/29/17 REMOVAL OF INFUSION DEV FROM GREAT VESSEL, LUGGAGE ATTENDANT APPROACH [id number] 07/29/17 REMOVAL OF INFUSION DEVICE FROM UPPER VEIN, PERC APPROACH [id number] 08/23/17 TETANUS TOXOID ADMINIST 99.38 05/28/13 ULTRASONOGRAPHY OF SUPERIOR VENA CAVA, GUIDANCE [id number] 07/29/17 Assessment/Plan - Problem List Patient Problems: All Active Problems COUGH AND CONGESTION WITH DYSPNEA (Acute) - Assessment Assessment: ESRD on HD Sepsis 2/2 right CAP T2DM w/ CKD Ess Htn w/ CKD Gastritis Mod CHF - Plan Plan: Lab - Result Diagrams 09/28/18 06:15 09/28/18 06:15 Current Medications Acetaminophen (Tylenol) 650 mg PO Q4H PRN PRN Reason: Fever > 101 Stop: 11/25/18 23:56 Last Admin: 09/28/18 00:12 Dose: 650 mg Albuterol/Ipratropium (Duoneb Neb) 3 ml HHN Q4HRT [facility] Stop: 11/26/18 08:44 Last Admin: 09/28/18 10:50 Dose: 3 ml Albuterol/Ipratropium (Duoneb Neb) 3 ml HHN Q4HRT PRN PRN Reason: cough and congestion Stop: 11/26/18 08:50 Last Admin: 09/27/18 12:32 Dose: 3 ml Amiodarone HCl (Cordarone) 100 mg PO DAILY [facility] Stop: 11/26/18 08:59 Last Admin: 09/28/18 08:23 Dose: 100 mg Famotidine (Pepcid) 20 mg PO DAILY [facility] Stop: 11/26/18 08:59 Last Admin: 09/28/18 08:22 Dose: 20 mg Furosemide (Lasix) 40 mg PO DAILY [facility] Stop: 11/26/18 08:59 Last Admin: 09/28/18 08:21 Dose: 40 mg Guaifenesin/Dextromethorphan (Robitussin Dm) 10 ml PO Q6HR PRN PRN Reason: Cough Stop: 11/26/18 14:49 Last Admin: 09/28/18 12:10 Dose: 10 ml Heparin Sodium (Porcine) (Heparin Sodium) 0 units HD UD [facility] Stop: 09/29/18 00:00 Heparin Sodium (Porcine) (Heparin) 5,000 units HD UD [facility] Stop: 09/29/18 00:00 Azithromycin 500 mg/ Sodium (Chloride) 250 mls @ 250 mls/hr IV Q24HR [facility] Stop: 11/26/18 00:59 Last Infusion: 09/28/18 01:06 Dose: Infused Ceftriaxone Sodium 1 gm/ (Sodium Chloride) 50 mls @ 100 mls/hr IV Q24HR [facility] Stop: 11/26/18 20:29 Last Infusion: 09/27/18 23:23 Dose: Infused Albumin Human (Albuminar 25%) 25 gm in 100 mls @ 50 mls/hr IV PRN PRN PRN Reason: BP Support During HD Stop: 09/28/18 23:59 Insulin Glargine (Lantus Insulin) 12 units SUBQ [facility] Stop: 11/26/18 20:59 Last Admin: 09/27/18 20:47 Dose: 12 units Insulin Human Lispro (Humalog) 0 unit SUBQ [facility]; Protocol Lab - Result Diagrams 09/28/18 06:15 09/28/18 06:15 Stop: 11/26/18 07:29 Last Admin: 09/28/18 12:01 Dose: 2 units Lactobacillus Rhamnosus (Culturelle 15b) 1 each PO DAILY [facility] Stop: 11/27/18 08:59 Last Admin: 09/28/18 08:22 Dose: 1 each Losartan Potassium (Cozaar) 50 mg PO DAILY [facility] Stop: 11/26/18 08:59 Last Admin: 09/28/18 08:22 Dose: 50 mg Miscellaneous (Probiotic Screen) 1 ea MC PRN PRN PRN Reason: PROTOCOL Stop: 11/26/18 09:31 Nifedipine (Procardia) 10 mg PO DAILY [facility] Stop: 11/26/18 08:59 Last Admin: 09/28/18 08:22 Dose: 10 mg Temazepam (Restoril) 15 mg PO HS PRN; Protocol PRN Reason: Insomnia Stop: 11/25/18 23:57 Last Admin: 09/28/18 00:12 Dose: 15 mg Lab - Result Diagrams 09/30/18 04:30 09/30/18 04:30 pt. scheduled for HD today CXR some improvement of right LL infiltrates continue cough med & Zithro, Rocephin f/u CXR, CBC Nutritional Asmnt/Malnutr-PDOC - Dietary Evaluation Malnutrition Findings (Please click <Entered> for more info): Nutritional Asmnt/Malnutrition Start: 09/27/18 10: 43 Text: Status: Active Freq: Protocol: Document 09/27/18 14:03 RHAQUE (Rec: 09/27/18 14:26 RHAQUE [id number]) Nutritional Asmnt/Malnutrition Patient General Information Nutritional Screening High Risk Diagnosis Sepsis 2ndary to CAPneumonia Pertinent Medical Hx/Surgical Hx (Per Er note) HTN, DM, Renal failure (on dialysis) Subjective Information Pt is primarily faroese speaking. When asked how she was doing, she complained that her "tos" (cough) was very strong and the pain was making it hard to breath properly. When shared with one of the RNs at the nurse's station, he explained that she is receiving resp therapy. RICKEY Pacheco described a very good PO intake of about 75%. Oral Supplementation with Glucerna was deemed unnecessary. Was going to recommend change to renal diet, but the orders state that she should be on high K+ diet, which would contradict Renal diet orders. Current Diet Order/ Nutrition Support CCHO Low Na+ High K+ 1800kcal, 80gm Prtn Patient / S.O Not Indicated Pertinent Medications Pepcid, Lasix, Insulin Human Lispri, Cozaar Pertinent Labs (09/27) POC Glucose 178 H, () Gluc 167 H, Na+ 135 L Nutritional Hx/Data Height 1.57 m Height (Calculated Centimeters) 157.5 Current Weight (lbs) 70.307 kg Weight (Calculated Kilograms) 70.3 Weight (Calculated Grams) 05901.8 [place] Body Weight 110 % [place] Body Weight 141 Body Mass Index (BMI) 28.3 Weight Status Overweight GI Symptoms GI Symptoms None Last BM x1 (09/28) Difficult in: None Food Allergies No Cultural/Ethnic/Confucianist Belief None noted Skin Integrity/Comment: Oracio score 19 Current %PO Good (75-100%) Estimated Nutritional Goals BEE in Kcals: Adj wt of IBW Calories/Kcals/Kg 30-35 kcal / kg / day ( dialysis pt) Kcals Calculated [id number] kcal Protein: Adj wt of IBW Protein g/k - 1.3 gm Prtn / kg / day ( dialysis pt) Protein Calculated 55-72 gm Prtn Fluid: ml Per Md orders (dialysis pt) Nutritional Problem No current Nutrition Prob Problem N/A Malnutrition Alert Is there a minimum of two criteria No selected? Query Text:Check all the applicable criteria. A minimum of two criteria are recommended for diagnosis of either severe or non-severe malnutrition. Malnutrition Related to Morbid Obesity Malnutrition related to morbid obesity No Intervention/Recommendation Comments Consider changing diet to Renal Diet. Expected Outcomes/Goals Expected Outcomes/Goals - Maintain 100% PO intake - Labs trending to WNL - F/U in 3-5 days as
[2018-09-30] MEDS: Promethazine DM 6.25/15mg-5mL 5 ML SYR PO PRN (19:32)
[2018-09-30] MEDS: cefTRIAXone 1 GM in Sodium Chloride 0.9% 50 ML IV SCH (20:55)
[2018-09-30] MEDS: Insulin Glargine 100 units/ml 10ml Vial SUBQ SCH (20:57)
[2018-10-01] MEDS: Azithromycin 500 MG in Sodium Chloride 0.9% 250 ML IV SCH (01:13)
[2018-10-01] MEDS: Albuterol/Ipratropium Neb 3 ML AERS HHN SCH ×2 (03:25→07:18)
[2018-10-01 05:27] LABS: HEMOGLOBIN 11.5 gm/dL (12-16); MEAN CELL VOLUME 97.7 fl (81-100); MEAN CORPUSCULAR HEMOGLOBIN 32.1 pg (27.0-31.0); MEAN CORPUSCULAR HGB CONC 32.9 pg (28.0-36.0); MEAN PLATELET VOLUME 8.1 fl; PLATELET COUNT 193 Th/cmm (150-400); RED BLOOD COUNT 3.59 Mil/cmm (3.80-5.20); RED CELL DISTRIBUTION WIDTH 15.6 % (11.5-20.0); WHITE BLOOD COUNT 14.4 Th/cmm (4.8-10.8)
[2018-10-01 05:39] LABS: ANION GAP 18.8 (7.0-16.0); BUN - UREA NITROGEN 52 mg/dL (7-25); CALCIUM SERUM 8.1 mg/dL (8.6-10.3); CARBON DIOXIDE 20.7 mEq/L (21.0-31.0); CHLORIDE 98 mEq/L (98-107); GLUCOSE 321 mg/dL (70-105); POTASSIUM SERUM 3.5 mEq/L (3.5-5.1); SODIUM SERUM 134 mEq/L (136-145)
[2018-10-01] MEDS: methylPREDNISolone SS 40 mg Vial IVP SCH (05:44)
[2018-10-01 05:52] LABS: CREATININE - SERUM 4.5 mg/dL (0.6-1.2)
[2018-10-01 06:39] LABS: BAND NEUTROPHILE 0 % (0-10); BASOPHIL 0 % (0-3); EOSINOPHIL 0 % (0-5); LYMPHOCYTE 4 % (20-50); MONOCYTE 2 % (2-10); NEUTROPHILS 94 % (40-80)
[2018-10-01] MEDS: INSULIN LISPRO 100 UNIT/ML VIAL SUBQ SCH (08:01)
--- NOTE | 2018-10-01 08:23 | Diagnostic Imaging Report ---
Portable chest x-ray HISTORY: Cough Compared to prior exam of September 30, 2018, the heart remains enlarged. Small bilateral pleural effusions noted. IMPRESSION: 1. Cardiomegaly with small bilateral pleural effusions. Findings may be associated with a degree of congestive heart failure. Clinical correlation is needed.
[2018-10-01] MEDS: Lactobacillus Rhamnosus GG 15 Billion CFU CAP.SPRINK PO SCH (08:54)
--- NOTE | 2018-10-01 14:07 | Discharge Summary ---
DATE OF DISCHARGE: 10/01/2018 ADMITTING DIAGNOSES: 1. Bronchitis versus early pneumonia. 2. Volume overload with small bilateral pleural effusions and pulmonary vascular congestion. SECONDARY DIAGNOSES: History of end-stage renal disease, on hemodialysis; essential hypertension, history of arrhythmia, history of insulin-dependent diabetes. DISCHARGE DIAGNOSES: 1. Left lower lobe infiltrate/bronchitis -- clinically improved. 2. Volume overload with pulmonary vascular congestion -- clinically improved. 3. Leukocytosis -- likely partially secondary to steroids. CONSULTANTS: Dr. Worley, Nephrology. MAJOR PROCEDURES: No major procedures were done during this admission. BRIEF HOSPITAL COURSE: The patient is a 78-year-old female with history of end-stage renal disease, on hemodialysis Tuesdays, , and Saturdays, essential hypertension, diabetes, presented with a 1-week history of worsening cough, congestion and generalized malaise/weakness. The patient stated her cough started about a week prior to admission and she also had some shortness of breath, especially upon activity. The patient stated that most of the time her cough was nonproductive and she had developed some chest tightness and some chest pressure given the persistent cough. The patient did try to go to her primary care doctor who was not available and decided to come into the ER where a chest x-ray showed cardiomegaly with bilateral pleural effusions with findings consistent with congestive heart failure. The patient was admitted to the tele [facility] and placed on IV antibiotics, supplemental oxygen, and pulmonary supportive care. She also was dialyzed as scheduled and volume was extracted during these sessions. Her cough and symptoms did gradually improve, although her cough was still very persistent by hospital day #2. Therefore, she was also started on other antitussives including Tessalon drops and was also started on IV steroids. Objectively, The patient remained stable, afebrile with normal blood pressure readings. Her labs also remained stable during hospital stay except for the white count that went up to 15.7 on , which was attributed to the steroids. White count had improved by 14.4 by the . Her cough and her other symptoms had improved significantly by the time of her discharge. MEDICATIONS ON DISCHARGE: Levaquin 250 every day x 10 days, prednisone taper, albuterol MDI 90 mcg 2 puffs q.4 p.r.n., Phenergan DM 10 mL q.4 p.r.n. for cough and Tessalon drops 100 mg q.6 p.r.n. for cough. Other home medications as scheduled. DISPOSITION: The patient was instructed to follow up with her primary care doctor within 2-3 days and to follow up with Nephrology as scheduled. JOB# [id number] MTDD
== END 2018-10-01 11:45 | disposition home or self-care (01) | DRG 720 ==
LOC: ER 17:37 → TELE 09-27 00:02
PROVIDERS: ADMIT Internal Medicine; ATTEND Internal Medicine
PROC: 5A1D70Z Performance of Urinary Filtration, Intermittent, Less than 6 Hours Per Day (ICD-10-PCS; principal; 2018-09-27)
PROC: 5A1D70Z Performance of Urinary Filtration, Intermittent, Less than 6 Hours Per Day (ICD-10-PCS; 2018-09-28)
PROC: 5A1D70Z Performance of Urinary Filtration, Intermittent, Less than 6 Hours Per Day (ICD-10-PCS; 2018-09-30)
DX: A41.9 Sepsis, unspecified organism (principal); I13.2 Hypertensive heart and chronic kidney disease with heart failure and with stage 5 chronic kidney disease, or end stage renal disease; J18.9 Pneumonia, unspecified organism; E11.22 Type 2 diabetes mellitus with diabetic chronic kidney disease; N18.6 End stage renal disease; I50.9 Heart failure, unspecified; J40 Bronchitis, not specified as acute or chronic; Z99.2 Dependence on renal dialysis; I49.9 Cardiac arrhythmia, unspecified; R09.02 Hypoxemia; K29.70 Gastritis, unspecified, without bleeding; T38.0X5A Adverse effect of glucocorticoids and synthetic analogues, initial encounter; Y92.89 Other specified places as the place of occurrence of the external cause
CPT/HCPCS: 36415-UA; 71045-TC; 71046-TC; 80048-TC; 80053-TC; 80061-TC; 80074-90; 81001-TC; 82948-90; 83036-90; 83735-TC; 83880-TC; 84100-TC; 84443-TC; 84484-TC; 85007-TC; 85025-TC; 87070; 87086-90; 87804-TC; 90937; 93005; 94640; 94760; J0456; J0696; J1644; J1815; J2543; J2920; J7030; J7040; Z7610